=== PATIENT | female | born 1955 | race Caucasian/White ===

== ENCOUNTER 2020-09-27 11:09 | Outpatient (REF) | payer BC, SELFPAY ==
--- NOTE | 2020-09-27 11:15 | XR_ITS ---
EXAMINATION: XR KNEE, LEFT CLINICAL INFORMATION: Injury COMPARISON: None TECHNIQUE: Four views of the left knee. FINDINGS: There is a 3 component left knee replacement in satisfactory position. No fracture or dislocation is seen. There is no joint effusion. There is evidence of atherosclerotic disease. XR/XR knee LT 4V IMPRESSION: Satisfactory appearance of left knee replacement. No fracture or dislocation seen.
== END 2020-09-27 11:10 | disposition home or self-care (01) ==
LOC: HO.HMGCX 11:09
PROVIDERS: PCP Family Medicine; Visit Provider Family Medicine
DX: S89.92XA Unspecified injury of left lower leg, initial encounter (principal)
CPT/HCPCS: 73564

== ENCOUNTER 2021-05-16 10:04 | Outpatient (REF) | payer MEDICARE, SELFPAY ==
--- NOTE | ~2021-05-16 | MM_ITS ---
EXAMINATION: MM SCREENING DIGITAL BREAST TOMOSYNTHESIS, BILATERAL CLINICAL INFORMATION: Screening. Asymptomatic. The lifetime risk of breast cancer based on the Tyrer-Cuzick Model is 5%. COMPARISON: Mammography: 05/10/2020, 02/01/2019, 01/13/2018 TECHNIQUE: Digital breast tomosynthesis is performed in both the craniocaudal and mediolateral oblique views along with computer-aided detection (CAD). Synthesized 2D images are generated from the tomosynthesis. FINDINGS: There are scattered areas of fibroglandular density (ACR BI-RADS breast composition Category b). There are no significant masses, abnormal calcifications, or other abnormalities. Parenchymal pattern is similar to prior studies. There is smooth oval stable nodule periareolar left breast. Right breast again has grouped coarse calcifications central upper outer quadrant likely fibroadenomatous change. The axilla and skin contours are unremarkable. MM/MM tomosynthesis screening BI IMPRESSION: No mammographic evidence of malignancy. ASSESSMENT: BI-RADS 2: Benign RECOMMENDATION: Routine annual mammography screening. This patient's information was entered into a reminder system with a target due date for their next mammogram.
== END 2021-05-16 10:05 | disposition home or self-care (01) ==
LOC: HO.MAMMO 10:04
PROVIDERS: PCP Family Medicine; Visit Provider Family Medicine
DX: Z12.31 Encounter for screening mammogram for malignant neoplasm of breast (principal)
CPT/HCPCS: 77063; 77067

== ENCOUNTER 2021-07-03 14:38 | Outpatient (REF) | payer MEDICARE, SELFPAY ==
[2021-07-03 15:22] LABS: Influenza A PCR NEGATIVE (Negative); Influenza B PCR NEGATIVE (Negative); Resp Syncy Virus RNA Qual PCR NEGATIVE (Negative); SARS COV2 PCR INHOUSE NEGATIVE (Negative)
== END 2021-07-03 14:39 | disposition home or self-care (01) ==
LOC: HO.LNP 14:38
PROVIDERS: Visit Provider Family Medicine
DX: B34.9 Viral infection, unspecified (principal); Z20.822 Contact with and (suspected) exposure to COVID-19
CPT/HCPCS: 0241U

== ENCOUNTER 2021-07-09 07:08 | Outpatient (REF) | payer MEDICARE, SELFPAY ==
[2021-07-09 10:47] LABS: MANUAL DIFF FLAG NO
[2021-07-09 10:56] LABS: Basophils Percent Auto 0.5 % (0-2); Eosinophils Absolute Auto 0.1 X10*3/uL (0.0-0.4); Hemoglobin 11.2 g/dl (12.0-16.0); Imm Gran Abs Auto 0.02 X10*3/uL (0.00-0.03); Imm Gran Pct Auto 0.3 % (0.0-0.4); Lymphocytes Absolute Auto 1.8 X10*3/uL (1.2-4.9); Lymphocytes Percent Auto 28.1 % (20-40); Mean Corpuscular Hemoglobin 29.7 pg (27.0-33.0); Mean Corpuscular Volume 92.8 fL (80-98); Mean Platelet Volume 10.3 fL (9.4-12.3); Monocytes Absolute Auto 0.4 X10*3/uL (0.1-1.2); Monocytes Percent Auto 5.5 % (2-11); Neutrophils Absolute Auto 4.2 X10*3/uL (2.0-8.3); Neutrophils Percent Auto 63.6 % (45-73); Platelet Count 311 X10*3/uL (160-400); Red Blood Count 3.77 X10*6/uL (4.20-5.50); Red Cell Distribution Width 15.3 % (11.0-16.0); White Blood Count 6.5 X10*3/uL (4.8-10.8)
[2021-07-09 11:29] LABS: Estimated Average Glucose 94 mg/dL; Hemoglobin A1c % 4.9 %
[2021-07-09 11:41] LABS: TSH reflex Free T4 3.17 uIU/mL (0.32-4.0)
[2021-07-09 11:45] LABS: Alanine Aminotransferase 13 U/L (0-31); Albumin Level 4.1 g/dL (3.5-5.0); Alkaline Phosphatase 71 U/L (39-117); Anion Gap 11 (12-20); Aspartate Amino Transferase 19 U/L (5-31); Bilirubin Total 0.6 mg/dL (0.0-1.0); Blood Urea Nitrogen 16 mg/dL (9-16); Calcium 9.6 mg/dL (8.4-10.2); Carbon Dioxide 24 mmol/L (22-29); Chloride 109 mmol/L (96-108); Cholesterol 200 mg/dL; Estimated Glomerular Filt Rate > 60; Glucose Fasting 96 mg/dL (60-99); HDL Cholesterol 76 mg/dL; LDL Cholesterol Calculated 111 mg/dl; Potassium 4.3 mmol/L (3.3-5.1); Sodium 140 mmol/L (135-145); Total Protein 6.9 g/dL (6.5-8.0); Triglycerides 66 mg/dL
== END 2021-07-09 07:09 | disposition home or self-care (01) ==
LOC: HO.WFDLDS 07:08
PROVIDERS: Visit Provider Family Medicine
DX: Z00.00 Encounter for general adult medical examination without abnormal findings (principal); R73.01 Impaired fasting glucose
CPT/HCPCS: 36415; 80053; 80061; 83036; 84443; 85025

== ENCOUNTER 2021-09-30 10:37 | Outpatient (REF) | payer MEDICARE, SELFPAY ==
[2021-10-03 21:31] LABS: HPV mRNA E6/E7 rflx Not Detected (Not Detected)
== END 2021-09-30 10:38 | disposition home or self-care (01) ==
LOC: HO.LAB 10:37
PROVIDERS: PCP Family Medicine; Visit Provider Obstetrics & Gynecology
DX: Z01.419 Encounter for gynecological examination (general) (routine) without abnormal findings (principal); Z11.51 Encounter for screening for human papillomavirus (HPV)
CPT/HCPCS: 87624; 88142

== ENCOUNTER 2021-10-17 09:35 | Outpatient (REF) | payer MEDICARE, SELFPAY ==
--- NOTE | ~2021-10-17 | MM_ITS ---
EXAMINATION: BONE DENSITOMETRY CLINICAL INDICATION: Menopause. COMPARISON: Previous BD dated 05/10/2020 and baseline BD dated 01/13/2018. TECHNIQUE: Using a [employer] DXA System (software version: 13.1) manufactured by [employer], dual-energy x-ray absorptiometry was performed of the lumbar spine and right hip. Patient with left hip replacement. The images are of good technical quality. Summary results are attached. FINDINGS: AP SPINE L1-L4: Current: BMD 1.061 g/cm2, Z-score 0.3, T-score -1.0, normal, 3.1% decrease from previous, 1.6% decrease from baseline (<5% change is not significant). Prior: BMD 1.095 g/cm2. Baseline: BMD 1.078 g/cm2. RIGHT FEMUR, NECK: Current: BMD 0.950 g/cm2, Z-score 0.7, T-score -0.6, normal. Prior: BMD 0.940 g/cm2. Baseline: BMD 0.945 g/cm2. RIGHT FEMUR, TOTAL: Current: BMD 0.968 g/cm2, Z-score 0.7, T-score -0.3, normal, 1.6% decrease from previous, 0.3% decrease from baseline (<5% change is not significant). Prior: BMD 0.984 g/cm2. Baseline: BMD 0.971 g/cm2. IDENTIFIED RISK FACTORS: Menopause, low calcium intake. HISTORY OF FRACTURE: None listed. MEDICATIONS: Calcium, vitamin D. MM/XR DEXA axial skeleton IMPRESSION: 1. DIAGNOSIS: Normal bone density based on the lowest T-score value of -1.0 in the lumbar spine applying World Health Organization criteria. 2. 10-YEAR FRACTURE RISK PREDICTION, FRAX: Major osteoporotic fracture (clinical spine, forearm, hip or shoulder) 7.4%. Hip fracture 0.4%. 3. Treatment Recommendations: NOF guidelines recommend consideration for treatment in postmenopausal women and men age 50 and older presenting with the following: -A hip or vertebral (clinical or morphometric) fracture. -T-score less than or equal to -2.5 at the femoral neck or spine after appropriate evaluation to exclude secondary causes. -Low bone mass at the hip or spine and a 10-year fracture probability by FRAX of greater than or equal to 3% for hip fracture or greater than or equal to 20% for major osteoporotic fracture based on the [place] adapted WHO algorithm. 4. Other Recommendations: All treatment decisions require clinical judgment and consideration of individual patient factors, including patient preferences, comorbidities, previous drug use, risk factors not captured in the FRAX model (e.g. frailty, falls, vitamin D deficiency, increased bone turnover, interval significant decline in bone density) and possible under or overestimation of fracture risk by FRAX. FUTURE SCAN RECOMMENDATION: People with diagnosed cases of osteoporosis or at high risk for fracture should have regular bone mineral density tests. For patients eligible for Medicare, routine testing is allowed once every 2 years. The testing frequency can be increased to one year for patients who have rapidly progressing disease, those who are receiving or discontinuing medical therapy to restore bone mass, or have additional risk factors.
== END 2021-10-17 09:36 | disposition home or self-care (01) ==
LOC: HO.MAMMO 09:35
PROVIDERS: Visit Provider Obstetrics & Gynecology
DX: Z13.820 Encounter for screening for osteoporosis (principal); Z78.0 Asymptomatic menopausal state; Z79.899 Other long term (current) drug therapy
CPT/HCPCS: 77080

== ENCOUNTER → 2021-10-30 09:42 | Outpatient (BNVA) | payer MEDICARE, SELFPAY | PROVIDERS: PCP Family Medicine; Visit Provider Obstetrics & Gynecology | DX: M85.80 Other specified disorders of bone density and structure, unspecified site (principal) | CPT/HCPCS: 99212 ==

== ENCOUNTER 2021-11-03 14:32 | Outpatient (REF) | payer MEDICARE, SELFPAY | END 2021-11-03 14:33 | disposition home or self-care (01) | LOC: HO.LNP 14:32 | PROVIDERS: Visit Provider Physician Assistant Medical | DX: Z20.822 Contact with and (suspected) exposure to COVID-19 (principal) | CPT/HCPCS: U0003; U0005 ==

== ENCOUNTER 2021-12-15 08:54 | Outpatient (REF) | payer MEDICARE, SELFPAY ==
--- NOTE | ~2021-12-15 | CT_ITS ---
EXAMINATION: CT CHEST SCREENING CLINICAL INFORMATION: Smoker. COMPARISON: CT chest 05/23/2020. TECHNIQUE: Multidetector volumetric CT imaging of the chest is performed without contrast using low dose technique. Additional 2D coronal and sagittal reformatted images and axial 3D maximum intensity projection (MIP) images are generated on the CT workstation. This CT examination was performed using dose optimization techniques as appropriate, variously including the following: *Automated exposure control *Adjustment of mA and/or kV according to patient size (this includes techniques or standardized protocols for targeted exams where dose is matched to indication/reason for exam; i.e. extremities or head) *Use of iterative reconstruction technique DLP: 38 mGy-cm FINDINGS: LUNGS: The lungs are well expanded with band-like atelectasis right upper lobe and patchy atelectasis in the lingula. There is a 2 mm nodule along the left superior major fissure axial image 92/6, 2 mm subpleural-based nodule right lung apex image 70/6. No additional pulmonary nodule seen. MEDIASTINUM: The thyroid lobes are symmetrical and normal. The central trachea and the bronchi are widely patent. The heart size and the great vessels are normal caliber. There is trace coronary artery calcification. No pericardial effusion seen. PLEURA: There is no pleural effusion. No pleural mass or thickening. AXILLA: No lymphadenopathy. UPPER ABDOMEN: Visualized liver, spleen, pancreas, bilateral adrenal glands are unremarkable. OSSEOUS STRUCTURES: No lytic or sclerotic process seen. There is mild ventral spondylosis dorsal spine. CT/CT lung screening IMPRESSION: Small subpleural nodules in both upper lobes. They are stable. No new nodules seen. ASSESSMENT: Lung-RADS category 2: Benign RECOMMENDATION: Low-dose annual chest CT follow-up.
== END 2021-12-15 08:55 | disposition home or self-care (01) ==
LOC: HO.CT 08:54
PROVIDERS: Visit Provider Physician Assistant Medical
DX: Z12.2 Encounter for screening for malignant neoplasm of respiratory organs (principal); F17.200 Nicotine dependence, unspecified, uncomplicated
CPT/HCPCS: 71271

== ENCOUNTER 2022-02-03 10:45 | Outpatient (REF) | payer MEDICARE, SELFPAY ==
[2022-02-03 11:07] LABS: MANUAL DIFF FLAG NO
[2022-02-03 11:58] LABS: Basophils Percent Auto 0.9 % (0-2); Eosinophils Absolute Auto 0.1 X10*3/uL (0.0-0.4); Hematocrit 33.6 % (37.0-47.0); Hemoglobin 11.1 g/dl (12.0-16.0); Imm Gran Abs Auto 0.01 X10*3/uL (0.00-0.03); Imm Gran Pct Auto 0.2 % (0.0-0.4); Lymphocytes Absolute Auto 1.4 X10*3/uL (1.2-4.9); Lymphocytes Percent Auto 30.9 % (20-40); Mean Corpuscular Hemoglobin 29.5 pg (27.0-33.0); Mean Corpuscular Volume 89.4 fL (80.0-98.0); Monocytes Absolute Auto 0.4 X10*3/uL (0.1-1.2); Monocytes Percent Auto 8.2 % (2-11); Neutrophils Absolute Auto 2.6 x10*3/uL (2.0-8.3); Neutrophils Percent Auto 57.8 % (45-73); Platelet Count 287 X10*3/uL (160-400); Red Blood Count 3.76 X10*6/uL (4.20-5.50); Red Cell Distribution Width 16.2 % (11.0-16.0); White Blood Count 4.5 X10*3/uL (4.8-10.8)
== END 2022-02-03 10:46 | disposition home or self-care (01) ==
LOC: HO.LAB 10:45
PROVIDERS: PCP Family Medicine; Visit Provider Family Medicine
DX: Z00.00 Encounter for general adult medical examination without abnormal findings (principal); D64.9 Anemia, unspecified
CPT/HCPCS: 36415; 85025

== ENCOUNTER 2022-03-10 06:45 | Outpatient (REF) | payer MEDICARE, SELFPAY ==
[2022-03-10 06:57] LABS: MANUAL DIFF FLAG NO
[2022-03-10 07:39] LABS: Basophils Percent Auto 0.6 % (0-2); Eosinophils Absolute Auto 0.2 X10*3/uL (0.0-0.4); Eosinophils Percent Auto 3.6 % (0-4); Hematocrit 33.1 % (37.0-47.0); Hemoglobin 10.6 g/dl (12.0-16.0); Immature Retic Fraction 8.8 % (3.0-15.9); Lymphocytes Absolute Auto 2.3 X10*3/uL (1.2-4.9); Lymphocytes Percent Auto 48.8 % (20-40); Mean Corpuscular Hemoglobin 28.6 pg (27.0-33.0); Mean Corpuscular Volume 89.5 fL (80.0-98.0); Monocytes Absolute Auto 0.3 X10*3/uL (0.1-1.2); Monocytes Percent Auto 7.3 % (2-11); Neutrophils Absolute Auto 1.9 x10*3/uL (2.0-8.3); Neutrophils Percent Auto 39.7 % (45-73); Platelet Count 267 X10*3/uL (160-400); Red Cell Distribution Width 16.1 % (11.0-16.0); Retic HGB Equivalent 31.8 pg (30.0-35.0); Reticulocytes Absolute 0.038 X10*6/uL (0.026-0.095); White Blood Count 4.7 X10*3/uL (4.8-10.8)
[2022-03-10 08:21] LABS: Ferritin 10 ng/mL (10-250)
[2022-03-10 08:31] LABS: Iron 89 mcg/dL (30-160); Percent Iron Saturation 26 % (15-50); Total Iron Binding Capacity 344 mcg/dL (228-428); Unsaturated Iron Binding 255 ug/dL
[2022-03-10 08:35] LABS: Folate 19.7 ng/mL (> or = 4.0); Vitamin B12 499 pg/mL (200-900)
== END 2022-03-10 06:46 | disposition home or self-care (01) ==
LOC: HO.LAB 06:45
PROVIDERS: PCP Family Medicine; Visit Provider Family Medicine
DX: Z00.00 Encounter for general adult medical examination without abnormal findings (principal); D64.9 Anemia, unspecified; E53.8 Deficiency of other specified B group vitamins
CPT/HCPCS: 36415; 82607; 82728; 82746; 83540; 85025; 85045

== ENCOUNTER 2022-05-06 09:00 | Outpatient (REF) | payer MEDICARE, SELFPAY ==
[2022-05-06 11:21] LABS: MANUAL DIFF FLAG NO
[2022-05-06 11:31] LABS: Basophils Percent Auto 0.6 % (0-2); Eosinophils Absolute Auto 0.1 X10*3/uL (0.0-0.4); Eosinophils Percent Auto 1.6 % (0-4); Hematocrit 34.3 % (37.0-47.0); Hemoglobin 10.9 g/dl (12.0-16.0); Imm Gran Abs Auto 0.02 X10*3/uL (0.00-0.03); Imm Gran Pct Auto 0.3 % (0.0-0.4); Lymphocytes Absolute Auto 2.4 X10*3/uL (1.2-4.9); Lymphocytes Percent Auto 35.7 % (20-40); Mean Corpuscular HGB Conc 31.8 g/dl (31.0-35.0); Mean Corpuscular Hemoglobin 28.5 pg (27.0-33.0); Mean Corpuscular Volume 89.6 fL (80.0-98.0); Mean Platelet Volume 9.9 fL (9.4-12.3); Monocytes Absolute Auto 0.4 X10*3/uL (0.1-1.2); Monocytes Percent Auto 6.1 % (2-11); Neutrophils Absolute Auto 3.7 x10*3/uL (2.0-8.3); Neutrophils Percent Auto 55.7 % (45-73); Platelet Count 254 X10*3/uL (160-400); Red Blood Count 3.83 X10*6/uL (4.20-5.50); Red Cell Distribution Width 16.8 % (11.0-16.0); White Blood Count 6.7 X10*3/uL (4.8-10.8)
== END 2022-05-06 09:01 | disposition home or self-care (01) ==
LOC: HO.WFDLDS 09:00
PROVIDERS: Visit Provider Family Medicine
DX: D64.9 Anemia, unspecified (principal)
CPT/HCPCS: 36415; 85025

== ENCOUNTER → 2022-05-07 10:30 | Outpatient (BNV) | payer MEDICARE, SELFPAY | PROVIDERS: PCP Family Medicine; Referring Provider Family Medicine; Visit Provider Internal Medicine Medical Oncology | DX: D50.8 Other iron deficiency anemias (principal) | CPT/HCPCS: 99204; 99213 ==

== ENCOUNTER 2022-05-12 | Outpatient (REF) | payer MEDICARE, SELFPAY ==
[2022-05-15 07:18] LABS: OBS Int Ctl Valid YES; OBS1 NEGATIVE (NEGATIVE); OBS2 NEGATIVE (NEGATIVE); OBS3 NEGATIVE (NEGATIVE)
== END 2022-05-12 00:01 | disposition home or self-care (01) ==
LOC: HO.LNP
PROVIDERS: Visit Provider Internal Medicine Medical Oncology
DX: D64.9 Anemia, unspecified (principal)
CPT/HCPCS: 82270

== ENCOUNTER 2022-05-21 10:21 | Outpatient (REF) | payer MEDICARE, SELFPAY ==
--- NOTE | ~2022-05-21 | MM_ITS ---
EXAMINATION: MM SCREENING DIGITAL BREAST TOMOSYNTHESIS, BILATERAL CLINICAL INFORMATION: Screening. Asymptomatic. The lifetime risk of breast cancer based on the Tyrer-Cuzick Model is 4%. COMPARISON: Mammography: 05/16/2021, 05/10/2020, 02/01/2019, 01/13/2018 TECHNIQUE: Digital breast tomosynthesis is performed in both the craniocaudal and mediolateral oblique views along with computer-aided detection (CAD). Synthesized 2D images are generated from the tomosynthesis. FINDINGS: There are scattered areas of fibroglandular density (ACR BI-RADS breast composition Category b). Right breast has a new circumscribed 0.4 cm smooth nodule retroareolar 9:00 position, possibly a cyst. Patient will be recalled for additional targeted ultrasound to further characterize. The remainder of the breasts show scattered fibroglandular density stromal markings similar to prior studies. Again, there are tightly grouped stable benign calcifications mid upper outer right breast likely fibroadenomatous change. The axilla and skin contours are unremarkable. MM/MM tomosynthesis screening BI IMPRESSION: Right: -New 4 mm smooth nodule 9:00 retroareolar position, possibly a cyst. Left: -No mammographic evidence of malignancy. ASSESSMENT: BI-RADS 0: Incomplete - Need Additional Imaging Evaluation RECOMMENDATION: 1. Targeted ultrasound right breast. 2. Radiology department staff will contact the patient for additional imaging. This patient's information was entered into a reminder system with a target due date for their next mammogram.
== END 2022-05-21 10:22 | disposition home or self-care (01) ==
LOC: HO.MAMMO 10:21
PROVIDERS: Visit Provider Family Medicine
DX: Z12.31 Encounter for screening mammogram for malignant neoplasm of breast (principal)
CPT/HCPCS: 77063; 77067

== ENCOUNTER 2022-05-26 07:50 | Outpatient (REF) | payer MEDICARE, SELFPAY | END 2022-05-26 07:51 | disposition home or self-care (01) | LOC: HO.MDS 07:50 | PROVIDERS: Visit Provider Internal Medicine Medical Oncology | DX: D50.9 Iron deficiency anemia, unspecified (principal); N63.10 Unspecified lump in the right breast, unspecified quadrant | CPT/HCPCS: 76642; 96365; J2916 ==

== ENCOUNTER 2022-05-26 14:16 | Outpatient (REF) | payer MEDICARE, SELFPAY ==
--- NOTE | ~2022-05-26 | US_ITS ---
EXAMINATION: US DIAGNOSTIC ULTRASOUND BREAST, RIGHT CLINICAL INFORMATION: Recall from screening for 4 mm smooth nodule 9:00 retroareolar right breast, possibly a cyst. COMPARISON: Mammography 05/21/2022, 05/16/2021. TECHNIQUE: Ultrasound right breast is targeted to the outer retroareolar region. Grayscale imaging and color Doppler are performed without and with harmonics. FINDINGS: There is a 3 x 4 mm cyst anterior 9:00 position corresponding to finding on mammography. This is anechoic with increased through-transmission of sound and no color flow. There is no solid mass or architectural abnormality. Results are discussed with the patient at time of visit. US/US breast RT limited IMPRESSION: Small cyst anterior 9:00 position 3 x 4 mm corresponding to recent mammography. ASSESSMENT: BI-RADS 2: Benign RECOMMENDATION: Routine annual mammography screening. This patient's information was entered into a reminder system with a target due date for their next mammogram.
== END 2022-05-26 14:17 | disposition home or self-care (01) ==
LOC: HO.MAMMO 14:16
PROVIDERS: Visit Provider Family Medicine
DX: Z13.89 Encounter for screening for other disorder (principal)
CPT/HCPCS: 76642

== ENCOUNTER 2022-06-01 07:22 | Outpatient (REF) | payer MEDICARE, SELFPAY | END 2022-06-01 07:23 | disposition home or self-care (01) | LOC: HO.MDS 07:22 | PROVIDERS: Visit Provider Internal Medicine Medical Oncology | DX: D50.9 Iron deficiency anemia, unspecified (principal) | CPT/HCPCS: 96365; J2916 ==

== ENCOUNTER 2022-06-12 09:03 | Outpatient (REF) | payer MEDICARE, SELFPAY | END 2022-06-12 09:04 | disposition home or self-care (01) | LOC: HO.MDS 09:03 | PROVIDERS: Visit Provider Internal Medicine Medical Oncology | DX: D50.9 Iron deficiency anemia, unspecified (principal) | CPT/HCPCS: 96365; J2916 ==

== ENCOUNTER 2022-06-17 08:22 | Outpatient (REF) | payer MEDICARE, SELFPAY | END 2022-06-17 08:23 | disposition home or self-care (01) | LOC: HO.MDS 08:22 | PROVIDERS: Visit Provider Internal Medicine Medical Oncology | DX: D50.9 Iron deficiency anemia, unspecified (principal) | CPT/HCPCS: 96365; J2916 ==

== ENCOUNTER 2022-06-25 08:21 | Outpatient (REF) | payer MEDICARE, SELFPAY ==
[2022-06-25 08:43] LABS: MANUAL DIFF FLAG NO
[2022-06-25 08:45] LABS: Basophils Percent Auto 0.8 % (0-2); Eosinophils Absolute Auto 0.1 X10*3/uL (0.0-0.4); Eosinophils Percent Auto 3.3 % (0-4); Hematocrit 34.9 % (37.0-47.0); Hemoglobin 11.5 g/dl (12.0-16.0); Imm Gran Abs Auto 0.02 X10*3/uL (0.00-0.03); Imm Gran Pct Auto 0.5 % (0.0-0.4); Lymphocytes Absolute Auto 1.4 X10*3/uL (1.2-4.9); Lymphocytes Percent Auto 34.6 % (20-40); Mean Corpuscular Hemoglobin 29.9 pg (27.0-33.0); Mean Corpuscular Volume 90.9 fL (80.0-98.0); Mean Platelet Volume 9.1 fL (9.4-12.3); Monocytes Absolute Auto 0.2 X10*3/uL (0.1-1.2); Monocytes Percent Auto 5.3 % (2-11); Neutrophils Absolute Auto 2.2 x10*3/uL (2.0-8.3); Neutrophils Percent Auto 55.5 % (45-73); Platelet Count 237 X10*3/uL (160-400); Red Blood Count 3.84 X10*6/uL (4.20-5.50); Red Cell Distribution Width 17.3 % (11.0-16.0)
== END 2022-06-25 08:22 | disposition home or self-care (01) ==
LOC: HO.MDS 08:21
PROVIDERS: Visit Provider Internal Medicine Medical Oncology
DX: D50.9 Iron deficiency anemia, unspecified (principal)
CPT/HCPCS: 36415; 85025; 96365; J2916

== ENCOUNTER 2022-07-01 08:24 | Outpatient (REF) | payer MEDICARE, SELFPAY | END 2022-07-01 08:25 | disposition home or self-care (01) | LOC: HO.MDS 08:24 | PROVIDERS: Visit Provider Internal Medicine Medical Oncology | DX: D50.9 Iron deficiency anemia, unspecified (principal) | CPT/HCPCS: 96365; J2916 ==

== ENCOUNTER 2022-07-27 12:40 | Outpatient (REF) | payer MEDICARE, SELFPAY | END 2022-07-27 12:41 | disposition home or self-care (01) | LOC: HO.MDS 12:40 | PROVIDERS: Visit Provider Internal Medicine Medical Oncology | DX: D50.9 Iron deficiency anemia, unspecified (principal) | CPT/HCPCS: 96365; J1756 ==

== ENCOUNTER 2022-08-06 13:17 | Outpatient (REF) | payer MEDICARE, SELFPAY | END 2022-08-06 13:18 | disposition home or self-care (01) | LOC: HO.MDS 13:17 | PROVIDERS: Visit Provider Internal Medicine Medical Oncology | DX: D50.9 Iron deficiency anemia, unspecified (principal) | CPT/HCPCS: 96365; J1756 ==

== ENCOUNTER 2022-08-12 07:26 | Outpatient (REF) | payer MEDICARE, SELFPAY | END 2022-08-12 07:27 | disposition home or self-care (01) | LOC: HO.MDS 07:26 | PROVIDERS: Visit Provider Internal Medicine Medical Oncology | DX: D50.9 Iron deficiency anemia, unspecified (principal) | CPT/HCPCS: 96365; J1756 ==

== ENCOUNTER 2022-08-21 07:29 | Day surgery (SDC) | payer MEDICARE, SELFPAY ==
[2022-08-18 11:12] VITALS: BMI 27.1
--- NOTE | 2022-08-20 11:45 | HO.ANESPROP2 ---
Documented by User: Lora Pearl NP 08/20/22 11:56 HPI - Anesthesia Eval Consult details Narrative: 67yo F for Upper Endoscopy and Colonoscopy eliquis for afib Stable at last cardiac visit 06/2022 [facility] Active Problems Active Problems: All Active Problems (Updated 05/07/22 @ 12:28 by Martin Dupree MD) Left knee injury (Acute) Status post left knee replacement (Acute) Anxiety (Acute) Left knee pain (Acute) History of left knee replacement (Acute) Atrial fibrillation (Acute) SVT (supraventricular tachycardia) (Acute) Viral illness (Acute) Annual visit for general adult medical examination without abnormal findings (Acute) Screening for osteoporosis (Acute) Immunization counseling (Acute) Breast cancer screening by mammogram (Acute) Screening for colon cancer (Acute) Screening for cervical cancer (Acute) Depression with anxiety (Acute) Mild anemia (Acute) Well woman exam (Acute) Osteopenia (Acute) Contact with and (suspected) exposure to other viral communicable diseases (Acute) Memory changes (Acute) Normocytic anemia (Acute) Muscle cramp (Acute) Normochromic normocytic anemia (Acute) Past Medical History Medical History Atrial fibrillation Depression with anxiety HTN (hypertension) Normocytic anemia Osteopenia SVT (supraventricular tachycardia) Family History Family History Brother Lung cancer Surgical History Surgical History H/O heart surgery History of left knee replacement History of prior ablation treatment History of total hip replacement Hx of colonoscopy Social History Social History Household Members: Spouse and Children Housing: House Are you a primary director critical care to a significant other at home: No Do you presently have visiting nurse or other home services: No Alcohol intake: current Alcohol intake frequency: holidays/special occasions only Alcohol type: beer Patient Tobacco Use Status: Former Tobacco user Quit Date: 15 yrs ago e-Cigarette/Vaping Use: Never Used Second Hand Smoke Exposure: No Use of substances other than those prescribed or required for medical reasons: No Are you DNR?: No Advance Directives: No Advance Directives Information Provided: Yes service: No Current occupational status: retired Current occupational exposures/hazards: No Cognitive needs: No Hearing needs: No Vision needs: No Meds Allergies Allergy/AdvReac Type Severity Reaction Status Date / Time No Known Allergies Allergy Verified 08/13/22 08:28 [No Known Allergies*] Home Medications Medication Instructions Recorded Confirmed Last Taken Type biotin 10,000 mcg disintegrating 10,000 mcg PO DAILY 05/07/22 08/21/22 Unknown History tablet calcium carbonate 500 mg-vitamin 1 tab PO DAILY 05/07/22 08/21/22 Unknown History D3 3.125 mcg (125 unit) tablet diclofenac sodium 1 % topical gel 3 - 4 g topical TID 05/07/22 08/21/22 Unknown History (Voltaren Arthritis Pain) xkjcusbh-swi-xjuv-FA-Ca carb-vit K 1 tab PO DAILY 05/07/22 08/21/22 Unknown History 18 mg iron-400 mcg-500 mg tablet clonazepam 0.5 mg tablet (Klonopin) 0.5 mg PO BID PRN anxiety 07/30/22 08/21/22 Unknown History Exam Exam Date and Time: August 20, 2022 1145 Height,Weight and Vital Signs: Height 5 ft 3 in Weight 69.4 kg Pertinent Lab Results Pertinent Lab Results: Laboratory Tests 08/13/22 08/13/22 08:23 08:23 WBC 4.8 Hgb 11.8 L Hct 35.9 L Plt Count 249 Sodium 141 Potassium 4.3 Chloride 107 Carbon Dioxide 26 BUN 15 Creatinine 0.73 Narrative Narrative: EKG 11/2021 SR @ 65 PACs ECHO 05/2022 LVEF 65-70% Interderminate diastolic function LA severely dilated No aortic stenosis Mild MR RV systolic pressure, as measured by Doppler is 25mmHg No evidence of pulm htn Ascending aorta is nml in size No change from 2018 Assessment and Plan Assessment Anesthesia Assessment: Chart Reviewed Documented by User: Vicky Menjivar MD 08/21/22 08:47 [facility] Past Medical History Medical History Atrial fibrillation Depression with anxiety HTN (hypertension) Normocytic anemia Osteopenia SVT (supraventricular tachycardia) Family History Family History Brother Lung cancer Surgical History Surgical History H/O heart surgery History of left knee replacement History of prior ablation treatment History of total hip replacement Hx of colonoscopy History of Problems with Anesthesia: No Social History Social History Household Members: Spouse and Children Housing: House Are you a primary director critical care to a significant other at home: No Do you presently have visiting nurse or other home services: No Alcohol intake: current Alcohol intake frequency: holidays/special occasions only Alcohol type: beer Patient Tobacco Use Status: Former Tobacco user Quit Date: 15 yrs ago e-Cigarette/Vaping Use: Never Used Second Hand Smoke Exposure: No Use of substances other than those prescribed or required for medical reasons: No Are you DNR?: No Advance Directives: No Advance Directives Information Provided: Yes service: No Current occupational status: retired Current occupational exposures/hazards: No Cognitive needs: No Hearing needs: No Vision needs: No Meds Allergies Allergy/AdvReac Type Severity Reaction Status Date / Time No Known Allergies Allergy Verified 08/13/22 08:28 [No Known Allergies*] Home Medications Medication Instructions Recorded Confirmed Last Taken Type biotin 10,000 mcg disintegrating 10,000 mcg PO DAILY 05/07/22 08/21/22 Unknown History tablet calcium carbonate 500 mg-vitamin 1 tab PO DAILY 05/07/22 08/21/22 Unknown History D3 3.125 mcg (125 unit) tablet diclofenac sodium 1 % topical gel 3 - 4 g topical TID 05/07/22 08/21/22 Unknown History (Voltaren Arthritis Pain) xlvzkhmk-cjr-klmh-FA-Ca carb-vit K 1 tab PO DAILY 05/07/22 08/21/22 Unknown History 18 mg iron-400 mcg-500 mg tablet clonazepam 0.5 mg tablet (Klonopin) 0.5 mg PO BID PRN anxiety 07/30/22 08/21/22 Unknown History Exam Airway Mallampati Class: II TM Dist: >3cm Neck ROM: Full Loose/Missing/Broken Teeth: No Heart: RRR Lungs: CTA Assessment and Plan Assessment Anesthesia Assessment: Anesthesia Plan Discussed Final Anesthetic Review History of Problems with Anesthesia: No NPO: Yes ASA Class: II Final Preanesthetic Review: Meds/Allgs Chart Reviewed, Consent Obtained/Reviewed and Anes Risks/Benef Reviewed Patient Risk: Low Procedure Risk: Intermediate Anesthetic Plan Anesthetic Plan: MAC: Disposition: Standard PACU
[2022-08-21 08:10] VITALS: BP 140/59; PULSE 55; RESP 15; TEMP 36.4; O2SAT 97
[2022-08-21] MEDS: Lactated Ringers 1,000 ML 100 ML IVCONT (08:20)
[2022-08-21 09:50] VITALS: BP 137/60; PULSE 54; RESP 20; TEMP 36.3; O2SAT 97
--- NOTE | 2022-08-21 09:56 | P.BOP_ITS ---
Brief Operative Note Date of Service: 08/21/22 Pre-op diagnosis: GERD, Anemia Post-op diagnosis: other (Hiatal hernia, Gastritis, Diverticulosis) Procedure: EGD with biopsies, Colonoscopy to the cecum Surgeon: Jean Hairston Anesthesia: MAC Was an Surveillance Technician used for this Procedure?: No Estimated blood loss (mL): 2.0 Pathology: other (A. Descending duodenum B. Gastric antrum C. Esophagus 34-35 cm) Condition: stable Disposition: PACU
[2022-08-21 10:05] VITALS: BP 147/62; PULSE 54; RESP 16; TEMP 36.1; O2SAT 98
--- NOTE | 2022-08-21 22:59 | OP_ITS ---
SURGEON: Jean Hairston MD INDICATIONS: The patient presents for evaluation of iron-deficiency anemia and reflux. Full consent has been obtained from her for this, including risks of bleeding and perforation. PREOPERATIVE DIAGNOSIS: POSTOPERATIVE DIAGNOSIS: PROCEDURE PERFORMED: Esophagogastroduodenoscopy with biopsies and colonoscopy to the cecum. ESTIMATED BLOOD LOSS: COMPLICATIONS: ANESTHESIA: Monitored anesthesia care. ASSISTANTS: SPECIMENS: PREOPERATIVE DIAGNOSES: Iron deficiency anemia and reflux. POSTOPERATIVE DIAGNOSES: Iron deficiency anemia and reflux, hiatal hernia, rule out Amaro's esophagus, gastritis, rule out celiac disease, diverticulosis, and internal hemorrhoids. DESCRIPTION OF PROCEDURE: The patient was placed in the left lateral decubitus position. The Olympus video gastroscope was passed in the posterior oropharynx and upper esophagus under direct vision. The scope was passed slowly to the distal esophagus. The gastroesophageal junction appeared at 35 cm. Extending from this to 34 cm were some small segments of possible Amaro's mucosa. There was no esophagitis nor any lesions. The scope entered into the stomach. There was a small hiatal hernia. The scope was advanced to the pylorus, and the duodenum was cannulated to the descending portion. The duodenum including the bulb appeared normal without mass or ulceration. Biopsies were obtained from the duodenum to rule out celiac disease. The scope was withdrawn back to the stomach. The gastric antrum and body had changes of a chronic gastritis with some edema and erythema but no erosions or ulceration. There was good peristalsis. Biopsies were obtained. The scope was retroflexed visualizing the proximal stomach carefully, which appeared normal, without any sign of mass or ulceration. The scope was straightened and withdrawn back to the esophagus. Biopsies were obtained between 34 and 35 cm. Proximal to 34 cm, the esophageal mucosa appeared normal. The scope was withdrawn from the patient, she was turned around for the colonoscopy. The digital rectal exam revealed no abnormalities. The Olympus video pediatric colonoscope was entered into the rectum and advanced easily to the cecum. Once in the cecum, I did identify a normal-appearing cecal pouch with appendiceal orifice and a normal-appearing ileocecal valve. The entire cecum and ileocecal valve appeared normal. The scope was slowly withdrawn assessing all mucosal surfaces carefully. Preparation was excellent. I did not visualize any sign of polyps, colitis, nor angiodysplasia. There was a mild amount of sigmoid diverticulosis. In the rectum, the scope was retroflexed visualizing internal hemorrhoids, but no other pathology. The rectal mucosa appeared normal. Scope was straightened and withdrawn from the patient. She tolerated the procedure well and was returned to the recovery area in stable condition. IMPRESSION: 1. Hiatal hernia, gastroesophageal reflux, rule out Amaro's esophagus. 2. Gastritis. 3. Rule out celiac disease. 4. Diverticulosis. 5. Internal hemorrhoids. PLAN: The results of the biopsies will be checked. She was advised to continue her daily omeprazole. She was advised not to use any aspirin or NSAIDs given that she is on chronic Eliquis. She was advised to resume her Eliquis in 48 hours. She was advised to see me again for a followup office visit. I would recommend a repeat colonoscopy in 10 years for screening given today's negative exam, negative colonoscopies in the past, and no family history of colon cancer. She will also follow up with Dr. Dupree in regard to the anemia. MD AMADOU Pike/IVAN / [id number] MTDD
== END 2022-08-21 10:54 | disposition home or self-care (01) ==
PROVIDERS: PCP Family Medicine; Visit Provider Internal Medicine
PROC: (CPT 45378; principal; 2022-08-21 08:30)
DX: D50.9 Iron deficiency anemia, unspecified (principal); K57.30 Diverticulosis of large intestine without perforation or abscess without bleeding; K64.8 Other hemorrhoids; K21.9 Gastro-esophageal reflux disease without esophagitis; K29.50 Unspecified chronic gastritis without bleeding; K22.70 Barrett's esophagus without dysplasia; K44.9 Diaphragmatic hernia without obstruction or gangrene; I47.1 Supraventricular tachycardia; I10 Essential (primary) hypertension; I49.5 Sick sinus syndrome; I48.91 Unspecified atrial fibrillation; Z79.01 Long term (current) use of anticoagulants; Z79.899 Other long term (current) drug therapy; Z87.891 Personal history of nicotine dependence
CPT/HCPCS: 45378; 43239; 88305; 88342

== ENCOUNTER 2022-08-25 08:01 | Outpatient (REF) | payer MEDICARE, SELFPAY | END 2022-08-25 08:02 | disposition home or self-care (01) | LOC: HO.MDS 08:01 | PROVIDERS: Visit Provider Internal Medicine Medical Oncology | DX: D50.9 Iron deficiency anemia, unspecified (principal) | CPT/HCPCS: 96365; J1756 ==

== ENCOUNTER 2022-09-01 08:24 | Outpatient (REF) | payer MEDICARE, SELFPAY | END 2022-09-01 08:25 | disposition home or self-care (01) | LOC: HO.MDS 08:24 | PROVIDERS: Visit Provider Internal Medicine Medical Oncology | DX: D50.9 Iron deficiency anemia, unspecified (principal) | CPT/HCPCS: 96365; J1756 ==

== ENCOUNTER 2022-09-08 08:09 | Outpatient (REF) | payer MEDICARE, SELFPAY | END 2022-09-08 08:10 | disposition home or self-care (01) | LOC: HO.MDS 08:09 | PROVIDERS: Visit Provider Internal Medicine Medical Oncology | DX: D50.9 Iron deficiency anemia, unspecified (principal) | CPT/HCPCS: 96365; J1756 ==

== ENCOUNTER 2022-09-15 08:42 | Outpatient (REF) | payer MEDICARE, SELFPAY | END 2022-09-15 08:43 | disposition home or self-care (01) | LOC: HO.MDS 08:42 | PROVIDERS: Visit Provider Internal Medicine Medical Oncology | DX: D50.9 Iron deficiency anemia, unspecified (principal) | CPT/HCPCS: 96365; J1756 ==

== ENCOUNTER 2022-09-23 07:53 | Outpatient (REF) | payer MEDICARE, SELFPAY | END 2022-09-23 07:54 | disposition home or self-care (01) | LOC: HO.MDS 07:53 | PROVIDERS: Visit Provider Internal Medicine Medical Oncology | DX: D50.9 Iron deficiency anemia, unspecified (principal) | CPT/HCPCS: 96365; J1756 ==

== ENCOUNTER → 2022-10-08 08:59 | Outpatient (BNVA) | payer MEDICARE, SELFPAY | PROVIDERS: PCP Family Medicine; Visit Provider Obstetrics & Gynecology | DX: Z01.419 Encounter for gynecological examination (general) (routine) without abnormal findings (principal); N63.20 Unspecified lump in the left breast, unspecified quadrant | CPT/HCPCS: 99212 ==

== ENCOUNTER 2022-10-13 14:49 | Outpatient (REF) | payer MEDICARE, SELFPAY ==
--- NOTE | ~2022-10-13 | MM_ITS ---
EXAMINATION: MM DIAGNOSTIC DIGITAL BREAST TOMOSYNTHESIS, LEFT US DIAGNOSTIC ULTRASOUND BREAST, LEFT CLINICAL INFORMATION: 67-year-old with 2 month history sharp lateral left breast pain. No erythema or discharge. Question palpable fullness medial breast on clinical exam. TC score 4%. No known family history breast cancer. COMPARISON: Mammography: 05/21/2022, 05/16/2021, 05/10/2020, 02/01/2019 TECHNIQUE: Digital breast tomosynthesis is performed in both the craniocaudal and mediolateral oblique views along with computer-aided detection (CAD). Synthesized 2D images are generated from the tomosynthesis. Additional exaggerated CC view is provided. Ultrasound left breast is targeted to the areas of clinical concern 1:00 through 9:00 position. Grayscale imaging and color Doppler are performed without and with harmonics. FINDINGS: The breasts are almost entirely fatty (ACR BI-RADS breast composition Category a). Background stromal markings are stable. There is no developing density or interval architectural abnormality or abnormal calcifications. No skin thickening or coarsening of the Nito's ligaments. No significant changes from prior exams. Ultrasound demonstrates no cystic or solid mass, architectural abnormality, or focal duct ectasia. No skin thickening or edema tracking in soft tissue planes. Results are discussed with the patient at time of visit. MM/MM tomosynthesis diagnostic LT IMPRESSION: -No mammographic evidence of malignancy or inflammatory changes. -Unremarkable targeted left breast ultrasound. ASSESSMENT: BI-RADS 1: Negative RECOMMENDATION: 1. Patient should be managed based on the clinical impression. 2. Otherwise, routine annual screening mammography. This patient's information was entered into a reminder system with a target due date for their next mammogram.
== END 2022-10-13 14:50 | disposition home or self-care (01) ==
LOC: HO.MAMMO 14:49
PROVIDERS: PCP Family Medicine; Visit Provider Obstetrics & Gynecology
DX: N63.24 Unspecified lump in the left breast, lower inner quadrant (principal)
CPT/HCPCS: 76642; 77061; 77065

== ENCOUNTER 2022-11-04 13:47 | Outpatient (REF) | payer MEDICARE, SELFPAY ==
--- NOTE | ~2022-11-04 | MR_ITS ---
EXAMINATION: MRI OF THE BRAIN WITHOUT CONTRAST CLINICAL INFORMATION: Memory loss. COMPARISON: There are no prior studies available for comparison. TECHNIQUE: MRI of the brain was obtained using routine sequences without contrast. FINDINGS: No diffusion abnormalities are identified to suggest an acute or subacute infarct. No mass effect or midline shift is seen. There is mild commensurate prominence of the ventricles and sulci consistent with diffuse volume loss. There are areas of increased T2 and FLAIR signal in the periventricular and subcortical white matter which are nonspecific. They may be consistent with sequelae of chronic microvascular ischemic disease, although a focus perpendicular to the corpus callosum on the right may be consistent with an area of demyelination. No extra-axial fluid collections are seen. The brainstem and cerebellum are normal. No pathologic magnetic susceptibility artifact is identified on the gradient refocused acquisition. The craniovertebral junction, marrow signal, and midline structures are normal. The major intracranial flow-voids at the level of the [place] are preserved. The dural venous sinus flow-voids are maintained. The mastoid air cells are well-aerated. There is mild mucoperiosteal thickening in the bilateral maxillary and ethmoid sinuses. MR/MR head/brain wo con IMPRESSION: 1. There are no acute bleeds or territorial infarcts. No masses are demonstrated. 2. There are scattered areas of hyperintense T2 and FLAIR signal in the deep white matter as described above. Correlate clinically. There is diffuse volume loss.
[2022-11-04 17:00] LABS: Vitamin D 25-OH Total 57.7 ng/mL (>30)
[2022-11-09 17:24] LABS: Methylmalonic Acid 181 nmol/L (87-318)
== END 2022-11-04 13:48 | disposition home or self-care (01) ==
LOC: HO.MRI 13:47
PROVIDERS: PCP Family Medicine; Visit Provider Family Medicine
DX: R41.3 Other amnesia (principal)
CPT/HCPCS: 36415; 70551; 82306; 83921

== ENCOUNTER → 2022-11-12 12:49 | Outpatient (BNVA) | payer MEDICARE, SELFPAY | PROVIDERS: PCP Family Medicine; Visit Provider Surgery | DX: N64.4 Mastodynia (principal) | CPT/HCPCS: 99202 ==

== ENCOUNTER → 2023-01-13 07:54 | Outpatient (BNVA) | payer MEDICARE, SELFPAY | PROVIDERS: PCP Family Medicine; Visit Provider Physician Assistant | DX: K22.70 Barrett's esophagus without dysplasia (principal); K44.9 Diaphragmatic hernia without obstruction or gangrene; K52.9 Noninfective gastroenteritis and colitis, unspecified; K57.90 Diverticulosis of intestine, part unspecified, without perforation or abscess without bleeding; I48.91 Unspecified atrial fibrillation; Z79.01 Long term (current) use of anticoagulants; Z98.890 Other specified postprocedural states | CPT/HCPCS: 36415; 84443; 85652; 86364; 99202 ==

== ENCOUNTER 2023-01-13 09:12 | Outpatient (REF) | payer MEDICARE, SELFPAY ==
[2023-01-13 12:02] LABS: Thyroid Stimulating Hormone 4.14 uIU/mL (0.32-4.0)
[2023-01-13 12:28] LABS: Erythrocyte Sedimentation Rate 5 MM/HR (0-20)
[2023-01-20 10:23] LABS: Transglutaminase IgA <1.0 U/mL
== END 2023-01-13 09:13 | disposition home or self-care (01) ==
LOC: HO.WFDLDS 09:12
PROVIDERS: Visit Provider Physician Assistant
DX: Z13.89 Encounter for screening for other disorder (principal)
CPT/HCPCS: 36415; 84443; 85652; 86364

== ENCOUNTER 2023-01-14 12:28 | Outpatient (REF) | payer MEDICARE, SELFPAY ==
[2023-01-14 15:07] LABS: CDiff Gene PCR NEGATIVE (Negative)
[2023-01-15 07:05] LABS: Adenovirus F 40/41 Not Detected (Not Detect.); Astrovirus Not Detected (Not Detect.); Campylobacter Not Detected (Not Detect.); Cryptosporidium Not Detected (Not Detect.); Cyclospora cayetanensis Not Detected (Not Detect.); E. coli EAEC Not Detected (Not Detect.); E. coli EPEC Not Detected (Not Detect.); E. coli ETEC Not Detected (Not Detect.); E. coli STEC Not Detected (Not Detect.); Entamoeba histolytica Not Detected (Not Detect.); Giardia lamblia Not Detected (Not Detect.); Norovirus GI/GII Not Detected (Not Detect.); Plesiomonas shigelloides Not Detected (Not Detect.); Rotavirus A Not Detected (Not Detect.); Salmonella Not Detected (Not Detect.); Sapovirus Not Detected (Not Detect.); Shigella sp./EIEC Not Detected (Not Detect.); Vibrio Not Detected (Not Detect.); Vibrio Cholerae Not Detected (Not Detect.); Yersinia enterocolitica Not Detected (Not Detect.)
[2023-01-20 22:15] LABS: Calprotectin, Fecal 126 mcg/g
[2023-01-24 21:33] LABS: Pancreatic Elastase-1 280 mcg/g
== END 2023-01-14 12:29 | disposition home or self-care (01) ==
LOC: HO.WFDLNP 12:28
PROVIDERS: Visit Provider Physician Assistant
DX: K52.9 Noninfective gastroenteritis and colitis, unspecified (principal)
CPT/HCPCS: 82656; 83993; 87493; 87507

== ENCOUNTER → 2023-02-09 08:02 | Outpatient (BNVA) | payer MEDICARE, SELFPAY | PROVIDERS: PCP Family Medicine; Visit Provider Physician Assistant | DX: K52.9 Noninfective gastroenteritis and colitis, unspecified (principal); K22.70 Barrett's esophagus without dysplasia; K21.9 Gastro-esophageal reflux disease without esophagitis; R10.9 Unspecified abdominal pain; G89.29 Other chronic pain | CPT/HCPCS: 99212 ==

== ENCOUNTER 2023-03-02 11:51 | Day surgery (SDC) | payer MEDICARE, SELFPAY ==
--- NOTE | 2023-03-01 11:48 | P.CONAN_ITS ---
HPI - Anesthesia Eval Consult details Narrative: 68yo F for Sigmoidoscopy Flexible s/p EGD/[place] 08/2022 with [facility]A Stable at 12/2022 cardiac office visit. 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 (Acute) Chronic diarrhea (Acute) Hiatal hernia (Acute) Mastodynia of left breast (Acute) Anxiety and depression (Acute) Essential hypertension (Acute) Memory changes (Acute) Left breast lump (Acute) Left knee injury (Acute) Status post left knee replacement (Acute) Anxiety (Acute) Left knee pain (Acute) Viral illness (Acute) Annual visit for general adult medical examination without abnormal findings (Acute) Screening for osteoporosis (Acute) Immunization counseling (Acute) Breast cancer screening by mammogram (Acute) Screening for colon cancer (Acute) Screening for cervical cancer (Acute) Mild anemia (Acute) Well woman exam (Acute) Contact with and (suspected) exposure to other viral communicable diseases (Acute) Memory changes (Acute) Muscle cramp (Acute) Normochromic normocytic anemia (Acute) Past Medical History Medical History Atrial fibrillation Chronic abdominal pain Depression with anxiety HTN (hypertension) Mastodynia of left breast Normocytic anemia Osteopenia SVT (supraventricular tachycardia) Family History Family History Brother Lung cancer Surgical History Surgical History H/O heart surgery History of left knee replacement History of prior ablation treatment History of total hip replacement Hx of colonoscopy History of Problems with Anesthesia: No Social History Social History Household Members: Spouse and Children Housing: House Are you a primary home health care case manager to a significant other at home: No Do you presently have visiting nurse or other home services: No Alcohol intake: current Alcohol intake frequency: holidays/special occasions only Alcohol type: beer Patient Tobacco Use Status: Former Tobacco user Quit Date: 20 years e-Cigarette/Vaping Use: Never Used Second Hand Smoke Exposure: No service: No Current occupational status: retired Current occupational exposures/hazards: No Cognitive needs: No Hearing needs: No Vision needs: No Meds Allergies Allergy/AdvReac Type Severity Reaction Status Date / Time No Known Allergies Allergy Verified 02/08/23 10:02 [No Known Allergies*] Home Medications Medication Instructions Recorded Confirmed Last Taken Type biotin 10,000 mcg disintegrating 10,000 mcg PO DAILY 05/07/22 03/02/23 Unknown History tablet calcium carbonate 500 mg-vitamin 1 tab PO DAILY 05/07/22 03/02/23 Unknown History D3 3.125 mcg (125 unit) tablet diclofenac sodium 1 % topical gel 3 - 4 g topical TID 05/07/22 03/02/23 Unknown History (Voltaren Arthritis Pain) ahbyjkal-ymv-xgfn-FA-Ca carb-vit K 1 tab PO DAILY 05/07/22 03/02/23 Unknown History 18 mg iron-400 mcg-500 mg tablet cholecalciferol (vitamin D3) 50 50 mcg PO DAILY 01/13/23 03/02/23 Unknown History mcg (2,000 unit) capsule metoprolol succinate 25 mg 12.5 mg PO DAILY 01/13/23 03/02/23 Unknown History tablet,extended release 24 hr donepezil 5 mg tablet 5 mg PO DAILY 02/08/23 03/02/23 Unknown History Exam Exam Date and Time: March 01, 2023 1148 Pertinent Lab Results Pertinent Lab Results: Laboratory Tests 08/13/22 08/13/22 08:23 08:23 WBC 4.8 Hgb 11.8 L Hct 35.9 L Plt Count 249 Sodium 141 Potassium 4.3 Chloride 107 Carbon Dioxide 26 BUN 15 Creatinine 0.73 Narrative Narrative: EKG 11/2021 SR @ 65 PACs ECHO 05/2022 LVEF 65-70% Interderminate diastolic function LA severely dilated No aortic stenosis Mild MR RV systolic pressure, as measured by Doppler is 25mmHg No evidence of pulm htn Ascending aorta is nml in size No change from 2018 Assessment and Plan Assessment Anesthesia Assessment: Chart Reviewed Final Anesthetic Review History of Problems with Anesthesia: No
[2023-03-02 13:23] VITALS: BMI 26.5
[2023-03-02 13:26] VITALS: BP 156/65; PULSE 53; RESP 18; TEMP 36.7; O2SAT 97
[2023-03-02] MEDS: Sodium Phosphate,Mono-Dibasic 133 ML ENEMA PR ×2 (13:46→14:09)
[2023-03-02] MEDS: Lactated Ringers 1,000 ML 100 ML IVCONT (13:47)
--- NOTE | 2023-03-02 14:11 | P.CONAN_ITS ---
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 (Acute) Chronic diarrhea (Acute) Hiatal hernia (Acute) Mastodynia of left breast (Acute) Anxiety and depression (Acute) Essential hypertension (Acute) Memory changes (Acute) Left breast lump (Acute) Left knee injury (Acute) Status post left knee replacement (Acute) Anxiety (Acute) Left knee pain (Acute) Viral illness (Acute) Annual visit for general adult medical examination without abnormal findings (Acute) Screening for osteoporosis (Acute) Immunization counseling (Acute) Breast cancer screening by mammogram (Acute) Screening for colon cancer (Acute) Screening for cervical cancer (Acute) Mild anemia (Acute) Well woman exam (Acute) Contact with and (suspected) exposure to other viral communicable diseases (Acute) Memory changes (Acute) Muscle cramp (Acute) Normochromic normocytic anemia (Acute) Past Medical History Medical History Atrial fibrillation Chronic abdominal pain Depression with anxiety HTN (hypertension) Mastodynia of left breast Normocytic anemia Osteopenia SVT (supraventricular tachycardia) Family History Family History Brother Lung cancer Surgical History Surgical History H/O heart surgery History of left knee replacement History of prior ablation treatment History of total hip replacement Hx of colonoscopy History of Problems with Anesthesia: No Social History Social History Household Members: Spouse and Children Housing: House Are you a primary pharmacy customer care specialist to a significant other at home: No Do you presently have visiting nurse or other home services: No Alcohol intake: current Alcohol intake frequency: holidays/special occasions only Alcohol type: beer Patient Tobacco Use Status: Former Tobacco user Quit Date: 20 years e-Cigarette/Vaping Use: Never Used Second Hand Smoke Exposure: No Use of substances other than those prescribed or required for medical reasons: No Are you DNR?: No Advance Directives: No Advance Directives Information Provided: Yes service: No Current occupational status: retired Current occupational exposures/hazards: No Cognitive needs: No Hearing needs: No Vision needs: No Meds Allergies Allergy/AdvReac Type Severity Reaction Status Date / Time No Known Allergies Allergy Verified 02/08/23 10:02 [No Known Allergies*] Active Medications: Current Medications Lactated Ringer's (Lr) 1,000 mls @ 100 mls/hr IVCONT .Q10H JUAN Last Admin: 03/02/23 13:47 Dose: 100 mls/hr Home Medications Medication Instructions Recorded Confirmed Last Taken Type biotin 10,000 mcg disintegrating 10,000 mcg PO DAILY 05/07/22 03/02/23 Unknown History tablet calcium carbonate 500 mg-vitamin 1 tab PO DAILY 05/07/22 03/02/23 Unknown History D3 3.125 mcg (125 unit) tablet diclofenac sodium 1 % topical gel 3 - 4 g topical TID 05/07/22 03/02/23 Unknown History (Voltaren Arthritis Pain) jnoofyfm-iqa-rycz-FA-Ca carb-vit K 1 tab PO DAILY 05/07/22 03/02/23 Unknown History 18 mg iron-400 mcg-500 mg tablet cholecalciferol (vitamin D3) 50 50 mcg PO DAILY 01/13/23 03/02/23 Unknown History mcg (2,000 unit) capsule metoprolol succinate 25 mg 12.5 mg PO DAILY 01/13/23 03/02/23 Unknown History tablet,extended release 24 hr donepezil 5 mg tablet 5 mg PO DAILY 02/08/23 03/02/23 Unknown History Exam Exam Date and Time: March 02, 2023 1411 Height,Weight and Vital Signs: Height 5 ft 3 in Weight 68.039 kg Last Vital Signs Temp 98.0 F 03/02/23 13:26 Pulse 53 03/02/23 13:26 Resp 18 03/02/23 13:26 BP 156/65 H 03/02/23 13:26 Pulse Ox 97 03/02/23 13:26 O2 Del Method Room Air 03/02/23 13:26 Airway Mallampati Class: II TM Dist: >3cm Neck ROM: Full Heart: RRR Lungs: CTA Assessment and Plan Final Anesthetic Review History of Problems with Anesthesia: No NPO: Yes ASA Class: II and Emergency Final Preanesthetic Review: Meds/Allgs Chart Reviewed, Consent Obtained/Reviewed and Anes Risks/Benef Reviewed Patient Risk: Low Procedure Risk: Low Anesthetic Plan Anesthetic Plan: MAC: Disposition: Standard PACU
--- NOTE | 2023-03-02 15:36 | MHC.SHP ---
Pre-Procedural Eval Section A Date of Service: 03/02/23 Section B Chief Complaint: Noninfective gastroenteritis and colitis,Diverticu Details of Present Illness: choking, diarrhea Relevant Family History (Specify if Yes): No Relevant Social History: None Present Medications: see Short Stay Collaborative assessment Medical History: Significant History (Atrial fibrillation Chronic abdominal pain Depression with anxiety HTN (hypertension) Mastodynia of left breast Normocytic anemia Osteopenia SVT (supraventricular tachycardia)) History of Previous Operations: Relevant previous surgery/procedure and date(s) (H/O heart surgery History of left knee replacement History of prior ablation treatment History of total hip replacement Hx of colonoscopy) Allergies: Allergies Allergy/AdvReac Type Severity Reaction Status Date / Time No Known Allergies Allergy Verified 02/08/23 10:02 [No Known Allergies*] Review of Systems Sugical H&P ROS: Negative: Constitution, Cardiovascular, Respiratory, Neurological, Psychiatric, Hem-Onc, Allergic/Immunologic, Gastrointestinal, Genitourinary, Musculoskeletal, Integumentary, Endocrine and Eyes/Ears/Nose/Throat Exam Surgical H&P Exam: Normal: HEENT, Normal: Heart, Normal: Lungs, Normal: Extremities, Normal: Abdomen, Normal: Skin and Normal: Neurological Plan Diagnosis/Plan: Unchanged I have reviewed the history and physical and performed a pertinent physical examination on my patient. No changes have occurred unless specified. EGD added to sigmoid due to hx of diarrhea and choking Time Spent With Patient Time: Total time managing care of this patient today ____ minutes.
--- NOTE | 2023-03-02 15:37 | P.OP_ITS ---
Operative Note Operative Note Date of Service: 03/02/23 Narrative: Operative Information Procedure Description: EGD, Colonoscopy Indication: altered bowel habit, choking, epigastric pain Anesthesia: MAC FLEXIBLE TRANSORAL UPPER GASTROINTESTINAL ENDOSCOPY AND COLONOSCOPY PROCEDURE NOTE UPPER ENDOSCOPY Consent: Indications for the procedure and potential complications of bleeding, perforation, reaction to medications and missed diagnosis were discussed with the patient and informed consent was obtained. Instrument: Olympus GIF H 190 J mid size upper endoscope Monitoring: Vital signs and clinical assessment, continuous EKG monitoring, Pulse oximetry, Carbon Dioxide monitoring and blood pressure monitoring were done throughout the procedure. Procedure: The patient was placed in the left lateral decubitis position and pre-procedure medications were administered and a bite block was placed. The endoscope was inserted into the mouth and advanced under direct vision to the third part of duodenum. A careful inspection was made as the upper endoscope was withdrawn including a retroflexed examination of the proximal stomach; Findings and interventions are described below. Findings: Larynx:normal Esophagus: GE junction at 35 cm, diaphragm hiatus at 35 cm, incompetent LES, widely open, bx taken from GEJ which had salmon pink patches noted. Bx also taken from distal and proximal esophagus Stomach: Intense erythema and scarring with bile acid refluxate. Biopsies were obtained. Grade 3 flap valve on retroflexed examination of the cardia. [place] pink tissue at outlet, bx taken to r/o intestinal metaplasia Duodenum: Normal bulb and descending duodenum, bx taken Intervention: Biopsies as noted above Sigmoidoscopy Instrument: As above Transverse Colon -normal Descending Colon:normal Sigmoid Colon: normal Rectum: Retroflexion with small internal hemorrhoids, grade I Random colon bx taken Anorectum - normal Impression and Post Procedure Diagnosis: Endoscopy Findings: incompetent LES, bile acid reflux esophagitis, possible barretts possible gastric intestinal metaplasia Colonoscopy Findings: internal hemorrhoids Plan: Await Pathology results May need surgery for incompetent LES, vs bile acid binders, PPI, and pro motility agents or hybrid APC Above findings were reviewed with the patient and relevant handouts were provided if indicated.
[2023-03-02 16:35] VITALS: BP 146/67; PULSE 67; RESP 15; TEMP 36.8; O2SAT 95
[2023-03-02 16:50] VITALS: BP 176/77; PULSE 71; RESP 18; TEMP 36.4; O2SAT 98
== END 2023-03-02 17:00 | disposition home or self-care (01) ==
PROVIDERS: PCP Family Medicine; Visit Provider Internal Medicine Gastroenterology
PROC: 0DJD8ZZ Inspection of Lower Intestinal Tract, Via Natural or Artificial Opening Endoscopic (ICD-10-PCS; CPT 45330; principal; 2023-03-02 13:50)
PROC: 0DJ08ZZ Inspection of Upper Intestinal Tract, Via Natural or Artificial Opening Endoscopic (ICD-10-PCS; CPT 43235; 2023-03-02 13:50)
DX: K52.9 Noninfective gastroenteritis and colitis, unspecified (principal); K64.0 First degree hemorrhoids; K57.30 Diverticulosis of large intestine without perforation or abscess without bleeding; R10.13 Epigastric pain; G89.29 Other chronic pain; R09.89 Other specified symptoms and signs involving the circulatory and respiratory systems; K29.50 Unspecified chronic gastritis without bleeding; K22.4 Dyskinesia of esophagus; K20.80 Other esophagitis without bleeding; K44.9 Diaphragmatic hernia without obstruction or gangrene; I48.91 Unspecified atrial fibrillation; F41.8 Other specified anxiety disorders; I10 Essential (primary) hypertension; D64.9 Anemia, unspecified; M85.879 Other specified disorders of bone density and structure, unspecified ankle and foot; I47.1 Supraventricular tachycardia; Z87.891 Personal history of nicotine dependence; Z79.899 Other long term (current) drug therapy
CPT/HCPCS: 45331; 43239; 88305; 88342; J3010

== ENCOUNTER 2023-03-09 10:03 | Outpatient (REF) | payer MEDICARE, SELFPAY ==
[2023-03-09 11:18] LABS: MANUAL DIFF FLAG NO
[2023-03-09 11:35] LABS: Basophils Absolute Auto 0.1 X10*3/uL (0.0-0.2); Basophils Percent Auto 1.1 % (0-2); Eosinophils Absolute Auto 0.1 X10*3/uL (0.0-0.4); Eosinophils Percent Auto 1.7 % (0-4); Hematocrit 38.5 % (37.0-47.0); Hemoglobin 12.8 g/dl (12.0-16.0); Imm Gran Abs Auto 0.04 X10*3/uL (0.00-0.03); Imm Gran Pct Auto 0.6 % (0.0-0.4); Lymphocytes Absolute Auto 1.2 X10*3/uL (1.2-4.9); Lymphocytes Percent Auto 18.7 % (20-40); Mean Corpuscular HGB Conc 33.2 g/dl (31.0-35.0); Mean Corpuscular Hemoglobin 31.4 pg (27.0-33.0); Mean Corpuscular Volume 94.6 fL (80.0-98.0); Mean Platelet Volume 9.9 fL (9.4-12.3); Monocytes Absolute Auto 0.5 X10*3/uL (0.1-1.2); Neutrophils Absolute Auto 4.6 x10*3/uL (2.0-8.3); Neutrophils Percent Auto 70.9 % (45-73); Platelet Count 299 X10*3/uL (160-400); Red Blood Count 4.07 X10*6/uL (4.20-5.50); Red Cell Distribution Width 13.1 % (11.0-16.0); White Blood Count 6.5 X10*3/uL (4.8-10.8)
[2023-03-09 12:25] LABS: Alanine Aminotransferase 8 U/L (0-31); Alkaline Phosphatase 69 U/L (39-117); Anion Gap 14 (12-20); Aspartate Amino Transferase 13 U/L (5-31); Bilirubin Total 0.4 mg/dL (0.0-1.0); Blood Urea Nitrogen 9 mg/dL (9-16); Calcium 9.7 mg/dL (8.4-10.2); Carbon Dioxide 23 mmol/L (22-29); Chloride 108 mmol/L (96-108); Estimated Glomerular Filt Rate > 60; Glucose Random 97 mg/dL (60-115); Potassium 4.4 mmol/L (3.3-5.1); Sodium 141 mmol/L (135-145); Total Protein 6.7 g/dL (6.5-8.0)
[2023-03-09 12:26] LABS: Alanine Aminotransferase 10 U/L (0-31); Alkaline Phosphatase 70 U/L (39-117); Anion Gap 16 (12-20); Aspartate Amino Transferase 14 U/L (5-31); Bilirubin Total 0.4 mg/dL (0.0-1.0); Blood Urea Nitrogen 9 mg/dL (9-16); C Reactive Protein 4.34 mg/dL (< or = 0.50); Calcium 9.7 mg/dL (8.4-10.2); Carbon Dioxide 23 mmol/L (22-29); Chloride 107 mmol/L (96-108); Cholesterol 194 mg/dL; Estimated Glomerular Filt Rate > 60; Glucose Fasting 100 mg/dL (60-99); Glucose Random 100 mg/dL (60-115); HDL Cholesterol 40 mg/dL; LDL Cholesterol Calculated 135 mg/dl; Potassium 4.5 mmol/L (3.3-5.1); Sodium 141 mmol/L (135-145); Total Protein 6.8 g/dL (6.5-8.0); Triglycerides 99 mg/dL
[2023-03-09 12:36] LABS: Ferritin 508 ng/mL (10-250)
[2023-03-09 12:44] LABS: TSH reflex Free T4 4.96 uIU/mL (0.32-4.0); Vitamin D 25-OH Total 95.8 ng/mL (>30)
[2023-03-09 12:59] LABS: Folate 16.5 ng/mL (> or = 4.0); Vitamin B12 1160 pg/mL (200-900)
[2023-03-09 13:56] LABS: Free T4 (Free Thyroxine) 0.93 ng/dL (0.71-1.85)
[2023-03-09 14:19] LABS: Appearance Urine Cloudy; Color Urine Yellow; Glucose Urine UA Negative (Negative); Leukocyte Esterase Urine Trace (Negative); Nitrite Urine Negative (Negative); PH 7.5 (5.0-9.0); Specific Gravity - Urine 1.015 (1.005-1.025); UMIC TRIGGER UA YES; Urine Blood Negative (Negative); Urine Ketones Negative (Negative); Urine Protein Negative (Neg-Trace)
[2023-03-09 14:51] LABS: Creatinine Urine 106.53 mg/dL
[2023-03-09 14:54] LABS: Bacteria Urine Trace (None Seen); Hyaline Casts Urine 0-2 /LPF (0-2); RBC Urine >20 /HPF (0-2); WBC Urine 0-5 /HPF (0-5)
[2023-03-15 11:38] LABS: Endomysial IgA Antibody Negative (Negative)
== END 2023-03-09 10:04 | disposition home or self-care (01) ==
LOC: HO.WFDLDS 10:03
PROVIDERS: Internal Medicine Medical Oncology; Physician Assistant; Visit Provider Family Medicine
DX: Z00.00 Encounter for general adult medical examination without abnormal findings (principal); E53.8 Deficiency of other specified B group vitamins; K52.9 Noninfective gastroenteritis and colitis, unspecified; E55.9 Vitamin D deficiency, unspecified; G89.29 Other chronic pain; R10.9 Unspecified abdominal pain; I10 Essential (primary) hypertension; Z79.899 Other long term (current) drug therapy; D50.9 Iron deficiency anemia, unspecified
CPT/HCPCS: 36415; 80053; 80061; 81001; 81003; 82043; 82306; 82607; 82728; 82746; 84439; 84443; 85025; 86140; 86231; 99212

== ENCOUNTER 2023-03-11 08:00 | Outpatient (REF) | payer MEDICARE, SELFPAY ==
--- NOTE | ~2023-03-11 | CT_ITS ---
EXAMINATION: CT ABDOMEN AND PELVIS WITH CONTRAST CLINICAL INFORMATION: Chronic abdominal pain. Other chronic pain. COMPARISON: None available. TECHNIQUE: Multidetector volumetric images were obtained from the superior aspect of the liver through the pubic symphysis following administration 85 mL of Omnipaque 350 intravenous contrast. Sagittal and coronal reformatted images were obtained on the technologist's workstation. Oral contrast: No This CT examination was performed using dose optimization techniques as appropriate, variously including the following: *Automated exposure control *Adjustment of mA and/or kV according to patient size (this includes techniques or standardized protocols for targeted exams where dose is matched to indication/reason for exam; i.e. extremities or head) *Use of iterative reconstruction technique DLP: 409 mGy-cm FINDINGS: LUNG BASES: Minimal atelectatic changes or scarring are seen in the right lower lobe and lingula. Heart size is normal caliber. LIVER, GALLBLADDER, AND BILIARY TREE: The liver is normal in size, shape, and attenuation. No focal hepatic lesion or biliary ductal dilatation is present. The gallbladder is unremarkable with no evidence of radiopaque gallstones, gallbladder wall thickening, or obvious pericholecystic inflammatory changes. PANCREAS: Unremarkable. SPLEEN: Unremarkable. ADRENAL GLANDS: Unremarkable. KIDNEYS AND URETERS: The kidneys are normal in size, shape, and attenuation. No hydronephrosis, hydroureter, or calculi are seen. No perinephric stranding. There is a focal cortical defect, lower pole right kidney, likely scar. BLADDER: Unremarkable. GASTROINTESTINAL TRACT: Scattered stool, gas and oral contrast are seen throughout the colon without distention. ABDOMINAL WALL: No significant hernia is appreciated. LYMPH NODES: Normal. VASCULAR: There is atherosclerotic calcification of the abdominal aorta and the common iliac arteries without aneurysmal dilatation. PELVIC VISCERA: The uterus is anteverted and unremarkable. No adnexal mass or free fluid is seen. OSSEOUS STRUCTURES: No aggressive lytic or sclerotic process seen. CT/CT abdomen pelvis w IV con IMPRESSION: 1. No acute intra-abdominal process seen. 2. Mild constipation. Fleischner guidelines were followed.
[2023-03-11] MEDS: iohexoL 350 MG/ML 100 ML INFUS..BTL 85 ML IV (08:49)
== END 2023-03-11 08:01 | disposition home or self-care (01) ==
LOC: HO.CT 08:00
PROVIDERS: PCP Family Medicine; Visit Provider Physician Assistant
DX: R10.84 Generalized abdominal pain (principal); K52.9 Noninfective gastroenteritis and colitis, unspecified; G89.29 Other chronic pain
CPT/HCPCS: 74177; Q9967

== ENCOUNTER 2023-03-12 08:24 | Outpatient (REF) | payer MEDICARE, SELFPAY ==
--- NOTE | ~2023-03-12 | US_ITS ---
EXAMINATION: US ABDOMEN COMPLETE CLINICAL INFORMATION: Unspecified abdominal pain. COMPARISON: CT abdomen and pelvis 03/11/2023. TECHNIQUE: Real-time imaging of the abdominal viscera. FINDINGS: PANCREAS: Normal. ABDOMINAL AORTA: The proximal, mid, and distal segments are normal in caliber. INFERIOR VENA CAVA: Visualized portions are normal. LIVER: Normal. The liver is normal in size. The liver contour is normal. Parenchymal echogenicity is normal. No focal hepatic lesion. There is no intrahepatic biliary duct dilatation seen. GALLBLADDER: There is echogenic sludge seen. No echogenic stones, wall thickening, pericholecystic fluid collection or tenderness. COMMON BILE DUCT: Normal in caliber measuring 0.7 cm in diameter. RIGHT KIDNEY: Normal. No hydronephrosis. No renal calculi or focal parenchymal lesions. The kidney measures 10.4 cm in maximum dimension. LEFT KIDNEY: Normal. No hydronephrosis. No renal calculi or focal parenchymal lesions. The kidney measures 10.2 cm in maximum dimension. SPLEEN: Normal. The spleen measures 9.1 cm in maximum dimension. FREE FLUID: None. US/US abdomen complete IMPRESSION: 1. Echogenic gallbladder sludge but no echogenic stones or wall thickening. 2. Rest of the abdominal ultrasound is unremarkable.
== END 2023-03-12 08:25 | disposition home or self-care (01) ==
LOC: HO.US 08:24
PROVIDERS: PCP Family Medicine; Visit Provider Physician Assistant
DX: R10.9 Unspecified abdominal pain (principal); G89.29 Other chronic pain
CPT/HCPCS: 76700

== ENCOUNTER → 2023-03-23 07:28 | Outpatient (BNVA) | payer MEDICARE, SELFPAY | PROVIDERS: PCP Family Medicine; Visit Provider Physician Assistant | DX: R10.9 Unspecified abdominal pain (principal); G89.29 Other chronic pain | CPT/HCPCS: 99212 ==

== ENCOUNTER 2023-03-31 09:53 | Outpatient (REF) | payer MEDICARE, SELFPAY | END 2023-03-31 09:54 | disposition home or self-care (01) | LOC: HO.LNP 09:53 | PROVIDERS: PCP Family Medicine; Visit Provider Physician Assistant | DX: A04.8 Other specified bacterial intestinal infections (principal); R05.9 Cough, unspecified; G47.33 Obstructive sleep apnea (adult) (pediatric); R40.0 Somnolence | CPT/HCPCS: 87338; 99202 ==

== ENCOUNTER 2023-04-24 12:02 | Outpatient (REF) | payer MEDICARE, SELFPAY ==
[2023-04-24 13:35] LABS: Hematocrit 35.8 % (37.0-47.0); Hemoglobin 11.9 g/dl (12.0-16.0); Mean Corpuscular HGB Conc 33.2 g/dl (31.0-35.0); Mean Corpuscular Hemoglobin 31.4 pg (27.0-33.0); Mean Corpuscular Volume 94.5 fL (80.0-98.0); Mean Platelet Volume 9.7 fL (9.4-12.3); Platelet Count 249 X10*3/uL (160-400); Red Blood Count 3.79 X10*6/uL (4.20-5.50); Red Cell Distribution Width 14.5 % (11.0-16.0); White Blood Count 4.6 X10*3/uL (4.8-10.8)
[2023-04-24 14:07] LABS: Alanine Aminotransferase 12 U/L (0-31); Albumin Level 4.1 g/dL (3.5-5.0); Alkaline Phosphatase 70 U/L (39-117); Anion Gap 12 (12-20); Aspartate Amino Transferase 18 U/L (5-31); Bilirubin Direct 0.1 mg/dL (0.0-0.5); Bilirubin Total 0.4 mg/dL (0.0-1.0); Blood Urea Nitrogen 19 mg/dL (9-16); Calcium 9.8 mg/dL (8.4-10.2); Carbon Dioxide 25 mmol/L (22-29); Chloride 108 mmol/L (96-108); Cholesterol 217 mg/dL; Estimated Glomerular Filt Rate > 60; Glucose Random 81 mg/dL (60-115); HDL Cholesterol 66 mg/dL; LDL Cholesterol Calculated 132 mg/dl; Potassium 4.1 mmol/L (3.3-5.1); Sodium 141 mmol/L (135-145); Triglycerides 97 mg/dL
[2023-04-24 14:21] LABS: Erythrocyte Sedimentation Rate 7 MM/HR (0-20)
== END 2023-04-24 12:03 | disposition home or self-care (01) ==
LOC: HO.HMGCLDS 12:02
PROVIDERS: PCP Family Medicine; Visit Provider Internal Medicine
DX: L89.159 Pressure ulcer of sacral region, unspecified stage (principal); E78.00 Pure hypercholesterolemia, unspecified
CPT/HCPCS: 36415; 80048; 80061; 80076; 85027; 85652

== ENCOUNTER → 2023-04-27 11:01 | Outpatient (BNVA) | payer MEDICARE, SELFPAY | PROVIDERS: PCP Family Medicine; Referring Provider Internal Medicine Gastroenterology; Visit Provider Surgery | DX: K80.50 Calculus of bile duct without cholangitis or cholecystitis without obstruction (principal) | CPT/HCPCS: 99202 ==

== ENCOUNTER 2023-04-28 08:04 | Outpatient (RCR) | payer MEDICARE, SELFPAY ==
--- NOTE | ~2023-04-28 | XR_ITS ---
EXAMINATION: XR SACRUM AND COCCYX CLINICAL INFORMATION: Nonhealing ulcer COMPARISON: None available. TECHNIQUE: 2 views of the sacrum and 2 views of the coccyx were obtained. FINDINGS: Limited detail due to overlying bowel gas and stool. No soft tissue air defect is appreciated. Coccyx intact. Left hip prosthesis noted. The sacroiliac joints bilaterally appear grossly intact with minor sacral ileitis question. XR/XR sacrum coccyx min 2V IMPRESSION: Limited detail due to overlying bowel gas and stool. No obvious soft tissue air defect.
[2023-06-14 07:43] LABS: MANUAL DIFF FLAG NO
[2023-06-14 08:08] LABS: Basophils Absolute Auto 0.1 X10*3/uL (0.0-0.2); Basophils Percent Auto 1.1 % (0-2); Eosinophils Absolute Auto 0.1 X10*3/uL (0.0-0.4); Eosinophils Percent Auto 2.9 % (0-4); Hematocrit 34.2 % (37.0-47.0); Hemoglobin 11.1 g/dl (12.0-16.0); Imm Gran Abs Auto 0.01 X10*3/uL (0.00-0.03); Imm Gran Pct Auto 0.2 % (0.0-0.4); Lymphocytes Absolute Auto 1.8 X10*3/uL (1.2-4.9); Lymphocytes Percent Auto 38.7 % (20-40); Mean Corpuscular HGB Conc 32.5 g/dl (31.0-35.0); Mean Corpuscular Hemoglobin 31.4 pg (27.0-33.0); Mean Corpuscular Volume 96.9 fL (80.0-98.0); Mean Platelet Volume 9.6 fL (9.4-12.3); Monocytes Absolute Auto 0.3 X10*3/uL (0.1-1.2); Monocytes Percent Auto 5.9 % (2-11); Neutrophils Absolute Auto 2.4 x10*3/uL (2.0-8.3); Neutrophils Percent Auto 51.2 % (45-73); Platelet Count 274 X10*3/uL (160-400); Red Blood Count 3.53 X10*6/uL (4.20-5.50); White Blood Count 4.8 X10*3/uL (4.8-10.8)
[2023-06-14 08:17] LABS: Estimated Average Glucose 103 mg/dL; Hemoglobin A1c % 5.2 %
[2023-06-14 08:33] LABS: Anion Gap 13 (12-20); Blood Urea Nitrogen 19 mg/dL (9-16); Calcium 9.4 mg/dL (8.4-10.2); Carbon Dioxide 24 mmol/L (22-29); Chloride 107 mmol/L (96-108); Estimated Glomerular Filt Rate > 60; Glucose Random 105 mg/dL (60-115); Potassium 3.8 mmol/L (3.3-5.1); Sodium 140 mmol/L (135-145)
[2023-06-14 08:46] LABS: Erythrocyte Sedimentation Rate 14 MM/HR (0-20)
== END 2023-07-07 16:19 | disposition home or self-care (01) ==
LOC: HO.WCC 08:04
PROVIDERS: Physician Assistant; PCP Family Medicine; Visit Provider Surgery
DX: L98.492 Non-pressure chronic ulcer of skin of other sites with fat layer exposed (principal); E43 Unspecified severe protein-calorie malnutrition; I10 Essential (primary) hypertension; F03.90 Unspecified dementia, unspecified severity, without behavioral disturbance, psychotic disturbance, mood disturbance, and anxiety; Z87.891 Personal history of nicotine dependence
CPT/HCPCS: 11042; 17250; 36415; 72220; 80048; 83036; 84134; 85025; 85652; 86140; 97602; 99212

== ENCOUNTER → 2023-05-03 10:55 | Outpatient (REF) | payer MEDICARE, SELFPAY | LOC: HO.SL 10:55 | PROVIDERS: PCP Family Medicine; Visit Provider Neurological Surgery | DX: G47.33 Obstructive sleep apnea (adult) (pediatric) (principal); R40.0 Somnolence | CPT/HCPCS: 95806 ==

== ENCOUNTER 2023-05-04 10:00 | Day surgery (SDC) | payer MEDICARE, SELFPAY ==
--- NOTE | 2023-05-03 09:21 | P.CONAN_ITS ---
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 (Acute) Chronic diarrhea (Acute) Hiatal hernia (Acute) Mastodynia of left breast (Acute) Anxiety and depression (Acute) Essential hypertension (Acute) Memory changes (Acute) Left breast lump (Acute) Left knee injury (Acute) Status post left knee replacement (Acute) Anxiety (Acute) Left knee pain (Acute) Viral illness (Acute) Annual visit for general adult medical examination without abnormal findings (Acute) Screening for osteoporosis (Acute) Immunization counseling (Acute) Breast cancer screening by mammogram (Acute) Screening for colon cancer (Acute) Screening for cervical cancer (Acute) Mild anemia (Acute) Well woman exam (Acute) Contact with and (suspected) exposure to other viral communicable diseases (Acute) Memory changes (Acute) Muscle cramp (Acute) Normochromic normocytic anemia (Acute) Past Medical History Medical History (Updated 05/21/23 @ 10:05 by Earl Brian) Atrial fibrillation Chronic abdominal pain Dementia Depression with anxiety HTN (hypertension) Mastodynia of left breast Normocytic anemia Osteopenia SVT (supraventricular tachycardia) Family History Family History Brother Lung cancer Brother Bladder cancer Surgical History Surgical History (Updated 05/21/23 @ 09:44 by Earl Brian) H/O heart surgery History of cholecystectomy (05/04/23) History of cholecystectomy History of esophagogastroduodenoscopy (EGD) History of left knee replacement History of prior ablation treatment History of total hip replacement Hx of colonoscopy History of Problems with Anesthesia: No Social History Social History (Reviewed 05/21/23 @ 09:10 by GABRIELLE Chester Household Members: Spouse and Children Housing: House Are you a primary residential caregiver to a significant other at home: No Do you presently have visiting nurse or other home services: No Alcohol intake: current Alcohol intake frequency: holidays/special occasions only Alcohol type: beer Patient Tobacco Use Status: Former Tobacco user Quit Date: 20 years e-Cigarette/Vaping Use: Never Used Second Hand Smoke Exposure: No service: No Current occupational status: retired Current occupational exposures/hazards: No Cognitive needs: No Hearing needs: No Vision needs: Yes Meds Allergies Allergy/AdvReac Type Severity Reaction Status Date / Time No Known Allergies Allergy Verified 05/21/23 09:05 [No Known Allergies*] Home Medications Medication Instructions Recorded Confirmed Last Taken Type calcium carbonate 500 mg-vitamin 1 tab PO DAILY 05/07/22 05/21/23 Unknown History D3 3.125 mcg (125 unit) tablet diclofenac sodium 1 % topical gel 3 - 4 g topical TID 05/07/22 05/21/23 Unknown History (Voltaren Arthritis Pain) pvwpksig-mlq-ikip-FA-Ca carb-vit K 1 tab PO DAILY 05/07/22 05/21/23 Unknown History 18 mg iron-400 mcg-500 mg tablet cholecalciferol (vitamin D3) 50 50 mcg PO DAILY 01/13/23 05/21/23 Unknown History mcg (2,000 unit) capsule metoprolol succinate 25 mg 12.5 mg PO DAILY 01/13/23 05/21/23 05/04/23 History tablet,extended release 24 hr donepezil 5 mg tablet 5 mg PO DAILY 02/08/23 05/21/23 Unknown History Exam Exam Date and Time: May 03, 2023 0921 Pertinent Lab Results Pertinent Lab Results: Laboratory Tests 04/24/23 04/24/23 12:31 12:31 WBC 4.6 L Hgb 11.9 L Hct 35.8 L Plt Count 249 Sodium 141 Potassium 4.1 Chloride 108 Carbon Dioxide 25 BUN 19 H Creatinine 0.82 Narrative Narrative: ECHO 05/2022 LVEF 65-70% Interderminate diastolic function LA severely dilated No aortic stenosis Mild MR RV systolic pressure, as measured by Doppler is 25mmHg No evidence of pulm htn Ascending aorta is nml in size No change from 2018 Assessment and Plan Assessment Anesthesia Assessment: Chart Reviewed Final Anesthetic Review History of Problems with Anesthesia: No
--- NOTE | 2023-05-03 10:20 | MHC.SHP ---
Pre-Procedural Eval Section A Date of Service: 05/03/23 The patient is an INPATIENT: No Changes since office visit: No Cold of Flu in the past 2 weeks, No New Medical Problems, No Changes in Medication and No Patient answered all questions The History & Physical has been completed within 30 days and I have reviewed it.: Yes Section B Chief Complaint: Calculus of bile duct without cholangitis or caleb Allergies: Allergies Allergy/AdvReac Type Severity Reaction Status Date / Time No Known Allergies Allergy Verified 04/27/23 11:15 [No Known Allergies*] Plan I have reviewed the history and physical and performed a pertinent physical examination on my patient. No changes have occurred unless specified. Time Spent With Patient Time: Total time managing care of this patient today ____ minutes.
[2023-05-04] VITALS (20 sets, daily range): BP systolic 125–184; BP diastolic 59–78; PULSE 52–67; RESP 14–22; TEMP 36.1–36.7; O2SAT 94–100; BMI 26.6
--- NOTE | 2023-05-04 | ECG_ITS ---
Test Reason : AFIB HTN SVT Blood Pressure : / mmHG Vent. Rate : 057 BPM Atrial Rate : 057 BPM P-R Int : 182 ms QRS Dur : 082 ms QT Int : 476 ms P-R-T Axes : 052 023 051 degrees QTc Int : 463 ms Sinus bradycardia with sinus arrhythmia Otherwise normal ECG When compared with ECG of 08-SEP-2018 10:41, No significant change was found Referred By: Lora Pearl Electronically Signed By:Denton Ramirez
[2023-05-04] MEDS: Lactated Ringers 1,000 ML 100 ML IVCONT (10:41)
--- NOTE | 2023-05-04 11:01 | PC.NURSE ---
daughter present during admission. daughter administers patient medications. live together. patient alert and oriented X3
--- NOTE | 2023-05-04 12:13 | P.CONAN_ITS ---
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 (Acute) Chronic diarrhea (Acute) Hiatal hernia (Acute) Mastodynia of left breast (Acute) Anxiety and depression (Acute) Essential hypertension (Acute) Memory changes (Acute) Left breast lump (Acute) Left knee injury (Acute) Status post left knee replacement (Acute) Anxiety (Acute) Left knee pain (Acute) Viral illness (Acute) Annual visit for general adult medical examination without abnormal findings (Acute) Screening for osteoporosis (Acute) Immunization counseling (Acute) Breast cancer screening by mammogram (Acute) Screening for colon cancer (Acute) Screening for cervical cancer (Acute) Mild anemia (Acute) Well woman exam (Acute) Contact with and (suspected) exposure to other viral communicable diseases (Acute) Memory changes (Acute) Muscle cramp (Acute) Normochromic normocytic anemia (Acute) Past Medical History Medical History Atrial fibrillation Chronic abdominal pain Depression with anxiety HTN (hypertension) Mastodynia of left breast Normocytic anemia Osteopenia SVT (supraventricular tachycardia) Functional capacity: independent ambulation Family History Family History Brother Lung cancer Brother Bladder cancer Surgical History Surgical History H/O heart surgery History of cholecystectomy History of esophagogastroduodenoscopy (EGD) History of left knee replacement History of prior ablation treatment History of total hip replacement Hx of colonoscopy History of Problems with Anesthesia: No Social History Social History Household Members: Spouse and Children Housing: House Are you a primary foster care case manager to a significant other at home: No Do you presently have visiting nurse or other home services: No Alcohol intake: current Alcohol intake frequency: holidays/special occasions only Alcohol type: beer Patient Tobacco Use Status: Former Tobacco user Quit Date: 20 years e-Cigarette/Vaping Use: Never Used Second Hand Smoke Exposure: No Are you DNR?: No Advance Directives: No Advance Directives Information Provided: Yes Nutrition Risks: No Nutritional Risk service: No Current occupational status: retired Current occupational exposures/hazards: No Cognitive needs: No Hearing needs: No Vision needs: Yes Meds Allergies Allergy/AdvReac Type Severity Reaction Status Date / Time No Known Allergies Allergy Verified 05/03/23 12:06 [No Known Allergies*] Active Medications: Current Medications Lactated Ringer's (Lr) 1,000 mls @ 100 mls/hr IVCONT .Q10H JUAN Last Admin: 05/04/23 10:41 Dose: 100 mls/hr Scopolamine (Scopolamine 1.5 Mg Patch.Td.3) 1.5 mg EAR-BEHIND ONCE ONE Stop: 05/04/23 12:13 Home Medications Medication Instructions Recorded Confirmed Last Taken Type calcium carbonate 500 mg-vitamin 1 tab PO DAILY 05/07/22 05/04/23 Unknown History D3 3.125 mcg (125 unit) tablet diclofenac sodium 1 % topical gel 3 - 4 g topical TID 05/07/22 05/04/23 Unknown History (Voltaren Arthritis Pain) zoftixyw-zry-[id number]-FA-Ca carb-vit K 1 tab PO DAILY 05/07/22 05/04/23 Unknown History 18 mg iron-400 mcg-500 mg tablet cholecalciferol (vitamin D3) 50 50 mcg PO DAILY 01/13/23 05/04/23 Unknown His tory mcg (2,000 unit) capsule metoprolol succinate 25 mg 12.5 mg PO DAILY 01/13/23 05/04/23 05/04/23 History tablet,extended release 24 hr donepezil 5 mg tablet 5 mg PO DAILY 02/08/23 05/04/23 Unknown History Exam Exam Date and Time: May 04, 2023 1213 Height,Weight and Vital Signs: Height 5 ft 3 in Weight 68.039 kg Last Vital Signs Temp 98.1 F 05/04/23 10:34 Pulse 52 05/04/23 10:34 Resp 18 05/04/23 10:34 BP 149/66 H 05/04/23 10:34 Pulse Ox 96 05/04/23 10:34 O2 Del Method Room Air 05/04/23 10:34 Airway Mallampati Class: II TM Dist: >3cm Neck ROM: Full Heart: RRR Lungs: CTA Assessment and Plan Assessment Anesthesia Assessment: Anesthesia Plan Discussed Final Anesthetic Review History of Problems with Anesthesia: No ASA Class: II Final Preanesthetic Review: Meds/Allgs Chart Reviewed, Consent Obtained/Reviewed and Anes Risks/Benef Reviewed Patient Risk: Intermediate Procedure Risk: Intermediate Anesthetic Plan Anesthetic Plan: GA Disposition: Standard PACU
[2023-05-04] MEDS: Scopolamine 1.5 MG PATCH.TD.3 EAR-BEHIND (12:29)
--- NOTE | 2023-05-04 12:47 | HO.ANESPROP2 ---
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 (Acute) Chronic diarrhea (Acute) Hiatal hernia (Acute) Mastodynia of left breast (Acute) Anxiety and depression (Acute) Essential hypertension (Acute) Memory changes (Acute) Left breast lump (Acute) Left knee injury (Acute) Status post left knee replacement (Acute) Anxiety (Acute) Left knee pain (Acute) Viral illness (Acute) Annual visit for general adult medical examination without abnormal findings (Acute) Screening for osteoporosis (Acute) Immunization counseling (Acute) Breast cancer screening by mammogram (Acute) Screening for colon cancer (Acute) Screening for cervical cancer (Acute) Mild anemia (Acute) Well woman exam (Acute) Contact with and (suspected) exposure to other viral communicable diseases (Acute) Memory changes (Acute) Muscle cramp (Acute) Normochromic normocytic anemia (Acute) Past Medical History Medical History Atrial fibrillation Chronic abdominal pain Depression with anxiety HTN (hypertension) Mastodynia of left breast Normocytic anemia Osteopenia SVT (supraventricular tachycardia) Functional capacity: independent ambulation Family History Family History Brother Lung cancer Brother Bladder cancer Surgical History Surgical History H/O heart surgery History of cholecystectomy History of esophagogastroduodenoscopy (EGD) History of left knee replacement History of prior ablation treatment History of total hip replacement Hx of colonoscopy History of Problems with Anesthesia: No Social History Social History Household Members: Spouse and Children Housing: House Are you a primary healthcare administrator to a significant other at home: No Do you presently have visiting nurse or other home services: No Alcohol intake: current Alcohol intake frequency: holidays/special occasions only Alcohol type: beer Patient Tobacco Use Status: Former Tobacco user Quit Date: 20 years e-Cigarette/Vaping Use: Never Used Second Hand Smoke Exposure: No Are you DNR?: No Advance Directives: No Advance Directives Information Provided: Yes Nutrition Risks: No Nutritional Risk service: No Current occupational status: retired Current occupational exposures/hazards: No Cognitive needs: No Hearing needs: No Vision needs: Yes Meds Allergies Allergy/AdvReac Type Severity Reaction Status Date / Time No Known Allergies Allergy Verified 05/03/23 12:06 [No Known Allergies*] Active Medications: Current Medications Fentanyl (Fentanyl Citrate/Pf 100 Mcg/2 Ml Vial) 25 mcg IVPUSH Q5M PRN; Protocol PRN Reason: Pain, Moderate(Pain Scale 4-6) Lactated Ringer's (Lr) 1,000 mls @ 100 mls/hr IVCONT .Q10H JUAN Last Admin: 05/04/23 10:41 Dose: 100 mls/hr Ondansetron HCl (Ondansetron Hcl 4 Mg/2 Ml Vial) 4 mg IVPUSH ONCE PRN PRN Reason: Nausea and Vomiting Home Medications Medication Instructions Recorded Confirmed Last Taken Type calcium carbonate 500 mg-vitamin 1 tab PO DAILY 05/07/22 05/04/23 Unknown History D3 3.125 mcg (125 unit) tablet diclofenac sodium 1 % topical gel 3 - 4 g topical TID 05/07/22 05/04/23 Unknown History (Voltaren Arthritis Pain) kcsgnnyx-hgd-hffs-FA-Ca carb-vit K 1 tab PO DAILY 05/07/22 05/04/23 Unknown History 18 mg iron-400 mcg-500 mg tablet cholecalciferol (vitamin D3) 50 50 mcg PO DAILY 01/13/23 05/04/23 Unknown History mcg (2,000 unit) capsule metoprolol succinate 25 mg 12.5 mg PO DAILY 01/13/23 05/04/23 05/04/23 History tablet,extended release 24 hr donepezil 5 mg tablet 5 mg PO DAILY 02/08/23 05/04/23 Unknown History Exam Exam Date and Time: May 04, 2023 1247 Height,Weight and Vital Signs: Height 5 ft 3 in Weight 68.039 kg Last Vital Signs Temp 98.1 F 05/04/23 10:34 Pulse 52 05/04/23 10:34 Resp 18 05/04/23 10:34 BP 149/66 H 05/04/23 10:34 Pulse Ox 96 05/04/23 10:34 O2 Del Method Room Air 05/04/23 10:34 Airway Mallampati Class: II TM Dist: >3cm Neck ROM: Full Heart: RRR Lungs: CTA Assessment and Plan Final Anesthetic Review History of Problems with Anesthesia: No ASA Class: II Final Preanesthetic Review: Meds/Allgs Chart Reviewed, Consent Obtained/Reviewed and Anes Risks/Benef Reviewed Patient Risk: Intermediate Procedure Risk: Intermediate Anesthetic Plan Anesthetic Plan: GA Disposition: Standard PACU
--- NOTE | 2023-05-04 13:55 | W.PM.OPN ---
Operative Note Operative Note Date of Service: 05/04/23 Narrative: Preoperative diagnosis: biliary colic Postop diagnosis: Same Procedure [] laparoscopic cholecystectomy Surgeon: [] Dany Pearler: [] america Chapa Type of Anesthesia: [] General Indication for surgery: [] Symptomatic gallstones Findings: [] Patient brought to the operating room, placed on the operating table in supine position, after adequate level of general anesthesia was induced, the patient's abdomen was prepped and draped in usual sterile fashion. Using a supraumbilical curvilinear incision, Garcse technique was used to insufflate the abdominal cavity to 15 mm of CO2. Upper midline and right subcostal ports were placed under direct laparoscopic view, and the gallbladder was grasped using laparoscopic graspers and retracted superiorly and laterally. Patient was placed in reverse Trendelenburg position, tilted to the left. Hilum was approached where the common bile duct was identified and preserved throughout the procedure. Cystic artery and cystic duct were each identified, circumferentially skeletonized, each traced directly to the gallbladder, and critical view obtained. Each was clipped proximally x2, distally x1, and transected. Gallbladder which was modestly intrahepatic was then cauterized the gallbladder fossa using Bovie. Specimen was placed in an Endo-Catch bag, a retrieved through the umbilical port. Abdominal cavity was copiously irrigated, and secured hemostasis. All ports were removed under direct laparoscopic view. Wounds were closed in the following manner; umbilical wound had is fascia reapproximated using interrupted 0 Vicryl sutures. Skin was were closed using subcuticular 4-0 Vicryl sutures followed by Steri-Strips and sterile dressings. Wounds were infiltrated 0.5% Marcaine at completion. Sponge, needle, and instrument counts reported correct. Patient tolerated the procedure well and emerged anesthesia stable condition. EBL minimal
[2023-05-04] MEDS: fentaNYL citrate/PF 100 MCG/2 ML VIAL 25 MCG IVPUSH ×2 (14:30→14:40)
[2023-05-04] MEDS: oxyCODONE HCl Immed Release 5 MG TABLET PO (14:37)
--- NOTE | 2023-05-04 15:13 | HO.POSTANES ---
Post Anesthesia Evaluation Post Anesthesia Evaluation Date of Service: 05/04/23 Vital Signs: Vital Signs Temp Pulse Resp BP Pulse Ox O2 Del Method O2 Flow Rate 05/04/23 15:05 62 14 163/74 H 95 Room Air 05/04/23 14:50 61 14 153/74 H 96 Room Air 05/04/23 14:40 60 14 152/69 H 96 Room Air 05/04/23 14:35 60 14 164/73 H 96 Room Air 05/04/23 14:40 14 05/04/23 14:30 58 22 H 162/78 H 95 Room Air 05/04/23 14:20 58 20 167/74 H 95 Room Air 05/04/23 14:30 22 H 05/04/23 14:15 58 16 157/78 H 98 Room Air 05/04/23 14:10 52 16 166/69 H 100 Simple Mask 6 05/04/23 14:05 97.1 F 57 16 184/76 H 100 Simple Mask 6 05/04/23 10:34 98.1 F 52 18 149/66 H 96 Room Air Anesthesia: General Endotracheal-GETA Mental Status: Awake Pain Control: Satisfactory Nausea/Vomiting: None Hydration: Adequate Anesthesia-Related Issues: No Anes. Related Issues
[2023-05-04] MEDS: ondansetron HCL 4 MG/2 ML VIAL IVPUSH (15:25)
[2023-05-04] MEDS: LORazepam 2 MG/ML VIAL 0.5 MG IVPUSH (16:19)
--- NOTE | 2023-05-04 17:58 | PC.NURSE ---
as discussed with Dr. Madison patient maintained till d/c with as per patient known history of nausea with narcotics consistent with past surgeries did vomit lightly upon getting up to get dressed and stated this is normal and wished to go home. Confirmed and cleared with team, Spoke with daughter Natividad just prior to discharges..
== END 2023-05-04 18:00 | disposition home or self-care (01) ==
PROVIDERS: PCP Family Medicine; Visit Provider Surgery
PROC: 0FT44ZZ Resection of Gallbladder, Percutaneous Endoscopic Approach (ICD-10-PCS; CPT 47562; principal; 2023-05-04 13:10)
DX: K81.1 Chronic cholecystitis (principal); F03.90 Unspecified dementia, unspecified severity, without behavioral disturbance, psychotic disturbance, mood disturbance, and anxiety; R10.9 Unspecified abdominal pain; G89.29 Other chronic pain; I48.91 Unspecified atrial fibrillation; I47.1 Supraventricular tachycardia; I10 Essential (primary) hypertension; F41.8 Other specified anxiety disorders; Z79.01 Long term (current) use of anticoagulants; Z79.899 Other long term (current) drug therapy; Z87.891 Personal history of nicotine dependence
CPT/HCPCS: 47562; 88304; 93005; J0131; J0690; J1100; J1170; J2060; J2250; J2405; J2795; J3010

== ENCOUNTER → 2023-05-12 11:35 | Outpatient (BNVA) | payer MEDICARE, SELFPAY | PROVIDERS: PCP Family Medicine; Visit Provider Surgery ==

== ENCOUNTER 2023-05-13 11:20 | Outpatient (REF) | payer MEDICARE, SELFPAY | END 2023-05-13 11:21 | disposition home or self-care (01) | LOC: HO.WFDLDS 11:20 | PROVIDERS: Visit Provider Nurse Practitioner Family | DX: D64.9 Anemia, unspecified (principal); R39.9 Unspecified symptoms and signs involving the genitourinary system | CPT/HCPCS: 36415; 80053; 81001; 81003; 82728; 85025; 87086 ==

== ENCOUNTER 2023-05-21 09:00 | Outpatient (AMB) | payer MEDICARE, SELFPAY ==
--- NOTE | 2023-05-21 09:02 | MHC.PC.OV ---
Vital Signs 05/21/23 09:04 Height 5 ft 3 in Weight 143 lb 6 oz BMI 25.4 BP 130/70 Blood Pressure Location Lt brachial Position Sitting Pulse 62 Pulse Source Pulse Oximeter Pulse Oximetry (%) 97 Oxygen Delivery Method Room Air Intake Visit Reasons: Extended exam with f/u labs and health maint. Intake Note: Patient is here for extended exam and follow up labs. Patient's daughter is requesting wound care and patient needs refills today. Accompanied by: Daughter Allergies No Known Allergies [No Known Allergies*] Allergy (Verified 05/21/23 09:05) Medication List - Last Reconciled 05/21/23 by Ollie Hernandez MD apixaban (Eliquis) 5 mg PO BID 90 days bupropion HCl 37.5 mg (1/2 x 75 mg) PO BID 30 days calcium carbonate-vitamin D3 500 mg-3.125 mcg (125 unit) 1 tab PO DAILY carvedilol 6.25 mg PO BID celecoxib 200 mg PO DAILY cholecalciferol (vitamin D3) 50 mcg PO DAILY clonazepam (Klonopin) 0.5 mg PO BID PRN 30 days diclofenac sodium 1% (Voltaren Arthritis Pain) 3 - 4 grams topical TID donepezil 5 mg PO DAILY hydrocortisone 2.5% (Proctosol HC) 1 appl [place] BEDTIME PRN lisinopril 5 mg PO DAILY 30 days loperamide (Imodium A-D) 2 mg PO Q6H PRN menthol-zinc oxide 0.44-20.6 % (Calmoseptine) 1 appl topical BID PRN metoprolol succinate ER 12.5 mg PO DAILY [id number]-Ca carb-vit K 18 mg iron-400 mcg-500 mg 1 tab PO DAILY sertraline 200 mg (2 x 100 mg) PO DAILY 90 days tramadol 50 mg PO TID PRN trazodone 1/2 - 1 tablet p.o. at bedtime PO bedtime PRN; 90 days Tobacco use date assessed: 12/03/22 Fall risk assessment: 2 + Falls in past year Last assessed Fall Risk: 05/21/23 Dental Screening Dental Screen Date: 05/21/23 Did you have a dental visit in the last 12 months?: Yes Did you have a dental problem in the last 6 months where you did not have access to dental care?: No Was dental information given to patient?: No HPI Extended exam with f/u labs and health maint. HPI Details 68 y/o female presents for an extended exam with f/u labs and health maintenance. Labs were drawn 05/13/23. Reviewed labs with pt. Ongoing mild normocytic anemia. Lipid panel drawn 04/24/23. Triglycerides 97. TC 217. LDL 132. HDL 66. Had seen Hematology 05/17/23. She is followed by GI for James's esophagus. Pt notes she had just gotten her gallbladder removed. She states she still feels sore. She has only been using tylenol for pain. They report a cough. They note they had stopped omeprazole and had started her on sucralfate. HPI Comments History of Present Illness Details Documentation assistance for Ollie Hernandez MD, was provided by Earl Brian, Equine Science Instructor on 05/21/2023 9:55 AM EST. I, Dr. Hernandez, have read, observed, and verified documentation. [facility] Medical History (Updated 05/21/23 @ 10:05 by Earl Brian) Atrial fibrillation Chronic abdominal pain Dementia Depression with anxiety HTN (hypertension) Mastodynia of left breast Normocytic anemia Osteopenia SVT (supraventricular tachycardia) Surgical History (Updated 05/21/23 @ 09:44 by Earl Brian) H/O heart surgery History of cholecystectomy (05/04/23) History of cholecystectomy History of esophagogastroduodenoscopy (EGD) History of left knee replacement History of prior ablation treatment History of total hip replacement Hx of colonoscopy Family History Brother Lung cancer Brother Bladder cancer Social History Household Members: Spouse and Children Housing: House Are you a primary client care specialist to a significant other at home: No Do you presently have visiting nurse or other home services: No Alcohol intake: current Alcohol intake frequency: holidays/special occasions only Alcohol type: beer Patient Tobacco Use Status: Former Tobacco user Quit Date: 20 years e-Cigarette/Vaping Use: Never Used Second Hand Smoke Exposure: No service: No Current occupational status: retired Current occupational exposures/hazards: No Cognitive needs: No Hearing needs: No Vision needs: Yes Female Reproductive History Menstrual Age of Menarche: 13 Questionnaire PHQ-9 Over the last 2 weeks, how often have you been bothered by any of the following problems? 1. Little interest or pleasure in doing things: several days 2. Feeling down, depressed, or hopeless: several days 3. Trouble falling or staying asleep, or sleeping too much: not at all 4. Feeling tired or having little energy: nearly every day 5. Poor appetite or overeating: not at all 6. Feeling bad about yourself - or that you are a failure or have let yourself or your family down: not at all 7. Trouble concentrating on things, such as reading the newspaper or watching television: nearly every day 8. Moving or speaking so slowly that other people could have noticed. Or the opposite - being so fidgety or restless that you have been moving around a lot more than usual: several days 9. Thoughts that you would be better off or of hurting yourself in some way: not at all Total score: 9 Source: Developed by Drs. Jean Rockwell, Jennifer Fritz, Scar Navarro and colleagues, with an educational edna from [employer]. Thrive Questionnaire Date Thrive assessed: 12/03/22 ADEN-7 AMB Questionnaire ADEN-7 Date ADEN - 7 assessed: 05/03/23 Feeling nervous, anxious, or on edge: 1 = Several days Not being able to stop or control worryin = Nearly every day Worrying too much about different things: 3 = Nearly every day Trouble relaxin = Nearly every day Being so restless that it is hard to sit still: 0 = Not at all Becoming easily annoyed or irritable: 2 = More than half the days Feeling afraid as if something awful might happen: 1 = Several days Total ADEN-7 score (0-4 normal; 5-9 mild; 10-14 moderate; 15-21 severe): 13 Source: Developed by Drs. Jean Rockwell, Jennifer Fritz, Scar Navarro and colleagues, with an educational edna from [employer]. Review of Systems Const Denies chills, Denies fatigue, Denies fever(s), Denies headache(s) and Denies weakness Eyes Denies change in vision ENT Denies dizziness, Denies headache(s), Denies hearing loss, Denies nasal congestion, Denies sinus pain, Denies sinus pressure and Denies sore throat Card Denies chest pain, Denies lightheadedness, Denies dyspnea and Denies other (palpitations) Resp Denies cough, Denies dyspnea and Denies wheezing GI Denies abdominal pain, Denies melena, Denies hematochezia, Denies change in bowel habits, Denies dyspepsia and Denies nausea Denies hematuria and Denies dysuria Musc Denies abnormal gait, Denies myalgias, Denies arthralgias, Denies numbness and Denies tingling Skin/Breast Denies rash, Denies unusual bruising and Denies wounds Neuro Denies abnormal gait, Denies dizziness, Denies headache(s), Denies memory loss, Denies numbness, Denies Sensory deficit (Neuro), Denies tingling and Denies weakness Psych Denies anxiety, Denies depression and Denies memory loss Endo Denies cold intolerance, Denies fatigue, Denies heat intolerance, Denies polydipsia and Denies polyuria Keagan/Lymph Denies easy bleeding and Denies easy bruising Aller/Immun Denies wheezing Physical exam (Primary Care) Vital Signs: Last Vital Signs Pulse 62 05/21/23 09:04 BP 130/70 05/21/23 09:04 Pulse Ox 97 05/21/23 09:04 Oxygen Delivery Method Room Air 05/21/23 09:04 BMI result Body Mass Index 25.4 Tobacco/Smoking Status: Tobacco use Status Tobacco use date assessed 12/03/22 05/21/23 09:04 Patient Tobacco Use Status Former Tobacco user 05/21/23 09:04 e-Cigarette/Vaping Use Never Used 05/21/23 09:04 PHQ-9: PHQ-9 Score PHQ-9: Total score 9 05/21/23 09:35 Thrive Assessment: Date of Thrive Assessment Date Thrive assessed 12/03/22 05/21/23 09:04 Const General: no acute distress, well developed, alert and awake Nutritional Appearance: well nourished Orientation/consciousness: patient oriented x3 HENMT Head: Yes normocephalic and Yes atraumatic Ears: hearing grossly normal bilaterally and TM's normal bilaterally General nose exam: Normal external nose present and Normal nares present Mouth: Normal oral and palatal mucosa present and moist mucous membranes Teeth and gingiva: dentition normal Throat: Yes posterior oropharynx normal Eyes General: appearance normal, both eyes and all related structures Pupils: Equal, round and reactive pupils present and Pupil accommodation reflex normal EOM: EOMs intact bilaterally Neck Neck: Yes normal visual inspection, Yes no lymphadenopathy and Yes trachea midline Thyroid: Thyroid normal Carotids: no bruits Lymphatic: no lymphadenopathy noted Chest Chest palpation & inspection: normal inspection of the chest Resp Effort & Inspection: normal respiratory effort Auscultation: clear to auscultation bilaterally Cardio Rate: regular rate Rhythm: regular rhythm Heart sounds: S1 normal heart sound present, S2 normal heart sound present, no gallops, no murmurs and no rubs Bruits: no abdominal aortic bruits and no carotid bruits GI Palpation (GI): No Abdominal aortic bruit present, Soft to palpation, nontender, No hepatosplenomegaly present and No Rebound tenderness present Auscultation: normal bowel sounds General: Yes no CVA tenderness Back/Spine/Pelvis Back: no CVA tenderness Cervical Spine: cervical ROM normal and No Cervical spine tenderness Thoracic/Lumbar Spine: thoraco-lumbar ROM normal, No pain with thoraco-lumbar ROM, No thoracic spinal tenderness and No lumbar spinal tenderness Skin Lesions: no lesions Rashes: no rashes Trauma: no lacerations or abrasions Wounds: no wounds Nails: normal Neuro General: patient oriented x3 Cranial nerves: Yes Equal, round and reactive pupils present Cognition (Neuro): normal cognition Gait exam (Neuro): Normal gait present Motor exam (neuro): 5/5 motor strength present throughout Sensory Exam: No Sensory deficit (Neuro) Deep tendon reflexes (DTR's): Right patellar reflex intensity grade: 2+ and Left patellar reflex intensity grade: 2+ Extrem General: Yes normal to inspection and No edema Psych Appearance: grossly normal Affect: normal affect Attitude: cooperative Thought process: Normal thought process present Assessment and Plan Assessment & Plan (1) Normocytic anemia: Code(s): D64.9 - Anemia, unspecified Plan: Appears to be anemia of chronic disease. Likely also some component of GI bleeding previously. Follow-up with Hematology-Oncology as recommended (2) Elevated LDL cholesterol level: Code(s): E78.00 - Pure hypercholesterolemia, unspecified Plan: HDL ratios are good No changes required (3) Status post cholecystectomy: Code(s): Z90.49 - Acquired absence of other specified parts of digestive tract Plan: Has some abdominal and wound pain Will use a small amount tramadol. Avoid constipation Avoid fats and dairy (4) Bacteriuria: Code(s): R82.71 - Bacteriuria Plan: Finishing up antibiotic regimen and symptoms are abated Hydrate well (5) Urinary incontinence: Code(s): R32 - Unspecified urinary incontinence Plan: Likely partially due to neurologic issues such as mild vascular dementia Will ask Urology to investigate for other correctable causes (6) Pressure ulcer: Code(s): L89.90 - Pressure ulcer of unspecified site, unspecified stage Plan: Patient had significant stage III pressure ulcer her and has attended wound care Improving However, patient has mild vascular dementia, incontinence of urine and feces and daughter is having some difficulties with managing at home. Will ask [facility] to help manage (7) Cough: Code(s): R05.9 - Cough, unspecified Plan: This had resolved with omeprazole but has returned with discontinuation of omeprazole Resume omeprazole and let me know if you having any problems with this (8) Screening for colon cancer: Code(s): Z12.11 - Encounter for screening for malignant neoplasm of colon Plan: Follow-up with GI (9) Breast cancer screening by mammogram: Code(s): Z12.31 - Encounter for screening mammogram for malignant neoplasm of breast Plan: Has appointment for mammogram next week (10) Screening for cervical cancer: Code(s): Z12.4 - Encounter for screening for malignant neoplasm of cervix Plan: No longer getting Pap smears (11) Screening for osteoporosis: Code(s): Z13.820 - Encounter for screening for osteoporosis Plan: Due for bone density test in October. Prior bone density test showed normal bone density (12) Adult general medical exam: Code(s): Z00.00 - Encounter for general adult medical examination without abnormal findings Plan: 68-year-old woman presents for an extended exam She is stable Orders: Referrals [facility] Referral F01.50 - Vascular dementia, unspecified severity, without behavioral disturbance, psychotic disturbance, mood disturbance, and anxiety, L89.90 - Pressure ulcer of unspecified site, unspecified stage, R15.9 - Full incontinence of feces, R32 - Unspecified urinary incontinence Urology Referral R32 - Unspecified urinary incontinence Medications: Changed From tramadol 50 mg PO TID PRN 15 tabs 0RF pain To tramadol 50 mg PO TID 4 days PRN 12 tabs 0RF pain Refilled omeprazole 40 mg PO DAILY 30 days 30 caps 2RF Coding Level of Care Code Est Pt Level 4 (49014) Diagnoses Normocytic anemia D64.9 Elevated LDL cholesterol level E78.00 Status post cholecystectomy Z90.49 Bacteriuria R82.71 Urinary incontinence R32 Pressure ulcer L89.90 Cough R05.9 Screening for colon cancer Z12.11 Breast cancer screening by mammogram Z12.31 Screening for cervical cancer Z12.4 Screening for osteoporosis Z13.820 Adult general medical exam Z00.00
[2023-05-21 09:04] VITALS: BP 130/70; PULSE 62; O2SAT 97; BMI 25.4
== END 2023-05-21 10:14 | disposition home or self-care (01) ==
PROVIDERS: Visit Provider Family Medicine
DX: D64.9 Anemia, unspecified (principal); E78.00 Pure hypercholesterolemia, unspecified; Z90.49 Acquired absence of other specified parts of digestive tract; R82.71 Bacteriuria; R32 Unspecified urinary incontinence; L89.90 Pressure ulcer of unspecified site, unspecified stage; R05.9 Cough, unspecified; Z12.11 Encounter for screening for malignant neoplasm of colon; Z12.31 Encounter for screening mammogram for malignant neoplasm of breast; Z13.820 Encounter for screening for osteoporosis; Z00.00 Encounter for general adult medical examination without abnormal findings
CPT/HCPCS: 99214

== ENCOUNTER 2023-05-24 10:35 | Outpatient (REF) | payer MEDICARE, SELFPAY ==
--- NOTE | ~2023-05-24 | MM_ITS ---
EXAMINATION: MM SCREENING DIGITAL BREAST TOMOSYNTHESIS, BILATERAL CLINICAL INFORMATION: Screening. Asymptomatic. The lifetime risk of breast cancer based on the Tyrer-Cuzick Model is 3.9%. COMPARISON: Mammography: This study is compared with prior exams dating back to 2019. TECHNIQUE: Digital breast tomosynthesis is performed in both the craniocaudal and mediolateral oblique views along with computer-aided detection (CAD). Synthesized 2D images are generated from the tomosynthesis. FINDINGS: There are scattered areas of fibroglandular density (ACR BI-RADS breast composition Category b). In the retroareolar region, just lateral to the posterior nipple line, there is a focal asymmetry in the right breast for which additional mammographic imaging is advised. Targeted sonography may be performed at the discretion of the diagnostic radiologist. In the left breast, there are no significant masses, abnormal calcifications, or other abnormalities. MM/MM tomosynthesis screening BI IMPRESSION: Focal asymmetry of the right breast warrants additional mammographic imaging as described above. No mammographic signs of malignancy left breast. ASSESSMENT: BI-RADS BI-RADS 0 - Incomplete: Needs additional Imaging. RECOMMENDATION: 1. Additional views of the right breast. 2. Targeted ultrasound if warranted after review of the additional views. 3. Radiology department staff will contact the patient for additional imaging. Additional Imaging required This examination should not preclude the clinical evaluation of a suspicious palpable abnormality. This patient's information was entered into a reminder system with a target due date for their next mammogram.
== END 2023-05-24 10:36 | disposition home or self-care (01) ==
LOC: HO.MAMMO 10:35
PROVIDERS: PCP Family Medicine; Visit Provider Family Medicine
DX: Z12.31 Encounter for screening mammogram for malignant neoplasm of breast (principal)
CPT/HCPCS: 77063; 77067

== ENCOUNTER → 2023-05-24 10:45 | Outpatient (BNV) | payer MEDICARE, SELFPAY | PROVIDERS: PCP Family Medicine; Visit Provider Radiology Diagnostic Radiology | DX: Z12.31 Encounter for screening mammogram for malignant neoplasm of breast (principal) | CPT/HCPCS: 77063; 77067 ==

== ENCOUNTER 2023-06-22 08:44 | Outpatient (AMB) | payer MEDICARE, SELFPAY ==
--- NOTE | 2023-06-22 08:52 | A.OFFPC_ITS ---
Vital Signs 06/22/23 08:53 06/22/23 08:55 Height 5 ft 3 in 5 ft 3 in Weight 146 lb BMI 25.9 BP 130/68 Blood Pressure Location Lt brachial Position Sitting Pulse 57 Pulse Source Pulse Oximeter Pulse Oximetry (%) 99 Oxygen Delivery Method Room Air Intake Visit Reasons: f/u ulcer, chronic conditions Intake Note: Patient is here to following up on ulcer and chronic conditions. Patient states she is taking Metoprolol 100 mg, but received 25 mg pills, if you could refill the 100 mg? Allergies silver sulfadiazine [From Silvadene] Adverse Reaction (Mild, Verified 06/22/23 09:23) skin irritation Medication List - Last Reconciled 06/22/23 by Ollie Hernandez MD apixaban (Eliquis) 5 mg PO BID 90 days bupropion HCl 37.5 mg (1/2 x 75 mg) PO BID 30 days calcium carbonate-vitamin D3 500 mg-3.125 mcg (125 unit) 1 tab PO DAILY carvedilol 6.25 mg PO BID celecoxib 200 mg PO DAILY cholecalciferol (vitamin D3) 50 mcg PO DAILY clonazepam (Klonopin) 0.5 mg PO BID PRN 30 days diclofenac sodium 1% (Voltaren Arthritis Pain) 3 - 4 grams topical TID donepezil 5 mg PO DAILY hydrocortisone 2.5% (Proctosol HC) 1 appl [place] BEDTIME PRN lisinopril 5 mg PO DAILY 30 days loperamide (Imodium A-D) 2 mg PO Q6H PRN menthol-zinc oxide 0.44-20.6 % (Calmoseptine) 1 appl topical BID PRN metoprolol succinate ER 12.5 mg (1/2 x 25 mg) PO DAILY 90 days [id number] carb-vit K 18 mg iron-400 mcg-500 mg 1 tab PO DAILY omeprazole 40 mg PO DAILY 30 days sertraline 200 mg (2 x 100 mg) PO DAILY 90 days tramadol 50 mg PO TID PRN 4 days trazodone 1/2 - 1 tablet p.o. at bedtime PO bedtime PRN; 90 days Tobacco use date assessed: 12/03/22 Dental Screening Dental Screen Date: 06/22/23 Did you have a dental visit in the last 12 months?: Yes Did you have a dental problem in the last 6 months where you did not have access to dental care?: No Was dental information given to patient?: No HPI f/u ulcer, chronic conditions HPI Details 68 y/o female presents to f/u on her ulcer and chronic conditions. She continues to f/u with wound care. Wound continues to heal well. They note she has 1 appointment left with them. Pt reports she has been taking 100mg of her metoprolol. HPI Comments History of Present Illness Details Documentation assistance for Ollie Hernandez MD, was provided by Earl Brian,? Needle Process Felt Goods Supervisor on 06/22/2023 9:25 AM EST. I, Dr. Hernandez, have read, observed, and verified documentation. [facility] Medical History Atrial fibrillation Chronic abdominal pain Dementia Depression with anxiety HTN (hypertension) Mastodynia of left breast Normocytic anemia Osteopenia SVT (supraventricular tachycardia) Surgical History H/O heart surgery History of cholecystectomy (05/04/23) History of cholecystectomy History of esophagogastroduodenoscopy (EGD) History of left knee replacement History of prior ablation treatment History of total hip replacement Hx of colonoscopy Family History Brother Lung cancer Brother Bladder cancer Social History Household Members: Spouse and Children Housing: House Are you a primary health care marketing specialist to a significant other at home: No Do you presently have visiting nurse or other home services: No Alcohol intake: current Alcohol intake frequency: holidays/special occasions only Alcohol type: beer Patient Tobacco Use Status: Former Tobacco user Quit Date: 20 years e-Cigarette/Vaping Use: Never Used Second Hand Smoke Exposure: No service: No Current occupational status: retired Current occupational exposures/hazards: No Cognitive needs: No Hearing needs: No Vision needs: Yes Female Reproductive History Menstrual Age of Menarche: 13 Questionnaire Thrive Questionnaire Date Thrive assessed: 12/03/22 ADEN-7 AMB Questionnaire ADEN-7 Date ADEN - 7 assessed: 05/03/23 Source: Developed by Jennifer Jorge B.W. Lam, Scar Navarro and colleagues, with an educational edna from [employer]. Review of Systems Const Denies chills, Denies fatigue, Denies fever(s), Denies headache(s) and Denies weakness ENT Denies dizziness and Denies headache(s) Card Denies chest pain, Denies lightheadedness, Denies dyspnea and Denies other (Palpitations) Resp Denies cough, Denies dyspnea, Denies wheezing and Denies other ( shortness of breath) Musc Denies numbness and Denies tingling Neuro Denies dizziness, Denies headache(s), Denies numbness, Denies tingling, Denies paresthesias and Denies weakness Psych Denies anxiety and Denies depression Endo Denies fatigue Aller/Immun Denies wheezing Physical exam (Primary Care) Vital Signs: Last Vital Signs Pulse 57 06/22/23 08:55 BP 130/68 06/22/23 08:55 Pulse Ox 99 06/22/23 08:55 Oxygen Delivery Method Room Air 06/22/23 08:55 BMI result Body Mass Index 25.9 Tobacco/Smoking Status: Tobacco use Status Tobacco use date assessed 12/03/22 06/22/23 08:54 Patient Tobacco Use Status Former Tobacco user 06/22/23 08:54 e-Cigarette/Vaping Use Never Used 06/22/23 08:54 Thrive Assessment: Date of Thrive Assessment Date Thrive assessed 12/03/22 06/22/23 08:54 Const General: no acute distress and well developed Nutritional Appearance: well nourished Orientation/consciousness: patient oriented x3 [facility] Head: Yes normocephalic and Yes atraumatic Eyes General: appearance normal, both eyes and all related structures Pupils: Equal, round and reactive pupils present EOM: EOMs intact bilaterally Resp Effort & Inspection: normal respiratory effort Auscultation: clear to auscultation bilaterally Cardio Rate: regular rate Rhythm: regular rhythm Heart sounds: S1 normal heart sound present, S2 normal heart sound present, no gallops, no murmurs and no rubs Neuro General: patient oriented x3 and gait normal Cranial nerves: Yes Equal, round and reactive pupils present Psych Affect: normal affect Assessment and Plan Assessment & Plan (1) Pressure ulcer: Code(s): L89.90 - Pressure ulcer of unspecified site, unspecified stage Plan: Improving. She has 1 more visit with wound care. Alginate dressing changes but without silver which was causing skin irritation and wound healing delay2 Continue current dressing changes and follow-up with wound care (2) Essential hypertension: Code(s): I10 - Essential (primary) hypertension Plan: Blood pressure is controlled She is currently taking metoprolol ER 100mg daily; changed her medication list to reflect this (3) Breast cancer screening by mammogram: Code(s): Z12.31 - Encounter for screening mammogram for malignant neoplasm of breast Plan: Mammogram requires additional imaging which is scheduled for Wednesday Will follow (4) Screening for osteoporosis: Code(s): Z13.820 - Encounter for screening for osteoporosis Plan: Had ordered bone density test but she has not had this scheduled yet Will ask the office to check on the status of this order Medications: Changed From metoprolol succinate ER 12.5 mg (1/2 x 25 mg) PO DAILY 90 days 45 tabs 3RF To metoprolol succinate ER 100 mg PO DAILY 90 tabs 3RF 90 days Coding Level of Care Code Est Pt Level 3 (25770) Diagnoses Pressure ulcer L89.90 Essential hypertension I10 Breast cancer screening by mammogram Z11.07 Screening for osteoporosis Z13.820
[2023-06-22 08:55] VITALS: BP 130/68; PULSE 57; O2SAT 99; BMI 25.9
== END 2023-06-22 09:23 | disposition home or self-care (01) ==
PROVIDERS: PCP Family Medicine; Visit Provider Family Medicine
DX: L89.90 Pressure ulcer of unspecified site, unspecified stage (principal); I10 Essential (primary) hypertension; Z12.31 Encounter for screening mammogram for malignant neoplasm of breast; Z13.820 Encounter for screening for osteoporosis
CPT/HCPCS: 99213

== ENCOUNTER 2023-06-25 08:52 | Outpatient (REF) | payer MEDICARE, SELFPAY ==
--- NOTE | ~2023-06-25 | US_ITS ---
EXAMINATION: MM DIAGNOSTIC DIGITAL BREAST TOMOSYNTHESIS, RIGHT US BREAST LIMITED, RIGHT MAMMOGRAPHY: CLINICAL INFORMATION: Follow-up focal asymmetry seen 9:00 right breast, anterior one third on screening exam. The lifetime risk of breast cancer based on the Tyrer-Cuzick Model is 7%. COMPARISON: Mammography: 05/24/2023, 10/13/2022, 05/21/2022, 05/16/2021, and dating back to 2019. TECHNIQUE: Digital breast tomosynthesis is performed in a full-field digital right 3-D mediolateral view, as well as 3-D spot compression right CC and MLO views. Views along with computer-aided detection (CAD). Synthesized 2D images are generated from the tomosynthesis. FINDINGS: There are scattered areas of fibroglandular density (ACR BI-RADS breast composition Category b). Within the 9:00 axis of the right breast, anterior one third, there is a 5 mm round mass, which will be evaluated by ultrasound. There is a stable benign calcified fibroadenoma in the posterior one third right breast also at the approximate 9:00 axis. Results were provided to the patient at time of visit by the technologist. ULTRASOUND: CLINICAL INFORMATION: Evaluate round 5 mm mass 9:00 axis anterior right breast. COMPARISON: None TECHNIQUE: Targeted sonographic evaluation was performed using a high frequency linear transducer. Selected archived documentation. FINDINGS: RIGHT BREAST: There is a 5 x 5 x 5 mm round simple cyst in the 9:00 axis right breast, 3 cm from the nipple, correlating with the mammographic focus of concern. This is benign. There are no suspicious abnormalities. US/US breast RT limited mamm only IMPRESSION: Benign findings right breast. No findings suspicious for malignancy. Recommend the patient resume routine annual screening mammography. OVERALL ASSESSMENT: Mammography: BI-RADS 2 - Benign Findings Ultrasound: BI-RADS 2 - Benign Findings RECOMMENDATION: 1 year F/U This patient's information was entered into a reminder system with a target due date for their next mammogram.
== END 2023-06-25 08:53 | disposition home or self-care (01) ==
LOC: HO.MAMMO 08:52
PROVIDERS: PCP Family Medicine; Visit Provider Family Medicine
DX: N64.89 Other specified disorders of breast (principal)
CPT/HCPCS: 76642; 77061; 77065

== ENCOUNTER → 2023-06-25 09:00 | Outpatient (BNV) | payer MEDICARE, SELFPAY | PROVIDERS: PCP Family Medicine; Visit Provider Radiology Diagnostic Radiology | DX: N64.59 Other signs and symptoms in breast (principal) | CPT/HCPCS: 76642; 77061; 77065; G0279 ==

== ENCOUNTER 2023-07-13 08:55 | Outpatient (AMB) | payer MEDICARE, SELFPAY ==
--- NOTE | 2023-07-13 09:05 | MHC.OFFVIS ---
Intake Intake Visit Reasons: Urinary incontinence Intake Note: New Patient presents for initial visit for urinary incontinence Urology Medications: none Blood Thinner: Apixaban PVR: 0ml's Packaging Specialist Required: No Accompanied by: Self / Same As Patient Allergies silver sulfadiazine [From Silvadene] Adverse Reaction (Mild, Verified 07/13/23 09:44) skin irritation Medication List - Last Reconciled 07/13/23 by MANUELA Martinez- apixaban (Eliquis) 5 mg PO BID 90 days bupropion HCl 37.5 mg (1/2 x 75 mg) PO BID 30 days calcium carbonate-vitamin D3 500 mg-3.125 mcg (125 unit) 1 tab PO DAILY carvedilol 6.25 mg PO BID celecoxib 200 mg PO DAILY cholecalciferol (vitamin D3) 50 mcg PO DAILY clonazepam (Klonopin) 0.5 mg PO BID PRN 30 days diclofenac sodium 1% (Voltaren Arthritis Pain) 3 - 4 grams topical TID donepezil 5 mg PO DAILY hydrocortisone 2.5% (Proctosol HC) 1 appl FL BEDTIME PRN lisinopril 5 mg PO DAILY 30 days loperamide (Imodium A-D) 2 mg PO Q6H PRN menthol-zinc oxide 0.44-20.6 % (Calmoseptine) 1 appl topical BID PRN metoprolol succinate ER 100 mg PO DAILY 90 days kx-fi-kaaf-FA-Ca carb-vit K 18 mg iron-400 mcg-500 mg 1 tab PO DAILY omeprazole 40 mg PO DAILY 30 days sertraline 200 mg (2 x 100 mg) PO DAILY 90 days tramadol 50 mg PO TID PRN 4 days trazodone 1/2 - 1 tablet p.o. at bedtime PO bedtime PRN; 90 days HPI HPI Comments History of Present Illness Details Trish is a very pleasant 68-year-old female patient of Dr. Hernandez who was accompanied by her daughter at today's visit. She has a past medical history of AFib, chronic abdominal pain, dementia, depression, anxiety, hypertension, normocytic anemia, osteopenia, and SVT. She presents to the office today as a new patient for urinary and fecal incontinence. When asked she reports to be doing and feeling well. She discusses for awhile now she has been noting herself to have fecal and urinary incontinence. She reports having had stage III wound to her coccyx/buttocks area however this has since healed. When asked she does report unsensed and sensed urinary incontinence. In discussion with the daughter today she discusses feeling urinary and fecal incontinence is related to patient's dementia and reports symptoms have been present for quite some time however does feel they are worsening. When asked she does report having had 2 vaginal births in the past of small to average size babies. She reports one labor to have been a long labor and the other to have been short. When asked she denies urinary urgency, urinary frequency, nocturia, hematuria, dysuria, foul smelling urine, changes to urinary stream, flank pain, fever, and or chills. In office urinalysis results reviewed with the patient and her daughter today. PVR 0ml's. [facility] Medical History Atrial fibrillation Chronic abdominal pain Dementia Depression with anxiety HTN (hypertension) Mastodynia of left breast Normocytic anemia Osteopenia SVT (supraventricular tachycardia) Surgical History H/O heart surgery History of cholecystectomy (05/04/23) History of cholecystectomy History of esophagogastroduodenoscopy (EGD) History of left knee replacement History of prior ablation treatment History of total hip replacement Hx of colonoscopy Family History Brother Lung cancer Brother Bladder cancer Social History Household Members: Spouse and Children Housing: House Are you a primary acute care nurse to a significant other at home: No Do you presently have visiting nurse or other home services: No Alcohol intake: current Alcohol intake frequency: holidays/special occasions only Alcohol type: beer Patient Tobacco Use Status: Former Tobacco user Quit Date: 20 years e-Cigarette/Vaping Use: Never Used Second Hand Smoke Exposure: No service: No Current occupational status: retired Current occupational exposures/hazards: No Cognitive needs: No Hearing needs: No Vision needs: Yes Female Reproductive History Menstrual Age of Menarche: 13 Review of Systems Const Reports as per HPI Eyes Reports no additional complaints ENT Reports no additional complaints Card Reports as per HPI Resp Reports no additional complaints GI Reports as per HPI Reports as per HPI Musc Reports no additional complaints Neuro Reports as per [facility] Psych Reports as per HPI Endo Reports no additional complaints Physical Exam Const General: cooperative, healthy appearing, comfortable, no acute distress, well developed, alert and awake Orientation/consciousness: patient oriented x3 Limitations: no limitations HEENT Head: Yes normal to inspection, Yes normocephalic and Yes atraumatic Ears: hearing grossly normal bilaterally Eyes General: appearance normal, both eyes and all related structures Neck Neck: Yes normal visual inspection and Yes trachea midline Chest Chest palpation & inspection: normal inspection of the chest Resp Effort & Inspection: normal respiratory effort and able to speak in complete sentences Cardio Rate: regular rate GI Inspection: Yes normal to inspection General: Yes no CVA tenderness Back/Spine/Pelvis Back: no CVA tenderness Skin General skin exam: no rashes or lesions noted Neuro General: patient oriented x3 Extrem General: Yes normal to inspection Psych Appearance: grossly normal and well kempt Mental Status: mental status grossly normal Speech and movement: Normal speech and movement present and Clear speech present Affect: normal affect Attitude: cooperative Thought process: Normal thought process present Thought content: Normal thought content present Insight: Limited insight present (Psych) Judgement: Limited judgement present (Psych) Office Procedures Post Void Residual Post Residual Void Post Void Residual (PVR): 0 [id number] Void Residual by ultrasound Results AMB Urinalysis, Automated UA Leukoctes 70 Balaji/uL Last Edit by [employer] Yoni on 07/13/23 09:29 UA Nitrite Negative Last Edit by [email or web address] Vallejo on 07/13/23 09:29 UA Urobilinogen 0.2 mg/dL Last Edit by Wudyaerik on 07/13/23 09:29 UA Protein 15 mg/dL Last Edit by Wudyaerik on 07/13/23 09:29 UA pH 6.0 Last Edit by Press [employer]le[employer] Vallejo on 07/13/23 09:29 UA Blood 0 Marcus/uL Last Edit by [employer] Vallejo on 07/13/23 09:29 UA Specific [place] 1.020 Last Edit by [employer] Pattern[employer] Yoni on 07/13/23 09:29 UA Ketone Last Edit by [employer] Yoni on 07/13/23 09:29 UA Bilirubin 0 mg/dL Last Edit by Ramirez Vallejo on 07/13/23 09:29 UA Glucose 0 mg/dL Last Edit by Ramirez Vallejo on 07/13/23 09:29 Results Reviewed Results Reviewed: Laboratory Last Values Urine pH (Auto) 6.0 07/13/23 09:27 Specific [place] (Auto) 1.020 07/13/23 09:27 Urine Protein (Auto) 15 mg/dL 07/13/23 09:27 Glucose (UA)(Auto) 0 mg/dL 07/13/23 09:27 Urine Blood (Auto) 0 Marcus/uL 07/13/23 09:27 Urine Nitrite (Auto) Negative 07/13/23 09:27 Urine Bilirubin (Auto) 0 mg/dL 07/13/23 09:27 Urine Urobilinogen (Auto) 0.2 mg/dL 07/13/23 09:27 Leukocyte Esterase (Auto) 70 Balaji/uL 07/13/23 09:27 Assessment & Plan Assessment & Plan (1) Urinary incontinence: Code(s): R32 - Unspecified urinary incontinence (2) Urinary and fecal incontinence: Code(s): R32 - Unspecified urinary incontinence; R15.9 - Full incontinence of feces Plan In office urinalysis results reviewed with the patient and her daughter today; as noted above. Will obtain retroperitoneal ultrasound for further assessment evaluation. Discussed importance of timed/scheduled toilet scheduling for reminders in to attempt to reduce episodes of incontinence as patient reports she is forgetting to utilize the bathroom Discussed at length pelvic floor therapy however patient and patient's daughter did not believe this to be appropriate at this time given patient's dementia. Discussed possible treatment options for urinary and fecal incontinence such as InterStim Follow-up in 1-2 months with imaging to be completed prior; or sooner with any issues, concerns, and or questions. Orders: Orders US retroperitoneal comp Today R15.9 - Full incontinence of feces, R32 - Unspecified urinary incontinence AMB Urinalysis Automated Today Z13.9 - Encounter for screening, unspecified AMB Post Void Residual by ultrasound Today R32 - Unspecified urinary incontinence Coding Level of Care Code New Pt Level 3 (87493) Diagnoses Urinary incontinence R32 Urinary and fecal incontinence R32; R15.9 CPT Codes Post Residual Void - PVR CPT Code: 68464-[id number] Void Residual by ultrasound ([id number])
== END 2023-07-13 09:44 | disposition home or self-care (01) ==
PROVIDERS: PCP Family Medicine; Referring Provider Family Medicine; Visit Provider Nurse Practitioner Family
DX: R32 Unspecified urinary incontinence (principal); R15.9 Full incontinence of feces
CPT/HCPCS: 99203; 99213

== ENCOUNTER → 2023-07-13 08:55 | Outpatient (BNVA) | payer MEDICARE, SELFPAY | PROVIDERS: PCP Family Medicine; Referring Provider Family Medicine; Visit Provider Nurse Practitioner Family | DX: R32 Unspecified urinary incontinence (principal); R15.9 Full incontinence of feces | CPT/HCPCS: 51798; 81003; 99202 ==

== ENCOUNTER 2023-07-21 11:17 | Outpatient (AMB) | payer MEDICARE, SELFPAY ==
--- NOTE | 2023-07-21 11:19 | AM.OFFWIN_ITS ---
Intake Vital Signs 07/21/23 11:21 Weight 147 lb BP 120/70 Blood Pressure Location Lt brachial Position Sitting Pulse 57 Pulse Source Pulse Oximeter Temp 98 F Temp Source Temporal Artery Scan Pulse Oximetry (%) 98 Oxygen Delivery Method Room Air Intake Visit Reasons: EP Cough (masked) Intake Note: Patient here for cough, headaches and congestion that has been present for about 2 weeks, having difficulties at night. Patient Tobacco Use Status: Former Tobacco user Quit Date: 20 years Allergies silver sulfadiazine [From Silvadene] Adverse Reaction (Mild, Verified 07/21/23 11:23) skin irritation Do you need a note to return to daycare/school/sports/work: No HPI EP Cough (masked) HPI Details 68-year-old female patient presents [facility] for [facility] sick visit. Reports a 2 week history of headache, nasal congestion, and persistent cough that is keeping her up at night. She has some secretions with cough that are light yellow in color. Denies fever or chills. Has taken COVID test at home which have been negative. [facility] Medical History Dementia Chronic abdominal pain Mastodynia of left breast HTN (hypertension) Normocytic anemia Osteopenia Depression with anxiety SVT (supraventricular tachycardia) Atrial fibrillation Surgical History History of cholecystectomy History of cholecystectomy (05/04/23) History of esophagogastroduodenoscopy (EGD) Hx of colonoscopy History of total hip replacement History of prior ablation treatment H/O heart surgery History of left knee replacement Family History Brother Lung cancer Brother Bladder cancer Social History Household Members: Spouse and Children Housing: House Are you a primary post acute care nurse practitioner to a significant other at home: No Do you presently have visiting nurse or other home services: No Alcohol intake: current Alcohol intake frequency: holidays/special occasions only Alcohol type: beer Patient Tobacco Use Status: Former Tobacco user Quit Date: 20 years e-Cigarette/Vaping Use: Never Used Second Hand Smoke Exposure: No service: No Current occupational status: retired Current occupational exposures/hazards: No Cognitive needs: No Hearing needs: No Vision needs: Yes Female Reproductive History Menstrual Age of Menarche: 13 Review of Systems Const All systems reviewed & are unremarkable except as noted in HPI and below Physical Exam Vital Signs: Last Vital Signs Temp 98 F 07/21/23 11:21 Pulse 57 07/21/23 11:21 BP 120/70 07/21/23 11:21 Pulse Ox 98 07/21/23 11:21 Oxygen Delivery Method Room Air 07/21/23 11:21 Const General: cooperative, healthy appearing and no acute distress HEENT Head: Yes normal to inspection Ears: hearing grossly normal bilaterally, external ears normal and TM's normal bilaterally General nose exam: Normal external nose present and Normal nares present Face and sinus: Yes normal facial exam Mouth: Normal oral and palatal mucosa present Throat: Yes posterior oropharynx normal Neck Neck: Yes no lymphadenopathy Resp Effort & Inspection: normal respiratory effort and able to speak in complete sentences Auscultation: clear to auscultation bilaterally Cardio Jugular venous distension: no JVD Palpation: normal PMI Rate: regular rate Rhythm: regular rhythm Skin General skin exam: no rashes or lesions noted Extrem General: Yes capillary refill normal and Yes no clubbing, cyanosis or edema Psych Appearance: grossly normal Mental Status: mental status grossly normal Speech and movement: Normal speech and movement present Assessment & Plan Assessment & Plan (1) Upper respiratory infection: Code(s): J06.9 - Acute upper respiratory infection, unspecified Qualifiers: URI type: unspecified URI Qualified Code(s): J06.9 - Acute upper respiratory infection, unspecified Plan: Patient with persistent cough in presence of URI. Having difficulty with coughing fits, particularly at night. Will start on benzonatate p.r.n., and azithromycin 5 days to see if this helps resolve symptoms. Advised that she can continue otc llozenges/cough drops, and Tylenol p.r.n.. If she does not improve with treatment, or if new symptoms develop or current symptoms worsen, she should return to the clinic for further evaluation. Medications: New azithromycin For 250 mg dose pack: take 500 mg today (day 1), then 250 mg for 4 days (days 2-5) PO 6 tabs 0RF J06.9 - Acute upper respiratory infection, unspecified benzonatate 100 mg PO BID PRN 14 caps 0RF cough 7 days R05.9 - Cough, unspecified Coding Level of Care Code Est Pt Level 3 (65430) Diagnoses Upper respiratory tract infection, unspecified type J06.9 URI type: unspecified URI
[2023-07-21 11:21] VITALS: BP 120/70; PULSE 57; TEMP 36.6; O2SAT 98
== END 2023-07-21 11:41 | disposition home or self-care (01) ==
PROVIDERS: PCP Family Medicine; Visit Provider Nurse Practitioner Family
DX: J06.9 Acute upper respiratory infection, unspecified (principal)
CPT/HCPCS: 99213

== ENCOUNTER 2023-07-28 11:06 | Outpatient (REF) | payer MEDICARE, SELFPAY ==
[2023-07-28 15:02] LABS: Appearance Urine Hazy; Color Urine Yellow; Glucose Urine UA Negative (Negative); Leukocyte Esterase Urine Large (3+) (Negative); Nitrite Urine Negative (Negative); UMIC TRIGGER UACC YES; Urine Blood Moderate (2+) (Negative); Urine Ketones Negative (Negative); Urine Protein Trace mg/dL (Neg-Trace)
[2023-07-28 15:20] LABS: Bacteria Urine Trace (None Seen); Hyaline Casts Urine 0-2 /LPF (0-2); RBC Urine 0-2 /HPF (0-2); Squamous Epithelial Cell Urine 0-2 /HPF (0-2); UACC Culture Trigger YES; WBC Urine 0-5 /HPF (0-5)
== END 2023-07-28 11:07 | disposition home or self-care (01) ==
LOC: HO.WFDLDS 11:06
PROVIDERS: Visit Provider Nurse Practitioner Family
DX: R39.9 Unspecified symptoms and signs involving the genitourinary system (principal)
CPT/HCPCS: 81001; 81003

== ENCOUNTER 2023-08-02 10:55 | Outpatient (AMB) | payer MEDICARE, SELFPAY ==
--- NOTE | 2023-08-02 11:05 | MHC.OFFVIS ---
Intake Vital Signs 08/02/23 11:09 Height 5 ft 3 in Weight 143 lb 4.807 oz BMI 25.4 BP 127/58 L Blood Pressure Location Lt brachial Position Sitting Pulse 54 Intake Visit Reasons: Abdominal pain Intake Note: Trish presents in the office as a follow up 2nd opinion for abdominal pains. CC: She seen states that she has incontinence with her stools and she does not know why. Recorder Helper Seismograph Required: No Allergies silver sulfadiazine [From Silvadene] Adverse Reaction (Mild, Verified 08/02/23 11:09) skin irritation HPI Abdominal pain HPI Details 68 yr old f here for f/u RECAP: Had seen [facility] for abdominal pain also abn bowel habits INTERIM: ongoing issues with fecal incontinence comes out without warning, no control it happens 2 hours after eating but can happen other times as well no specific products come to her mind stools are usu poorly formed or liquid she suffers back pain, mild she denies pins and needles in legs and perineum she currently has a UTI she takes imodium, and it works well for her TEST: EGD/Sigmoidoscopy 02/2023 Findings: Larynx:normal Esophagus: GE junction at 35 cm, diaphragm hiatus at 35 cm, incompetent LES, widely open, bx taken from GEJ which had salmon pink patches noted. Bx also taken from distal and proximal esophagus Stomach: Intense erythema and scarring with bile acid refluxate. Biopsies were obtained. Grade 3 flap valve on retroflexed examination of the cardia. Drury pink tissue at outlet, bx taken to r/o intestinal metaplasia Duodenum: Normal bulb and descending duodenum, bx taken Intervention: Biopsies as noted above Sigmoidoscopy Instrument: As above Transverse Colon -normal Descending Colon:normal Sigmoid Colon: normal Rectum: Retroflexion with small internal hemorrhoids, grade I Random colon bx taken Anorectum - normal Impression and Post Procedure Diagnosis: Endoscopy Findings: incompetent LES, bile acid reflux esophagitis, possible barretts possible gastric intestinal metaplasia Colonoscopy Findings: internal hemorrhoids Plan: Await Pathology results May need surgery for incompetent LES, vs bile acid binders, PPI, and pro motility agents or hybrid APC PATH: moderate chronic gastritis, crypt distortion of colon, otherwise nml EXAM: GENERAL: The patient is well developed and nontoxic. VITAL SIGNS:see workflow HEENT: Nonicteric sclerae, PERRLA, EOMI. Oropharynx clear. Moist mucous membranes. Conjunctivae appear well perfused. No thyroid mass. CHEST: Chest wall is nontender. HEART: Regular rate and rhythm without murmurs. LUNGS: Clear to auscultation bilaterally. ABDOMEN: Soft, positive bowel sounds, nontender, no organomegaly.no flank tenderness SKIN: No rash, no excessive bruising, petechiae, or purpura. NEUROLOGIC: Cranial nerves II-XII intact without motor/sensory deficit. psych- nml A/P: 1/ fecal incontinence with some urine, neg bx for microscopic colitis, many possible reasons, pelvic floor dysfunction, bile acid malabsorption, SIBO, sphincter weakeness, med effects, subacute colitis, xs acid production, systemic disease seeing urology, already had discussion on spinal stimulator PLAN: 1/ increase fiber, metamucil BID with increase fluid intake 6-8 glasses daily 2/ H pylori breath test in 4 weeks, stop PPI 2 weeks before 3/ consider PT referral, trial of rifaxmin, vs welchol --maybe MR defecography or ARM PFSH Medical History Dementia Chronic abdominal pain Mastodynia of left breast HTN (hypertension) Normocytic anemia Osteopenia Depression with anxiety SVT (supraventricular tachycardia) Atrial fibrillation Surgical History History of cholecystectomy History of cholecystectomy (05/04/23) History of esophagogastroduodenoscopy (EGD) Hx of colonoscopy History of total hip replacement History of prior ablation treatment H/O heart surgery History of left knee replacement Family History Brother Lung cancer Brother Bladder cancer Social History Household Members: Spouse and Children Housing: House Are you a primary landcare facilitator to a significant other at home: No Do you presently have visiting nurse or other home services: No Alcohol intake: current Alcohol intake frequency: holidays/special occasions only Alcohol type: beer Patient Tobacco Use Status: Former Tobacco user Quit Date: 20 years e-Cigarette/Vaping Use: Never Used Second Hand Smoke Exposure: No service: No Current occupational status: retired Current occupational exposures/hazards: No Cognitive needs: No Hearing needs: No Vision needs: Yes Female Reproductive History Menstrual Age of Menarche: 13 Physical Exam Vital Signs: Last Vital Signs Pulse 54 08/02/23 11:09 BP 127/58 L 08/02/23 11:09 BMI result Body Mass Index 25.4 Assessment & Plan Assessment & Plan (1) Urinary and fecal incontinence: Code(s): R32 - Unspecified urinary incontinence; R15.9 - Full incontinence of feces (2) Urinary incontinence: Code(s): R32 - Unspecified urinary incontinence (3) Status post cholecystectomy: Code(s): Z90.49 - Acquired absence of other specified parts of digestive tract Orders: Orders H Pylori Breath Test Today R15.9 - Full incontinence of feces, R32 - Unspecified urinary incontinence, Z90.49 - Acquired absence of other specified parts of digestive tract Pancreatic Elastase-1 Today R15.9 - Full incontinence of feces, R32 - Unspecified urinary incontinence, Z90.49 - Acquired absence of other specified parts of digestive tract Lactoferrin, Fecal, Quant. Today K51.50 - Left sided colitis without complications, R15.9 - Full incontinence of feces, R32 - Unspecified urinary incontinence, Z90.49 - Acquired absence of other specified parts of digestive tract Coding Level of Care Code Est Pt Level 4 (43013) Diagnoses Urinary and fecal incontinence R32; R15.9 Urinary incontinence R32 Status post cholecystectomy Z90.49
[2023-08-02 11:09] VITALS: BP 127/58; PULSE 54; BMI 25.4
== END 2023-08-02 12:47 | disposition home or self-care (01) ==
PROVIDERS: PCP Family Medicine; Visit Provider Internal Medicine Gastroenterology
DX: R32 Unspecified urinary incontinence (principal); R15.9 Full incontinence of feces; Z90.49 Acquired absence of other specified parts of digestive tract
CPT/HCPCS: 99214

== ENCOUNTER → 2023-08-02 10:55 | Outpatient (BNVA) | payer MEDICARE, SELFPAY | PROVIDERS: PCP Family Medicine; Visit Provider Internal Medicine Gastroenterology | DX: R32 Unspecified urinary incontinence (principal); R15.9 Full incontinence of feces; Z90.49 Acquired absence of other specified parts of digestive tract | CPT/HCPCS: 99212 ==

== ENCOUNTER 2023-08-05 11:31 | Outpatient (REF) | payer MEDICARE, SELFPAY ==
--- NOTE | ~2023-08-05 | US_ITS ---
EXAMINATION: US RETROPERITONEAL COMPLETE (RENAL) CLINICAL INFORMATION: Unspecified urinary incontinence. COMPARISON: Ultrasound abdomen complete 03/12/2023. CT abdomen and pelvis with contrast 03/11/2023. TECHNIQUE: Real-time imaging of the kidneys and bladder. FINDINGS: RIGHT KIDNEY: 10.0 x 3.4 x 4.2 cm (SAG x AP x TRV). The kidney is normal in size and echogenicity. There are persistent lobulations. Renal cortical thickness is normal. No calculi or focal parenchymal lesions. There is pelviectasis, without geraldine hydronephrosis. LEFT KIDNEY: 10.3 x 4.6 x 4.6 cm (SAG x AP x TRV). The kidney is normal in size and echogenicity. There are persistent lobulations. Renal cortical thickness is normal. No calculi or focal parenchymal lesions. No hydronephrosis. BLADDER: Partially distended. Right ureteral jet is demonstrated; left is not. Prevoid bladder volume is 122 mL. Postvoid bladder volume is negligible. US/US retroperitoneal comp IMPRESSION: Unremarkable examination.
== END 2023-08-05 11:32 | disposition home or self-care (01) ==
LOC: HO.US 11:31
PROVIDERS: PCP Family Medicine; Visit Provider Nurse Practitioner Family
DX: R32 Unspecified urinary incontinence (principal); R15.9 Full incontinence of feces
CPT/HCPCS: 76770

== ENCOUNTER 2023-08-25 08:37 | Outpatient (AMB) | payer MEDICARE, SELFPAY ==
--- NOTE | 2023-08-25 09:01 | MHC.OFFVIS ---
Intake Intake Visit Reasons: 6w/US(set) Intake Note: Patient presents for follow up for urinary/fecal incontinence Urology Medications: none Blood Thinner: Apixaban PVR: 14ml's Shaft Sinker Required: No Accompanied by: Daughter Allergies silver sulfadiazine [From Silvadene] Adverse Reaction (Mild, Verified 08/25/23 09:50) skin irritation Medication List - Last Reconciled 08/25/23 by MARKY MartinezP- apixaban (Eliquis) 5 mg PO BID 90 days benzonatate 100 mg PO BID PRN bupropion HCl 37.5 mg (1/2 x 75 mg) PO BID 30 days calcium carbonate-vitamin D3 500 mg-3.125 mcg (125 unit) 1 tab PO DAILY carvedilol 6.25 mg PO BID celecoxib 200 mg PO DAILY cholecalciferol (vitamin D3) 50 mcg PO DAILY ciprofloxacin HCl 500 mg PO Q12H 5 days clonazepam (Klonopin) 0.5 mg PO BID PRN 30 days diclofenac sodium 1% (Voltaren Arthritis Pain) 3 - 4 grams topical TID donepezil 5 mg PO DAILY hydrocortisone 2.5% (Proctosol HC) 1 appl MD BEDTIME PRN lisinopril 5 mg PO DAILY 30 days loperamide (Imodium A-D) 2 mg PO Q6H PRN menthol-zinc oxide 0.44-20.6 % (Calmoseptine) 1 appl topical BID PRN metoprolol succinate ER 100 mg PO DAILY 90 days mirabegron ER (Myrbetriq) 25 mg PO DAILY 30 days [id number] carb-vit K 18 mg iron-400 mcg-500 mg 1 tab PO DAILY omeprazole 40 mg PO DAILY 30 days sertraline 200 mg (2 x 100 mg) PO DAILY 90 days tramadol 50 mg PO TID PRN 4 days trazodone 1/2 - 1 tablet p.o. at bedtime PO bedtime PRN; 90 days HPI HPI Comments History of Present Illness Details Trish is a very pleasant 68-year-old female patient of Dr. Hernandez who was accompanied by her daughter at today's visit. She has a past medical history of AFib, chronic abdominal pain, dementia, depression, anxiety, hypertension, normocytic anemia, osteopenia, and SVT. She presents to the office today for follow-up. Of note, patient was seen approximately 6 weeks ago as a new patient for urinary and fecal incontinence at which time a retroperitoneal ultrasound was ordered for further assessment evaluation. These results were reviewed with the patient and her daughter today. Bilateral kidneys with persistent lobulations. No calculi or focal lesion there is pelviectasis, without geraldine hydronephrosis. The bladder is partially distended. Essentially unremarkable examination. When asked patient reports to be doing and feeling well. She reports noting fecal incontinence has somewhat improved when taking as needed Imodium. She continues with nocturnal enuresis. In discussion with the daughter today she discusses feeling urinary and fecal incontinence is related to patient's dementia and reports symptoms have been present for quite some time however does feel they are worsening. When asked she does report having had 2 vaginal births in the past of small to average size babies. She reports one labor to have been a long labor and the other to have been short. When asked she denies urinary urgency, urinary frequency, nocturia, hematuria, dysuria, foul smelling urine, changes to urinary stream, flank pain, fever, and or chills. In office urinalysis results reviewed with the patient and her daughter today. [id number] [facility] Medical History Dementia Chronic abdominal pain Mastodynia of left breast HTN (hypertension) Normocytic anemia Osteopenia Depression with anxiety SVT (supraventricular tachycardia) Atrial fibrillation Surgical History History of cholecystectomy History of cholecystectomy (05/04/23) History of esophagogastroduodenoscopy (EGD) Hx of colonoscopy History of total hip replacement History of prior ablation treatment H/O heart surgery History of left knee replacement Family History Brother Lung cancer Brother Bladder cancer Social History Household Members: Spouse and Children Housing: House Are you a primary neonatal intensive care nurse to a significant other at home: No Do you presently have visiting nurse or other home services: No Alcohol intake: current Alcohol intake frequency: holidays/special occasions only Alcohol type: beer Patient Tobacco Use Status: Former Tobacco user Quit Date: 20 years e-Cigarette/Vaping Use: Never Used Second Hand Smoke Exposure: No service: No Current occupational status: retired Current occupational exposures/hazards: No Cognitive needs: No Hearing needs: No Vision needs: Yes Female Reproductive History Menstrual Age of Menarche: 13 Review of Systems Const Reports as per HPI Eyes Reports no additional complaints ENT Reports no additional complaints Card Reports as per HPI Resp Reports no additional complaints GI Reports as per HPI Reports as per HPI Musc Reports no additional complaints Neuro Reports as per HPI Psych Reports as per HPI Endo Reports no additional complaints Physical Exam Const General: cooperative, healthy appearing, comfortable, no acute distress, well developed, alert and awake Orientation/consciousness: patient oriented x3 Limitations: no limitations HEENT Head: Yes normal to inspection, Yes normocephalic and Yes atraumatic Ears: hearing grossly normal bilaterally Eyes General: appearance normal, both eyes and all related structures Neck Neck: Yes normal visual inspection and Yes trachea midline Chest Chest palpation & inspection: normal inspection of the chest Resp Effort & Inspection: normal respiratory effort and able to speak in complete sentences Cardio Rate: regular rate GI Inspection: Yes normal to inspection General: Yes no CVA tenderness Back/Spine/Pelvis Back: no CVA tenderness Skin General skin exam: no rashes or lesions noted Neuro General: patient oriented x3 Extrem General: Yes normal to inspection Psych Appearance: grossly normal and well kempt Mental Status: mental status grossly normal Speech and movement: Normal speech and movement present and Clear speech present Affect: normal affect Attitude: cooperative Thought process: Normal thought process present Thought content: Normal thought content present Insight: Limited insight present (Psych) Judgement: Limited judgement present (Psych) Office Procedures Post Void Residual Post Residual Void Post Void Residual (PVR): 14 [id number]-Vals Void Residual by ultrasound Results AMB Urinalysis, Automated UA Leukoctes 15 Balaji/uL Last Edit by Ramirez Vallejo on 08/25/23 09:11 UA Nitrite Negative Last Edit by Ramirez Vallejo on 08/25/23 09:11 UA Urobilinogen 0.2 mg/dL Last Edit by Ramirez Vallejo on 08/25/23 09:11 UA Protein 30 mg/dL Last Edit by Ramirez Vallejo on 08/25/23 09:11 UA pH 5.5 Last Edit by Ramirez Vallejo on 08/25/23 09:11 UA Blood 0 Marcus/uL Last Edit by Ramirez Vallejo on 08/25/23 09:11 UA Specific Starkweather 1.025 Last Edit by Ramirez Vallejo on 08/25/23 09:11 UA Ketone Negative Last Edit by Ramirez Vallejo on 08/25/23 09:11 UA Bilirubin 1 mg/dL Last Edit by Ramirez Vallejo on 08/25/23 09:11 UA Glucose 0 mg/dL Last Edit by Ramirez Vallejo on 08/25/23 09:11 Results Reviewed Results Reviewed: Laboratory Last Values Urine pH (Auto) 5.5 08/25/23 09:10 Specific Starkweather (Auto) 1.025 08/25/23 09:10 Urine Protein (Auto) 30 mg/dL 08/25/23 09:10 Glucose (UA)(Auto) 0 mg/dL 08/25/23 09:10 Urine Ketones (Auto) Negative 08/25/23 09:10 Urine Blood (Auto) 0 Marcus/uL 08/25/23 09:10 Urine Nitrite (Auto) Negative 08/25/23 09:10 Urine Bilirubin (Auto) 1 mg/dL 08/25/23 09:10 Urine Urobilinogen (Auto) 0.2 mg/dL 08/25/23 09:10 Leukocyte Esterase (Auto) 15 Balaji/uL 08/25/23 09:10 Date of Service: 08/05/23 EXAMINATION: US RETROPERITONEAL COMPLETE (RENAL) CLINICAL INFORMATION: Unspecified urinary incontinence. COMPARISON: Ultrasound abdomen complete 03/12/2023. CT abdomen and pelvis with contrast 03/11/2023. TECHNIQUE: Real-time imaging of the kidneys and bladder. FINDINGS: RIGHT KIDNEY: 10.0 x 3.4 x 4.2 cm (SAG x AP x TRV). The kidney is normal in size and echogenicity. There are persistent lobulations. Renal cortical thickness is normal. No calculi or focal parenchymal lesions. There is pelviectasis, without geraldine hydronephrosis. LEFT KIDNEY: 10.3 x 4.6 x 4.6 cm (SAG x AP x TRV). The kidney is normal in size and echogenicity. There are persistent lobulations. Renal cortical thickness is normal. No calculi or focal parenchymal lesions. No hydronephrosis. BLADDER: Partially distended. Right ureteral jet is demonstrated; left is not. Prevoid bladder volume is 122 mL. Postvoid bladder volume is negligible. IMPRESSION: Unremarkable examination. Assessment & Plan Assessment & Plan (1) Urinary incontinence: Code(s): R32 - Unspecified urinary incontinence (2) Urinary and fecal incontinence: Code(s): R32 - Unspecified urinary incontinence; R15.9 - Full incontinence of feces Plan In office urinalysis results reviewed with the patient and her daughter today; as noted above. PVR 14 mL. Recent retroperitoneal ultrasound results reviewed with the patient today; as noted above. Discussed importance of timed/scheduled toilet scheduling for reminders in to attempt to reduce episodes of incontinence as patient reports she is forgetting to utilize the bathroom Discussed possible treatment options for urinary and fecal incontinence such as InterStim Start Myrbetriq as discussed and prescribed. Follow-up in 6 weeks with PVR; or sooner with any issues, concerns, and or questions. Orders: Orders AMB Urinalysis Automated Today Z13.9 - Encounter for screening, unspecified AMB Post Void Residual by ultrasound Today R39.9 - Unspecified symptoms and signs involving the genitourinary system Medications: New mirabegron ER (Myrbetriq) 25 mg PO DAILY 30 days 30 tabs 1RF N30.10 - Interstitial cystitis (chronic) without hematuria, N32.81 - Overactive bladder, R35.1 - Nocturia, R39.15 - Urgency of urination Patient Instructions: The patient had an opportunity to ask questions regarding the treatment plan. All questions were answered. Physical exam, labs, and imaging were discussed and reviewed in detail. As well as risks, benefits, and discussion of treatment choices. No major barriers to understanding were identified. The patient expressed understanding and agreement with the above treatment plan. The patient was made aware they should contact our office by phone for worsening of their current condition, the appearance of new symptoms, or with any questions or concerns. Compliance is encouraged with any medications and follow up testing that is ordered. It is a privilege to be allowed the opportunity to participate in? your urological care.? Again, if you have any questions or concerns If you have any questions or concerns please do not hesitate to contact me. The office is [phone]. This note is constructed using voice recognition software. While every effort has been made to ensure accuracy phlebotomist associate errors may have been included. Yours sincerely, MANUELA Martinez-ANGEL Coding Level of Care Code Est Pt Level 4 (22747) Diagnoses Urinary incontinence R32 Urinary and fecal incontinence R32; R15.9 CPT Codes Post Residual Void - PVR CPT Code: 41829-Jygb Void Residual by ultrasound ([id number])
== END 2023-08-25 09:24 | disposition home or self-care (01) ==
PROVIDERS: PCP Family Medicine; Visit Provider Nurse Practitioner Family
DX: R32 Unspecified urinary incontinence (principal); R15.9 Full incontinence of feces
CPT/HCPCS: 99214

== ENCOUNTER → 2023-08-25 08:37 | Outpatient (BNVA) | payer MEDICARE, SELFPAY | PROVIDERS: PCP Family Medicine; Visit Provider Nurse Practitioner Family | DX: R32 Unspecified urinary incontinence (principal); R15.9 Full incontinence of feces | CPT/HCPCS: 51798; 81003; 99212 ==

== ENCOUNTER 2023-09-06 10:42 | Outpatient (REF) | payer MEDICARE, SELFPAY ==
--- NOTE | ~2023-09-06 | CT_ITS ---
EXAMINATION: CT CHEST SCREENING CLINICAL INFORMATION: Former smoker with 60 pack-year history, quit 15 years ago COMPARISON: Previous CTs, most recent, 12/15/2021 TECHNIQUE: Multidetector volumetric CT imaging of the chest is performed without contrast using low dose technique. Additional 2D coronal and sagittal reformatted images and axial 3D maximum intensity projection (MIP) images are generated on the CT workstation. This CT examination was performed using dose optimization techniques as appropriate, variously including the following: *Automated exposure control *Adjustment of mA and/or kV according to patient size (this includes techniques or standardized protocols for targeted exams where dose is matched to indication/reason for exam; i.e. extremities or head) *Use of iterative reconstruction technique DLP: 39 mGy-cm FINDINGS: BOOKING OFFICER: Aortic calcifications. Cholecystectomy clips. LUNGS: Trachea and bronchi are patent. Mild centrilobular emphysema. Right upper, middle, lower lobe and lingular atelectasis. NODULES: No change 2 mm RUL, 6:60. 3 mm DESIREE subpleural nodule, 6:64. No change 2 mm DESIREE perifissural nodule, 9:2 MEDIASTINUM: Unremarkable thyroid. Nonenlarged heart. No pericardial effusion. Nonaneurysmal aorta with atherosclerotic calcifications. Nonenlarged pulmonary arteries. CORONARY ARTERY CALCIFICATION: Mild PLEURA: There is no pleural effusion. No pleural mass or thickening. 2 mm upper. Fissural lymph node. AXILLA: No lymphadenopathy. UPPER ABDOMEN: Status post cholecystectomy. OSSEOUS STRUCTURES: Mild degenerative changes. No suspicious osseous lesions. CT/CT lung screening IMPRESSION: Stable pulmonary nodules, none larger than 3 mm. No new or enlarging pulmonary nodules ASSESSMENT: Lung-RADS category 2: Benign RECOMMENDATION: Routine annual low-dose CT screening in 12 months.
== END 2023-09-06 10:43 | disposition home or self-care (01) ==
LOC: HO.CT 10:42
PROVIDERS: PCP Family Medicine; Visit Provider Physician Assistant Medical
DX: Z12.2 Encounter for screening for malignant neoplasm of respiratory organs (principal); F17.210 Nicotine dependence, cigarettes, uncomplicated
CPT/HCPCS: 71271

== ENCOUNTER 2023-09-13 08:57 | Outpatient (REF) | payer MEDICARE, SELFPAY ==
[2023-09-19 12:20] LABS: H Pylori Breath Test Negative (Negative)
== END 2023-09-13 08:58 | disposition home or self-care (01) ==
LOC: HO.LNP 08:57
PROVIDERS: PCP Family Medicine; Visit Provider Internal Medicine Gastroenterology
DX: R32 Unspecified urinary incontinence (principal); R15.9 Full incontinence of feces; Z90.49 Acquired absence of other specified parts of digestive tract
CPT/HCPCS: 83013; 99211

== ENCOUNTER 2023-09-21 08:49 | Outpatient (AMB) | payer MEDICARE, SELFPAY ==
[2023-09-21 08:51] VITALS: BP 124/78; PULSE 56; TEMP 36.4; O2SAT 98; BMI 25.9
--- NOTE | 2023-09-21 08:51 | A.OFFPC_ITS ---
Vital Signs 09/21/23 08:51 Height 5 ft 3 in Weight 146 lb BMI 25.9 BP 124/78 Blood Pressure Location Lt brachial Position Sitting Pulse 56 Pulse Source Pulse Oximeter Temp 97.6 F Temp Source Oral Pulse Oximetry (%) 98 Oxygen Delivery Method Room Air Intake Visit Reasons: f/u hypertension and chronic conditions Intake Note: Patient is here to follow up on hypertension and chronic conditions today. She feels like she is coming down with something, she has a cough. Allergies silver sulfadiazine [From Silvadene] Adverse Reaction (Mild, Verified 09/21/23 08:55) skin irritation Tobacco use date assessed: 09/21/23 Fall risk assessment: 2 + Falls in past year Last assessed Fall Risk: 09/21/23 HPI f/u hypertension and chronic conditions HPI Details 68 y/o female presents to f/u hypertensi on and chronic conditions. Blood pressure today 124/78. She is on lisinopril 5mg, carvedilol 6.25mg b.i.d. and metoprolol 100mg. Pt reports a cough that she has had for awhile. [facility] Medical History Dementia Chronic abdominal pain Mastodynia of left breast HTN (hypertension) Normocytic anemia Osteopenia Depression with anxiety SVT (supraventricular tachycardia) Atrial fibrillation Surgical History History of cholecystectomy History of cholecystectomy (05/04/23) History of esophagogastroduodenoscopy (EGD) Hx of colonoscopy History of total hip replacement History of prior ablation treatment H/O heart surgery History of left knee replacement Family History Brother Lung cancer Brother Bladder cancer Social History Household Members: Spouse and Children Housing: House Are you a primary animal care giver to a significant other at home: No Do you presently have visiting nurse or other home services: No Alcohol intake: current Alcohol intake frequency: holidays/special occasions only Alcohol type: beer Patient Tobacco Use Status: Former Tobacco user Quit Date: 20 years e-Cigarette/Vaping Use: Never Used Second Hand Smoke Exposure: No service: No Current occupational status: retired Current occupational exposures/hazards: No Cognitive needs: No Hearing needs: No Vision needs: Yes Female Reproductive History Menstrual Age of Menarche: 13 Questionnaire Thrive Questionnaire Date Thrive assessed: 12/03/22 ADEN-7 AMB Questionnaire ADEN-7 Date ADEN - 7 assessed: 05/03/23 Source: Developed by Drs. Jean Rockwell, Jennifer Fritz, Scar Navarro and colleagues, with an educational edna from [employer]. Review of Systems Const Denies chills, Denies fatigue, Denies fever(s), Denies headache(s) and Denies weakness ENT Denies dizziness and Denies headache(s) Card Denies dyspnea Resp Reports cough, Denies dyspnea and Denies wheezing Musc Denies numbness and Denies tingling Neuro Denies dizziness, Denies headache(s), Denies numbness, Denies tingling and Denies weakness Psych Denies anxiety and Denies depression Endo Denies fatigue Aller/Immun Denies wheezing Physical exam (Primary Care) Vital Signs: Last Vital Signs Temp 97.6 F 09/21/23 08:51 Pulse 56 09/21/23 08:51 BP 124/78 09/21/23 08:51 Pulse Ox 98 09/21/23 08:51 Oxygen Delivery Method Room Air 09/21/23 08:51 BMI result Body Mass Index 25.9 Tobacco/Smoking Status: Tobacco use Status Tobacco use date assessed 09/21/23 09/21/23 08:56 Patient Tobacco Use Status Former Tobacco user 09/21/23 08:56 e-Cigarette/Vaping Use Never Used 09/21/23 08:56 Thrive Assessment: Date of Thrive Assessment Date Thrive assessed 12/03/22 09/21/23 08:56 Const General: well developed; No acute distress Nutritional Appearance: well nourished Orientation/consciousness: patient oriented x3 HENMT Head: Yes normocephalic and Yes atraumatic Eyes General: appearance normal, both eyes and all related structures Pupils: Equal, round and reactive pupils present EOM: EOMs intact bilaterally Resp Effort & Inspection: normal respiratory effort Auscultation: clear to auscultation bilaterally Cardio Rate: regular rate Rhythm: regular rhythm Heart sounds: S1 normal heart sound present, S2 normal heart sound present, no gallops, no murmurs and no rubs Neuro General: patient oriented x3 and gait normal Cranial nerves: Yes Equal, round and reactive pupils present Psych Affect: normal affect Assessment and Plan Assessment & Plan (1) Essential hypertension: Code(s): I10 - Essential (primary) hypertension Plan: Shows?controlled.??Goal?is?less?than?140/90 Continue?current?medication?regimen (2) Chronic diarrhea: Comment: Continue Imodium Flex sig- d/c eliquis x 3 d- for bx- Code(s): K52.9 - Noninfective gastroenteritis and colitis, unspecified Plan: Controlled?with?loperamide Continue?loperamide?and?follow-up?with?Gastroenterology?as?recommend (3) Pressure ulcer: Code(s): L89.90 - Pressure ulcer of unspecified site, unspecified stage Plan: Resolved (4) Urinary and fecal incontinence: Code(s): R32 - Unspecified urinary incontinence; R15.9 - Full incontinence of feces Plan: Still?having?difficulties?with?urinary?incontinence Continue?mirabegron Follow-up?with?urology?as?recommended Encouraged?frequent?voiding (5) Cough: Code(s): R05.9 - Cough, unspecified Plan: Will?give?her?a?script?for?benzonatate. However,?if?she?continues?to?have?a?cough?when?benzonatate?runs? out,?will?consider?changing?lisinopril?to?losartan. Medications: Changed From benzonatate 100 mg PO BID PRN cough R05.9 - Cough, unspecified To benzonatate 100 mg PO BID PRN 28 caps 0RF cough 14 days R05.9 - Cough, unspecified Coding Level of Care Code Est Pt Level 4 (96827) Diagnoses Essential hypertension I10 Chronic diarrhea K52.9 Pressure ulcer L89.90 Urinary and fecal incontinence R32; R15.9 Cough R05.9
== END 2023-09-21 09:23 | disposition home or self-care (01) ==
PROVIDERS: PCP Family Medicine; Visit Provider Family Medicine
DX: I10 Essential (primary) hypertension (principal); K52.9 Noninfective gastroenteritis and colitis, unspecified; L89.90 Pressure ulcer of unspecified site, unspecified stage; R32 Unspecified urinary incontinence; R15.9 Full incontinence of feces; R05.9 Cough, unspecified
CPT/HCPCS: 99214

== ENCOUNTER 2023-10-04 10:18 | Outpatient (AMB) | payer MEDICARE, SELFPAY ==
--- NOTE | 2023-10-04 10:25 | MHC.OFFVIS ---
Intake Vital Signs 10/04/23 10:26 Height 5 ft 3 in Weight 147 lb 11.355 oz BMI 26.2 BP 154/74 H Blood Pressure Location Lt brachial Position Sitting Pulse 44 L Intake Visit Reasons: 2 month follow up Intake Note: Trish presents in the office as a 2 month follow up. CC: She states that she is not having any concerns at this time. She is wondering about the H Pylori breath test. Kiln Stoker Required: No Allergies silver sulfadiazine [From Silvadene] Adverse Reaction (Mild, Verified 10/04/23 10:26) skin irritation HPI 2 month follow up HPI Details RECAP: Had seen [facility] for abdominal pain also abn bowel habits TEST: EGD/Sigmoidoscopy 02/2023 Findings: Larynx:normal Esophagus: GE junction at 35 cm, diaphragm hiatus at 35 cm, incompetent LES, widely open, bx taken from GEJ which had salmon pink patches noted. Bx also taken from distal and proximal esophagus Stomach: Intense erythema and scarring with bile acid refluxate. Biopsies were obtained. Grade 3 flap valve on retroflexed examination of the cardia. Rye pink tissue at outlet, bx taken to r/o intestinal metaplasia Duodenum: Normal bulb and descending duodenum, bx taken Intervention: Biopsies as noted above Sigmoidoscopy Instrument: As above Transverse Colon -normal Descending Colon:normal Sigmoid Colon: normal Rectum: Retroflexion with small internal hemorrhoids, grade I Random colon bx taken Anorectum - normal Impression and Post Procedure Diagnosis: Endoscopy Findings: incompetent LES, bile acid reflux esophagitis, possible barretts possible gastric intestinal metaplasia Colonoscopy Findings: internal hemorrhoids Plan: Await Pathology results May need surgery for incompetent LES, vs bile acid binders, PPI, and pro motility agents or hybrid APC PATH: moderate chronic gastritis, crypt distortion of colon, otherwise nml h pylori breath test---NEGATIVE INTERIM: she is doing much better minimal urine incontinence, v occ stool issues if has diet indiscretion overall she is happy with her sx EXAM: GENERAL: The patient is well developed and nontoxic. VITAL SIGNS:see workflow HEENT: Nonicteric sclerae, PERRLA, EOMI. Oropharynx clear. Moist mucous membranes. Conjunctivae appear well perfused. No thyroid mass. CHEST: Chest wall is nontender. HEART: Regular rate and rhythm without murmurs. LUNGS: Clear to auscultation bilaterally. ABDOMEN: Soft, positive bowel sounds, nontender, no organomegaly.no flank tenderness SKIN: No rash, no excessive bruising, petechiae, or purpura. NEUROLOGIC: Cranial nerves II-XII intact without motor/sensory deficit. Mild Tremor psych- nml A/P: 1/ fecal incontinence with some urine, neg bx for microscopic colitis, many possible reasons, pelvic floor dysfunction, bile acid malabsorption, SIBO, sphincter weakness, med effects, subacute colitis, xs acid production, systemic disease seeing urology, already had discussion on spinal stimulator PLAN: 1/ she is doing well with current treatment, can continue and f/u with urology [facility] Medical History Dementia Chronic abdominal pain Mastodynia of left breast HTN (hypertension) Normocytic anemia Osteopenia Depression with anxiety SVT (supraventricular tachycardia) Atrial fibrillation Surgical History History of cholecystectomy History of cholecystectomy (05/04/23) History of esophagogastroduodenoscopy (EGD) Hx of colonoscopy History of total hip replacement History of prior ablation treatment H/O heart surgery History of left knee replacement Family History Brother Lung cancer Brother Bladder cancer Household Members: Spouse and Children Housing: House Are you a primary lawn care specialist to a significant other at home: No Do you presently have visiting nurse or other home services: No Alcohol intake: current Alcohol intake frequency: holidays/special occasions only Alcohol type: beer Patient Tobacco Use Status: Former Tobacco user Quit Date: 20 years e-Cigarette/Vaping Use: Never Used Second Hand Smoke Exposure: No service: No Current occupational status: retired Current occupational exposures/hazards: No Cognitive needs: No Hearing needs: No Vision needs: Yes Female Reproductive History Menstrual Age of Menarche: 13 Physical Exam Vital Signs: BMI result Body Mass Index 26.2 Assessment & Plan Assessment & Plan (1) Urinary and fecal incontinence: Code(s): R32 - Unspecified urinary incontinence; R15.9 - Full incontinence of feces Coding Level of Care Code Est Pt Level 3 (88453) Diagnoses Urinary and fecal incontinence R32; R15.9
[2023-10-04 10:26] VITALS: BP 154/74; PULSE 44; BMI 26.2
== END 2023-10-04 10:49 | disposition home or self-care (01) ==
PROVIDERS: PCP Family Medicine; Visit Provider Internal Medicine Gastroenterology
DX: R32 Unspecified urinary incontinence (principal); R15.9 Full incontinence of feces
CPT/HCPCS: 99213

== ENCOUNTER → 2023-10-04 10:18 | Outpatient (BNVA) | payer MEDICARE, SELFPAY | PROVIDERS: PCP Family Medicine; Visit Provider Internal Medicine Gastroenterology | DX: R32 Unspecified urinary incontinence (principal); R15.9 Full incontinence of feces | CPT/HCPCS: 99212 ==

== ENCOUNTER 2023-10-06 08:44 | Outpatient (AMB) | payer MEDICARE, SELFPAY ==
--- NOTE | 2023-10-06 08:56 | A.OFFVIS_ITS ---
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 Accompanied by: Daughter Allergies silver sulfadiazine [From Silvadene] Adverse Reaction (Mild, Verified 10/06/23 19:31) skin irritation Medication List - Last Reconciled 10/06/23 by MARKY MartinezP- apixaban (Eliquis) 5 mg PO BID 90 days benzonatate 100 mg PO BID PRN 14 days bupropion HCl 75 mg PO DAILY calcium carbonate-vitamin D3 500 mg-3.125 mcg (125 unit) 1 tab PO DAILY carvedilol 6.25 mg PO BID celecoxib 200 mg PO DAILY cholecalciferol (vitamin D3) 50 mcg PO DAILY clonazepam (Klonopin) 0.5 mg PO BID PRN 30 days diclofenac sodium 1% (Voltaren Arthritis Pain) 3 - 4 grams topical TID donepezil 5 mg PO DAILY hydrocortisone 2.5% (Proctosol HC) 1 appl MD BEDTIME PRN loperamide (Imodium A-D) 2 mg PO Q6H PRN losartan 25 mg PO DAILY 30 days menthol-zinc oxide 0.44-20.6 % (Calmoseptine) 1 appl topical BID PRN metoprolol succinate ER 100 mg PO DAILY 90 days mirabegron ER (Myrbetriq) 25 mg PO DAILY 90 days wl-ff-debs-FA-Ca carb-vit K 18 mg iron-400 mcg-500 mg 1 tab PO DAILY omeprazole 40 mg PO DAILY 30 days sertraline 200 mg (2 x 100 mg) PO DAILY 90 days tramadol 50 mg PO TID PRN 4 days trazodone 1/2 - 1 tablet p.o. at bedtime PO bedtime PRN; 90 days HPI HPI Comments History of Present Illness Details Trish is a very pleasant 68-year-old female patient of Dr. Hernandez who was accompanied by her daughter at today's visit. She has a past medical history of AFib, chronic abdominal pain, dementia, depression, anxiety, hypertension, normocytic anemia, osteopenia, and SVT. She presents to the office today for follow-up of her lower urinary tract symptoms, mixed urinary incontinence and fecal incontinence. In discussion with the patient today she reports noting significant improvement in lower urinary tract symptoms and mixed urinary incontinence on 25 mg of Myrbetriq however continues with fecal incontinence. She discusses following up with GI provider Dr. Garces and discusses although Myrbetriq has been helpful for mixed urinary incontinence she continues with fecal incontinence and would like to undergo InterStim placement. Previous workup has included a retroperitoneal ultrasound noting bilateral kidneys with persistent lobulations. No calculi or focal lesion there is pelviectasis, without geraldine hydronephrosis. The bladder is partially distended. Essentially unremarkable examination. In discussion with the daughter today she discusses feeling urinary and fecal incontinence is related to patient's dementia and reports symptoms have been present for quite some time however does feel they are worsening. When asked she does report having had 2 vaginal births in the past of small to average size babies. She reports one labor to have been a long labor and the other to have been short. When asked she denies hematuria, dysuria, foul smelling urine, changes to urinary stream, flank pain, fever, and or chills. In office urinalysis results reviewed with the patient and her daughter today. [id number]'s. Discussed at length risks and benefits of InterStim placement. [facility] Medical History Dementia Chronic abdominal pain Mastodynia of left breast HTN (hypertension) Normocytic anemia Osteopenia Depression with anxiety SVT (supraventricular tachycardia) Atrial fibrillation Surgical History History of cholecystectomy History of cholecystectomy (05/04/23) History of esophagogastroduodenoscopy (EGD) Hx of colonoscopy History of total hip replacement History of prior ablation treatment H/O heart surgery History of left knee replacement Family History Brother Lung cancer Brother Bladder cancer Social History Household Members: Spouse and Children Housing: House Are you a primary urgent care physician assistant to a significant other at home: No Do you presently have visiting nurse or other home services: No Alcohol intake: current Alcohol intake frequency: holidays/special occasions only Alcohol type: beer Patient Tobacco Use Status: Former Tobacco user Quit Date: 20 years e-Cigarette/Vaping Use: Never Used Second Hand Smoke Exposure: No service: No Current occupational status: retired Current occupational exposures/hazards: No Cognitive needs: No Hearing needs: No Vision needs: Yes Female Reproductive History Menstrual Age of Menarche: 13 Review of Systems Const Reports as per HPI Eyes Reports no additional complaints ENT Reports no additional complaints Card Reports as per HPI Resp Reports no additional complaints GI Reports as per HPI Reports as per HPI Musc Reports no additional complaints Neuro Reports as per HPI Psych Reports as per HPI Endo Reports no additional complaints Physical Exam Const General: cooperative, healthy appearing, comfortable, no acute distress, well developed, alert and awake Orientation/consciousness: patient oriented x3 Limitations: no limitations HEENT Head: Yes normal to inspection, Yes normocephalic and Yes atraumatic Ears: hearing grossly normal bilaterally Eyes General: appearance normal, both eyes and all related structures Neck Neck: Yes normal visual inspection and Yes trachea midline Chest Chest palpation & inspection: normal inspection of the chest Resp Effort & Inspection: normal respiratory effort and able to speak in complete s entences Cardio Rate: regular rate GI Inspection: Yes normal to inspection General: Yes no CVA tenderness Back/Spine/Pelvis Back: no CVA tenderness Skin General skin exam: no rashes or lesions noted Neuro General: patient oriented x3 Extrem General: Yes normal to inspection Psych Appearance: grossly normal and well kempt Mental Status: mental status grossly normal Speech and movement: Normal speech and movement present and Clear speech present Affect: normal affect Attitude: cooperative Thought process: Normal thought process present Thought content: Normal thought content present Insight: Limited insight present (Psych) Judgement: Limited judgement present (Psych) Office Procedures Post Void Residual Post Residual Void Post Void Residual (PVR): 10 [id number] Void Residual by ultrasound Assessment & Plan Assessment & Plan (1) Urinary and fecal incontinence: Code(s): R32 - Unspecified urinary incontinence; R15.9 - Full incontinence of feces Plan: Risks, benefits and alternatives to therapy were discussed. These include but are not limited to infection, bleeding, damage to local organs and tissues, need for further interventions. ? Anesthetic risks regarding cardiac arrhythmia, blood clots, and potential mortality were discussed. The patient understands the typical recovery time and the outpatient nature of the procedure. After consideration of these risks the patient gives full informed consent and they wish to move ahead with the procedure. Plan In office urinalysis results reviewed with the patient and her daughter today; as noted above. PVR 10 mL. Patient reports significant improvement in lower urinary tract symptoms/mixed incontinence on Myrbetriq 25 mg daily. Discussed at length InterStim placement versus continuation of Myrbetriq and surveillance monitoring. Discussed risks and benefits of InterStim placement at length; InterStim information provided. Discussed, educated, encouraged on the importance of drinking plenty of water daily. Will schedule for InterStim as discussed with Dr. Braswell; or sooner with any issues, concerns, and or questions. Orders: Orders AMB Post Void Residual by ultrasound Today R32 - Unspecified urinary incontinence Medications: Changed From mirabegron ER (Myrbetriq) 25 mg PO DAILY 30 days 30 tabs 1RF N30.10 - Interstitial cystitis (chronic) without hematuria, N32.81 - Overactive bladder, R35.1 - Nocturia, R39.15 - Urgency of urination To mirabegron ER (Myrbetriq) 25 mg PO DAILY 90 days 90 tabs 1RF N30.10 - Interstitial cystitis (chronic) without hematuria, N32.81 - Overactive bladder, R35.1 - Nocturia, R39.15 - Urgency of urination Patient Instructions: The patient had an opportunity to ask questions regarding the treatment plan. All questions were answered. Physical exam, labs, and imaging were discussed and reviewed in detail. As well as risks, benefits, and discussion of treatment choices. No major barriers to understanding were identified. The patient expressed understanding and agreement with the above treatment plan. The patient was made aware they should contact our office by phone for worsening of their current condition, the appearance of new symptoms, or with any questions or concerns. Compliance is encouraged with any medications and follow up testing that is ordered. It is a privilege to be allowed the opportunity to participate in? your urological care.? Again, if you have any questions or concerns If you have any questions or concerns please do not hesitate to contact me. The office is [phone]. This note is constructed using voice recognition software. While every effort has been made to ensure accuracy base engineer errors may have been included. Yours sincerely, GISELLA Martinez Coding Level of Care Code Est Pt Level 4 (90819) Diagnoses Urinary and fecal incontinence R32; R15.9 CPT Codes Post Residual Void - PVR CPT Code: 47688-Qada Void Residual by ultrasound ([id number])
== END 2023-10-06 09:51 | disposition home or self-care (01) ==
PROVIDERS: PCP Family Medicine; Visit Provider Nurse Practitioner Family
DX: R32 Unspecified urinary incontinence (principal); R15.9 Full incontinence of feces
CPT/HCPCS: 99214

== ENCOUNTER → 2023-10-06 08:44 | Outpatient (BNVA) | payer MEDICARE, SELFPAY | PROVIDERS: PCP Family Medicine; Visit Provider Nurse Practitioner Family | DX: R32 Unspecified urinary incontinence (principal); R15.9 Full incontinence of feces | CPT/HCPCS: 51798; 99212 ==

== ENCOUNTER 2023-10-14 09:40 | Outpatient (AMB) | payer MEDICARE, SELFPAY ==
--- NOTE | 2023-10-14 09:48 | MHC.OFFVIS ---
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 Complaining of right breast pain. Last Pap/HPV was negative in 09/28 Last Mammogram was BI-RADS 2 in 06/30, right breast ultrasound showed a 9 o'clock, 0.5 cm cyst 3 cm from the nipple Last Colonoscopy was in 02/28 Last DEXA scan was in 10/28 [facility] Medical History (Updated 10/14/23 @ 10:13 by Edmond Hernadez MD) Dementia Chronic abdominal pain Mastodynia of left breast HTN (hypertension) Normocytic anemia Osteopenia Depression with anxiety SVT (supraventricular tachycardia) Atrial fibrillation Surgical History (Updated 10/14/23 @ 09:59 by Irma Arguelles CMA) History of cholecystectomy (05/04/23) History of esophagogastroduodenoscopy (EGD) Hx of colonoscopy History of total hip replacement History of prior ablation treatment H/O heart surgery History of left knee replacement Family History Brother Lung cancer Brother Bladder cancer Social History Household Members: Spouse and Children Housing: House Are you a primary special needs caregiver to a significant other at home: No Do you presently have visiting nurse or other home services: No Alcohol intake: current Alcohol intake frequency: holidays/special occasions only Alcohol type: beer Patient Tobacco Use Status: Former Tobacco user Quit Date: 20 years e-Cigarette/Vaping Use: Never Used Second Hand Smoke Exposure: No service: No Current occupational status: retired Current occupational exposures/hazards: No Cognitive needs: No Hearing needs: No Vision needs: Yes Female Reproductive History Menstrual Age of Menarche: 13 Total pregnancies: 2 Full term: 2 Number of Living Children: 2 Date of last pap smear: 10/01/21 Date of Mammogram: 06/25/23 Review of Systems Const All systems reviewed & are unremarkable except as noted in HPI and below Card Reports as per HPI Resp Reports as per HPI GI Reports as per HPI and Reports no additional complaints Reports as per HPI Physical Exam Vital Signs: Last Vital Signs BP 110/68 10/14/23 09:50 BMI result Body Mass Index 26.2 Const General: cooperative, healthy appearing and comfortable Chest Chest palpation & inspection: normal inspection of the chest and normal palpation of entire chest wall Breast/axilla inspection: normal inspection of the breasts (Left breast wnl, R breast 9 o'clock, 0.5 cm cyst 3 cm from nipple) and normal inspection of the axillae Breast/axilla palpation: normal palpation of the breasts, normal palpation of the axillae and no axillary lymphadenopathy Resp Effort & Inspection: normal respiratory effort Auscultation: clear to auscultation bilaterally Percussion: percussion normal Cardio Palpation: normal PMI Rate: regular rate Rhythm: regular rhythm Heart sounds: no murmurs and no rubs Peripheral pulses: Peripheral pulses 2+ throughout GI Inspection: Yes normal to inspection Palpation (GI): Soft to palpation, nontender, no guarding, not rigid and No hepatosplenomegaly present Percussion: Yes normal to percussion Auscultation: normal bowel sounds Rectal Exam - Female: deferred General: Yes bladder normal to palpation External Female Exam: No lesion Speculum Exam - Vagina: normal appearance of the vagina, normal palpation, normal vaginal discharge and not erythematous Speculum Exam - Cervix: normal appearance of the cervix and normal palpation Bimanual exam- vagina & uterus: normal bimanual exam, normal palpation, uterine size normal, bladder normal to palpation, consistency normal and normal palpation Bimanual Exam- Adnexa, other: normal adnexae, no masses and no tenderness Assessment & Plan Assessment & Plan (1) Well woman exam: Code(s): Z01.419 - Encounter for gynecological examination (general) (routine) without abnormal findings Plan: Co testing not indicated since the patient 's age is above 65 with no history of abnormal Pap smears last 25 years. Counseled the patient about the recommended dietary allowance of 1200 mg of Calcium & 800 IU of vitamin D. Instructions given the patient to schedule next screening Mammogram in 07/01 Will order DEXA scan . The patient was instructed to perform monthly self-breast exams and to schedule a 2 week DEXA scan follow-up appointment and an annual exam in a year; All questions answered and the patient verbalized understanding. (2) Breast cyst: Comment: R breast 9 o'clock, 0.5 cm cyst 3 cm from nipple Code(s): N60.09 - Solitary cyst of unspecified breast Plan: Discussed the patient the finding on ultrasound on her right breast exam, R breast 9 o'clock, 0.5 cm cyst 3 cm from nipple. Will refer to breast surgery for further management Orders: Orders XR DEXA axial skeleton Today Z78.0 - Asymptomatic menopausal state Referrals General Surgery Referral N60.09 - Solitary cyst of unspecified breast Coding Level of Care Code Est Pt Prev Care >65y(11999) Diagnoses Well woman exam Z01.419 Breast cyst N60.09
[2023-10-14 09:50] VITALS: BP 110/68; BMI 26.2
== END 2023-10-14 10:16 | disposition home or self-care (01) ==
PROVIDERS: Visit Provider Obstetrics & Gynecology
DX: Z01.419 Encounter for gynecological examination (general) (routine) without abnormal findings (principal); N60.09 Solitary cyst of unspecified breast
CPT/HCPCS: 99213; G0101

== ENCOUNTER → 2023-10-14 09:40 | Outpatient (BNVA) | payer MEDICARE, SELFPAY | PROVIDERS: Visit Provider Obstetrics & Gynecology | DX: Z01.419 Encounter for gynecological examination (general) (routine) without abnormal findings (principal); N60.09 Solitary cyst of unspecified breast | CPT/HCPCS: 99212; G0101 ==

== ENCOUNTER 2023-10-26 10:53 | Outpatient (AMB) | payer MEDICARE, SELFPAY ==
[2023-10-26 11:04] VITALS: BP 120/70; PULSE 50; O2SAT 96; BMI 26.5
--- NOTE | 2023-10-26 11:04 | A.OFFPC_ITS ---
Vital Signs 10/26/23 11:04 Height 5 ft 3 in Weight 149 lb 6 oz BMI 26.5 BP 120/70 Blood Pressure Location Lt brachial Position Sitting Pulse 50 Pulse Source Pulse Oximeter Pulse Oximetry (%) 96 Oxygen Delivery Method Room Air Intake Visit Reasons: Dr. Braswell/11-22/Interstim placement Intake Note: Patient is here for preop stimulater. Patient needs Clonazepam refill before Ch ristmas, runs out the end of the week. Allergies silver sulfadiazine [From Silvadene] Adverse Reaction (Mild, Verified 10/26/23 11:06) skin irritation Tobacco use date assessed: 10/26/23 Fall risk assessment: 2 + Falls in past year Last assessed Fall Risk: 10/26/[address] Braswell/11-22/Interstim placement HPI Details Patient presents for preoperative clearance prior to interstim placement. Procedure: ?InterStim?trial?placement Date: 11/22/22 Surgeon: Dr. Braswell Anesthesia:??Conscious?sedation, local Cardiac Hx: SVT, AFib Pulmonary Hx: Denies Prior Surgical complications: Prior Anesthesia Complications: Coag Issues: on Eliquis Functional [place]: Able to walk 1-2 city blocks. Good to almost excellent functional reserve. [facility] Medical History (Updated 10/26/23 @ 11:58 by Earl Brian) Dementia Chronic abdominal pain Mastodynia of left breast HTN (hypertension) Normocytic anemia Osteopenia Depression with anxiety SVT (supraventricular tachycardia) Atrial fibrillation Surgical History (Updated 10/14/23 @ 09:59 by Irma Arguelles CMA) History of cholecystectomy (05/04/23) History of esophagogastroduodenoscopy (EGD) Hx of colonoscopy History of total hip replacement History of prior ablation treatment H/O heart surgery History of left knee replacement Family History Brother Lung cancer Brother Bladder cancer Social History Household Members: Spouse and Children Housing: House Are you a primary group care worker to a significant other at home: No Do you presently have visiting nurse or other home services: No Alcohol intake: current Alcohol intake frequency: holidays/special occasions only Alcohol type: beer Patient Tobacco Use Status: Former Tobacco user Quit Date: 20 years e-Cigarette/Vaping Use: Never Used Second Hand Smoke Exposure: No service: No Current occupational status: retired Current occupational exposures/hazards: No Cognitive needs: No Hearing needs: No Vision needs: Yes Female Reproductive History Menstrual Age of Menarche: 13 Questionnaire Thrive Questionnaire Date Thrive assessed: 12/03/22 ADEN-7 AMB Questionnaire ADEN-7 Date ADEN - 7 assessed: 05/03/23 Source: Developed by Drs. Jean Rockwell, Jennifer Fritz, Scar Navarro and colleagues, with an educational edna from [employer]. Review of Systems Const Denies chills, Denies fatigue, Denies fever(s), Denies headache(s) and Denies weakness ENT Denies dizziness and Denies headache(s) Card Denies chest pain, Denies lightheadedness, Denies dyspnea and Denies other (Palpitations) Resp Denies cough, Denies dyspnea, Denies wheezing and Denies other ( shortness of breath) Musc Denies numbness and Denies tingling Neuro Denies dizziness, Denies headache(s), Denies numbness, Denies tingling, Denies paresthesias and Denies weakness Psych Denies anxiety and Denies depression Endo Denies fatigue Aller/Immun Denies wheezing Physical exam (Primary Care) Vital Signs: Last Vital Signs Pulse 50 10/26/23 11:04 BP 120/70 10/26/23 11:04 Pulse Ox 96 10/26/23 11:04 Oxygen Delivery Method Room Air 10/26/23 11:04 BMI result Body Mass Index 26.5 Tobacco/Smoking Status: Tobacco use Status Tobacco use date assessed 10/26/23 10/26/23 11:07 Patient Tobacco Use Status Former Tobacco user 10/26/23 11:07 e-Cigarette/Vaping Use Never Used 10/26/23 11:07 Thrive Assessment: Date of Thrive Assessment Date Thrive assessed 12/03/22 10/26/23 11:07 Const General: no acute distress and well developed Nutritional Appearance: well nourished Orientation/consciousness: patient oriented x3 HENMT Head: Yes normocephalic and Yes atraumatic Eyes General: appearance normal, both eyes and all related structures Pupils: Equal, round and reactive pupils present EOM: EOMs intact bilaterally Resp Other: Slight wheeze Effort & Inspection: normal respiratory effort Auscultation: clear to auscultation bilaterally Cardio Rate: regular rate Rhythm: regular rhythm Heart sounds: S1 normal heart sound present, S2 normal heart sound present, no gallops, no murmurs and no rubs Neuro General: patient oriented x3 and gait normal Cranial nerves: Yes Equal, round and reactive pupils present Psych Affect: normal affect Assessment and Plan Assessment & Plan (1) Pre-operative clearance: Code(s): Z01.818 - Encounter for other preprocedural examination Plan: 68-year-old?female?presents?for?preoperative?clearance?prior?to?InterStim?trial? placement History?of?SVT?and?atrial?fibrillation. Currently?in?regular?rate?and?rhythm?on?metoprolol?and she?is?on?Eliquis. No?pulmonary?disease?and?breathing?well?today. No?coagulopathies.??Patient?is?on?Eliquis?which?she?can?hold?for?7?days - follow-up?with?Cardiology. Good?functional?reserve Low?intermediate?risk?patient?for?low?risk?procedure ?no?contraindications?to?proceeding?with?proposed?procedure Medications: Changed From clonazepam (Klonopin) 5 mg PO BID PRN anxiety To clonazepam (Klonopin) 0.5 mg PO BID 60 tabs 0RF anxiety 30 days From omeprazole 40 mg PO DAILY 30 days 30 caps 2RF To omeprazole 40 mg PO DAILY 90 caps 2RF 90 days Coding Level of Care Code Est Pt Level 3 (39054) Diagnoses Pre-operative clearance Z01.818
== END 2023-10-26 13:23 | disposition home or self-care (01) ==
PROVIDERS: PCP Family Medicine; Visit Provider Family Medicine
DX: I48.91 Unspecified atrial fibrillation (principal); Z01.818 Encounter for other preprocedural examination
CPT/HCPCS: 99213

== ENCOUNTER 2023-11-02 09:01 | Outpatient (AMB) | payer MEDICARE, SELFPAY ==
--- NOTE | 2023-11-02 09:06 | A.OFFVIS_ITS ---
Intake Vital Signs 11/02/23 09:09 Height 5 ft 3 in Weight 148 lb BMI 26.2 BP 140/63 H Blood Pressure Location Rt brachial Position Sitting Pulse 54 Intake Visit Reasons: Solitary cyst of unspecified breast Intake Note: Patient referred for rt breast cyst. Has been present for 3yrs. Patient c/o: tenderness. Denies bleeding. Reports healed well from lap caleb in April 2023. 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 She does not recall any trauma to the area. Because of persistence of symptoms she has had extensive workup for this looking at breast pathology, all of which has been negative including mammogram and ultrasound. Patient is in the lung cancer screening program where she had a recent CT scan of the chest which has been stable from a pulmonary standpoint. Evaluation of this study demonstrates no obvious chest wall pathology. Patient does not have any aggravating or relieving factors. It Is a intermittent pain. Chart was reviewed patient evaluated [facility] Medical History Dementia Chronic abdominal pain Mastodynia of left breast HTN (hypertension) Normocytic anemia Osteopenia Depression with anxiety SVT (supraventricular tachycardia) Atrial fibrillation Surgical History History of cholecystectomy (05/04/23) History of esophagogastroduodenoscopy (EGD) Hx of colonoscopy History of total hip replacement History of prior ablation treatment H/O heart surgery History of left knee replacement Family History Brother Lung cancer Brother Bladder cancer Social History Household Members: Spouse and Children Housing: House Are you a primary home care and home health aides teacher to a significant other at home: No Do you presently have visiting nurse or other home services: No Alcohol intake: current Alcohol intake frequency: holidays/special occasions only Alcohol type: beer Patient Tobacco Use Status: Former Tobacco user Quit Date: 20 years e-Cigarette/Vaping Use: Never Used Second Hand Smoke Exposure: No service: No Current occupational status: retired Current occupational exposures/hazards: No Cognitive needs: No Hearing needs: No Vision needs: Yes Female Reproductive History Menstrual Age of Menarche: 13 Physical Exam Vital Signs: Last Vital Signs Pulse 54 11/02/23 09:09 BP 140/63 H 11/02/23 09:09 BMI result Body Mass Index 26.2 Chest Other: Bilateral breast exam demonstrates no obvious mass, discharge, skin changes. No cervical periclavicular or axillary adenopathy bilaterally. Patient has point tenderness of the chest wall mid clavicular line approximately 3rd interspace. No obvious pathology palpated. Assessment & Plan Assessment & Plan (1) Costochondritis: Code(s): M94.0 - Chondrocostal junction syndrome [[place]ze] Plan On exam and on workup, no obvious etiology for the patient's symptoms. She may have a costal chondritis or tze tze sundrome. At present, no acute surgical intervention required. Patient is encouraged to self breast exams. She is due for bilateral screening mammogram studies in approximately 10 months times. She will see me after the study or p.r.n.. Coding Level of Care Code Est Pt Level 4 (26084) Diagnoses Costochondritis M94.0
[2023-11-02 09:09] VITALS: BP 140/63; PULSE 54; BMI 26.2
== END 2023-11-02 09:35 | disposition home or self-care (01) ==
PROVIDERS: PCP Family Medicine; Visit Provider Surgery
DX: M94.0 Chondrocostal junction syndrome [Tietze] (principal)
CPT/HCPCS: 99214

== ENCOUNTER → 2023-11-02 09:01 | Outpatient (BNVA) | payer MEDICARE, SELFPAY | PROVIDERS: PCP Family Medicine; Visit Provider Surgery | DX: M94.0 Chondrocostal junction syndrome [Tietze] (principal) | CPT/HCPCS: 99212 ==

== ENCOUNTER 2023-11-05 09:22 | Outpatient (REF) | payer MEDICARE, SELFPAY | END 2023-11-05 09:23 | disposition home or self-care (01) | LOC: HO.WFDLDS 09:22 | PROVIDERS: Visit Provider Family Medicine | DX: Z13.89 Encounter for screening for other disorder (principal) ==

== ENCOUNTER 2023-11-05 12:47 | Outpatient (REF) | payer MEDICARE, SELFPAY | END 2023-11-05 12:48 | disposition home or self-care (01) | LOC: HO.WFDLDS 12:47 | PROVIDERS: Visit Provider Family Medicine | DX: Z13.89 Encounter for screening for other disorder (principal) ==

== ENCOUNTER 2023-11-05 12:50 | Outpatient (REF) | payer MEDICARE, SELFPAY ==
[2023-11-05 14:32] LABS: Appearance Urine Cloudy; Color Urine Yellow; Glucose Urine UA Negative (Negative); Leukocyte Esterase Urine Moderate (2+) (Negative); Nitrite Urine Negative (Negative); PH 5.5 (5.0-9.0); Specific Gravity - Urine 1.015 (1.005-1.025); UMIC TRIGGER UACC YES; Urine Blood Negative (Negative); Urine Ketones Negative (Negative); Urine Protein Negative (Neg-Trace)
[2023-11-05 14:38] LABS: Bacteria Urine 2+ (None Seen); Hyaline Casts Urine 0-2 /LPF (0-2); RBC Urine 0-2 /HPF (0-2); Squamous Epithelial Cell Urine >20 /HPF (0-2); UACC Culture Trigger YES; WBC Urine 21-50 /HPF (0-5)
== END 2023-11-05 12:51 | disposition home or self-care (01) ==
LOC: HO.WFDLDS 12:50
PROVIDERS: Visit Provider Family Medicine
DX: R39.9 Unspecified symptoms and signs involving the genitourinary system (principal)
CPT/HCPCS: 81001; 87086

== ENCOUNTER 2023-11-11 08:45 | Outpatient (REF) | payer MEDICARE, SELFPAY | END 2023-11-11 08:46 | disposition home or self-care (01) | LOC: HO.MAMMO 08:45 | PROVIDERS: PCP Family Medicine; Visit Provider Obstetrics & Gynecology | DX: Z13.820 Encounter for screening for osteoporosis (principal); Z78.0 Asymptomatic menopausal state | CPT/HCPCS: 77080 ==

== ENCOUNTER 2023-11-18 11:30 | Day surgery (SDC) | payer MEDICARE, SELFPAY ==
[2023-11-18 11:43] VITALS: BMI 26.0
[2023-11-18 12:04] VITALS: BP 130/59; PULSE 56; RESP 18; TEMP 36.7; O2SAT 98
--- NOTE | 2023-11-18 13:37 | MHC.SHP ---
Pre-Procedural Eval Section A Date of Service: 11/18/23 The patient is an INPATIENT: No Changes since office visit: No Cold of Flu in the past 2 weeks, No New Medical Problems, No Changes in Medication and No Patient answered all questions The History & Physical has been completed within 30 days and I have reviewed it.: Yes Section B Chief Complaint: Unspecified urinary incontinence Allergies: Allergies Allergy/AdvReac Type Severity Reaction Status Date / Time silver sulfadiazine AdvReac Mild skin Verified 11/18/23 12:06 [From Silvadenlele] irritation Plan Diagnosis/Plan: Unchanged (Interstim part 1) I have reviewed the history and physical and performed a pertinent physical examination on my patient. No changes have occurred unless specified. Time Spent With Patient Time: Total time managing care of this patient today ____ minutes.
[2023-11-18 14:40] VITALS: PULSE 64; RESP 16; TEMP 36.8; O2SAT 98
--- NOTE | 2023-11-25 10:02 | P.OP_ITS ---
Operative Note Operative Note Date of Service: 11/25/23 Narrative: PreOperative Diagnosis: 1) Overactive bladder with urinary urgency and frequency with incontinence 2) Rectal Incontinence Post Operative Diagnosis: 1) Overactive bladder with urinary urgency and frequency with incontinence (N39.41, R35.0) 2) Rectal Incontinence (R15.9) Procedure: 1.) Percutaneous implantation of neurostimulator electrode array including image guidance - performed bilateral - left and right foramen Surgeon: Dr Maurice Braswell Anesthesia: local Indications for procedure: - Failed multiple (more than 2) anticholinergic medications in attempt to manage urinary urgency and frequency - Assessment with gastroenterology for rectal incontinence Procedure: After informed consent was verified the patient was brought to the interventional radiology suite. The patient was placed in a prone position and prepped and draped in a sterile fashion. Safety pause time-out was performed. Using the C-arm and Finder needle the S3 foramen exiting from the pelvic arch was marked horizontally from left to right as our horizontal marker. The left and right medial aspect of foramen were highlighted and aligned with the finder needle in a vertical fashion. Lines were marked. The intersection of these lines marked the entry point on the skin of the medial aspect of the left and right S3 foramen. Local anesthetic was infiltrated along the vertical aspect on both sides. The finder needle was inserted initially into the right targeted foramen. Imaging was performed in AP and lateral fashion. The needle was shown to into the S4 foramen. The needle was repositioned and entry into the right S3 foramen was confirmed. A 2nd needle was placed for entry into the left S3 foramen. The testing consultant was attached and assessed for placement with Garfield response and toe movement bilaterally. Good responses were confirmed at low amperage (under 1A) bilateral. The right side had more discomfort so the needle was withdrawn proximally half a cm for better response. Starting with the right side. The internal introducer from the needle was removed and the testing consultant placed. The needle was removed and imaging used to confirmin good placement of testing consultant. This procedure was repeated on the left side. The two test leads were then attached to the test generator and appropriate dressing was applied in order to maintain integrity for the duration of the outpatient test sequence. CPT 64877, plus 90784-47 for second lead placement. Inclusive of image guidance, 91631 - simple programming
== END 2023-11-18 15:00 | disposition home or self-care (01) ==
PROVIDERS: PCP Family Medicine; Visit Provider Radiology Vascular & Interventional Radiology
DX: N32.81 Overactive bladder (principal); R39.15 Urgency of urination; R35.0 Frequency of micturition; R15.9 Full incontinence of feces
CPT/HCPCS: 64561; 64581; A4364; C1787; C1897

== ENCOUNTER → 2023-11-18 11:30 | Outpatient (BNV) | payer MEDICARE, SELFPAY | PROVIDERS: PCP Family Medicine; Visit Provider Urology | DX: N32.81 Overactive bladder (principal); N39.41 Urge incontinence; R35.0 Frequency of micturition; R15.9 Full incontinence of feces | CPT/HCPCS: 64561; 76000 ==

== ENCOUNTER 2023-11-25 13:48 | Outpatient (AMB) | payer MEDICARE, SELFPAY ==
--- NOTE | 2023-11-25 13:59 | A.OFFVIS_ITS ---
Intake Intake Visit Reasons: Interstim dressing and wire removal Intake Note: Patient is present for interstim dressing and wire removal Allergies silver sulfadiazine [From Silvadene] Adverse Reaction (Mild, Verified 11/18/23 12:06) skin irritation HPI HPI Comments History of Present Illness Details Trish is a pleasant female. She is a patient of Dr. Hernandez. She is treated for the following conditions - urinary urgency - mixed incontinence - fecal incontinence Had significant improvement of urinary symptoms when using Myrbetriq Diagnosed by GI provided Dr. Garces with fecal incontinence Has undergone placement of temporary InterStim leads Found that left-sided S3 lead has allowed her significant improvement in fecal incontinence Was able to travel to [place] without stopping to use the bathroom and no episodes of leakage Temporary leads removed in office today Plan for formal placement with generator on Wednesday Questions answered Trish's daughter was available on telephone [facility] Medical History Dementia Chronic abdominal pain Mastodynia of left breast HTN (hypertension) Normocytic anemia Osteopenia Depression with anxiety SVT (supraventricular tachycardia) Atrial fibrillation Surgical History History of cholecystectomy (05/04/23) History of esophagogastroduodenoscopy (EGD) Hx of colonoscopy History of total hip replacement History of prior ablation treatment H/O heart surgery History of left knee replacement Family History Brother Lung cancer Brother Bladder cancer Social History Household Members: Spouse and Children Housing: House Are you a primary childcare worker to a significant other at home: No Do you presently have visiting nurse or other home services: No Alcohol intake: current Alcohol intake frequency: holidays/special occasions only Alcohol type: beer Patient Tobacco Use Status: Former Tobacco user Quit Date: 20 years e-Cigarette/Vaping Use: Never Used Second Hand Smoke Exposure: No service: No Current occupational status: retired Current occupational exposures/hazards: No Cognitive needs: No Hearing needs: No Vision needs: Yes Female Reproductive History Menstrual Age of Menarche: 13 Review of Systems Const Denies chills and Denies fever(s) Card Reports no additional complaints and Denies syncope Resp Denies cough GI Denies abdominal pain and Denies heartburn Reports as per HPI and Denies change in libido Neuro Denies syncope Psych Denies change in libido Endo Denies change in libido Physical Exam Const General: cooperative, healthy appearing, comfortable and no acute distress Orientation/consciousness: patient oriented x3 HEENT Face and sinus: Yes normal facial exam Mouth: moist mucous membranes Neck Neck: Yes normal visual inspection, Yes full ROM and Yes trachea midline Chest Chest palpation & inspection: normal inspection of the chest Resp Effort & Inspection: normal respiratory effort, able to speak in complete sent ences and no respiratory distress GI Inspection: Yes normal to inspection Back/Spine/Pelvis Cervical Spine: normal cervical lordosis Thoracic/Lumbar Spine: thoracic and lumbar spine normal to inspection Skin General skin exam: no rashes or lesions noted Neuro General: patient oriented x3, gait normal, tone normal and moves all extremities Extrem General: Yes normal to inspection and Yes capillary refill normal Assessment & Plan Assessment & Plan (1) Urinary incontinence: Code(s): R32 - Unspecified urinary incontinence (2) Urinary and fecal incontinence: Code(s): R32 - Unspecified urinary incontinence; R15.9 - Full incontinence of feces (3) Lower urinary tract symptoms (LUTS): Code(s): R39.9 - Unspecified symptoms and signs involving the genitourinary system Plan Risks, benefits and alternatives to therapy were discussed. These include but are not limited to infection, bleeding, damage to local organs and tissues, need for further interventions. Anesthetic risks regarding cardiac arrhythmia, blood clots, and potential mortality were discussed. The patient understands the typical recovery time and the outpatient nature of the procedure. After consideration of these risks the patient gives full informed consent and they wish to move ahead with the procedure. Full System Impant [employer] Implant - left S3 access Patient Instructions: Imaging studies, laboratory and physical exam results were discussed and reviewed in detail. No major barriers to patient understanding were identified. An opportunity to ask questions regarding the treatment plan was provided. All questions were answered. The patient expressed understanding and agreement with the above treatment plan. The patient is aware they should contact our office by phone for worsening of their current condition or the appearance of new urologic symptoms. Compliance is encouraged with any medications and followup testing that is ordered. It is a privilege to participate in the urologic care of your patient. If you have any questions or concerns regarding treatment for the above conditions, or other urologic issues, please do not hesitate to contact me. The office telephone contact is [phone]. This note is constructed using voice recognition software. While every effort has been made to ensure accuracy building architectural designer errors may have been included. Yours sincerely, Dr Maurice Braswell MD, [facility] - Urology Providers of Expert, Compassionate Care for the Genitourinary System Coding Level of Care Code Est Pt Level 3 (91620) Diagnoses Urinary incontinence R32 Urinary and fecal incontinence R32; R15.9 Lower urinary tract symptoms (LUTS) R39.9
== END 2023-11-25 14:26 | disposition home or self-care (01) ==
PROVIDERS: PCP Family Medicine; Visit Provider Urology
DX: R32 Unspecified urinary incontinence (principal); R15.9 Full incontinence of feces; R39.9 Unspecified symptoms and signs involving the genitourinary system
CPT/HCPCS: 99213

== ENCOUNTER → 2023-11-25 13:48 | Outpatient (BNVA) | payer MEDICARE, SELFPAY | PROVIDERS: PCP Family Medicine; Visit Provider Urology | DX: R32 Unspecified urinary incontinence (principal); R15.9 Full incontinence of feces; R39.9 Unspecified symptoms and signs involving the genitourinary system | CPT/HCPCS: 99212 ==

== ENCOUNTER 2023-11-29 12:33 | Day surgery (SDC) | payer MEDICARE, SELFPAY ==
[2023-11-25 15:17] VITALS: BMI 26.0
--- NOTE | 2023-11-26 11:05 | HO.ANESPROP2 ---
Documented by User: Lora Pearl NP 11/26/23 11:10 HPI - Anesthesia Eval Consult details Narrative: 68yo F for Interstim Lead Test-Stage 1 full placement Medically cleared by PCP. Follows [facility]. Last office visit 10/2023 for preop but only partial note available. Per HPI: Pt stable without symptoms, EKG ok. Eliquis for afib s/p lap caleb 04/2023 with GA-ETT 7 PMFSH Active Problems Active Problems: All Active Problems (Updated 11/25/23 @ 14:57 by Sarah Cramer RN) Costochondritis (Acute) Paroxysmal atrial fibrillation (Acute) Pre-operative clearance (Acute) Breast cyst (Acute) Menopause (Acute) Urinary and fecal incontinence (Acute) Urinary incontinence (Acute) Pressure ulcer (Acute) Bacteriuria (Acute) Status post cholecystectomy (Acute) Elevated LDL cholesterol level (Acute) Adult general medical exam (Acute) Lower urinary tract symptoms (LUTS) (Acute) Recurrent biliary colic (Acute) Pressure ulcer of coccygeal region (Acute) Daytime sleepiness (Acute) Dysuria (Acute) Acid reflux (Acute) Obstructive sleep apnea (Acute) Cough (Acute) Diverticulosis (Acute) Hiatal hernia (Acute) 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 (Acute) Chronic diarrhea (Acute) Hiatal hernia (Acute) Anxiety and depression (Acute) Essential hypertension (Acute) Memory changes (Acute) Left breast lump (Acute) Normochromic normocytic anemia (Acute) Muscle cramp (Acute) Memory changes (Acute) Contact with and (suspected) exposure to other viral communicable diseases (Acute) Well woman exam (Acute) Mild anemia (Acute) Screening for cervical cancer (Acute) Screening for colon cancer (Acute) Breast cancer screening by mammogram (Acute) Immunization counseling (Acute) Screening for osteoporosis (Acute) Annual visit for general adult medical examination without abnormal findings (Acute) Viral illness (Acute) Left knee pain (Acute) Anxiety (Acute) Status post left knee replacement (Acute) Left knee injury (Acute) Normocytic anemia (Acute) Chronic abdominal pain (Acute) Mastodynia of left breast (Acute) Past Medical History Medical History (Updated 11/29/23 @ 12:52 by Karin Peraza RN) Barretts esophagus Anxiety Sleep apnea Hx of flexible sigmoidoscopy Dementia Chronic abdominal pain Mastodynia of left breast HTN (hypertension) Normocytic anemia Osteopenia Depression with anxiety SVT (supraventricular tachycardia) Atrial fibrillation Family History Family History Brother Lung cancer Brother Bladder cancer Surgical History Surgical History (Updated 11/25/23 @ 14:46 by Sarah Cramer RN) Status post insertion of nerve stimulator History of cholecystectomy (05/04/23) History of esophagogastroduodenoscopy (EGD) Hx of colonoscopy History of total hip replacement History of prior ablation treatment H/O heart surgery History of left knee replacement History of Problems with Anesthesia: No Social History Social History Household Members: Spouse and Children Housing: House Are you a primary wild animal caretaker to a significant other at home: No Do you presently have visiting nurse or other home services: No Alcohol intake: current Alcohol intake frequency: holidays/special occasions only Alcohol type: beer Patient Tobacco Use Status: Former Tobacco user Quit Date: 20 years e-Cigarette/Vaping Use: Never Used Second Hand Smoke Exposure: No Are you DNR?: No Advance Directives: No Advance Directives Information Provided: Yes Recently lost weight without trying: No Nutrition Risks: No Nutritional Risk service: No Current occupational status: retired Current occupational exposures/hazards: No Cognitive needs: No Hearing needs: No Vision needs: Yes Meds Allergies Allergy/AdvReac Type Severity Reaction Status Date / Time silver sulfadiazine AdvReac Mild skin Verified 11/18/23 12:06 [From Silvadene] irritation Home Medications Medication Instructions Recorded Confirmed Last Taken Type calcium carbonate 500 mg-vitamin 1 tab PO DAILY 05/07/22 11/25/23 Unknown History D3 3.125 mcg (125 unit) tablet kmpxoaie-xrn-swtm-FA-Ca carb-vit K 1 tab PO DAILY 05/07/22 06/22/23 Unknown History 18 mg iron-400 mcg-500 mg tablet cholecalciferol (vitamin D3) 50 50 mcg PO DAILY 01/13/23 11/25/23 Unknown History mcg (2,000 unit) capsule donepezil 5 mg tablet 5 mg PO DAILY 02/08/23 11/25/23 Unknown History bupropion HCl 75 mg tablet 75 mg PO DAILY 10/04/23 11/25/23 11/29/23 History Exam Height,Weight and Vital Signs: Height 5 ft 3 in Weight 66.678 kg Pertinent Lab Results Pertinent Lab Results: Laboratory Tests 06/14/23 07:42 WBC 4.8 Hgb 11.1 L Hct 34.2 L Plt Count 274 D Sodium 140 Potassium 3.8 Chloride 107 Carbon Dioxide 24 BUN 19 H Creatinine 0.66 Narrative Narrative: EKG 10/2023 per cardiac note SR with PACs ECHO 2021 Overall LVEF 65-70% Indeterminate DD LA severely dilated No aortic stenosis Mild mitral regurg RV sys pressure is 25mmHg No evidence of pulmo htn Asc aorta is nml in size Assessment and Plan Assessment Anesthesia Assessment: Chart Reviewed Final Anesthetic Review History of Problems with Anesthesia: No Documented by User: Carson Hernández MD 11/29/23 16:05 [facility] Past Medical History Medical History (Updated 11/29/23 @ 12:52 by Karin Peraza RN) Barretts esophagus Anxiety Sleep apnea Hx of flexible sigmoidoscopy Dementia Chronic abdominal pain Mastodynia of left breast HTN (hypertension) Normocytic anemia Osteopenia Depression with anxiety SVT (supraventricular tachycardia) Atrial fibrillation Family History Family History Brother Lung cancer Brother Bladder cancer Family history of problems with anesthesia: No Surgical History Surgical History (Updated 11/25/23 @ 14:46 by Sarah Cramer RN) Status post insertion of nerve stimulator History of cholecystectomy (05/04/23) History of esophagogastroduodenoscopy (EGD) Hx of colonoscopy History of total hip replacement History of prior ablation treatment H/O heart surgery History of left knee replacement Social History Social History Household Members: Spouse and Children Housing: House Are you a primary wild animal caretaker to a significant other at home: No Do you presently have visiting nurse or other home services: No Alcohol intake: current Alcohol intake frequency: holidays/special occasions only Alcohol type: beer Patient Tobacco Use Status: Former Tobacco user Quit Date: 20 years e-Cigarette/Vaping Use: Never Used Second Hand Smoke Exposure: No Are you DNR?: No Advance Directives: No Advance Directives Information Provided: Yes Recently lost weight without trying: No Nutrition Risks: No Nutritional Risk service: No Current occupational status: retired Current occupational exposures/hazards: No Cognitive needs: No Hearing needs: No Vision needs: Yes Meds Allergies Allergy/AdvReac Type Severity Reaction Status Date / Time silver sulfadiazine AdvReac Mild skin Verified 11/18/23 12:06 [From Silvadene] irritation Home Medications Medication Instructions Recorded Confirmed Last Taken Type calcium carbonate 500 mg-vitamin 1 tab PO DAILY 05/07/22 11/25/23 Unknown History D3 3.125 mcg (125 unit) tablet ldxykljc-rme-beyb-FA-Ca carb-vit K 1 tab PO DAILY 05/07/22 06/22/23 Unknown History 18 mg iron-400 mcg-500 mg tablet cholecalciferol (vitamin D3) 50 50 mcg PO DAILY 01/13/23 11/25/23 Unknown History mcg (2,000 unit) capsule donepezil 5 mg tablet 5 mg PO DAILY 02/08/23 11/25/23 Unknown History bupropion HCl 75 mg tablet 75 mg PO DAILY 10/04/23 11/25/23 11/29/23 History Exam Airway Mallampati Class: II TM Dist: <=3cm Neck ROM: Full Loose/Missing/Broken Teeth: No Heart: ok Lungs: ok Assessment and Plan Assessment Anesthesia Assessment: Anesthesia Plan Discussed Final Anesthetic Review Family History of Problems with Anesthesia: No NPO: Yes ASA Class: III Final Preanesthetic Review: No Changes in Pt Med Stat, Meds/Allgs Chart Reviewed, Consent Obtained/Reviewed and Anes Risks/Benef Reviewed Patient Risk: Intermediate Procedure Risk: Intermediate Anesthetic Plan Anesthetic Plan: MAC: and Agree w/ Assess. and Plan Disposition: Standard PACU
--- NOTE | ~2023-11-29 | FL_ITS ---
EXAMINATION: XR FLUOROSCOPY WITH IMAGES CLINICAL INFORMATION: InterStim placement. COMPARISON: None available. TECHNIQUE: Fluoroscopy Supervised By: Dr. Maurice Braswell. Fluoroscopy Time: 46.0 seconds. Cumulative Dose: 19.84 mGy. Images: 4. FINDINGS: Two images demonstrate the distal end of the InterStim lead extending through the sacrum on the right. FL/FL guidance in OR IMPRESSION: Fluoroscopy and spot films provided during InterStim placement.
[2023-11-29 12:47] VITALS: BP 120/45; PULSE 73; RESP 20; TEMP 36.5; O2SAT 99; BMI 27.3
[2023-11-29] MEDS: Lactated Ringers 1,000 ML 100 ML IVCONT (13:21)
--- NOTE | 2023-11-29 14:54 | PC.NURSE ---
called daughter aware mother waiting secondary delay in the room
--- NOTE | 2023-11-29 15:03 | MHC.SHP ---
Pre-Procedural Eval Section A Date of Service: 11/29/23 The patient is an INPATIENT: No Changes since office visit: No Cold of Flu in the past 2 weeks, No New Medical Problems, No Changes in Medication and No Patient answered all questions The History & Physical has been completed within 30 days and I have reviewed it.: Yes Section B Chief Complaint: Unspecified urinary incontinence Details of Present Illness: Full insertion InterStim Allergies: Allergies Allergy/AdvReac Type Severity Reaction Status Date / Time silver sulfadiazine AdvReac Mild skin Verified 11/18/23 12:06 [From Silvadene] irritation Review of Systems Sugical H&P ROS: Negative: Constitution, Cardiovascular, Respiratory, Neurological, Psychiatric, Hem-Onc, Allergic/Immunologic, Gastrointestinal, Genitourinary, Musculoskeletal, Integumentary, Endocrine and Eyes/Ears/Nose/Throat Exam Surgical H&P Exam: Normal: HEENT, Normal: Heart, Normal: Lungs, Normal: Extremities, Normal: Abdomen, Normal: Skin and Normal: Neurological Plan Diagnosis/Plan: Unchanged (full insertiion interstim) I have reviewed the history and physical and performed a pertinent physical examination on my patient. No changes have occurred unless specified. Time Spent With Patient Time: Total time managing care of this patient today ____ minutes.
--- NOTE | 2023-11-29 16:31 | W.PM.OPN ---
Operative Note Operative Note Date of Service: 11/29/23 Narrative: PreOperative Diagnosis: Overactive bladder with urinary urgency and frequency Post Operative Diagnosis: Overactive bladder with urinary urgency and frequency Procedure: 1.) Placement of InterStim lead 2.) Placement of InterStim battery Surgeon: Dr Maurice Braswell Anesthesia: sedation Indications for procedure: rectal and fecal incontinence Procedure: After informed consent was verified the patient was brought to the operating room. Sedation anesthesia was administered per protocol. The patient was placed in a prone position and prepped and draped in a sterile fashion. Safety pause time-out was performed. Packet location was marked running parallel 1 inches below the top of the right sacral bone from AP fluroscopy guidance. Local anesthetic was infiltrated. Using the C-arm in an AP and lateral view the medial aspect of the S3 left foramen was located and marked on the skin. The area was infiltrated with local anesthetic. The finding needle was introduced into the S3 foramen running from a caudad to chordal direction. Using the development technical lead we could confirm good toe movement and Garfield response. Maximum current was less than 2.0 Amp. The internal introducer from the needle was removed and the control lead placed. The finder needle was removed and the dilator sheath introduced. Under fluoroscopic guidance the dilator sheath was advanced till the marker was seen mid point through the sacral bone on the lateral image. The internal cannula from the dilator was removed. The guidewire was removed. The active lead was then introduced through the dilator sheath and advanced so that the 3rd and 4th marked electrodes crossed the internal boundary line of the sacrum. The testing electrode was then hooked up to each of the wire electrodes 0 through 3 and good Garfield and toe response was seen at low amplitude below 2.0 amps in electrodes 2 and 3. This confirmed the clinically relevant position of the live wire. Under live fluoroscopy the introducer sheath was removed deploying the tines of the wire ensuring that the live wire remained in the previously described position. The battery pocket was then created. A 3 inch incision was made and a subcutaneous pocket was developed in the fat approximately 1.5 cm below the surface. The tunneling device was then used to bridge the distance between the sacral vertical incision and the desired location of the battery pocket. The live wire was placed through the tunneling device and brought out into the battery pocket. The sacral incision was washed with water. A new battery was connected to the live wire and placed into the subcutaneous pocket. The battery was tested and had positive medicinal plant picker and displayed normal impedance on all 4 channels. The battery pocket had been washed with sterile water prior to placement of the battery. Interrupted 3-0 Vicryl sutures were used to close the defect spaces and bring skin edges together. Running 4-0 Monocryl sutures were used to appose skin edges. Incisions were dressed using skin glue followed by Tegaderm dressing. Patient tolerated procedure well was extubated in operating room transferred in stable condition to the recovery area. Based on Garfield and toe responses program 3, 4 or 7 could be trialed - will start with program 7 CPT full device replacement 00218, 72570, 58262, 91731-52
[2023-11-29 16:43] VITALS: BP 145/75; PULSE 57; RESP 18; TEMP 36.5; O2SAT 98
[2023-11-29 16:58] VITALS: BP 137/71; PULSE 54; RESP 16; TEMP 36.7; O2SAT 96
== END 2023-11-29 17:13 | disposition home or self-care (01) ==
PROVIDERS: PCP Family Medicine; Visit Provider Urology
PROC: (CPT 64561; principal; 2023-11-29 13:50)
DX: N32.81 Overactive bladder (principal); R39.15 Urgency of urination; R35.0 Frequency of micturition
CPT/HCPCS: 64561; 64590; C1767; C1778; C1787; C1897; J0690; J2250; J2795

== ENCOUNTER → 2023-11-29 12:33 | Outpatient (BNV) | payer MEDICARE, SELFPAY | PROVIDERS: PCP Family Medicine; Visit Provider Urology | DX: N32.81 Overactive bladder (principal) | CPT/HCPCS: 64561; 64581; 64590; 76000; 95972 ==

== ENCOUNTER 2023-12-07 08:26 | Outpatient (AMB) | payer MEDICARE, SELFPAY ==
--- NOTE | 2023-12-07 08:29 | MHC.OFFVIS ---
Intake Vital Signs 12/07/23 08:30 Height 5 ft 3 in Weight 154 lb BMI 27.3 BP 130/72 Intake Visit Reasons: Dexa follow up Instructional Interventionist Required: No Allergies silver sulfadiazine [From Silvadene] Adverse Reaction (Mild, Verified 12/07/23 08:30) skin irritation Is last menstrual period known: No Post menopausal: Yes Patient : No HPI HPI Comments History of Present Illness Details The patient is presenting for follow up regarding DEXA scan results. T score @ spine and femoral Neck respectively were=-1.1 /-0.6and 10 year FRAX risk = 8/0.5% for severe osteoporosis and fracture. [facility] Medical History (Updated 12/07/23 @ 08:32 by Edmond Hernadez MD) Osteopenia Barretts esophagus Anxiety Sleep apnea Hx of flexible sigmoidoscopy Dementia Chronic abdominal pain Mastodynia of left breast HTN (hypertension) Normocytic anemia Depression with anxiety SVT (supraventricular tachycardia) Atrial fibrillation Surgical History Status post insertion of nerve stimulator History of cholecystectomy (05/04/23) History of esophagogastroduodenoscopy (EGD) Hx of colonoscopy History of total hip replacement History of prior ablation treatment H/O heart surgery History of left knee replacement Family History Brother Lung cancer Brother Bladder cancer Social History Household Members: Spouse and Children Housing: House Are you a primary childcare aide to a significant other at home: No Do you presently have visiting nurse or other home services: No Alcohol intake: current Alcohol intake frequency: holidays/special occasions only Alcohol type: beer Patient Tobacco Use Status: Former Tobacco user Quit Date: 20 years e-Cigarette/Vaping Use: Never Used Second Hand Smoke Exposure: No Patient : No service: No Current occupational status: retired Current occupational exposures/hazards: No Cognitive needs: No Hearing needs: No Vision needs: Yes Female Reproductive History Menstrual Age of Menarche: 13 control method: none Review of Systems Const All systems reviewed & are unremarkable except as noted in HPI and below Reports as per HPI and Reports no additional complaints GI Reports no additional complaints Reports no additional complaints Physical Exam Vital Signs: Last Vital Signs BP 130/72 01/30/24 08:30 BMI result Body Mass Index 27.3 Assessment & Plan Assessment & Plan (1) Osteopenia: Code(s): M85.80 - Other specified disorders of bone density and structure, unspecified site Plan: Discussed with the patient the DEXA results and FRAX risk. FRAX risk and T score showed no evidence of osteoporosis. Discussed with the patient all the options for osteoporosis prevention including lifestyle modifications including Ca+D supplements 1200 mg po qd/800 MIU, Weight bearing exercises and proteine supplements. The patient verbalized understanding and agreed plan will repeat DEXA in 2 years. Coding Level of Care Code Est Pt Level 3 (76799) Diagnoses Osteopenia M85.80
[2023-12-07 08:30] VITALS: BP 130/72; BMI 27.3
== END 2023-12-07 08:40 | disposition home or self-care (01) ==
LOC: HO.HWS 08:26
PROVIDERS: PCP Family Medicine; Visit Provider Obstetrics & Gynecology
DX: M85.80 Other specified disorders of bone density and structure, unspecified site (principal)
CPT/HCPCS: 99213

== ENCOUNTER → 2023-12-07 08:26 | Outpatient (BNVA) | payer MEDICARE, SELFPAY | PROVIDERS: PCP Family Medicine; Visit Provider Obstetrics & Gynecology | DX: R32 Unspecified urinary incontinence (principal); R15.9 Full incontinence of feces; Z98.890 Other specified postprocedural states; M85.80 Other specified disorders of bone density and structure, unspecified site | CPT/HCPCS: 99212 ==

== ENCOUNTER 2023-12-07 12:53 | Outpatient (AMB) | payer MEDICARE, SELFPAY ==
--- NOTE | 2023-12-07 12:54 | A.OFFVIS_ITS ---
Intake Intake Visit Reasons: S/P Interstim Stage 1 Intake Note: Patient presents today for a follow-up on: Procedure Meds- None Allergies to Antibiotic- Silver Sulfadiazine Blood Thinner- Eliquis Patient Symptoms: Patient stated she is not taking Myrbetriq, since she had the procedure done. Audiometric Technician Required: No Allergies silver sulfadiazine [From Silvadene] Adverse Reaction (Mild, Verified 12/07/23 12:59) skin irritation HPI HPI Comments History of Present Illness Details Trish is a pleasant female. She is a patient of Dr. Hernandez. She is treated for the following conditions - urinary urgency - mixed incontinence - fecal incontinence Telemedicine Evaluation 15 min Consultation [employer] Navi Video attempted Follow-up for permanent lead placement Significant improvement maintained Left lead active Very happy with current outcome Has undergone placement of temporary InterStim leads Found that left-sided S3 lead has allowed her significant improvement in fecal incontinence Was able to travel to [place] without stopping to use the bathroom and no episodes of leakage Temporary leads removed in office today Plan for formal placement with generator on Wednesday Questions answered Six-month follow-up [facility] Medical History Osteopenia Barretts esophagus Anxiety Sleep apnea Hx of flexible sigmoidoscopy Dementia Chronic abdominal pain Mastodynia of left breast HTN (hypertension) Normocytic anemia Depression with anxiety SVT (supraventricular tachycardia) Atrial fibrillation Surgical History Status post insertion of nerve stimulator History of cholecystectomy (05/04/23) History of esophagogastroduodenoscopy (EGD) Hx of colonoscopy History of total hip replacement History of prior ablation treatment H/O heart surgery History of left knee replacement Family History Brother Lung cancer Brother Bladder cancer Social History Household Members: Spouse and Children Housing: House Are you a primary healthcare prof to a significant other at home: No Do you presently have visiting nurse or other home services: No Alcohol intake: current Alcohol intake frequency: holidays/special occasions only Alcohol type: beer Patient Tobacco Use Status: Former Tobacco user Quit Date: 20 years e-Cigarette/Vaping Use: Never Used Second Hand Smoke Exposure: No service: No Current occupational status: retired Current occupational exposures/hazards: No Cognitive needs: No Hearing needs: No Vision needs: Yes Female Reproductive History Menstrual Age of Menarche: 13 Review of Systems Const All systems reviewed & are unremarkable except as noted in HPI and below Reports no additional complaints Resp Reports no additional complaints GI Reports no additional complaints Reports as per HPI Musc Reports no additional complaints Physical Exam Telemedicine evaluation Appropriate responses Regular breathing rate and rhythm HEENT Head: Yes normal to inspection Ears: hearing grossly normal bilaterally Eyes General: appearance normal, both eyes and all related structures Neck Neck: Yes normal visual inspection Chest Chest palpation & inspection: normal inspection of the chest Resp Effort & Inspection: normal respiratory effort and able to speak in complete sentences Assessment & Plan Assessment & Plan (1) Urinary and fecal incontinence: Code(s): R32 - Unspecified urinary incontinence; R15.9 - Full incontinence of feces Plan Six-month follow-up Patient Instructions: Imaging studies, laboratory and physical exam results were discussed and reviewed in detail. No major barriers to patient understanding were identified. An opportunity to ask questions regarding the treatment plan was provided. All questions were answered. The patient expressed understanding and agreement with the above treatment plan. The patient is aware they should contact our office by phone for worsening of their current condition or the appearance of new urologic symptoms. Compliance is encouraged with any medications and followup testing that is ordered. It is a privilege to participate in the urologic care of your patient. If you have any questions or concerns regarding treatment for the above conditions, or other urologic issues, please do not hesitate to contact me. The office telephone contact is [phone]. This note is constructed using voice recognition software. While every effort has been made to ensure accuracy voice network engineer errors may have been included. Yours sincerely, Dr Maurice Braswell MD, MA[facility] - Urology Providers of Expert, Compassionate Care for the Genitourinary System Telehealth Telehealth Location of provider rendering services: practice address Location of patient: address on file Patient Identification confirmed using: Name, : Yes Telehealth method: voice only Patient verbally consented to treatment: Yes Patient verbally consented to billing insurance company: Yes Patient informed of any privacy concerns related to visit: Yes Coding Level of Care Code Tele Est Pt Level 3 (33843) Diagnoses Urinary and fecal incontinence R32; R15.9
== END 2023-12-07 14:53 | disposition home or self-care (01) ==
LOC: HO.HUSH 12:53
PROVIDERS: PCP Family Medicine; Visit Provider Urology
DX: R32 Unspecified urinary incontinence (principal); R15.9 Full incontinence of feces
CPT/HCPCS: 99024

== ENCOUNTER 2024-01-20 09:00 | Outpatient (REF) | payer MEDICARE, SELFPAY ==
[2024-01-20 11:37] LABS: Appearance Urine Clear; Color Urine Yellow; Glucose Urine UA Negative (Negative); Leukocyte Esterase Urine Negative (Negative); Nitrite Urine Negative (Negative); PH 5.5 (5.0-9.0); Urine Blood Negative (Negative); Urine Ketones Negative (Negative); Urine Protein Negative (Neg-Trace)
== END 2024-01-20 09:01 | disposition home or self-care (01) ==
LOC: HO.WFDLDS 09:00
PROVIDERS: Visit Provider Family Medicine
DX: Z00.00 Encounter for general adult medical examination without abnormal findings (principal); R30.0 Dysuria; R39.9 Unspecified symptoms and signs involving the genitourinary system
CPT/HCPCS: 81003; 87086

== ENCOUNTER 2024-02-17 14:33 | Outpatient (AMB) | payer MEDICARE, SELFPAY ==
--- NOTE | 2024-02-17 14:52 | MHC.PC.OV ---
Vital Signs 02/17/24 14:59 Height 5 ft 3 in Weight 151 lb 2 oz BMI 26.8 BP 122/70 Blood Pressure Location Rt brachial Position Sitting Respiration 16 Pulse 57 Pulse Source Pulse Oximeter Temp 98.1 F Temp Source Oral Pulse Oximetry (%) 97 Oxygen Delivery Method Room Air Intake Visit Reasons: f/u hypertension Intake Note: Follow up htn. Saw neurologist 4-5 weeks ago and they wanted primary care to increase donepezil and buproprion . Needs refill on Calmoseptine Crochet Machine Operator Required: No Allergies silver sulfadiazine [From Silvadene] Adverse Reaction (Mild, Verified 02/17/24 14:52) skin irritation Medication List - Last Reconciled 02/17/24 by Ollie Hernandez MD apixaban (Eliquis) 5 mg PO BID 90 days bupropion HCl 75 mg PO DAILY 90 days calcium carbonate-vitamin D3 500 mg-3.125 mcg (125 unit) 1 tab PO DAILY carvedilol 6.25 mg PO BID celecoxib 200 mg PO DAILY cholecalciferol (vitamin D3) 50 mcg PO DAILY clonazepam (Klonopin) 0.5 mg PO BID 30 days donepezil 5 mg PO DAILY loperamide 2 mg PO Q6H PRN losartan 25 mg PO DAILY 30 days menthol-zinc oxide 0.44-20.6 % (Calmoseptine) 1 appl topical BID PRN metoprolol succinate ER 100 mg PO DAILY 90 days ja-mo-zofr-FA-Ca carb-vit K 18 mg iron-400 mcg-500 mg 1 tab PO DAILY omeprazole 40 mg PO DAILY 90 days sertraline 200 mg (2 x 100 mg) PO DAILY 90 days tramadol 50 mg PO TID PRN 4 days trazodone 1/2 - 1 tablet p.o. at bedtime PO bedtime PRN; 90 days Tobacco use date assessed: 02/17/24 Fall risk assessment: 2 + Falls in past year Last assessed Fall Risk: 02/17/24 Dental Screening Dental Screen Date: 02/17/24 Did you have a dental visit in the last 12 months?: Yes Did you have a dental problem in the last 6 months where you did not have access to dental care?: No Was dental information given to patient?: Patient has dentist HPI f/u hypertension HPI Details 69 y/o female presents to f/u hypertension, chronic conditions. Blood pressure today 122/70. She is on metoprolol 100mg, losartan 25mg daily. Pt reports they saw neurology 4-5 weeks ago and they had recommended an increase in her donepezil and buproprion. [facility] Medical History Osteopenia Barretts esophagus Anxiety Sleep apnea Hx of flexible sigmoidoscopy Dementia Chronic abdominal pain Mastodynia of left breast HTN (hypertension) Normocytic anemia Depression with anxiety SVT (supraventricular tachycardia) Atrial fibrillation Surgical History Status post insertion of nerve stimulator History of cholecystectomy (05/04/23) History of esophagogastroduodenoscopy (EGD) Hx of colonoscopy History of total hip replacement History of prior ablation treatment H/O heart surgery History of left knee replacement Family History Brother Lung cancer Brother Bladder cancer Social History Household Members: Spouse and Children Housing: House Are you a primary healthcare advisory services manager to a significant other at home: No Do you presently have visiting nurse or other home services: No Alcohol intake: current Alcohol intake frequency: holidays/special occasions only Alcohol type: beer Patient Tobacco Use Status: Former Tobacco user Quit Date: 20 years e-Cigarette/Vaping Use: Never Used Second Hand Smoke Exposure: No service: No Current occupational status: retired Current occupational exposures/hazards: No Cognitive needs: No Hearing needs: No Vision needs: Yes Female Reproductive History Menstrual Age of Menarche: 13 Questionnaire Thrive Questionnaire Date Thrive assessed: 12/03/22 ADEN-7 AMB Questionnaire ADEN-7 Date ADEN - 7 assessed: 05/03/23 Source: Developed by Drs. Jean Rockwell, Jennifer Fritz, Scar Navarro and colleagues, with an educational edna from [employer]. Review of Systems Const Denies chills, Denies fatigue, Denies fever(s), Denies headache(s) and Denies weakness ENT Denies dizziness and Denies headache(s) Card Denies chest pain, Denies lightheadedness, Denies dyspnea and Denies other (Palpitations) Resp Denies cough, Denies dyspnea, Denies wheezing and Denies other ( shortness of breath) Musc Denies numbness and Denies tingling Neuro Denies dizziness, Denies headache(s), Denies numbness, Denies tingling, Denies paresthesias and Denies weakness Psych Denies anxiety and Denies depression Endo Denies fatigue Aller/Immun Denies wheezing Physical exam (Primary Care) Vital Signs: Last Vital Signs Temp 98.1 F 02/17/24 14:59 Pulse 57 02/17/24 14:59 Resp 16 02/17/24 14:59 BP 122/70 02/17/24 14:59 Pulse Ox 97 02/17/24 14:59 Oxygen Delivery Method Room Air 02/17/24 14:59 BMI result Body Mass Index 26.8 Tobacco/Smoking Status: Tobacco use Status Tobacco use date assessed 02/17/24 02/17/24 15:07 Patient Tobacco Use Status Former Tobacco user 02/17/24 14:58 e-Cigarette/Vaping Use Never Used 02/17/24 14:58 Thrive Assessment: Date of Thrive Assessment Date Thrive assessed 12/03/22 02/17/24 14:58 Const General: no acute distress and well developed Nutritional Appearance: well nourished Orientation/consciousness: patient oriented x3 [facility] Head: Yes normocephalic and Yes atraumatic Eyes General: appearance normal, both eyes and all related structures Pupils: Equal, round and reactive pupils present EOM: EOMs intact bilaterally Resp Effort & Inspection: normal respiratory effort Auscultation: clear to auscultation bilaterally Cardio Rate: regular rate Rhythm: regular rhythm Heart sounds: S1 normal heart sound present, S2 normal heart sound present, no gallops, no murmurs and no rubs Neuro General: patient oriented x3 and gait normal Cranial nerves: Yes Equal, round and reactive pupils present Psych Affect: normal affect Assessment and Plan Assessment & Plan (1) Essential hypertension: Code(s): I10 - Essential (primary) hypertension Plan: Blood?pressure?is?controlled.??Goal?is?less?than?140/90 Continue?current?medication (2) Memory changes: Code(s): R41.3 - Other amnesia Plan: Ongoing?memory?changes Six-month?follow-up?with?neuropsych?so?the?some?worsening?of?cognition?and?memory Recommended?increasing?donepezil?and?bupropion?which?I?will?do Review?of?her?MRI?showed?diffuse?volume?loss?as?well?as?microvascular?changes. Maintain?good?blood?pressure,?blood?sugar?and?lipid?control.??We?will?be?following?up?on?these?at?her?next?visit Encouraged?learning?exercises?and?puzzles, encouraged?exercise, encouraged?good?social?interactions. Has?follow-up?with Neuropsych?again?in?6?months (3) Anxiety and depression: Code(s): F41.9 - Anxiety disorder, unspecified; F32.A - Depression, unspecified Plan: Stable Continue?sertraline,?trazodone?and?I?have?increased?bupropion (4) Urinary incontinence: Code(s): R32 - Unspecified urinary incontinence Plan: Significantly?improved?with?stimulator?implant Patient?is?pleased?with?results Follow-up?with??French?as?recommended Medications: New menthol-zinc oxide 0.44-20.6 % (Calmoseptine) 1 appl topical BID 30 days PRN 113 grams 3RF skin irritation bupropion HCl XL 150 mg PO QAM 90 days 90 tabs 2RF Changed From donepezil 5 mg PO DAILY To donepezil 10 mg PO DAILY 90 days 90 tabs 3RF Discontinued bupropion HCl Discontinued Reason: Doctor's Order 75 mg PO DAILY 90 days 90 tabs 2RF Coding Level of Care Code Est Pt Level 4 (55280) Diagnoses Essential hypertension I10 Memory changes R41.3 Anxiety and depression F41.9; F32.A Urinary incontinence R32
[2024-02-17 14:59] VITALS: BP 122/70; PULSE 57; RESP 16; TEMP 36.7; O2SAT 97; BMI 26.8
== END 2024-02-17 15:27 | disposition home or self-care (01) ==
PROVIDERS: PCP Family Medicine; Visit Provider Family Medicine
DX: I10 Essential (primary) hypertension (principal); R41.3 Other amnesia; F41.9 Anxiety disorder, unspecified; F32.A Depression, unspecified; R32 Unspecified urinary incontinence
CPT/HCPCS: 99214

== ENCOUNTER 2024-03-10 09:53 | Outpatient (AMB) | payer MEDICARE, SELFPAY ==
--- NOTE | 2024-03-10 09:57 | A.OFFVIS_ITS ---
Intake Visit Reasons: 3m follow up(Interstim) Intake Note: Patient is present for Interstim follow up Patient states the interstim is working well Allergies silver sulfadiazine [From Silvadene] Adverse Reaction (Mild, Verified 02/17/24 14:52) skin irritation HPI Comments Details: Trish is a pleasant female. She is a patient of Dr. Hernandez. She is treated for the following conditions - urinary urgency - mixed incontinence - fecal incontinence Three-month follow-up after InterStim placement Very happy with how she is currently doing Urinary urgency 12/01 - InterStim placement left S3 Six-month follow-up [facility] Medical History Osteopenia Barretts esophagus Anxiety Sleep apnea Hx of flexible sigmoidoscopy Dementia Chronic abdominal pain Mastodynia of left breast HTN (hypertension) Normocytic anemia Depression with anxiety SVT (supraventricular tachycardia) Atrial fibrillation Surgical History Status post insertion of nerve stimulator History of cholecystectomy (05/04/23) History of esophagogastroduodenoscopy (EGD) Hx of colonoscopy History of total hip replacement History of prior ablation treatment H/O heart surgery History of left knee replacement Family History Brother Lung cancer Brother Bladder cancer Social History Household Members: Spouse and Children Housing: House Are you a primary healthcare facility administrator to a significant other at home: No Do you presently have visiting nurse or other home services: No Alcohol intake: current Alcohol intake frequency: holidays/special occasions only Alcohol type: beer Patient Tobacco Use Status: Former Tobacco user Quit Date: 20 years e-Cigarette/Vaping Use: Never Used Second Hand Smoke Exposure: No service: No Current occupational status: retired Current occupational exposures/hazards: No Cognitive needs: No Hearing needs: No Vision needs: Yes Female Reproductive History Menstrual Age of Menarche: 13 Review of Systems Const Denies chills and Denies fever(s) Card Reports no additional complaints and Denies syncope Resp Denies cough GI Denies abdominal pain and Denies heartburn Reports as per HPI and Denies change in libido Neuro Denies syncope Psych Denies change in libido Endo Denies change in libido Physical Exam Const General: cooperative, healthy appearing, comfortable and no acute distress Orientation/consciousness: patient oriented x3 HEENT Face and sinus: Yes normal facial exam Mouth: moist mucous membranes Neck Neck: Yes normal visual inspection, Yes full ROM and Yes trachea midline Chest Chest palpation & inspection: normal inspection of the chest Resp Effort & Inspection: normal respiratory effort, able to speak in complete sentences and no respiratory distress GI Inspection: Yes normal to inspection Back/Spine/Pelvis Cervical Spine: normal cervical lordosis Thoracic/Lumbar Spine: thoracic and lumbar spine normal to inspection Skin General skin exam: no rashes or lesions noted Neuro General: patient oriented x3, gait normal, tone normal and moves all extremities Extrem General: Yes normal to inspection and Yes capillary refill normal Assessment & Plan Assessment & Plan (1) Overactive bladder: Code(s): N32.81 - Overactive bladder Category: Medical Plan Six-month follow-up Patient Instructions: Imaging studies, laboratory and physical exam results were discussed and reviewed in detail. No major barriers to patient understanding were identified. An opportunity to ask questions regarding the treatment plan was provided. All questions were answered. The patient expressed understanding and agreement with the above treatment plan. The patient is aware they should contact our office by phone for worsening of their current condition or the appearance of new urologic symptoms. Compliance is encouraged with any medications and followup testing that is ordered. It is a privilege to participate in the urologic care of your patient. If you have any questions or concerns regarding treatment for the above conditions, or other urologic issues, please do not hesitate to contact me. The office telephone contact is [phone]. This note is constructed using voice recognition software. While every effort has been made to ensure accuracy lead pharmacy technician errors may have been included. Yours sincerely, Dr Maurice Braswell MD, [facility] Providers of Expert, Compassionate Care for the Genitourinary System Coding Level of Care Code Est Pt Level 3 (75284) Diagnoses Overactive bladder N32.81
== END 2024-03-10 10:08 | disposition home or self-care (01) ==
PROVIDERS: PCP Family Medicine; Visit Provider Urology
DX: N32.81 Overactive bladder (principal)
CPT/HCPCS: 99213

== ENCOUNTER → 2024-03-10 09:53 | Outpatient (BNVA) | payer MEDICARE, SELFPAY | PROVIDERS: PCP Family Medicine; Visit Provider Urology | DX: N32.81 Overactive bladder (principal); Z96.82 Presence of neurostimulator | CPT/HCPCS: 99212 ==

== ENCOUNTER 2024-05-03 08:12 | Outpatient (REF) | payer MEDICARE, SELFPAY ==
[2024-05-03 11:09] LABS: MANUAL DIFF FLAG NO
[2024-05-03 11:29] LABS: Basophils Absolute Auto 0.1 X10*3/uL (0.0-0.2); Basophils Percent Auto 1.2 % (0-2); Eosinophils Absolute Auto 0.2 X10*3/uL (0.0-0.4); Eosinophils Percent Auto 4.5 % (0-4); Hematocrit 34.3 % (37.0-47.0); Hemoglobin 11.1 g/dl (12.0-16.0); Imm Gran Abs Auto 0.01 X10*3/uL (0.00-0.03); Imm Gran Pct Auto 0.2 % (0.0-0.4); Lymphocytes Absolute Auto 2.1 X10*3/uL (1.2-4.9); Lymphocytes Percent Auto 42.3 % (20-40); Mean Corpuscular HGB Conc 32.4 g/dl (31.0-35.0); Mean Corpuscular Hemoglobin 31.7 pg (27.0-33.0); Mean Platelet Volume 9.8 fL (9.4-12.3); Monocytes Absolute Auto 0.3 X10*3/uL (0.1-1.2); Monocytes Percent Auto 5.7 % (2-11); Neutrophils Absolute Auto 2.3 x10*3/uL (2.0-8.3); Neutrophils Percent Auto 46.1 % (45-73); Platelet Count 238 X10*3/uL (160-400); Red Cell Distribution Width 14.5 % (11.0-16.0); White Blood Count 4.9 X10*3/uL (4.8-10.8)
[2024-05-03 11:33] LABS: Appearance Urine Cloudy; Color Urine Yellow; Glucose Urine UA Negative (Negative); Leukocyte Esterase Urine Moderate (2+) (Negative); Nitrite Urine Negative (Negative); PH 5.5 (5.0-9.0); Specific Gravity - Urine 1.025 (1.005-1.025); UMIC TRIGGER UA YES; Urine Blood Negative (Negative); Urine Ketones Negative (Negative); Urine Protein Negative (Neg-Trace)
[2024-05-03 11:39] LABS: Bacteria Urine 4+ (None Seen); Hyaline Casts Urine 0-2 /LPF (0-2); RBC Urine 0-2 /HPF (0-2); WBC Urine >50 /HPF (0-5)
[2024-05-03 11:50] LABS: Creatinine Urine 94.77 mg/dL; Microalbum/Creatinine Ratio Ur 11.6 ug/mg cr (<30)
[2024-05-03 12:02] LABS: Alanine Aminotransferase 23 U/L (0-31); Albumin Level 3.9 g/dL (3.5-5.0); Alkaline Phosphatase 82 U/L (39-117); Anion Gap 12 (12-20); Aspartate Amino Transferase 23 U/L (5-31); Bilirubin Total 0.2 mg/dL (0.0-1.0); Blood Urea Nitrogen 21 mg/dL (9-16); Calcium 9.7 mg/dL (8.4-10.2); Carbon Dioxide 25 mmol/L (22-29); Chloride 110 mmol/L (96-108); Cholesterol 198 mg/dL (<200); Estimated Glomerular Filt Rate > 60; Glucose Fasting 90 mg/dL (60-99); HDL Cholesterol 62 mg/dL (>40); LDL Cholesterol Calculated 114 mg/dL (<100); Potassium 4.6 mmol/L (3.3-5.1); Sodium 142 mmol/L (135-145); TSH reflex Free T4 2.84 uIU/mL (0.32-4.0); Total Protein 6.6 g/dL (6.5-8.0); Triglycerides 113 mg/dL (<150); Vitamin D 25-OH Total 99.7 ng/mL (>30)
[2024-05-03 12:18] LABS: Folate 14.4 ng/mL (> or = 4.0); Vitamin B12 670 pg/mL (200-900)
== END 2024-05-03 08:13 | disposition home or self-care (01) ==
LOC: HO.WFDLDS 08:12
PROVIDERS: Visit Provider Family Medicine
DX: Z00.00 Encounter for general adult medical examination without abnormal findings (principal); I10 Essential (primary) hypertension; E53.8 Deficiency of other specified B group vitamins; E55.9 Vitamin D deficiency, unspecified
CPT/HCPCS: 36415; 80053; 80061; 81001; 82043; 82306; 82570; 82607; 82746; 84443; 85025

== ENCOUNTER 2024-05-29 08:25 | Outpatient (AMB) | payer MEDICARE, SELFPAY ==
--- NOTE | 2024-05-29 08:29 | A.OFFPC_ITS ---
Vital Signs 05/29/24 08:32 Height 5 ft 3 in Weight 157 lb BMI 27.8 BP 136/56 L Blood Pressure Location Rt brachial Position Sitting Respiration 13 Pulse 87 Pulse Source Pulse Oximeter Pulse Oximetry (%) 97 Oxygen Delivery Method Room Air Intake Visit Reasons: Extended exam with f/u labs and health maint. Intake Note: Patient is here with her daughter with concerns for frequent falling with right hip pain and continuous left hip pain post hip surgery. Patient would like a referral to a specialist in [place], Dr. Leonardo, [address] [place] [id number]. Patient reports she has already spoken to this doctor. Patient reports her left leg is over 1 inch longer post hip surgery which is what is causing the continuous pain. Daughter is wondering if the falls are dementia related. Daughter is concerned for anxiety medication and requesting regulation for the anxiety meds. Desktop Publishing Associate Required: No Accompanied by: Daughter Allergies silver sulfadiazine [From Silvadene] Adverse Reaction (Mild, Verified 05/29/24 08:35) skin irritation Tobacco use date assessed: 02/17/24 Fall risk assessment: 2 + Falls in past year Last assessed Fall Risk: 05/29/24 Dental Screening Dental Screen Date: 02/17/24 HPI HPI Comments History of Present Illness Details This is a 69-year-old female with a past medical history of dementia, osteopenia, paroxysmal atrial fibrillation and atrial flutter status post cryoa blation, obstructive sleep apnea, Amaro's esophagus, hypertension and anxiety with depression presenting for her physical exam. She is accompanied by her daughter, Marina. Annual paralegal supervisor exam was done 10/27/2023. Bone density up-to-date. Mammogram is scheduled today. She had an EGD/colonoscopy 02/2023. She endorses ongoing problems with her left hip. She has had a left hip replacement surgery. She says it was never good after that. She has leg length discrepancy. She tells me she had 3 cortisone injections for chronic pain. She takes tramadol as needed. Requests refill today. Her daughter has urged her to use a walker and/or cane. The patient says she does not feel comfortable with it. Declines referral for PT for gait coordination and fall prevention. I discussed that it would be helpful to have PT teach her how to use the assistive walking devices. She has fallen. She does [employer] as a source of income. Last fall was a couple weeks ago. No head trauma. She stepped onto grass, and she did not notice there was a divot. She twisted her left ankle. The ankle and foot were bruised and painful. This is better now. Her right hip has been hurting since then, but she says it is not severe. She did not fall on it to her knowledge. She sees neuropsych and neurology. Asking for increase on Klonopin due to agitation in the afternoon. It is currently prescribed twice a day. She takes it in the morning, and she moved her nightly dose to the afternoon which help with agitation, but she does not have it to take at night so this impacts her sleep. She is also on Trazodone at night. Requests referral to Dr. Leonardo address issues with her left hip. She is on Eliquis but continues to drink 1 alcoholic seltzer nightly. We reviewed her lab results dated 05/03/2024. She has mild, stable anemia. Platelet count is within normal. Renal and hepatic function are normal. LDL trending down and is 114. B12 within normal. TSH normal. Urinalysis significant for bacteria and white blood cells. No culture result available. Denies dysuria, frequency, malodorous urine. She has a lump on the right anterior lower neck on exam. They do not know how long it has been here for. It is not painful. Denies difficulty swallowing. She requests a prescription for adult medium depends be sent to [facility] in [place] [facility]. ROS: Constitutional: No unexplained weight loss, fever, chills, increased fatigue or night sweats. Eyes: No vision changes, blurry vision, double vision, eye pain, eye redness, eye discharge. ENT: No hearing loss, sneezing, congestion, runny nose or sore throat. Respiratory: No shortness of breath, cough or sputum production. Cardiovascular: No chest pain. No palpitations or pedal edema. Gastrointestinal: No anorexia, nausea, vomiting or diarrhea. No abdominal pain or blood in stool. Genitourinary: No dysuria, hematuria, urinary frequency. Neurologic: No headache, dizziness, syncope Musculoskeletal: see HPI Psychiatric: No SI/HI. Physical exam: Constitutional: Alert, in no distress. Head: Normocephalic. Eyes: Pupils are equal, round and reactive to light. Extraocular muscles intact. Ear, Nose and Throat: Canals clear. TMs normal. Normal nasal mucosa. No nasal discharge. No oral lesions. Neck: Supple, Full range of motion. 2.5cm palpable lump , nontender, located on the anterior right lower neck. Respiratory: Clear to auscultation. Cardiovascular: S1 S2 regular. No murmurs. Gastrointestinal: Abdomen soft, non-tender, non-distended. Normal bowel sounds. No palpable masses. Genitourinary: No costovertebral angle tenderness. Neurologic: No focal neurological deficits. Symmetric patellar reflexes. Moves all extremities spontaneously. Sensation intact bilaterally. Musculoskeletal: Small area of faded ecchymosis on the left lateral lower leg. Ankles nontender, full range of motion, no edema. Tender over the trochanteric bursa of the right hip. Patient has full range of motion of the right hip. The left hip is diffusely tender and she has pain with range of motion exercises. Her gait is slow and somewhat unsteady. Extremities: Warm and well perfused. No clubbing, cyanosis or edema. Psychiatric: Normal mood and affect [facility] Medical History (Updated 05/29/24 @ 09:21 by BENNIE Goodman) Lump in neck Bilateral hip pain Routine physical examination Osteopenia Barretts esophagus Anxiety Sleep apnea Hx of flexible sigmoidoscopy Dementia Chronic abdominal pain Mastodynia of left breast HTN (hypertension) Normocytic anemia Depression with anxiety SVT (supraventricular tachycardia) Atrial fibrillation Surgical History Status post insertion of nerve stimulator History of cholecystectomy (05/04/23) History of esophagogastroduodenoscopy (EGD) Hx of colonoscopy History of total hip replacement History of prior ablation treatment H/O heart surgery History of left knee replacement Family History Brother Lung cancer Brother Bladder cancer Social History Household Members: Spouse and Children Housing: House Are you a primary healthcare architect to a significant other at home: No Do you presently have visiting nurse or other home services: No Alcohol intake: current Alcohol intake frequency: holidays/special occasions only Alcohol type: beer Patient Tobacco Use Status: Former Tobacco user e-Cigarette/Vaping Use: Never Used Second Hand Smoke Exposure: No service: No Current occupational status: retired Current occupational exposures/hazards: No Cognitive needs: No Hearing needs: No Vision needs: Yes Female Reproductive History Menstrual Age of Menarche: 13 Questionnaire Thrive Questionnaire Date Thrive assessed: 12/03/22 ADEN-7 AMB Questionnaire ADEN-7 Date ADEN - 7 assessed: 05/03/23 Source: Developed by Drs. Jean Rockwell, Jennifer Fritz, Scar Navarro and colleagues, with an educational edna from [employer]. Physical exam (Primary Care) Tobacco/Smoking Status: Tobacco use Status Tobacco use date assessed 02/17/24 05/29/24 08:30 Patient Tobacco Use Status Former Tobacco user 05/29/24 08:30 e-Cigarette/Vaping Use Never Used 05/29/24 08:30 Thrive Assessment: Date of Thrive Assessment Date Thrive assessed 12/03/22 05/29/24 08:30 Assessment and Plan Assessment & Plan (1) Routine physical examination: Code(s): Z00.00 - Encounter for general adult medical examination without abnormal findings Plan Patient is seen today for a routine physical. As part of this visit we reviewed the following issues, which are considered and essential part of preventative health in this age group: - Breast Cancer screening - Annual Seafood Harvester exam - Screening for colon cancer - Blood pressure screening - Cholesterol screening - Osteoporosis prevention including calcium/vitamin D intake, weight bearing exercise & smoking cessation - Recommendations about immunizations - Recommendation of an eye exam - Screening for substance abuse - Genetic cancer risk screening The patient's blood pressure is 136/56. Continue losartan 25 mg. Beta-mirian was discontinued by her combine driver. They will send home readings over the portal to review in a few weeks. I told her I am not comfortable increasing her clonazepam at this time. I explained the propensity of this medication to increase risk of falls and cognitive effects. Psych consult may be beneficial. Will discuss with he rPCP. She has fallen recently. She is anticoagulated. I strongly recommended PT and using an assistive walking device. She continued to decline this. I will refer her to Dr. Leonardo. X-ray of both hips requested. Suspect right hip pain is due to bursitis from recent fall. Conservative management reviewed. If it does not improve she will contact the office. Refilled tramadol. Advised not to drink alcohol, drive or operate heavy machinery with this medication. She will have a urine culture done down in [place] today because she had to leave for an appointment. Ordered due to agitation recently and falls. Ordered ultrasound for evaluation of the neck lump. They would like to schedule follow up with PCP. Requested soonest available. Orders: Orders US soft tiss head and/or neck Today R22.1 - Localized swelling, mass and lump, neck Urine Culture Today N32.81 - Overactive bladder XR hip BI w PEL1V Today M25.551 - Pain in right hip, M25.552 - Pain in left hip Referrals Orthopedics Referral M25.552 - Pain in left hip Medications: New diaper,brief,adult,disposable As directed 120 ea 11RF incontinence Refilled tramadol 50 mg PO TID 4 days PRN 12 tabs 0RF pain Coding Level of Care Code Est Pt Prev Care >65y(14750) Diagnoses Routine physical examination Z00.00
[2024-05-29 08:32] VITALS: BP 136/56; PULSE 87; RESP 13; O2SAT 97; BMI 27.8
== END 2024-05-29 09:24 | disposition home or self-care (01) ==
PROVIDERS: PCP Family Medicine; Visit Provider Physician Assistant Medical
DX: M25.551 Pain in right hip (principal); M25.552 Pain in left hip; R22.1 Localized swelling, mass and lump, neck; N32.81 Overactive bladder
CPT/HCPCS: 99214

== ENCOUNTER 2024-05-29 10:03 | Outpatient (REF) | payer MEDICARE, SELFPAY ==
--- NOTE | ~2024-05-29 | MM_ITS ---
EXAMINATION: MM SCREENING DIGITAL BREAST TOMOSYNTHESIS, BILATERAL CLINICAL INFORMATION: Screening. Asymptomatic. COMPARISON: Mammography: This study is compared with prior exams dating back to 2021. TECHNIQUE: Digital breast tomosynthesis is performed in both the craniocaudal and mediolateral oblique views along with computer-aided detection (CAD). Synthesized 2D images are generated from the tomosynthesis. FINDINGS: The breasts are almost entirely fatty (ACR BI-RADS breast composition Category a). There are no significant masses, abnormal calcifications, or other abnormalities. Unchanged, grouped, benign calcifications are present in the lateral aspect of the right breast. MM/MM tomosynthesis screening BI IMPRESSION: No mammographic evidence of malignancy. ASSESSMENT: BI-RADS BI-RADS 2 - Benign Findings RECOMMENDATION: Routine annual mammography screening. 1 year F/U This examination should not preclude the clinical evaluation of a suspicious palpable abnormality. This patient's information was entered into a reminder system with a target due date for their next mammogram.
== END 2024-05-29 10:04 | disposition home or self-care (01) ==
LOC: HO.MAMMO 10:03
PROVIDERS: PCP Family Medicine; Visit Provider Family Medicine
DX: Z12.31 Encounter for screening mammogram for malignant neoplasm of breast (principal)
CPT/HCPCS: 77063; 77067

== ENCOUNTER → 2024-05-29 10:15 | Outpatient (BNV) | payer MEDICARE, SELFPAY | PROVIDERS: PCP Family Medicine; Visit Provider Radiology Diagnostic Radiology | DX: Z12.31 Encounter for screening mammogram for malignant neoplasm of breast (principal) | CPT/HCPCS: 77063; 77067 ==

== ENCOUNTER 2024-05-30 08:34 | Outpatient (REF) | payer MEDICARE, SELFPAY ==
--- NOTE | ~2024-05-30 | XR_ITS ---
EXAMINATION: XR BILATERAL HIPS WITH AP PELVIS CLINICAL INFORMATION: Pain COMPARISON: None available. TECHNIQUE: AP view of the pelvis and two views of each hip were obtained. FINDINGS: Pelvic ring is intact. There is neither fracture or dislocation of the right hip. Right femoral acetabular joint space is well-maintained. Patient is status post left total hip arthroplasty which is grossly unremarkable. Sacral stimulator projects over the midline pelvis. Several small pelvic calcifications are likely vascular in nature. XR/XR hip BI w PEL1V IMPRESSION: No fracture or dislocation of either hip.
== END 2024-05-30 08:35 | disposition home or self-care (01) ==
LOC: HO.XRAY 08:34
PROVIDERS: PCP Family Medicine; Visit Provider Physician Assistant Medical
DX: M25.551 Pain in right hip (principal); M25.552 Pain in left hip
CPT/HCPCS: 73521

== ENCOUNTER 2024-06-05 08:53 | Outpatient (AMB) | payer MEDICARE, SELFPAY ==
--- NOTE | 2024-06-05 09:23 | MHC.OFFVIS ---
Vital Signs 06/05/24 09:30 Height 5 ft 3 in Weight 156 lb 8.451 oz BMI 27.7 Pulse 62 Intake Visit Reasons: Breast exam, follow up Intake Note: Patient is seen in office for follow up visit, breast exam. Pt c/o: here for breast exam mm:05/29/24 ( Technical Service Specialist Required: No Accompanied by: Self / Same As Patient Allergies silver sulfadiazine [From Silvadene] Adverse Reaction (Mild, Verified 06/05/24 09:30) skin irritation HPI Comments Details: Patient presents for breast follow-up. She has no breast issues or complaints. She does occasional breast exams.. Mammogram within normal [facility] Medical History Lump in neck Bilateral hip pain Routine physical examination Osteopenia Barretts esophagus Anxiety Sleep apnea Hx of flexible sigmoidoscopy Dementia Chronic abdominal pain Mastodynia of left breast HTN (hypertension) Normocytic anemia Depression with anxiety SVT (supraventricular tachycardia) Atrial fibrillation Surgical History Status post insertion of nerve stimulator History of cholecystectomy (05/04/23) History of esophagogastroduodenoscopy (EGD) Hx of colonoscopy History of total hip replacement History of prior ablation treatment H/O heart surgery History of left knee replacement Family History Brother Lung cancer Brother Bladder cancer Social History Household Members: Spouse and Children Housing: House Are you a primary clinical care manager to a significant other at home: No Do you presently have visiting nurse or other home services: No Alcohol intake: current Alcohol intake frequency: holidays/special occasions only Alcohol type: beer Patient Tobacco Use Status: Former Tobacco user e-Cigarette/Vaping Use: Never Used Second Hand Smoke Exposure: No service: No Current occupational status: retired Current occupational exposures/hazards: No Cognitive needs: No Hearing needs: No Vision needs: Yes Female Reproductive History Menstrual Age of Menarche: 13 Physical Exam Vital Signs: Last Vital Signs Pulse 62 06/05/24 09:30 BMI result Body Mass Index 27.7 Chest Other: Breast exam bilaterally demonstrates no mass discharge adenopathy or skin changes. GI Other: Abdomen is soft benign Assessment & Plan Assessment & Plan (1) Encounter for follow-up surveillance of breast cancer: Code(s): Z08 - Encounter for follow-up examination after completed treatment for malignant neoplasm; Z85.3 - Personal history of malignant neoplasm of breast Category: Surgical Plan Patient per radiologic recommendation will see me in 1 year's time with follow-up mammography. In the interim she is encouraged to continue occasional self-breast exams. Patient will follow-up as directed or p.r.n.. All questions answered. Coding Level of Care Code Est Pt Level 4 (78850) Diagnoses Encounter for follow-up surveillance of breast cancer Z08; Z85.3
[2024-06-05 09:30] VITALS: PULSE 62; BMI 27.7
== END 2024-06-05 09:30 | disposition home or self-care (01) ==
PROVIDERS: PCP Family Medicine; Visit Provider Surgery
DX: Z85.3 Personal history of malignant neoplasm of breast (principal)
CPT/HCPCS: 99213

== ENCOUNTER → 2024-06-05 08:53 | Outpatient (BNVA) | payer MEDICARE, SELFPAY | PROVIDERS: PCP Family Medicine; Visit Provider Surgery | DX: Z08 Encounter for follow-up examination after completed treatment for malignant neoplasm (principal); Z85.3 Personal history of malignant neoplasm of breast | CPT/HCPCS: 99212 ==

== ENCOUNTER 2024-06-06 08:35 | Outpatient (REF) | payer MEDICARE, SELFPAY ==
--- NOTE | ~2024-06-06 | US_ITS ---
EXAMINATION: US SOFT TISSUE OF THE NECK CLINICAL INFORMATION: Localized swelling, mass and lump, neck/anterior right lower neck. COMPARISON: None available. TECHNIQUE: Linear transducer grayscale and color Doppler examination of the area indicated by palpation, right neck level 2. FINDINGS: Palpable abnormality corresponds with a normal-appearing lymph node which measures 1.1 x 0.8 x 0.3 cm. There is no other abnormal finding in this region. No well-organized fluid collection. Unremarkable color Doppler flow. US/US soft tiss head and/or neck IMPRESSION: Palpable abnormality corresponds with a normal-appearing lymph node. Electronically signed by: Ronen Clarke MD 07/08/2024 09:01 AM EDT
== END 2024-06-06 08:36 | disposition home or self-care (01) ==
LOC: HO.HMGCX 08:35
PROVIDERS: PCP Family Medicine; Visit Provider Physician Assistant Medical
DX: R22.1 Localized swelling, mass and lump, neck (principal)
CPT/HCPCS: 76536

== ENCOUNTER 2024-07-07 09:31 | Outpatient (AMB) | payer MEDICARE, SELFPAY ==
--- NOTE | 2024-07-07 09:59 | MHC.PC.OV ---
Vital Signs 07/07/24 10:02 Height 5 ft 3 in Weight 153 lb 2 oz BMI 27.1 BP 110/58 L Blood Pressure Location Lt brachial Position Sitting Respiration 16 Pulse 53 Pulse Source Pulse Oximeter Temp 96.2 F L Temp Source Tympanic Pulse Oximetry (%) 97 Oxygen Delivery Method Room Air Intake Visit Reasons: med update and xray results Intake Note: follow med reevaluation results for x-rays patient also has an appt for ortho on 09-12 ans 09-19 for hip and knee Allergies silver sulfadiazine [From Silvadene] Adverse Reaction (Mild, Verified 07/07/24 10:01) skin irritation Tobacco use date assessed: 02/17/24 Dental Screening Dental Screen Date: 02/17/24 HPI med update and xray results HPI Details 69 y/o female presents to f/u chronic conditions. Hip/pelvis x-ray 05/30/24 showed no fracture or dislocation of either hip. Neck ultrasound has not been read yet. Reports LE weakness, falls. She notes leg length discrepancy since R hip replacement. She has an appt. with ortho in September. She reports worsening anxiety/depression in the evening. They note she does not have a mental health provider. She is on sertraline 200mg, Klonopin 0.5mg b.i.d, bupropion 150mg. She notes she had a family member who tolerated seroquel well. [facility] Medical History Lump in neck Bilateral hip pain Routine physical examination Osteopenia Barretts esophagus Anxiety Sleep apnea Hx of flexible sigmoidoscopy Dementia Chronic abdominal pain Mastodynia of left breast HTN (hypertension) Normocytic anemia Depression with anxiety SVT (supraventricular tachycardia) Atrial fibrillation Surgical History Status post insertion of nerve stimulator History of cholecystectomy (05/04/23) History of esophagogastroduodenoscopy (EGD) Hx of colonoscopy History of total hip replacement History of prior ablation treatment H/O heart surgery History of left knee replacement Family History Brother Lung cancer Brother Bladder cancer Social History Household Members: Spouse and Children Housing: House Are you a primary career center advisor to a significant other at home: No Do you presently have visiting nurse or other home services: No Alcohol intake: current Alcohol intake frequency: holidays/special occasions only Alcohol type: beer Patient Tobacco Use Status: Former Tobacco user e-Cigarette/Vaping Use: Never Used Second Hand Smoke Exposure: No service: No Current occupational status: retired Current occupational exposures/hazards: No Cognitive needs: No Hearing needs: No Vision needs: Yes Female Reproductive History Menstrual Age of Menarche: 13 Questionnaire PHQ-9 Over the last 2 weeks, how often have you been bothered by any of the following problems? 1. Little interest or pleasure in doing things: nearly every day 2. Feeling down, depressed, or hopeless: nearly every day 3. Trouble falling or staying asleep, or sleeping too much: not at all 4. Feeling tired or having little energy: nearly every day 5. Poor appetite or overeating: not at all 6. Feeling bad about yourself - or that you are a failure or have let yourself or your family down: nearly every day 7. Trouble concentrating on things, such as reading the newspaper or watching television: nearly every day 8. Moving or speaking so slowly that other people could have noticed. Or the opposite - being so fidgety or restless that you have been moving around a lot more than usual: nearly every day 9. Thoughts that you would be better off or of hurting yourself in some way: not at all Total score: 18 Depression Screening Interpretation: Positive Depression Screening Done: Yes 60944 - PHQ-9 Billing: Yes Source: Developed by Drs. Jean Rockwell, Jennifer Fritz, Scar Navarro and colleagues, with an educational edna from [employer]. Thrive Questionnaire Date Thrive assessed: 12/03/22 ADEN-7 AMB Questionnaire ADEN-7 Date ADEN - 7 assessed: 07/07/24 Feeling nervous, anxious, or on edge: 3 = Nearly every day Not being able to stop or control worryin = Nearly every day Worrying too much about different things: 3 = Nearly every day Trouble relaxin = Nearly every day Being so restless that it is hard to sit still: 0 = Not at all Becoming easily annoyed or irritable: 3 = Nearly every day Feeling afraid as if something awful might happen: 1 = Several days Total ADEN-7 score (0-4 normal; 5-9 mild; 10-14 moderate; 15-21 severe): 16 Source: Developed by Drs. Jean Rockwell, Jennifer Fritz, Scar Navarro and colleagues, with an educational edna from [employer]. ADEN-7 Assessment Billing ADEN-7 Assessment Tool: ADEN-7 Assessment 10246 Review of Systems Const Denies chills, Denies fatigue, Denies fever(s), Denies headache(s) and Denies weakness ENT Denies dizziness and Denies headache(s) Card Denies dyspnea Resp Denies cough, Denies dyspnea, Denies wheezing and Denies other (shortness of breath) Musc Denies numbness and Denies tingling Neuro Denies dizziness, Denies headache(s), Denies numbness, Denies tingling and Denies weakness Psych Reports anxiety and Reports depression Endo Denies fatigue Aller/Immun Denies wheezing Physical exam (Primary Care) Vital Signs: Last Vital Signs Temp 96.2 F L 07/07/24 10:02 Pulse 53 07/07/24 10:02 Resp 16 07/07/24 10:02 BP 110/58 L 07/07/24 10:02 Pulse Ox 97 07/07/24 10:02 Oxygen Delivery Method Room Air 07/07/24 10:02 BMI result Body Mass Index 27.1 Tobacco/Smoking Status: Tobacco use Status Tobacco use date assessed 02/17/24 07/07/24 10:08 Patient Tobacco Use Status Former Tobacco user 07/07/24 10:08 e-Cigarette/Vaping Use Never Used 07/07/24 10:08 PHQ-9: PHQ-9 Score PHQ-9: Total score 18 07/07/24 10:08 Depression Screening Interpretation: Positive Thrive Assessment: Date of Thrive Assessment Date Thrive assessed 12/03/22 07/07/24 10:08 Const General: well developed; No acute distress Nutritional Appearance: well nourished Orientation/consciousness: patient oriented x3 HENMT Head: Yes normocephalic and Yes atraumatic Eyes General: appearance normal, both eyes and all related structures Pupils: Equal, round and reactive pupils present EOM: EOMs intact bilaterally Resp Effort & Inspection: normal respiratory effort Auscultation: clear to auscultation bilaterally Cardio Rate: regular rate Rhythm: regular rhythm Heart sounds: S1 normal heart sound present, S2 normal heart sound present, no gallops, no murmurs and no rubs Neuro General: patient oriented x3 and gait normal Cranial nerves: Yes Equal, round and reactive pupils present Psych Affect: normal affect Assessment and Plan Assessment & Plan (1) Bilateral hip pain: Code(s): M25.551 - Pain in right hip; M25.552 - Pain in left hip Plan: Ongoing?bilateral?hip?pain?with?lower?extremity?weakness?and?falls. Leg?length?discrepancy.??Total?left?hip?replacement. X-ray?shows hardware?at?left?hip?is?okay.??Right?hip?joint?space?is?preserved. Her?pain?is?primarily?left?buttock?and?lateral?thigh but?also?has?pain?at?right?lateral?hip?as?well She?has?an?appointment?with?Ortho?coming?up?in?September. Start?physical?therapy Continue?pain?medication?as?prescribed (2) Lump in neck: Code(s): R22.1 - Localized swelling, mass and lump, neck Plan: Ultrasound?has?been?acquired?but?is?not?yet?read.??Will?ask?the?office?to?check?on?the?status Will?call?patient?if?action?is?required (3) Anxiety and depression: Code(s): F41.9 - Anxiety disorder, unspecified; F32.A - Depression, unspecified Plan: Worsening?anxiety?depression. She?is?on?several?medications?now?including?sertraline,?bupropion?which?was?recently?increased,?donepezil?and?also?clonazepam. She?also?has?other?medications?which?can?cause?drowsiness?or?interact?with?these?medications?such?as?tramadol?for?pain. Anxiety?is?worsening?in?the?evenings. Will?give?her?a?small?dose?Seroquel.??She?will?start?had?25?mg?daily.??Can?increase?to?50?mg?daily?if?needed. We?discussed?that?ultimately?patient?should?have?a?psychiatric?medication provider.??I?have?made?a?referral?to?[facility]?outpatient?psychiatric?services. (4) Lower extremity weakness: Code(s): R29.898 - Other symptoms and signs involving the musculoskeletal system Plan: As?above,?start?physical?therapy Orders: Orders PT Evaluation and Treatment Today M25.551 - Pain in right hip, M25.552 - Pain in left hip Referrals Psychiatry Outpatient Consultation Service F32.A - Depression, unspecified, F41.9 - Anxiety disorder, unspecified, R41.3 - Other amnesia Medications: New quetiapine (Seroquel) 50 mg (2 x 25 mg) PO BEDTIME 30 days 60 tabs 0RF Coding Level of Care Code Est Pt Level 4 (62497) Diagnoses Bilateral hip pain M25.551; M25.552 Lump in neck R22.1 Anxiety and depression F41.9; F32.A Lower extremity weakness R29.898 Additional Codes ADEN-7 Assessment Billing - ADEN-7 Assessment Tool: ADEN-7 Assessment 30608 ([id number])
[2024-07-07 10:02] VITALS: BP 110/58; PULSE 53; RESP 16; TEMP 35.7; O2SAT 97; BMI 27.1
== END 2024-07-07 10:32 | disposition home or self-care (01) ==
PROVIDERS: PCP Family Medicine; Visit Provider Family Medicine
DX: M25.551 Pain in right hip (principal); M25.552 Pain in left hip; R22.1 Localized swelling, mass and lump, neck; F41.9 Anxiety disorder, unspecified; F32.A Depression, unspecified; R29.898 Other symptoms and signs involving the musculoskeletal system
CPT/HCPCS: 99214

== ENCOUNTER 2024-08-04 13:06 | Outpatient (AMB) | payer MEDICARE, SELFPAY ==
--- NOTE | 2024-08-04 13:22 | MHC.OFFVISPS ---
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: No Allergies silver sulfadiazine [From Silvadene] Adverse Reaction (Mild, Verified 08/08/24 08:49) skin irritation Medication List - Last Reconciled 08/04/24 by Mercedes Hernandez APRN apixaban (Eliquis) 5 mg PO BID 90 days bupropion HCl XL 150 mg PO QAM 90 days calcium carbonate-vitamin D3 500 mg-3.125 mcg (125 unit) 1 tab PO DAILY carvedilol 6.25 mg PO BID celecoxib 200 mg PO DAILY cholecalciferol (vitamin D3) 50 mcg PO DAILY clonazepam (Klonopin) 0.5 mg PO BID 30 days diaper,brief,adult,disposable As directed donepezil 10 mg PO DAILY 90 days loperamide 2 mg PO Q6H PRN losartan 25 mg PO DAILY 30 days menthol-zinc oxide 0.44-20.6 % (Calmoseptine) 1 appl topical BID PRN 30 days menthol-zinc oxide 0.44-20.6 % (Calmoseptine) 1 appl topical BID PRN [id number] carb-vit K 18 mg iron-400 mcg-500 mg 1 tab PO DAILY omeprazole 40 mg PO DAILY 90 days quetiapine (Seroquel) 50 mg (2 x 25 mg) PO BEDTIME 30 days sertraline 200 mg (2 x 100 mg) PO DAILY 90 days tramadol 50 mg PO TID PRN 4 days trazodone 1/2 - 1 tablet p.o. at bedtime PO bedtime PRN; 90 days HPI- Psychiatric Chief Complaint: consultation HPI Narrative: pt referred by PCP for evaluation of depression, anxiety and medications. Pt PHQ9= 13 and GAD7 = 16. Pt reports feeling depressed and anxious frequently; has a number of stressors and losses. She has medical issues and chronic pain. Pt says most recent trigger for depressive episode was her job site was shut down during and she was unemployed and has not recovered from the severe depression that set in then. Past Psychiatric History: outpatient treatment off and on since age 21. hx of catatonic depression age 21. Subjective Subjective Subjective Medication Compliance: Yes Side effects from medications: No Review of Systems Medical Review of Systems: unchanged Mental Status Exam Mental Status Exam Patient Appearance: Well Grooomed and Appropriate Level of Consciousness: Awake and Alert Patient Behavior: Appropriate Mood Description: Depressed and Sad Affect Description: Depressed and Sad Patient Cognition Impaired: No Ability to Follow Directions: Good Speech Pattern: Clear and Coherent Memory Description: Intact Hallucinations: None Delusions: Not Present Thought Process: Intact and Goal Oriented Thought Content: positive for Intact and positive for Goal Oriented Judgement: Good Assessment and Plan Assessment & Plan (1) ADEN (generalized anxiety disorder): Status: Acute Code(s): F41.1 - Generalized anxiety disorder Plan Discussed with patient tapering off Zoloft due to diarrhea that is causing it difficulty functioning the plan is to taper the Zoloft to 150 mg daily x7 days then Zoloft 100 mg daily x7 days then Zoloft 50 mg daily x7 days and then stop she will start mirtazapine 7.5 mg at bedtime continue the Seroquel 50 mg at bedtime cut back on the trazodone if any does sleepiness and dizziness and for now keep the clot Nazi Elli and the Wellbutrin the same she will discuss this with her care physician and her daughter and then begin the plan if they all agree I have started to return in 3 weeks she is on many medications so I will not prescribe the mirtazapine 7.5 mg until she and her pre PCP and daughter agreed to the plan and then the mirtazapine can be sent in as a prescription otherwise there is a likelihood that she could become confused and just add that to her long list of medications Counseling and coordination of Care Medication management counseling: Effectiveness, Side effects, Dosing range, Duration, Drug interaction and Adherence Diagnosis and Prognosis Counseling: Accuracy of diagnosis, Prognosis over time, Impact of diagnosis on life functions, Impact of family relationship, Problematic behaviors secondary to diagnosis and Adequacy of current interventions Details: I spent 75 minutes reviewing the record, seeing the patient and documenting in the medical record. Counseling provided to the patient/caregiver as outlined below. Addressed patient/caregiver concerns regarding current medication regime including effective adherence. Addressed patient/caregiver concerns regarding diagnosis and prognosis including accuracy of diagnosis, prognosis over time, impact of diagnosis. Addressed patient/caregiver concerns regarding impact of recent stressors. [facility] Medical History (Updated 08/08/24 @ 09:28 by Earl Brian) Personal history of nicotine dependence Lump in neck Bilateral hip pain Osteopenia Barretts esophagus Anxiety Sleep apnea Dementia Chronic abdominal pain Mastodynia of left breast HTN (hypertension) Normocytic anemia Depression with anxiety SVT (supraventricular tachycardia) Atrial fibrillation Surgical History (Updated 08/01/24 @ 15:48 by Diamante Escobar PA-C) Hx of flexible sigmoidoscopy Status post insertion of nerve stimulator History of cholecystectomy (05/04/23) History of esophagogastroduodenoscopy (EGD) Hx of colonoscopy History of total hip replacement History of prior ablation treatment H/O heart surgery History of left knee replacement Family History Brother Lung cancer Brother Bladder cancer Social History Household Members: Spouse and Children Housing: House Are you a primary adult live in caregiver to a significant other at home: No Do you presently have visiting nurse or other home services: No Alcohol intake: current Alcohol intake frequency: holidays/special occasions only Alcohol type: beer Patient Tobacco Use Status: Former Tobacco user e-Cigarette/Vaping Use: Never Used Second Hand Smoke Exposure: No service: No Current occupational status: retired Current occupational exposures/hazards: No Cognitive needs: No Hearing needs: No Vision needs: Yes Coding Level of Care Code Psych Diag Eval w/Med (05240) Diagnoses ADEN (generalized anxiety disorder) F41.1
== END 2024-08-04 13:52 | disposition home or self-care (01) ==
LOC: HO.HOP 13:06
PROVIDERS: PCP Family Medicine; Visit Provider Clinical Nurse Specialist Psychiatric/Mental Health
DX: F41.1 Generalized anxiety disorder (principal)
CPT/HCPCS: 90792

== ENCOUNTER → 2024-08-04 13:06 | Outpatient (BNVA) | payer MEDICARE, SELFPAY | PROVIDERS: PCP Family Medicine; Visit Provider Clinical Nurse Specialist Psychiatric/Mental Health | DX: F41.1 Generalized anxiety disorder (principal); Z56.6 Other physical and mental strain related to work; Z71.89 Other specified counseling | CPT/HCPCS: 90792 ==

== ENCOUNTER 2024-08-08 08:35 | Outpatient (AMB) | payer MEDICARE, SELFPAY ==
--- NOTE | 2024-08-08 08:47 | A.OFFPC_ITS ---
Vital Signs 08/08/24 08:51 Height 5 ft 3 in Weight 154 lb 4 oz BMI 27.3 BP 124/64 Blood Pressure Location Rt brachial Position Sitting Respiration 16 Pulse 47 L Pulse Source Pulse Oximeter Pulse Oximetry (%) 95 Oxygen Delivery Method Room Air Intake Visit Reasons: follow up med review - see comments Intake Note: Medication follow up Allergies silver sulfadiazine [From Silvadene] Adverse Reaction (Mild, Verified 08/08/24 08:49) skin irritation Tobacco use date assessed: 02/17/24 Dental Screening Dental Screen Date: 02/17/24 HPI follow up med review - see comments 2 HPI Details 69 y/o female presents to f/u anxiety/de pression. Had added a small amount of seroquel and referred her to [facility] outpatient psychiatric services. Had seen psychiatry 08/04/24. They recommended to keep clonazepam, wellbutrin as prescribed, taper down seroquel and start mirtazapine 7.5mg once seroquel has been tapered down to 50mg. She notes medication regimen has been helping in the evening. They do note they feel she is anxious a lot. They report hip/back pain and they also note she feels off balanced. She notes no one has contacted her for physical therapy yet. HPI Comments History of Present Illness Details Documentation assistance for Ollie Hernandez MD, was provided by Earl Brian, Dramatic Teacher on 08/08/2024 at 9:35 AM EST. I, Dr. Hernandez, have read, observed, and verified documentation. [facility] Medical History (Updated 08/08/24 @ 09:28 by Earl Brian) Personal history of nicotine dependence Lump in neck Bilateral hip pain Osteopenia Barretts esophagus Anxiety Sleep apnea Dementia Chronic abdominal pain Mastodynia of left breast HTN (hypertension) Normocytic anemia Depression with anxiety SVT (supraventricular tachycardia) Atrial fibrillation Surgical History (Updated 08/01/24 @ 15:48 by Diamante Escobar PA-C) Hx of flexible sigmoidoscopy Status post insertion of nerve stimulator History of cholecystectomy (05/04/23) History of esophagogastroduodenoscopy (EGD) Hx of colonoscopy History of total hip replacement History of prior ablation treatment H/O heart surgery History of left knee replacement Family History Brother Lung cancer Brother Bladder cancer Social History Household Members: Spouse and Children Housing: House Are you a primary intensive care unit nurse to a significant other at home: No Do you presently have visiting nurse or other home services: No Alcohol intake: current Alcohol intake frequency: holidays/special occasions only Alcohol type: beer Patient Tobacco Use Status: Former Tobacco user e-Cigarette/Vaping Use: Never Used Second Hand Smoke Exposure: No service: No Current occupational status: retired Current occupational exposures/hazards: No Cognitive needs: No Hearing needs: No Vision needs: Yes Female Reproductive History Menstrual Age of Menarche: 13 Questionnaire Thrive Questionnaire Date Thrive assessed: 12/03/22 ADEN-7 AMB Questionnaire ADEN-7 Date ADEN - 7 assessed: 07/07/24 Source: Developed by Drs. Jean Rockwell, Jennifer Fritz, Scar Navarro and colleagues, with an educational edna from [employer]. Review of Systems Const Denies chills, Denies fatigue, Denies fever(s), Denies headache(s) and Denies we akness ENT Denies dizziness and Denies headache(s) Card Denies dyspnea Resp Denies cough, Denies dyspnea, Denies wheezing and Denies other (shortness of breath) Musc Denies numbness and Denies tingling Neuro Denies dizziness, Denies headache(s), Denies numbness, Denies tingling and Denies weakness Psych Denies anxiety and Denies depression Endo Denies fatigue Aller/Immun Denies wheezing Physical exam (Primary Care) Vital Signs: Last Vital Signs Pulse 47 L 08/08/24 08:51 Resp 16 08/08/24 08:51 BP 124/64 08/08/24 08:51 Pulse Ox 95 08/08/24 08:51 Oxygen Delivery Method Room Air 08/08/24 08:51 BMI result Body Mass Index 27.3 Tobacco/Smoking Status: Tobacco use Status Tobacco use date assessed 02/17/24 08/08/24 08:48 Patient Tobacco Use Status Former Tobacco user 08/08/24 08:48 e-Cigarette/Vaping Use Never Used 08/08/24 08:48 Thrive Assessment: Date of Thrive Assessment Date Thrive assessed 12/03/22 08/08/24 08:48 Const General: well developed; No acute distress Nutritional Appearance: well nourished Orientation/consciousness: patient oriented x3 HENMT Head: Yes normocephalic and Yes atraumatic Eyes General: appearance normal, both eyes and all related structures Pupils: Equal, round and reactive pupils present EOM: EOMs intact bilaterally Resp Effort & Inspection: normal respiratory effort Auscultation: clear to auscultation bilaterally Cardio Rate: regular rate Rhythm: regular rhythm Heart sounds: S1 normal heart sound present, S2 normal heart sound present, no gallops, no murmurs and no rubs Neuro General: patient oriented x3 and No gait normal Cranial nerves: Yes Equal, round and reactive pupils present Psych Affect: normal affect Coding Level of Care Code Est Pt Level 4 (53178) Diagnoses ADEN (generalized anxiety disorder) F41.1 Imbalance R26.89 Unsteady gait R26.81 Bilateral hip pain M25.551; M25.552
[2024-08-08 08:51] VITALS: BP 124/64; PULSE 47; RESP 16; O2SAT 95; BMI 27.3
== END 2024-08-08 09:35 | disposition home or self-care (01) ==
PROVIDERS: PCP Family Medicine; Visit Provider Family Medicine
DX: F41.1 Generalized anxiety disorder (principal); R26.89 Other abnormalities of gait and mobility; R26.81 Unsteadiness on feet; M25.551 Pain in right hip; M25.552 Pain in left hip

== ENCOUNTER → 2024-08-08 08:35 | Outpatient (BNVA) | payer MEDICARE, SELFPAY | PROVIDERS: PCP Family Medicine; Visit Provider Family Medicine | DX: F41.1 Generalized anxiety disorder (principal); R26.89 Other abnormalities of gait and mobility; R26.81 Unsteadiness on feet; M25.551 Pain in right hip; M25.552 Pain in left hip | CPT/HCPCS: 99212 ==

== ENCOUNTER 2024-08-23 08:35 | Outpatient (REF) | payer MEDICARE, SELFPAY ==
--- NOTE | ~2024-08-23 | XR_ITS ---
EXAMINATION: XR LUMBOSACRAL SPINE CLINICAL INFORMATION: Unsteadiness on feet. COMPARISON: X-ray hips and pelvis 05/30/2024. TECHNIQUE: Three views of the lumbosacral spine. FINDINGS: Redemonstration of left total hip prosthesis, incompletely imaged. Electronic pack overlies upper right iliac wing with lead projecting over sacrum on left. Surgical clips right upper quadrant. Facet arthritis in the lower lumbar spine. Atherosclerotic aortoiliac calcifications. Mild dextroscoliosis of the lumbar spine. Moderate multilevel lumbar spondylosis. Possible spondylolysis at the lumbosacral junction is difficult to confirm. XR/XR lumbar spine 2-3V IMPRESSION: Moderate multilevel lumbar spondylosis. Possible spondylolysis at the lumbosacral junction is difficult to confirm. This study was presented today 08/23/2024 for interpretation. Stat results provided at this time as requested by referring provider. Electronically signed by: Jeny Michel MD 08/23/2024 10:51 AM EDT
== END 2024-08-23 08:36 | disposition home or self-care (01) ==
LOC: HO.XRAY 08:35
PROVIDERS: PCP Family Medicine; Visit Provider Family Medicine
DX: R26.81 Unsteadiness on feet (principal)
CPT/HCPCS: 72100

== ENCOUNTER 2024-09-07 08:49 | Outpatient (AMB) | payer MEDICARE, SELFPAY ==
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
[2024-09-07 09:00] VITALS: BP 142/72; PULSE 53; RESP 12; TEMP 36.6; O2SAT 98; BMI 27.9
== END 2024-09-07 09:33 | disposition home or self-care (01) ==
LOC: HO.HMCFM 08:50
PROVIDERS: PCP Family Medicine; Visit Provider Family Medicine
DX: F41.9 Anxiety disorder, unspecified (principal); F32.A Depression, unspecified; M79.18 Myalgia, other site; M54.50 Low back pain, unspecified

== ENCOUNTER → 2024-09-07 08:49 | Outpatient (BNVA) | payer MEDICARE, SELFPAY | PROVIDERS: PCP Family Medicine; Visit Provider Family Medicine | DX: F41.9 Anxiety disorder, unspecified (principal); M79.18 Myalgia, other site; M54.50 Low back pain, unspecified | CPT/HCPCS: 96127; 99212 ==

== ENCOUNTER 2024-09-12 15:40 | Outpatient (AMB) | payer MEDICARE, SELFPAY ==
--- NOTE | 2024-09-12 15:44 | A.OFFPSYCH_ITS ---
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 Required: No Allergies silver sulfadiazine [From Silvadene] Adverse Reaction (Mild, Verified 09/14/24 10:08) skin irritation Medication List - Last Reconciled 09/12/24 by Mercedes Hernandez APRN apixaban (Eliquis) 5 mg PO BID 90 days bupropion HCl XL 150 mg PO QAM 90 days calcium carbonate-vitamin D3 500 mg-3.125 mcg (125 unit) 1 tab PO DAILY carvedilol 6.25 mg PO BID celecoxib 200 mg PO DAILY cholecalciferol (vitamin D3) 50 mcg PO DAILY clonazepam (Klonopin) 0.5 mg PO BID 30 days diaper,brief,adult,disposable As directed donepezil 10 mg PO DAILY 90 days loperamide 2 mg PO Q6H PRN losartan 25 mg PO DAILY 30 days menthol-zinc oxide 0.44-20.6 % (Calmoseptine) 1 appl topical BID PRN 30 days menthol-zinc oxide 0.44-20.6 % (Calmoseptine) 1 appl topical BID PRN mirtazapine 7.5 mg PO BEDTIME 30 days ub-[id number]-jahu-FA-Ca carb-vit K 18 mg iron-400 mcg-500 mg 1 tab PO DAILY omeprazole 40 mg PO DAILY 90 days prednisone 40 mg (2 x 20 mg) PO DAILY 5 days quetiapine 12.5 mg (1/2 x 25 mg) PO QAM 90 days quetiapine (Seroquel) 50 mg PO BEDTIME 90 days tramadol 50 mg PO TID PRN 4 days trazodone 1/2 - 1 tablet p.o. at bedtime PO bedtime PRN; 90 days HPI- Psychiatric Chief Complaint: follow up HPI Narrative: tolerated taper of zoloft well ; diarrhea remitted with getting off zoloft; started remeron 7.5mg 3 nights ago- no adverse effect; no change in mood; pt reports mood fair. PHQ9=11 and GAD7 = 15. Past Psychiatric History: outpatient treatment off and on since age 21. hx of catatonic depression age 21. Subjective Subjective Subjective Medication Compliance: Yes Side effects from medications: No Review of Systems Medical Review of Systems: unchanged Mental Status Exam Mental Status Exam Patient Appearance: Well Grooomed Patient Orientation: Person, Place, Time and Situation Level of Consciousness: Awake and Appropriate Patient Behavior: Appropriate Mood Description: Calm and Cheerful Affect Description: Calm and Cheerful Patient Cognition Impaired: No Ability to Follow Directions: Good Speech Pattern: Clear Memory Description: Episodic Impaired Hallucinations: None Delusions: Not Present Thought Process: Intact Thought Content: positive for Intact Judgement: Good Assessment and Plan Assessment & Plan (1) ADEN (generalized anxiety disorder): Status: Acute Code(s): F41.1 - Generalized anxiety disorder Plan continue remeron 7.5mg at bedtime daily return in 4-5 weeks consider increasing remeron if mood symptoms persist Counseling and coordination of Care Pt. Self Management counseling: Maintenance-social rhythm, Mod caffeine/ETOH intake, Sleep hygiene, Behavior activation and General coping skills Medication management counseling: Effectiveness, Side effects, Dosing range, Duration, Drug interaction and Adherence Diagnosis and Prognosis Counseling: Accuracy of diagnosis, Prognosis over time, Impact of diagnosis on life functions, Impact of family relationship, Problematic behaviors secondary to diagnosis and Adequacy of current interventions Details: I spent 30 minutes reviewing the record, seeing the patient and documenting in the medical record. Counseling provided to the patient/caregiver as outlined below. Addressed patient/caregiver concerns regarding current medication regime including effective adherence. Addressed patient/caregiver concerns regarding diagnosis and prognosis including accuracy of diagnosis, prognosis over time, impact of diagnosis. Addressed patient/caregiver concerns regarding impact of recent stressors. [facility] Medical History Personal history of nicotine dependence Lump in neck Bilateral hip pain Osteopenia Barretts esophagus Anxiety Sleep apnea Dementia Chronic abdominal pain Mastodynia of left breast HTN (hypertension) Normocytic anemia Depression with anxiety SVT (supraventricular tachycardia) Atrial fibrillation Surgical History Hx of flexible sigmoidoscopy Status post insertion of nerve stimulator History of cholecystectomy (05/04/23) History of esophagogastroduodenoscopy (EGD) Hx of colonoscopy History of total hip replacement History of prior ablation treatment H/O heart surgery History of left knee replacement Family History Brother Lung cancer Brother Bladder cancer Social History Household Members: Spouse and Children Housing: House Are you a primary physician primary care sports medicine to a significant other at home: No Do you presently have visiting nurse or other home services: No Alcohol intake: current Alcohol intake frequency: holidays/special occasions only Alcohol type: beer Patient Tobacco Use Status: Former Tobacco user e-Cigarette/Vaping Use: Never Used Second Hand Smoke Exposure: No service: No Current occupational status: retired Current occupational exposures/hazards: No Cognitive needs: No Hearing needs: No Vision needs: Yes Social History: live with spouse and children Substance History: no hx abuse Trauma History: none known Coding Level of Care Code Est Pt Level 4 (63533) Diagnoses ADEN (generalized anxiety disorder) F41.1
== END 2024-09-12 16:01 | disposition home or self-care (01) ==
LOC: HO.HOP 15:40
PROVIDERS: PCP Family Medicine; Visit Provider Clinical Nurse Specialist Psychiatric/Mental Health
DX: F41.1 Generalized anxiety disorder (principal)
CPT/HCPCS: 99214

== ENCOUNTER → 2024-09-12 15:40 | Outpatient (BNVA) | payer MEDICARE, SELFPAY | PROVIDERS: PCP Family Medicine; Visit Provider Clinical Nurse Specialist Psychiatric/Mental Health | DX: F41.1 Generalized anxiety disorder (principal) | CPT/HCPCS: 99212 ==

== ENCOUNTER 2024-09-14 09:45 | Outpatient (AMB) | payer MEDICARE, SELFPAY ==
--- NOTE | 2024-09-14 09:53 | MHC.OFFVIS ---
Intake Visit Reasons: 6M Interstim follow up(PVR) Intake Note: Patient is present for Interstim follow up Urology Med: None Antibiotic Allergy: None Blood Thinner: Violetquis Patient states that she is doing very well with interstim has no current complaints Patient reports that her urination has been great Pastry Wrapper Required: No Accompanied by: Self / Same As Patient Allergies silver sulfadiazine [From Silvadene] Adverse Reaction (Mild, Verified 09/14/24 10:08) skin irritation HPI Comments Details: Trish is a pleasant female. She is a patient of Dr. Hernandez. She is treated for the following conditions - urinary urgency - mixed incontinence - fecal incontinence Nine month follow-up Reports good continued control Last check with control of showed adequate signal Move to yearly follow-up Urinary urgency 12/01 - InterStim placement left S3 PFSH Medical History Personal history of nicotine dependence Lump in neck Bilateral hip pain Osteopenia Barretts esophagus Anxiety Sleep apnea Dementia Chronic abdominal pain Mastodynia of left breast HTN (hypertension) Normocytic anemia Depression with anxiety SVT (supraventricular tachycardia) Atrial fibrillation Surgical History Hx of flexible sigmoidoscopy Status post insertion of nerve stimulator History of cholecystectomy (05/04/23) History of esophagogastroduodenoscopy (EGD) Hx of colonoscopy History of total hip replacement History of prior ablation treatment H/O heart surgery History of left knee replacement Family History Brother Lung cancer Brother Bladder cancer Social History Household Members: Spouse and Children Housing: House Are you a primary foster care social worker to a significant other at home: No Do you presently have visiting nurse or other home services: No Alcohol intake: current Alcohol intake frequency: holidays/special occasions only Alcohol type: beer Patient Tobacco Use Status: Former Tobacco user e-Cigarette/Vaping Use: Never Used Second Hand Smoke Exposure: No service: No Current occupational status: retired Current occupational exposures/hazards: No Cognitive needs: No Hearing needs: No Vision needs: Yes Female Reproductive History Menstrual Age of Menarche: 13 Review of Systems Const Denies chills and Denies fever(s) Card Reports no additional complaints and Denies syncope Resp Denies cough GI Denies abdominal pain and Denies heartburn Reports as per HPI and Denies change in libido Neuro Denies syncope Psych Denies change in libido Endo Denies change in libido Physical Exam Const General: cooperative, healthy appearing, comfortable and no acute distress Orientation/consciousness: patient oriented x3 HEENT Face and sinus: Yes normal facial exam Mouth: moist mucous membranes Neck Neck: Yes normal visual inspection, Yes full ROM and Yes trachea midline Chest Chest palpation & inspection: normal inspection of the chest Resp Effort & Inspection: normal respiratory effort, able to speak in complete sentences and no respiratory distress GI Inspection: Yes normal to inspection Back/Spine/Pelvis Cervical Spine: normal cervical lordosis Thoracic/Lumbar Spine: thoracic and lumbar spine normal to inspection Skin General skin exam: no rashes or lesions noted Neuro General: patient oriented x3, gait normal, tone normal and moves all extremities Extrem General: Yes normal to inspection and Yes capillary refill normal Assessment & Plan Assessment & Plan (1) Urinary and fecal incontinence: Code(s): R32 - Unspecified urinary incontinence; R15.9 - Full incontinence of feces Category: Medical Plan Twelve month follow-up Patient Instructions: Imaging studies, laboratory and physical exam results were discussed and reviewed in detail. No major barriers to patient understanding were identified. An opportunity to ask questions regarding the treatment plan was provided. All questions were answered. The patient expressed understanding and agreement with the above treatment plan. The patient is aware they should contact our office by phone for worsening of their current condition or the appearance of new urologic symptoms. Compliance is encouraged with any medications and followup testing that is ordered. It is a privilege to participate in the urologic care of your patient. If you have any questions or concerns regarding treatment for the above conditions, or other urologic issues, please do not hesitate to contact me. The office telephone contact is [phone]. This note is constructed using voice recognition software. While every effort has been made to ensure accuracy medical administrative technician errors may have been included. Yours sincerely, Dr Maurice Braswell MD, MAYE [facility] - Urology Providers of Expert, Compassionate Care for the Genitourinary System Coding Level of Care Code Est Pt Level 3 (88514) Diagnoses Urinary and fecal incontinence R32; R15.9
== END 2024-09-14 10:29 | disposition home or self-care (01) ==
LOC: HO.HUSH 09:46
PROVIDERS: PCP Family Medicine; Visit Provider Urology
DX: R32 Unspecified urinary incontinence (principal); R15.9 Full incontinence of feces
CPT/HCPCS: 99213

== ENCOUNTER → 2024-09-14 09:45 | Outpatient (BNVA) | payer MEDICARE, SELFPAY | PROVIDERS: PCP Family Medicine; Visit Provider Urology | DX: N39.46 Mixed incontinence (principal); R15.9 Full incontinence of feces | CPT/HCPCS: 99212 ==

== ENCOUNTER 2024-09-25 | Outpatient (REF) | payer MEDICARE, SELFPAY | END 2024-09-25 00:01 | disposition home or self-care (01) | LOC: CF | PROVIDERS: Visit Provider Internal Medicine Gastroenterology | DX: D64.9 Anemia, unspecified (principal) | CPT/HCPCS: 99212 ==

== ENCOUNTER 2024-09-25 10:00 | Outpatient (AMB) | payer MEDICARE, SELFPAY ==
--- NOTE | 2024-09-25 10:06 | A.OFFVIS_ITS ---
Vital Signs 09/25/24 10:09 Height 5 ft 3 in Weight 154 lb 5.177 oz BMI 27.3 BP 140/73 H Blood Pressure Location Lt brachial Position Sitting Pulse 61 Intake Visit Reasons: 1yr follow up Intake Note: Trish presents in the office as a 1 year follow up. CC: She states that she is feeling great and not having any concerns. Commutator Operator Required: No Allergies silver sulfadiazine [From Silvadene] Adverse Reaction (Mild, Verified 09/25/24 10:08) skin irritation HPI HPI 1yr follow up: Details: 69 yr old f here for f/u RECAP: Had seen [facility] for abdominal pain also abn bowel habits EGD/Sigmoidoscopy 02/2023 Impression and Post Procedure Diagnosis: Endoscopy Findings: incompetent LES, bile acid reflux esophagitis, possible barretts possible gastric intestinal metaplasia Colonoscopy Findings: internal hemorrhoids PATH: moderate chronic gastritis, crypt distortion of colon, otherwise nml h pylori breath test---NEGATIVE INTERIM: she is doing well No more incontinence appettite is good no blood in stool chronic stable anemia EXAM: GENERAL: The patient is well developed and nontoxic. VITAL SIGNS:see workflow HEENT: Nonicteric sclerae, PERRLA, EOMI. Oropharynx clear. Moist mucous membranes. Conjunctivae appear well perfused. No thyroid mass. CHEST: Chest wall is nontender. HEART: Regular rate and rhythm without murmurs. LUNGS: Clear to auscultation bilaterally. ABDOMEN: Soft, positive bowel sounds, nontender, no organomegaly.no flank tenderness SKIN: No rash, no excessive bruising, petechiae, or purpura. NEUROLOGIC: Cranial nerves II-XII intact without motor/sensory deficit. Mild Tremor psych- nml A/P: 1/ chronic stable anemia 2/ incontinence -resolved PLAN: 1/ check b12, ferritin, folate 2/ if iron def then discuss colonoscopy, maybe small bowel capsule PFSH Medical History Personal history of nicotine dependence Lump in neck Bilateral hip pain Osteopenia Barretts esophagus Anxiety Sleep apnea Dementia Chronic abdominal pain Mastodynia of left breast HTN (hypertension) Normocytic anemia Depression with anxiety SVT (supraventricular tachycardia) Atrial fibrillation Surgical History Hx of flexible sigmoidoscopy Status post insertion of nerve stimulator History of cholecystectomy (05/04/23) History of esophagogastroduodenoscopy (EGD) Hx of colonoscopy History of total hip replacement History of prior ablation treatment H/O heart surgery History of left knee replacement Family History Brother Lung cancer Brother Bladder cancer Social History Household Members: Spouse and Children Housing: House Are you a primary youth care professional to a significant other at home: No Do you presently have visiting nurse or other home services: No Alcohol intake: current Alcohol intake frequency: holidays/special occasions only Alcohol type: beer Patient Tobacco Use Status: Former Tobacco user e-Cigarette/Vaping Use: Never Used Second Hand Smoke Exposure: No service: No Current occupational status: retired Current occupational exposures/hazards: No Cognitive needs: No Hearing needs: No Vision needs: Yes Female Reproductive History Menstrual Age of Menarche: 13 Physical Exam Vital Signs: BMI result Body Mass Index 27.3 Assessment & Plan Assessment & Plan (1) Mild anemia: Code(s): D64.9 - Anemia, unspecified Category: Medical Plan: see above Coding Level of Care Code Est Pt Level 3 (47697) Diagnoses Mild anemia D64.9
[2024-09-25 10:09] VITALS: BP 140/73; PULSE 61; BMI 27.3
== END 2024-09-25 10:20 | disposition home or self-care (01) ==
PROVIDERS: PCP Family Medicine; Visit Provider Internal Medicine Gastroenterology
DX: D64.9 Anemia, unspecified (principal)
CPT/HCPCS: 99213

== ENCOUNTER 2024-09-29 10:20 | Outpatient (REF) | payer MEDICARE, SELFPAY ==
[2024-09-29 14:48] LABS: Ferritin 51 ng/mL (10-250)
[2024-09-29 15:05] LABS: Folate 19.3 ng/mL (> or = 4.0); Vitamin B12 540 pg/mL (200-900)
== END 2024-09-29 10:21 | disposition home or self-care (01) ==
LOC: HO.WFDLDS 10:20
PROVIDERS: Visit Provider Internal Medicine Gastroenterology
DX: D64.9 Anemia, unspecified (principal)
CPT/HCPCS: 36415; 82607; 82728; 82746

== ENCOUNTER 2024-11-07 13:08 | Outpatient (AMB) | payer MEDICARE, SELFPAY ==
--- NOTE | 2024-11-07 13:21 | MHC.OFFVISPS ---
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: No Allergies silver sulfadiazine [From Silvadene] Adverse Reaction (Mild, Verified 09/25/24 10:08) skin irritation Medication List - Last Reconciled 11/07/24 by Mercedes Hernandez APRN apixaban (Eliquis) 5 mg PO BID 90 days bupropion HCl XL 150 mg PO QAM 90 days calcium carbonate-vitamin D3 500 mg-3.125 mcg (125 unit) 1 tab PO DAILY carvedilol 6.25 mg PO BID celecoxib 200 mg PO DAILY 30 days cholecalciferol (vitamin D3) 50 mcg PO DAILY clonazepam (Klonopin) 0.5 mg PO BID 30 days diaper,brief,adult,disposable As directed donepezil 5 mg PO DAILY loperamide 2 mg PO Q6H PRN losartan 25 mg PO DAILY 30 days menthol-zinc oxide 0.44-20.6 % (Calmoseptine) 1 appl topical BID PRN 30 days menthol-zinc oxide 0.44-20.6 % (Calmoseptine) 1 appl topical BID PRN mirtazapine 7.5 mg PO BEDTIME 30 days tu-[id number]-Ca carb-vit K 18 mg iron-400 mcg-500 mg 1 tab PO DAILY omeprazole 40 mg PO DAILY 90 days quetiapine 12.5 mg (1/2 x 25 mg) PO QAM 90 days quetiapine (Seroquel) 50 mg PO BEDTIME 90 days tramadol 50 mg PO TID PRN 4 days trazodone 1/2 - 1 tablet p.o. at bedtime PO bedtime PRN; 90 days HPI- Psychiatric Chief Complaint: follow up HPI Narrative: pt and bri report pts mood worse since on remeron at night. pt also not tolerating seroquel and can only take 12.5 mg a day without feeling very sleepy. pt reports feeling more on edge; sha and family arguing more. she reports feeling she'd be better off dying sometimes; denies plan or intent of harming herself or others. she thinks she felt better before taking the remeron and wants to try taking fewer medications. Past Psychiatric History: outpatient treatment off and on since age 21. hx of catatonic depression age 21. Subjective Subjective Subjective Medication Compliance: Yes Side effects from medications: No Review of Systems Medical Review of Systems: unchanged Mental Status Exam Mental Status Exam Patient Appearance: Well Grooomed and Appropriate Patient Orientation: Person, Place, Time and Situation Level of Consciousness: Awake, Appropriate and Alert Patient Behavior: Appropriate and Good Eye Contact Mood Description: Sad Affect Description: Sad Patient Cognition Impaired: No Ability to Follow Directions: Good Speech Pattern: Clear and Appropriate Memory Description: Immediate Intact Hallucinations: None Delusions: Not Present Thought Process: Intact and Goal Oriented Thought Content: positive for Intact and positive for Goal Oriented Judgement: Fair Assessment and Plan Assessment & Plan (1) ADEN (generalized anxiety disorder): Status: Acute Code(s): F41.1 - Generalized anxiety disorder (2) Major depressive disorder, recurrent, mild: Status: Acute Code(s): F33.0 - Major depressive disorder, recurrent, mild Plan stop remeron reduce seroqule to 12.5mg daily at 4 pm continue clonazepam 0.5mg bid am and 8pm continue wellbutrin xl 150mg qam trazodone prn 15-20 min before bed return in 6-8 weeks Medications: New quetiapine (Seroquel) 12.5 mg (1/2 x 25 mg) PO BEDTIME 30 tabs 0RF Discontinued quetiapine Takes 12.5mg in AM and takes 50mg PM Discontinued Reason: Patient Completed Course 12.5 mg (1/2 x 25 mg) PO QAM 90 days 45 tabs 1RF mirtazapine Discontinued Reason: Patient no longer taking 7.5 mg PO BEDTIME 30 days 30 tabs 1RF quetiapine (Seroquel) Discontinued Reason: Doctor's Order 50 mg PO BEDTIME 90 days 90 tabs 1RF Counseling and coordination of Care Pt. Self Management counseling: Exercise, Maintenance-social rhythm, Mod caffeine/ETOH intake, Nutrition education and improvement, Sleep hygiene, Behavior activation, General coping skills and Problem solving Medication management counseling: Effectiveness, Side effects, Dosing range, Duration, Drug interaction and Adherence Diagnosis and Prognosis Counseling: Accuracy of diagnosis, Prognosis over time, Impact of diagnosis on life functions, Impact of family relationship, Problematic behaviors secondary to diagnosis and Adequacy of current interventions Details: I spent 35 minutes reviewing the record, seeing the patient and documenting in the medical record. Counseling provided to the patient/caregiver as outlined below. Addressed patient/caregiver concerns regarding current medication regime including effective adherence. Addressed patient/caregiver concerns regarding diagnosis and prognosis including accuracy of diagnosis, prognosis over time, impact of diagnosis. Addressed patient/caregiver concerns regarding impact of recent stressors. [facility] Medical History Personal history of nicotine dependence Lump in neck Bilateral hip pain Osteopenia Barretts esophagus Anxiety Sleep apnea Dementia Chronic abdominal pain Mastodynia of left breast HTN (hypertension) Normocytic anemia Depression with anxiety SVT (supraventricular tachycardia) Atrial fibrillation Surgical History Hx of flexible sigmoidoscopy Status post insertion of nerve stimulator History of cholecystectomy (05/04/23) History of esophagogastroduodenoscopy (EGD) Hx of colonoscopy History of total hip replacement History of prior ablation treatment H/O heart surgery History of left knee replacement Family History Brother Lung cancer Brother Bladder cancer Social History Household Members: Spouse and Children Housing: House Are you a primary after school caregiver to a significant other at home: No Do you presently have visiting nurse or other home services: No Alcohol intake: current Alcohol intake frequency: holidays/special occasions only Alcohol type: beer Patient Tobacco Use Status: Former Tobacco user e-Cigarette/Vaping Use: Never Used Second Hand Smoke Exposure: No service: No Current occupational status: retired Current occupational exposures/hazards: No Cognitive needs: No Hearing needs: No Vision needs: Yes Social History: live with spouse and children Substance History: no hx abuse Trauma History: none known Coding Level of Care Code Est Pt Level 4 (85835) Diagnoses ADEN (generalized anxiety disorder) F41.1 Major depressive disorder, recurrent, mild F33.0
== END 2024-11-07 15:49 | disposition home or self-care (01) ==
LOC: HO.HOP 13:08
PROVIDERS: PCP Family Medicine; Visit Provider Clinical Nurse Specialist Psychiatric/Mental Health
DX: F41.1 Generalized anxiety disorder (principal); F33.0 Major depressive disorder, recurrent, mild
CPT/HCPCS: 99214

== ENCOUNTER → 2024-11-07 13:08 | Outpatient (BNVA) | payer MEDICARE, SELFPAY | PROVIDERS: PCP Family Medicine; Visit Provider Clinical Nurse Specialist Psychiatric/Mental Health | DX: F41.1 Generalized anxiety disorder (principal); F33.0 Major depressive disorder, recurrent, mild | CPT/HCPCS: 99212 ==

== ENCOUNTER 2024-11-20 08:42 | Outpatient (AMB) | payer MEDICARE, SELFPAY ==
--- NOTE | 2024-11-20 08:44 | A.OFFPC_ITS ---
Vital Signs 11/20/24 08:51 Height 5 ft 3 in Weight 164 lb 2 oz BMI 29.1 BP 138/60 Blood Pressure Location Lt brachial Position Sitting Respiration 16 Pulse 59 Pulse Source Pulse Oximeter Temp 97.4 F Temp Source Oral Pulse Oximetry (%) 95 Oxygen Delivery Method Room Air Intake Visit Reasons: Anx, Depression and back pain. Intake Note: patient here for follow up on anxiety, depression and back pain Inspector Fibrous Wallboard Required: No Accompanied by: Spouse Is last menstrual period known: No Post menopausal: No Patient : No Allergies silver sulfadiazine [From Silvadene] Adverse Reaction (Mild, Verified 11/20/24 08:48) skin irritation Medication List - Last Reconciled 11/20/24 by Ollie Hernandez MD apixaban (Eliquis) 5 mg PO BID 90 days bupropion HCl XL 150 mg PO QAM 90 days calcium carbonate-vitamin D3 500 mg-3.125 mcg (125 unit) 1 tab PO DAILY carvedilol 6.25 mg PO BID celecoxib 200 mg PO DAILY 30 days cholecalciferol (vitamin D3) 50 mcg PO DAILY clonazepam (Klonopin) 0.5 mg PO BID 30 days diaper,brief,adult,disposable As directed donepezil 10 mg PO DAILY loperamide 2 mg PO Q6H PRN losartan 25 mg PO DAILY 30 days menthol-zinc oxide 0.44-20.6 % (Calmoseptine) 1 appl topical BID PRN 30 days menthol-zinc oxide 0.44-20.6 % (Calmoseptine) 1 appl topical BID PRN [id number]-Ca carb-vit K 18 mg iron-400 mcg-500 mg 1 tab PO DAILY omeprazole 40 mg PO DAILY 90 days quetiapine (Seroquel) 12.5 mg (1/2 x 25 mg) PO BEDTIME tramadol 50 mg PO TID PRN 4 days trazodone 1/2 - 1 tablet p.o. at bedtime PO bedtime PRN; 90 days Tobacco use date assessed: 11/20/24 Fall risk assessment: No Falls in past year Last assessed Fall Risk: 11/20/24 Dental Screening Dental Screen Date: 11/20/24 Did you have a dental visit in the last 12 months?: Yes Did you have a dental problem in the last 6 months where you did not have access to dental care?: No Was dental information given to patient?: Patient has dentist HPI Anx, Depression and back pain. HPI Details 69 y/o female presents to f/u anxiety/de pression and back pain. Had been following up with psychiatry for mood. She notes quetiapine continues to help. She is also on bupropion 150mg. PHQ-9 15, ADEN-7 11 today. Notes she had followed up with a specialist for her hips and knees. [facility] Medical History Personal history of nicotine dependence Lump in neck Bilateral hip pain Osteopenia Barretts esophagus Anxiety Sleep apnea Dementia Chronic abdominal pain Mastodynia of left breast HTN (hypertension) Normocytic anemia Depression with anxiety SVT (supraventricular tachycardia) Atrial fibrillation Surgical History Hx of flexible sigmoidoscopy Status post insertion of nerve stimulator History of cholecystectomy (05/04/23) History of esophagogastroduodenoscopy (EGD) Hx of colonoscopy History of total hip replacement History of prior ablation treatment H/O heart surgery History of left knee replacement Family History Brother Lung cancer Brother Bladder cancer Social History Household Members: Spouse and Children Housing: House Are you a primary home care and home health aides teacher to a significant other at home: No Do you presently have visiting nurse or other home services: No Alcohol intake: current Alcohol intake frequency: holidays/special occasions only Alcohol type: beer Patient Tobacco Use Status: Former Tobacco user e-Cigarette/Vaping Use: Never Used Second Hand Smoke Exposure: No service: No Current occupational status: retired Current occupational exposures/hazards: No Cognitive needs: No Hearing needs: No Vision needs: Yes Female Reproductive History Menstrual Age of Menarche: 13 Questionnaire PHQ-9 Over the last 2 weeks, how often have you been bothered by any of the following problems? 1. Little interest or pleasure in doing things: more than half the days 2. Feeling down, depressed, or hopeless: more than half the days 3. Trouble falling or staying asleep, or sleeping too much: not at all 4. Feeling tired or having little energy: several days 5. Poor appetite or overeating: nearly every day 6. Feeling bad about yourself - or that you are a failure or have let yourself or your family down: several days 7. Trouble concentrating on things, such as reading the newspaper or watching television: more than half the days 8. Moving or speaking so slowly that other people could have noticed. Or the opposite - being so fidgety or restless that you have been moving around a lot more than usual: nearly every day 9. Thoughts that you would be better off or of hurting yourself in some way: several days Total score: 15 83282 - PHQ-9 Billing: Yes Source: Developed by Drs. Jean Rockwell, Jennifer Fritz, Scar Navarro and colleagues, with an educational edna from [employer]. Thrive Questionnaire Date Thrive assessed: 11/20/24 I am a: Patient What is your living situation today?: I have a steady place to live Within the past 12 months, did the food you bought not last and you didn't have the money to get more?: Sometimes True Within the past 12 months, did you worry whether your food would run out before you got money to buy more?: Sometimes True Do you have trouble paying for medicines?: No Do you have trouble getting transportation to medical appointments?: No Do you have trouble paying your heating and electricity bill?: No Do you have trouble taking care of your child, family member or friend?: I choose not to answer this question Do you have trouble with day-to-day activities such as bathing, preparing meals, shopping, managing finances, etc.?: No Are you currently unemployed and looking for a job?: I choose not to answer this question Are you interested in more education?: No Please select the resources that you would like help with: Food and Utilities Currently or been in a relationship where the following occur: No concerns reported THRIVE Score: 2 AUDIT C Alcohol Use Questionnaire (AUDIT-C) 1. How often do you have a drink containing alcohol?: 2-4 times a month 2. How many drinks containing alcohol do you have on a typical day when you are drinking?: 1 or 2 3. How often do you have six or more drinks on one occasion?: Never Total Score: 2 ADEN-7 AMB Questionnaire ADEN-7 Date ADEN - 7 assessed: 11/20/24 Feeling nervous, anxious, or on edge: 3 = Nearly every day Not being able to stop or control worryin = More than half the days Worrying too much about different things: 2 = More than half the days Trouble relaxin = Several days Being so restless that it is hard to sit still: 0 = Not at all Becoming easily annoyed or irritable: 2 = More than half the days Feeling afraid as if something awful might happen: 1 = Several days Total ADEN-7 score (0-4 normal; 5-9 mild; 10-14 moderate; 15-21 severe): 11 Source: Developed by Drs. Jean Rockwell, Jennifer Fritz, Scar Navarro and colleagues, with an educational edna from [employer]. ADEN-7 Assessment Billing ADEN-7 Assessment Tool: ADEN-7 Assessment 16573 Review of Systems Const Denies chills, Denies fatigue, Denies fever(s), Denies headache(s) and Denies weakness ENT Denies dizziness and Denies headache(s) Card Denies dyspnea Resp Denies cough, Denies dyspnea, Denies wheezing and Denies other (shortness of breath) Musc Details: Knee pain Hip pain Denies numbness and Denies tingling Neuro Denies dizziness, Denies headache(s), Denies numbness, Denies tingling and Denies weakness Psych Reports anxiety and Reports depression Endo Denies fatigue Aller/Immun Denies wheezing Physical exam (Primary Care) Vital Signs: Last Vital Signs Temp 97.4 F 11/20/24 08:51 Pulse 59 11/20/24 08:51 Resp 16 11/20/24 08:51 BP 138/60 11/20/24 08:51 Pulse Ox 95 11/20/24 08:51 Oxygen Delivery Method Room Air 11/20/24 08:51 BMI result Body Mass Index 29.1 Tobacco/Smoking Status: Tobacco use Status Tobacco use date assessed 11/20/24 11/20/24 08:55 Patient Tobacco Use Status Former Tobacco user 11/20/24 08:47 e-Cigarette/Vaping Use Never Used 11/20/24 08:47 PHQ-9: PHQ-9 Score PHQ-9: Total score 15 11/20/24 08:59 Thrive Assessment: Date of Thrive Assessment Date Thrive assessed 11/20/24 11/20/24 08:47 Currently or been in a relationship where the following occur: No concerns reported Const General: well developed; No acute distress Nutritional Appearance: well nourished Orientation/consciousness: patient oriented x3 HENMT Head: Yes normocephalic and Yes atraumatic Eyes General: appearance normal, both eyes and all related structures Pupils: Equal, round and reactive pupils present EOM: EOMs intact bilaterally Resp Effort & Inspection: normal respiratory effort Auscultation: clear to auscultation bilaterally Cardio Rate: regular rate Rhythm: regular rhythm Heart sounds: S1 normal heart sound present, S2 normal heart sound present, no gallops, no murmurs and no rubs Neuro General: patient oriented x3 and gait normal Cranial nerves: Yes Equal, round and reactive pupils present Psych Affect: normal affect Coding Level of Care Code Est Pt Level 4 (29708) Diagnoses Anxiety and depression F41.9; F32.A Essential hypertension I10 Low back pain M54.50 Left knee pain M25.562 Bilateral hip pain M25.551; M25.552 Additional Codes ADEN-7 Assessment Billing - ADEN-7 Assessment Tool: ADEN-7 Assessment 11695 ([id number]) PHQ-9 - 19842 - PHQ-9 Billing: Yes ([id number]) Assessment & Plan Assessment & Plan (1) Anxiety and depression: Code(s): F41.9 - Anxiety disorder, unspecified; F32.A - Depression, unspecified Category: Medical Plan: Patient?now?followed?by?Mercedes?Fiorella[place]at[place]tried?Remeron?but?patient?felt?this?made?her?too?sleepy She?continues?bupropion?and?Seroquel. 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 At?home ,?daughter?reports?that?she?is?having?further?impairment?and?then?may?be?due?to? the?decrease?in?structure?compared?with?structured?testing?at?neuropsychia tric?evaluation. (2) Essential hypertension: Code(s): I10 - Essential (primary) hypertension Category: Medical Plan: Blood?pressure?is?controlled.??Goal?is?less?than?140/90 Continue?current?medication?regimen (3) Low back pain: Code(s): M54.50 - Low back pain, unspecified Category: Medical Plan: Chronic?back?and?hip?pain. She?is?on?NSAIDs?and?tramadol X-ray?in?August?showed Moderate multilevel lumbar spondylosis. Possible spondylolysis at the lumbosacral junction is difficult to confirm Referred?her?to?[facility] However,?patient?is?seen?orthopedics?at[facility]??She?says?genia t?advised?her?to?discontinue?physical?therapy. I?do?not?have?a?report?from?her?ortho?specialist?and?will?request?this. She?did?show?me?an?MRI?acquired?in?October?of?her?lumbar?spine.??This?showed?de generative?changes?but?no?stenosis?of?spinal?canal?or?foramina (4) Left knee pain: Code(s): M25.562 - Pain in left knee Category: Medical Plan: Ongoing?hip?and?knee?pain Patient?had?left?hip?surgery?and?has?a?leg?length?discrepancy. She?is?developing?a?valgus?deformity?at?the?knee. She?notes?worsening?knee?pain?and?hip?pain. I?do?not?have?her?orthopedic?specialists?notes?but?will?to?follow?and?will?reque st?a?note She?is?on?NSAIDs?and?tramadol.??Will?continue?these (5) Bilateral hip pain: Code(s): M25.551 - Pain in right hip; M25.552 - Pain in left hip Category: Medical Plan: As?above
[2024-11-20 08:51] VITALS: BP 138/60; PULSE 59; RESP 16; TEMP 36.3; O2SAT 95; BMI 29.1
== END 2024-11-20 09:20 | disposition home or self-care (01) ==
PROVIDERS: PCP Family Medicine; Visit Provider Family Medicine
DX: F41.9 Anxiety disorder, unspecified (principal); F32.A Depression, unspecified; I10 Essential (primary) hypertension; M54.50 Low back pain, unspecified; M25.562 Pain in left knee; M25.551 Pain in right hip; M25.552 Pain in left hip

== ENCOUNTER → 2024-11-20 08:42 | Outpatient (BNVA) | payer MEDICARE, SELFPAY | PROVIDERS: PCP Family Medicine; Visit Provider Family Medicine | DX: F41.9 Anxiety disorder, unspecified (principal); F32.A Depression, unspecified; I10 Essential (primary) hypertension; M54.50 Low back pain, unspecified; M25.562 Pain in left knee; M25.551 Pain in right hip; M25.552 Pain in left hip | CPT/HCPCS: 96127; 99212 ==

== ENCOUNTER 2025-01-25 08:43 | Outpatient (REF) | payer MEDICARE, SELFPAY | END 2025-01-25 08:44 | disposition home or self-care (01) | LOC: HO.LAB 08:43 | PROVIDERS: PCP Family Medicine | DX: N30.01 Acute cystitis with hematuria (principal); R30.0 Dysuria; R15.9 Full incontinence of feces | CPT/HCPCS: 81003; 87086; 87088; 87186; 99212 ==

== ENCOUNTER → 2025-01-25 08:43 | Outpatient (AMB) | payer MEDICARE, SELFPAY ==
--- NOTE | 2025-01-25 08:44 | AM.OFFWIN_ITS ---
Intake Vital Signs 01/25/25 08:52 Height 5 ft 3 in Weight 168 lb 4 oz BMI 29.8 BP 132/74 Blood Pressure Location Lt brachial Position Sitting Respiration 13 Pulse 76 Pulse Source Pulse Oximeter Temp 98.4 F Temp Source Oral Pulse Oximetry (%) 96 Oxygen Delivery Method Room Air Intake Visit Reasons: est/uti Intake Note: Patient complaining of painful urinating, urinary frequency and blood in urine since yesterday. Patient Tobacco Use Status: Former Tobacco user Tobacco Feeder Catcher Required: No Allergies silver sulfadiazine [From Silvadene] Adverse Reaction (Mild, Verified 01/25/25 08:57) skin irritation Medication List - Last Reconciled 01/25/25 by Yasmeen Chacon, DR[employer] POST REPAIRER- apixaban (Eliquis) 5 mg PO BID 90 days bupropion HCl XL 150 mg PO QAM 90 days calcium carbonate-vitamin D3 500 mg-3.125 mcg (125 unit) 1 tab PO DAILY carvedilol 6.25 mg PO BID celecoxib 200 mg PO DAILY 30 days cholecalciferol (vitamin D3) 50 mcg PO DAILY clonazepam (Klonopin) 0.5 mg PO BID 30 days diaper,brief,adult,disposable As directed donepezil 10 mg PO DAILY loperamide 2 mg PO Q6H PRN losartan 25 mg PO DAILY 30 days menthol-zinc oxide 0.44-20.6 % (Calmoseptine) 1 appl topical BID PRN 30 days menthol-zinc oxide 0.44-20.6 % (Calmoseptine) 1 appl topical BID PRN [id number]-FA-Ca carb-vit K 18 mg iron-400 mcg-500 mg 1 tab PO DAILY omeprazole 40 mg PO DAILY 90 days quetiapine (Seroquel) 12.5 mg (1/2 x 25 mg) PO BEDTIME tramadol 50 mg PO TID PRN 30 days trazodone 1/2 - 1 tablet p.o. at bedtime PO bedtime PRN; 90 days Do you need a note to return to daycare/school/sports/work: No HPI HPI Comments History of Present Illness Details - The patient is a 69-year-old female pr esenting with painful urination and hematuria. - Began experiencing dysuria and hematur ia yesterday, with symptoms of discomfort intensifying into the morning. - Reports blood visibly present in the u rine. - Denies associated symptoms of nausea o r vomiting. - Describes crampy discomfort in the abd omen. - Has a history of recurring urinary tra ct infections, with the last episode occurring over a year prior, confirmed on January 20, 2024. - Recent diarrhea persisting for the pas t three days is suspected to contribute to the urinary symptoms. - Patient states having a back medical d evice for bowel symptom control. - Reports allergy to silver sulfadiazine and has established urological follow- ups. Exam Awake alert NAD MMM RRR No CVAT No suprapubic tenderness Results - Urinalysis: See below - Culture: Urine sample sent for culture to identify organism responsible for symptoms. Discussion Notes I discussed with the patient that her symptoms are likely indicative of an acute urinary tract infection. We agreed upon initiating treatment with n itrofurantoin, barring any changeable results from the urine culture. Pending urine culture results will confirm if an alternative antibiotic is necessary and, if so, will be communicated through a portal message or phone call. I explained the rationale, emphasizing that E. coli is a common causative organism given the recent diarrhea. Kidney function was verified to safely utilize prescribed antibiotics. Further urine culture results will be reviewed, and adjustments will be made if no clinical improvement is seen. The patient consented to this plan, with a clear understanding of the need for appropriate follow-up and to report any emergence of further symptoms or persistent issues. Assessment and Plan 1. Acute Cystitis: Acute cystitis is brandon pected due to dysuria and hematuria symptoms, likely associated with Escherichia coli from recent diarrhea. Treatment involves nitrofurantoin. Urine culture results will guide any necessary antibiotic alternatives. The patient is informed to communicate any lack of improvement. 2. Diarrhea: The recent diarrhea might c ontribute to urinary symptoms. No treatment changes are made due to ongoing mechanical bowel management, yet symptom persistence or alteration will require further evaluation. Patient Instructions - Start nitrofurantoin immediately, taki ng one tablet twice a day for three days. - Monitor symptoms and contact the offic e if no improvement or if symptoms worsen within a few days. - Await potential follow-up communicatio n regarding urine culture results and appropriate antibiotic adjustment. Consent Patient was informed and verbally consented to the use of an ambient scribe for clinic note documentation during this visit. Total time spent caring for the patient today was 30 minutes. This includes time spent before the visit reviewing the chart, time spent during the visit, and time spent after the visit on documentation, reviewing laboratory results, diagnostic imaging, medications, performing a medically necessary evaluation, counseling on diagnoses, care coordination, ordering appropriate tests, ordering appropriate medications, review of tests performed by other providers, reporting test results with the patient, communication with other healthcare providers. [facility] Medical History Personal history of nicotine dependence Lump in neck Bilateral hip pain Osteopenia Barretts esophagus Anxiety Sleep apnea Dementia Chronic abdominal pain Mastodynia of left breast HTN (hypertension) Normocytic anemia Depression with anxiety SVT (supraventricular tachycardia) Atrial fibrillation Surgical History Hx of flexible sigmoidoscopy Status post insertion of nerve stimulator History of cholecystectomy (05/04/23) History of esophagogastroduodenoscopy (EGD) Hx of colonoscopy History of total hip replacement History of prior ablation treatment H/O heart surgery History of left knee replacement Family History Brother Lung cancer Brother Bladder cancer Social History Household Members: Spouse and Children Housing: House Are you a primary manager medicare marketing to a significant other at home: No Do you presently have visiting nurse or other home services: No Alcohol intake: current Alcohol intake frequency: holidays/special occasions only Alcohol type: beer Patient Tobacco Use Status: Former Tobacco user e-Cigarette/Vaping Use: Never Used Second Hand Smoke Exposure: No service: No Current occupational status: retired Current occupational exposures/hazards: No Cognitive needs: No Hearing needs: No Vision needs: Yes Female Reproductive History Menstrual Age of Menarche: 13 Physical Exam Vital Signs: Last Vital Signs Temp 98.4 F 01/25/25 08:52 Pulse 76 01/25/25 08:52 Resp 13 01/25/25 08:52 BP 132/74 01/25/25 08:52 Pulse Ox 96 01/25/25 08:52 Oxygen Delivery Method Room Air 01/25/25 08:52 BMI result Body Mass Index 29.8 Results AMB Urinalysis, Automated UA Leukoctes 500 Balaji/uL Last Edit by Rocco Crespo MA on 01/25/25 09:12 UA Nitrite Negative Last Edit by Rocco Crespo MA on 01/25/25 09:12 UA Urobilinogen 3.5 mg/dL Last Edit by Rocco Crespo MA on 01/25/25 09:12 UA Protein 3.0 mg/dL Last Edit by Rocco Crespo MA on 01/25/25 09:12 UA pH 6.0 Last Edit by Rocco Crespo MA on 01/25/25 09:12 UA Blood 200 Marcus/uL Last Edit by Rocco Crespo MA on 01/25/25 09:12 UA Specific [place] 1.020 Last Edit by Rocco Crespo MA on 01/25/25 09:1 2 UA Ketone Negative Last Edit by Rocco Crespo MA on 01/25/25 09:12 UA Bilirubin 0 mg/dL Last Edit by Rocco Crespo MA on 01/25/25 09:12 UA Glucose 0 mg/dL Last Edit by Rocco Crespo MA on 01/25/25 09:12 Assessment & Plan Assessment & Plan (1) Dysuria: Code(s): R30.0 - Dysuria (2) Acute cystitis with hematuria: Code(s): N30.01 - Acute cystitis with hematuria (3) Fecal incontinence: Code(s): R15.9 - Full incontinence of feces Qualifiers: Fecal incontinence type: full incontinence of feces Qualified Code(s): R15.9 - Full incontinence of feces Plan . Orders: Orders AMB Urinalysis Automated Today Z13.9 - Encounter for screening, unspecified Urine Culture Today R15.9 - Full incontinence of feces, R30.0 - Dysuria Medications: New nitrofurantoin monohyd/m-cryst 100 mg must administer with a meal/food 100 mg PO Q12H 3 days 6 caps 0RF Coding Level of Care Code Est Pt Level 4 (05847) Diagnoses Dysuria R30.0 Acute cystitis with hematuria N30.01 Full incontinence of feces R15.9 Fecal incontinence type: full incontinence of feces
[2025-01-25 08:52] VITALS: BP 132/74; PULSE 76; RESP 13; TEMP 36.9; O2SAT 96; BMI 29.8
--- OUTSIDE RECORDS SUMMARY | 2025-01-25 09:04 | XMS_ITS ---
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 Name Role Phone Ollie Hernandez Primary Care Provider Unavailab Jean Baires Unavailable [phone] Martin Dupree Unavailable Unavailable Allergies Allergen (clinical drug ingredient) Drug/Non Drug Allergy documented on EMR Reaction Allergy Type Onset Date Status silver (uncoded) Unknown Allergy Ac tive REASON FOR VISIT Patient presents today for anemia Medications Medication SIG (Take, Route, Frequency, Duration) Notes Start Date End Date Status traZODone HCl 100 MG 1 tablet at bedtime Orally Once a day for 30 day(s) Active clonazePAM 0.5 MG 1 tablet at bedtime Orally Once a day Active Multivitamin - 1 tablet Orally Once a day for 30 day(s) Active Calcium 500 + D3 500-600 MG-UNIT 1 tablet with a meal Orally Once a day for 30 day(s) Active Sertraline HCl 100 MG 1 tablet Orally On ce a day for 30 day(s) Active Omeprazole 20 MG 1 capsule 30 minutes before morning meal Orally Once a day for 30 day(s) Active Eliquis 5 MG 1 tablet Orally Twic e a day for 30 day(s) Active Celecoxib 200 MG 1 capsule with food Orally Once a day for 30 day(s) Active Carvedilol 6.25 MG 1 tablet with food O rally Twice a day for 30 day(s) Active Cannabus Medical Marijuana CBD Active Metoprolol Succinate ER 100 MG 1 tablet Orally Once a day Active Social History Tobacco Use: Social History Observation Description Date Details (start date - stop date) Never Smoker NA - NA Tobacco Use/Smoking Question Answer Notes Patient is a nonsmoker Alcohol Screen Question Answer Notes Did you have a drink contain ing alcohol in the past year? Yes How often did you have a dri nk containing alcohol in the past year? 2 to 4 times a month (2 points) How many drinks did you have on a typical day when you were drinking in the past year? 1 or 2 drinks (0 point) How often did you have 6 or more drinks on one occasion in the past year? 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) Active confirmed Vital Signs Temperature 97.1 degrees Fahrenheit 12/16/19 24 Blood pressure systolic 00 mm Hg 12/16/19 24 Blood pressure diastolic 00 mm Hg 024 Height 63 in 12/16/2023 Weight 147 lbs 12/16/2023 BMI 26.04 kg/m2 12/16/2023 Encounters Encounter Location Date Provider Diagnosis [facility] [address] [place] [address] 12/16/2023 Jean Hairston Iron deficiency anemia D50.9 ; GERD (gastroesophageal reflux disease) K21.9 and 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 K22.70 Assessments Encounter Date Diagnosis (ICD Code) Assessment Notes Treatment Notes Treatment Clinical Notes Section Notes 12/16/2023 Iron deficiency anemia (ICD-10 - D50.9) Overall, Trish seems to be doing well from a GI standpoint. We did review the finding of the Amaro's esophagus with its theoretical increased risk of esophageal cancer. 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 I advised her of the need for a followup upper endoscopy in 2024 for further surveillance in regards to the Amaro's esophagus. We also discussed her negative colonoscopy and need for a followup colonoscopy in 2031 for further screening purposes as well. In regard to her anemia I shall check some followup laboratories to be sure that is stable and she does not need any further iron infusions. If things remain well she would see me on a p.r.n. basis. I advised her and her daughter to certainly call if I can be of any further assistance prior to her next upper endoscopy in 2024. They were both comfortable with this plan. Thank you again for allowing me to participate in Trish's care. I shall continue to keep you advised of her progress. 12/16/2023 GERD (gastroesophage al reflux disease) (ICD-10 - K21.9) Overall, Trish seems to be doing well from a GI standpoint. We did review the finding of the Amaro's esophagus with its theoretical increased risk of esophageal cancer. 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 I advised her of the need for a followup upper endoscopy in 2024 for further surveillance in regards to the Amaro's esophagus. We also discussed her negative colonoscopy and need for a followup colonoscopy in 2031 for further screening purposes as well. In regard to her anemia I shall check some followup laboratories to be sure that is stable and she does not need any further iron infusions. If things remain well she would see me on a p.r.n. basis. I advised her and her daughter to certainly call if I can be of any further assistance prior to her next upper endoscopy in 2024. They were both comfortable with this plan. Thank you again for allowing me to participate in Trish's care. I shall continue to keep you advised of her progress. 12/16/2023 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 (ICD-10 - K22.70) Repeat upper endoscopy in 2024 for the Amaro's Overall, Trish seems to be doing well from a GI standpoint. We did review the finding of the Amaro's esophagus with its theoretical increased risk of esophageal cancer. 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 I advised her of the need for a followup upper endoscopy in 2024 for further surveillance in regards to the Amaro's esophagus. We also discussed her negative colonoscopy and need for a followup colonoscopy in 2031 for further screening purposes as well. In regard to her anemia I shall check some followup laboratories to be sure that is stable and she does not need any further iron infusions. If things remain well she would see me on a p.r.n. basis. I advised her and her daughter to certainly call if I can be of any further assistance prior to her next upper endoscopy in 2024. They were both comfortable with this plan. Thank you again for allowing me to participate in Trish's care. I shall continue to keep you advised of her progress. Plan Of Treatment Treatment Notes Assessment Notes 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 Re peat upper endoscopy in 2024 for the Amaro's Pending Test Test Name Order Date IRON + IBC (FE) 12/16/2023 VITAMIN B12 AND FOLATE 12/16/2023 CBC w DIFF 12/16/2023 Ferritin 12/16/2023 Next Appt Details Follow Up: prn, Reason: Progress Notes * TRISH FULLERDOB: 6 (68 yo F)Acc No.[id number]:12/16/2023 Progress Notes Patient:?TRISH FULLER Provider:?Jean Hairston MD :1955???Age:68 Y???Sex:Female D ate:12/16/2023 Address:[address] [place] [address] Pcp:Ollie Hernandez Subjective: * Chief Complaints: * ???Patient presents today fo r anemia * HPI: ???incontinence:? I saw Trish in followup today in regard to her iron deficiency anemia, gastroesophageal reflux, and Amaro's esophagus. She was accompanied by her daughter, Natividad. ?I last saw Trish in August 2022, at which time she underwent an upper endoscopy and colonoscopy for evaluation of her anemia. Her colonoscopy was negative for any polyps or other lesions that would account for anemia. Her upper endoscopy did reveal a hiatal hernia and small areas of Amaro's esophagus, but without any sign of esophagitis. Biopsies from the Amaro's esophagus were negative for dysplasia. She did have some mild gastritis with biopsies negative for H. pylori. Duodenal biopsies were negative for celiac disease. ?Since that time she has been doing well from a GI standpoint. She remains on omeprazole with good relief of reflux symptoms. She denies any dysphagia, anorexia, nausea, nor vomiting. She denies abdominal pain nor jaundice. Her bowel movements do remain somewhat irregular with occasional diarrhea. However, there's been no sign of bleeding. She also reports that she just recently had a stimulator placed for both fecal and urinary incontinence by Dr. Braswell. She describes that this has been working well in that regard. ?Her most recent lab work I have from June of 2023 revealed a hemoglobin of 11.1 with a normal MCV. She had 3 negative Hemoccult cards in May of 2022. She reports that she has not needed any iron infusions in over one year. * ROS:?General/Constitutional:?Change in appetite?denies.?Chills?denies.?Fatigue?denies.?Ophthalmologic:?Comments?all negative.?ENT:?Comments?all negative.?Respiratory:?hemoptysis?denies.?Cough?denies.?Cardiovascular:?Chest pain?denies.?Orthopnea?denies.?Gastrointestinal:?Comments?See HPI for details.?Genitourinary:?Hematuria?denies.?Dysuria?denies.?Musculoskeletal:?Painful joints?denies.?Weakness?denies.?Skin:?Itching?denies.?Rash?denies.?Neurologic:?Headache?denies.?Seizures?denies.?Psychiatric:?Comments?all negative.? * Medical History:? * Surgical History:?Left hip r eplacement Left knee replacement Cholecystectomy [place] [address] Saenz Urinary bladder stimulator placement in November of [address] Braswell * Hospitalization/Major Diagno stic Procedure:?No Hospitalization History. * Family History:?Father: dece ased.?Mother: , diagnosed with Heart disease.? No family history of colon cancer, IBD, nor celiac disease brother with bladder canceer. * Social History:?Tobacco Use:?Tobacco Use/Smoking?Patient is a?nonsmoker.?Drugs/Alcohol:?Alcohol Screen?Did you have a drink containing alcohol in the past year??Yes,?How often did you have a drink containing alcohol in the past year??2 to 4 times a month (2 points),?How many drinks did you have on a typical day when you were drinking in the past year??1 or 2 drinks (0 point),?How often did you have 6 or more drinks on one occasion in the past year??Never (0 point),?Points?2,?Interpretation?Negative.?Miscellaneous:?Marital status: . Occupation: retired. ???Nonsmoker; no sig alcohol. * Medications:?TakingCannabus Medical Marijuana CBD capsules Metoprolol Succinate ER 100 MG Tablet Extended Release 24 Hour 1 tablet Orally Once a dayCelecoxib 200 MG Capsule 1 capsule with food Orally Once a dayCarvedilol 6.25 MG Tablet 1 tablet with food Orally Twice a dayOmeprazole 20 MG Capsule Delayed Release 1 capsule 30 minutes before morning meal Orally Once a dayEliquis 5 MG Tablet 1 tablet Orally Twice a daySertraline HCl 100 MG Tablet 1 tablet Orally Once a daytraZODone HCl 100 MG Tablet 1 tablet at bedtime Orally Once a dayMultivitamin - Tablet 1 tablet Orally Once a dayCalcium 500 + D3 500-600 MG-UNIT Tablet 1 tablet with a meal Orally Once a dayclonazePAM 0.5 MG Tablet 1 tablet at bedtime Orally Once a dayTaking Cannabus Medical Marijuana CBD capsules Taking Metoprolol Succinate ER 100 MG Tablet Extended Release 24 Hour 1 tablet Orally Once a dayTaking Celecoxib 200 MG Capsule 1 capsule with food Orally Once a dayTaking Carvedilol 6.25 MG Tablet 1 tablet with food Orally Twice a dayTaking Omeprazole 20 MG Capsule Delayed Release 1 capsule 30 minutes before morning meal Orally Once a dayTaking Eliquis 5 MG Tablet 1 tablet Orally Twice a dayTaking Sertraline HCl 100 MG Tablet 1 tablet Orally Once a dayTaking traZODone HCl 100 MG Tablet 1 tablet at bedtime Orally Once a dayTaking Multivitamin - Tablet 1 tablet Orally Once a dayTaking Calcium 500 + D3 500-600 MG-UNIT Tablet 1 tablet with a meal Orally Once a dayTaking clonazePAM 0.5 MG Tablet 1 tablet at bedtime Orally Once a dayDiscontinuedBiotin 1000 MCG Tablet 1 tablet Orally Once a dayMedication List reviewed and reconciled with the patientDiscontinued Biotin 1000 MCG Tablet 1 tablet Orally Once a dayMedication List reviewed and reconciled with the patient * Allergies:?silver yes[Allerg ies Verified] Objective: * Vitals:?Wt: 147 lbs, Ht: 63 in, BMI:26.04 Index, BP: 00/00 mm Hg, Temp: 97.1. * Examination: ???General Examination: ?GENERAL APPEARANCE:?pleasant, well nourished, well developed, in no acute distress.?EYES:?sclera non-icteric.?ORAL CAVITY:?mucosa moist.?NECK/THYROID:?no cervical lymphadenopathy, neck supple.?SKIN:?nonjaundiced, no spider angiomata.?HEART:?S1, S2 normal.?LUNGS:?clear to auscultation bilaterally.?ABDOMEN:?normal bowel sounds, no guarding or rigidity, no guarding or rigidity, no masses palpable, soft, nontender, nondistended.?EXTREMITIES:?no edema.?NEUROLOGIC:?alert and oriented.? Assessment: * Assessment: 1.?Iron deficiency anemia - D50.9 (Primary)?2.?GERD (gastroesophageal reflux disease) - K21.9?3.?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 - K22.70? Overall, Trish seems to be doing well from a GI standpoint. We did review the finding of the Amaro's esophagus with its theoretical increased risk of esophageal cancer. 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 I advised her of the need for a followup upper endoscopy in 2024 for further surveillance in regards to the Amaro's esophagus. We also discussed her negative colonoscopy and need for a followup colonoscopy in 2031 for further screening purposes as well. In regard to her anemia I shall check some followup laboratories to be sure that is stable and she does not need any further iron infusions. If things remain well she would see me on a p.r.n. basis. I advised her and her daughter to certainly call if I can be of any further assistance prior to her next upper endoscopy in 2024. They were both comfortable with this plan. Thank you again for allowing me to participate in Trish's care. I shall continue to keep you advised of her progress. Plan: * Treatment: 2.?Amaro's esophagus witho ut dysplasia? Notes: Repeat upper endoscopy in 2024 for the Amaro's?? * Procedure Codes:?3017F COLOR ECTAL CA SCREEN DOC [id number] TOBACCO NON-CHSTD9390 BP SCR NOT PRFRM REC REASON NOS * Preventive Medicine:? ??Counseling:?Care goal follow-up plan:?Above Normal BMI Follow-up?Giving encouragement to exercise,?BMI management provided?Yes.? ??Urinary Incontinence:?Urinary Incontinence?Assessment:?Present,?Plan of care documented:?Yes,?Type of plan of care:?Lifestyle interventions.? * Follow Up:?prn * * Sign off status: Completed true * Provider:?Jean Hairston MD Date:? 024 Generated for Prem pappas/Mike/Biaitting on:?01/25/2025 09:04 AM EDT History and Physical Notes * HPI (History of Present Illness) Category Sub-Category Detail Notes Category Not es incontinence I saw Trish in followup today in regard to her iron deficiency anemia, gastroesophageal reflux, and Amaro's esophagus. She was accompanied by her daughter, Natividad. I last saw Trish in August 2022, at which time she underwent an upper endoscopy and colonoscopy for evaluation of her anemia. Her colonoscopy was negative for any polyps or other lesions that would account for anemia. Her upper endoscopy did reveal a hiatal hernia and small areas of Amaro's esophagus, but without any sign of esophagitis. Biopsies from the Amaro's esophagus were negative for dysplasia. She did have some mild gastritis with biopsies negative for H. pylori. Duodenal biopsies were negative for celiac disease. Since that time she has been doing well from a GI standpoint. She remains on omeprazole with good relief of reflux symptoms. She denies any dysphagia, anorexia, nausea, nor vomiting. She denies abdominal pain nor jaundice. Her bowel movements do remain somewhat irregular with occasional diarrhea. However, there's been no sign of bleeding. She also reports that she just recently had a stimulator placed for both fecal and urinary incontinence by Dr. Braswell. She describes that this has been working well in that regard. Her most recent lab work I have from June of 2023 revealed a hemoglobin of 11.1 with a normal MCV. She had 3 negative Hemoccult cards in May of 2022. She reports that she has not needed any iron infusions in over one year. Examination Category Sub-Category Detail Notes Category Not es General Examination GENERAL APPEARANCE: pleasant , well nourished, well developed, in no acute distress HEAD: EYES: sclera non-icteric EARS: NOSE: THROAT: NECK/THYROID: no cervical lymphade nopathy, neck supple HEART: S1, S2 normal CHEST: LUNGS: clear to auscultatio n bilaterally ABDOMEN: normal bowel sounds, no guarding or rigidity, no guarding or rigidity, no masses palpable, soft, nontender, nondistended NEUROLOGIC: alert and oriented SKIN: nonjaundiced, no spi kobe angiomata EXTREMITIES: no edema PERIPHERAL PULSES: BACK: BREASTS: MUSCULOSKELETAL: MALE GENITOURINARY: LYMPH NODES: RECTAL EXAM: FEMALE GENITOURINARY: ORAL CAVITY: mucosa moist
--- OUTSIDE RECORDS SUMMARY | 2025-01-25 09:04 | XMS_ITS ---
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 Generated for Maryjanei elyse/Mike/eTransmitting on:?01/25/2025 09:04 AM EDT
--- OUTSIDE RECORDS SUMMARY | 2025-01-25 09:05 | XMS_ITS | Patient Health Record ---
Author Organization [facility] Address [address] [place] [address] Care Team Providers Care Bottler Name Role Phone Ollie Hernandez Primary Care Provider Unavailab Jean Baires Unavailable [phone] Martin Dupree Unavailable Unavailable Allergies Allergen (clinical drug ingredient) Drug/Non Drug Allergy documented on EMR Reaction Allergy Type Onset Date Status silver (uncoded) Unknown Allergy Act nasim Reason For Referral No Information Medications Medication SIG (Take, Route, Frequency, Duration) Notes Start Date End Date Status Sertraline HCl 100 MG 1 tablet Orally On ce a day for 30 day(s) Active traZODone HCl 100 MG 1 tablet at bedtime Orally Once a day for 30 day(s) Active Omeprazole [...] day(s) Active Cannabus Medical Marijuana CBD Active clonazePAM 0.5 MG 1 tablet at bedtime Orally Once a day Active Metoprolol Succinate ER 100 MG 1 tablet Orally Once a day Active Multivitamin - 1 tablet Orally Once a day for 30 day(s) Active Calcium 500 + D3 500-600 MG-UNIT 1 tablet with a meal Orally Once a day for 30 day(s) Active Immunizations Vaccine Route Administration Date Status Comme nts Influenza Unknown 09/30/2021 Administered Social History Tobacco Use: Social History Observation [...] Negative Section Notes: Nonsmoker; no sig alcohol Nonsmoker; no sig alcohol Problems Problem Type SNOMED Code ICD Code Onset Dates Problem Status W/U Status Risk Notes Problem Esophageal reflux (891272885) Esophageal reflux (K21.9) Active confirmed Problem 578557472 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) Active confirmed Problem Iron deficiency anemia (31737077) Iron deficiency anemia (D50.9) Active confirmed Problem Gastritis (4094410) Gastritis (K29.70) Active confirmed Problem Gastroesophageal reflux disease (458255974) GERD (gastroesophageal reflux disease) (K21.9) Active confirmed Problem Diverticulosis of colon (180969307) Diverticulosis of colon (K57.30) Active confirmed Plan Of Treatment Pending Test Test Name Order Date IRON + IBC (FE) 12/16/2023 VITAMIN B12 AND FOLATE 12/16/2023 CBC w DIFF 12/16/2023 Ferritin 12/16/2023 Future Test Test Name Order Date UPPER GI ENDOSCOPY 07/07/2022 COLONOSCOPY 07/07/2022 Insurance Providers Payer Name Payer Address Payer Phone Subscriber Number Group Number Insured Name Patient Relationship to Insured Coverage Start Date Coverage End Date MEDICARE OF [place] [address] [place] [address] [id number] TOMASZ FULLER Self - patient is the insured [employer] CLAIMS [address] [place] [address] [phone] [id number] TOMASZ FULLER Self - patient is the insured Medical (General) History Medical History History ICD Code HTN Afib-[facility] [place] Denies RI,DM,CVA,Lung disease,renal dise ase GERD-never had an EGD Negative colonoscopy at age 51 and age 7 0 Anxiety Cardiac ablation in 2019 Anemia-Iron def-receiving Iron infusions with Dr. Dupree Negative colonoscopy in 08/2022 EGD 08/2022 with small area of Amaro's, neg. dysplasia; neg. Hpylori; negative duodenal biopsies for celiac disease Mild dementia Surgical History Surgery Date(Month/Year) Left hip replacement Left knee replacement Cholecystectomy [place] [address] Saenz Urinary bladder stimulator placement in November of [address] Braswell
== END ==
PROVIDERS: PCP Family Medicine; Visit Provider Nurse Practitioner Family
DX: R30.0 Dysuria (principal); N30.01 Acute cystitis with hematuria; R15.9 Full incontinence of feces; Z13.9 Encounter for screening, unspecified

== ENCOUNTER 2025-02-02 09:01 | Inpatient (IN) | payer MEDICARE, SELFPAY ==
[2025-02-02] VITALS (9 sets, daily range): BP systolic 119–152; BP diastolic 58–87; PULSE 63–83; RESP 17–18; TEMP 36.3–38; O2SAT 95–98; BMI 29.7; BMI 30.1
--- NOTE | ~2025-02-02 | CT_ITS ---
EXAMINATION: CT ABDOMEN PELVIS WITH IV CONTRAST HISTORY: weakness, fatigue unexplained WBC count, bandemia COMPARISON: Comparison is made with the prior examination dated 03/11/2023. TECHNIQUE: CT scan of the abdomen and pelvis was performed following administration of 85 mL Omnipaque 350 using standard departmental protocol. Coronal and sagittal reformatted images were generated and reviewed. Oral contrast material was not administered at the request of the referring physician. This CT exam was performed with one or more of the following dose reduction techniques: automated exposure control, adjustment of the mA and/or kV according to patient size, use of iterative reconstruction technique. DLP: 698 mGy-cm FINDINGS: LOWER CHEST: There is a focal airspace opacity in the medial aspect of the right lower lobe which may represent pneumonia. There is mild dependent atelectasis at both lung bases. There is no pleural effusion. CARDIOVASCULATURE: The heart is normal in size. There is no pericardial effusion. LIVER: The liver is normal in size and contour. No liver mass is identified. The hepatic and portal veins are patent. GALLBLADDER / BILE DUCTS: The gallbladder is surgically absent. There is moderate intra and extrahepatic biliary ductal dilatation. The common bile duct measures up to 14 mm in diameter. No obstructing calculus is seen by CT. SPLEEN: The spleen is normal in size. No focal splenic lesion is identified. PANCREAS: The pancreas is unremarkable in appearance. ADRENAL GLANDS: Within normal limits. KIDNEYS/RETROPERITONEUM: No renal calculi are identified. There is no hydronephrosis. No renal masses are identified. LYMPH NODES: No abdominal or pelvic lymphadenopathy. VASCULATURE: The abdominal aorta demonstrates atherosclerotic calcification, but is normal in caliber. MESENTERY/PERITONEUM: No free fluid. No masses. There is no free intraperitoneal gas. STOMACH: The stomach is unremarkable. SMALL BOWEL: The small bowel is normal in caliber. COLON: There is diverticulosis of the sigmoid colon, without evidence of diverticulitis. APPENDIX: Normal. URINARY BLADDER/PELVIC ORGANS: The urinary bladder is collapsed and partially obscured by streak artifact from a left total hip arthroplasty. The uterus is unremarkable. BONES / SOFT TISSUES: No suspicious bony or soft tissue abnormalities. A sacral stimulator is noted with its battery pack in the right gluteal region. CT/CT abdomen pelvis w IV con IMPRESSION: 1. Focal airspace opacity in the right lower lobe which may represent pneumonia. Follow-up is recommended. 2. Status post cholecystectomy. Moderate intra and extrahepatic biliary ductal dilatation. Depending on the made and model of the patient's sacral stimulator, it may be possible for the patient to undergo MRCP. Otherwise, ERCP should be considered. 3. Sigmoid diverticulosis without evidence of diverticulitis. Electronically signed by: Jean Newton MD 02/02/2025 01:58 PM EDT
--- NOTE | ~2025-02-02 | XR_ITS ---
EXAMINATION: XR LUMBOSACRAL SPINE CLINICAL INFORMATION: pain COMPARISON: 08/23/2024 TECHNIQUE: Three views of the lumbosacral spine. FINDINGS: There is a right-sided spinal stimulator device with lead extending into the left sacral region. There is a total left hip arthroplasty partially imaged, without complication. There is a minimal levoconvex scoliosis. There is a mildly exaggerated lumbar lordosis. There is no compression deformity, acute fracture, or suspicious bone lesion. There is a trace degenerative retrolisthesis of L4 on L5. Alignment is otherwise anatomic. Moderate disc degeneration noted T12-L1. There is otherwise only minimal disc degeneration. Facets are normally aligned. There is mild to moderate degenerative facet changes spanning L4-S1. There are arthritic changes in both SI joints. The sacrum appears intact. Cholecystectomy clips noted. Mild vascular calcifications in the soft tissues. XR/XR lumbar spine 2-3V IMPRESSION: 1. No acute lumbar spine bony abnormality. 2. Mild lumbar spondylosis as discussed. Minimal levoconvex scoliosis. 3. 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 4. Right-sided sacral spinal stimulator. Electronically signed by: Miguel Phan MD 02/02/2025 10:46 AM EDT
--- NOTE | ~2025-02-02 | XR_ITS ---
EXAMINATION: XR CHEST 1 VIEW HISTORY: weakness, unexplained WBC count bandemia COMPARISON: Comparison is made with the prior examination dated 10/19/2019. FINDINGS: A single AP portable view of the chest performed at 11:11 AM is submitted. There is linear subsegmental atelectasis versus scarring at both lung bases. There is no pleural effusion, pneumothorax, or pulmonary vascular congestion. The heart is normal in size. The bones are intact. XR/XR chest 1V IMPRESSION: Bibasilar subsegmental atelectasis versus scarring. Electronically signed by: Jean Newton MD 02/02/2025 11:23 AM EDT
--- NOTE | ~2025-02-02 | XR_ITS ---
EXAMINATION: XR KNEE 4 OR MORE VIEWS LEFT HISTORY: pain COMPARISON: Comparison is made with the prior examination dated 09/27/2020. FINDINGS: Four views of the left knee are submitted. Osseous mineralization is normal. The patient is again noted to be status post total knee arthroplasty. The orthopedic elements are in anatomic alignment. There is no radiographic evidence of loosening. There is no fracture or dislocation. There is a small joint effusion. XR/XR knee LT 4V IMPRESSION: Status post left total knee arthroplasty. Small joint effusion. Electronically signed by: Jean Newton MD 02/02/2025 10:44 AM EDT
--- NOTE | ~2025-02-02 | XR_ITS ---
EXAMINATION: XR HIP 2 OR MORE VIEWS LEFT HISTORY: pain COMPARISON: Comparison is made with the prior examination dated 05/30/2024. FINDINGS: A single AP view of the pelvis and two views of the left hip are submitted. The patient is again noted to be status post total hip arthroplasty. The orthopedic elements are in anatomic alignment. There is no radiographic evidence of loosening. There is no fracture or dislocation. The soft tissues are unremarkable. Sacral stimulator is again seen in place. XR/XR hip LT min 2V IMPRESSION: Status post left total hip arthroplasty. Electronically signed by: Jean Newton MD 02/02/2025 10:41 AM EDT
--- NOTE | 2025-02-02 09:23 | ED_ITS ---
HPI - Weakness General Chief complaint: General Medical Stated complaint: Flu like symptoms/ sliding fall unwitness per ems Time Seen by Provider: 02/02/25 09:01 Source: patient, family, EMS and old records reviewed Mode of arrival: EMS Limitations: no limitations History of Present Illness ED Provider: MONIKA HPI Narrative: 69 yo female with PMH of back pain, prior L hip and knee joint replacement - follows at [facility] told knee has hardware loosening, depresion, anxiety, PAF on eliquis but cannot afford it x 2 weeks, HLD, GERD, anemia, who notes she did a lot more housework yesterday than usual afterwards she started to have severe low back pain, L hip pain and L knee pain. No preceding illness or trauma. Her and her adamantly deny any falls or rolling off the cough. They came today due to her not being able to get up and walk. No b/b incontinence no saddle anesthesia. She has not taken her eliquis in 2 weeks due to cost. No abdominal pain, no fevers. She has been on her couch unable to move due to pain since 8pm yesterday initially patient denied any recent infections or issues but on chart review I noted recent positive urine culture on 01/25/25 went to urgent care + for UTI culture is proteus martin sensitive to everything but macrobid which she was started on it looks like on 01/29 she was started on bactrim and then amoxicillin - she states the macrobid didn't work and then she only took one dose of either bactrim or amoxicillin. She states she felt sick to her stomach and couldn't take the medications. Complaint: difficulty walking Onset (ago): hour(s) (several) Duration: constant Location: LLE and other (back) Migration: none Severity: severe Quality: sharp and dull Relieving factors: rest Exacerbating factors: movement Context: other Associated symptoms: denies other symptoms Related Data Home Medications ?Medication ?Instructions ?Recorded ?Confirmed calcium 500 mg (as 1 tab PO DAILY 05/07/22 01/25/25 carbonate)-vitamin D3 3.125 mcg (125 unit) tablet xeglbuqx-fue-idho-FA-Ca carb-vit K 1 tab PO DAILY 05/07/22 01/25/25 18 mg iron-400 mcg-500 mg tablet cholecalciferol (vitamin D3) 50 50 mcg PO DAILY 01/13/23 01/25/25 mcg (2,000 unit) capsule Previous Rx's ?Medication ?Instructions ?Recorded menthol 0.44 %-zinc oxide 20.6 % 1 appl topical BID PRN skin 03/09/23 topical ointment (Calmoseptine) irritation #113 grams menthol 0.44 %-zinc oxide 20.6 % 1 appl topical BID PRN skin 02/17/24 topical ointment (Calmoseptine) irritation 30 days #113 grams omeprazole 40 mg capsule,delayed 40 mg PO DAILY 90 days #90 caps 05/31/24 release diaper,brief,adult,disposable #120 ea 06/05/24 carvedilol 6.25 mg tablet 6.25 mg PO BID #180 tabs 08/21/24 apixaban 5 mg tablet (Eliquis) 5 mg PO BID 90 days #180 tabs 09/13/24 bupropion HCl 150 mg 24 hr tablet, 150 mg PO QAM 90 days #90 tabs 09/13/24 extended release losartan 25 mg tablet 25 mg PO DAILY 30 days #30 tabs 09/13/24 loperamide 2 mg capsule 2 mg PO Q6H PRN loose stool #30 11/10/24 caps clonazepam 0.5 mg tablet (Klonopin) 0.5 mg PO BID anxiety 30 days #60 01/07/25 tabs celecoxib 200 mg capsule 200 mg PO DAILY 30 days #30 caps 01/24/25 tramadol 50 mg tablet 50 mg PO TID PRN pain 30 days #12 01/25/25 tabs sulfamethoxazole 800 1 tab PO BID #10 tabs 01/29/25 mg-trimethoprim 160 mg tablet (Bactrim DS) quetiapine 25 mg tablet (Seroquel) 12.5 mg (1/2 x 25 mg) PO BEDTIME 01/30/25 #30 tabs donepezil 10 mg tablet 10 mg PO DAILY 90 days #90 tabs 02/01/25 trazodone 100 mg tablet See Rx Instructions PO BEDTIME PRN 02/01/25 insomnia 90 days #90 tabs Allergies Allergy/AdvReac Type Severity Reaction Status Date / Time silver sulfadiazine AdvReac Mild skin Verified 02/02/25 09:16 [From Silvadene] irritation Review of Systems 2 Review of Systems: Constitutional : No Weight loss, No Fever, No Chills, ENT/Mouth : No Hearing loss, No Ear Pain, No Nasal Congestion, No Sinus Pain, No Hoarseness, No sore throat, No Rhinorrhea, No Swallowing Difficulty Cardiovascular : No Chest Pain, No SOB Respiratory : No Cough, No Dyspnea Gastrointestinal : No Nausea, No Vomiting, No Diarrhea, No abdominal Pain, No Hematochezia, No Melena Genitourinary : No Dysuria, No Urinary Frequency, No Hematuria, No Urinary Incontinence, Musculoskeletal : positive back pain, pos joint pain Skin : No Skin Lesions, No rash Neuro : No Weakness, No Numbness, No Paresthesias, no loss of bowel or bladder incontinence, no saddle anesthesia All other systems are reviewed and are negative PMFSH Past Medical History Attestation statement: The following information was validated with the patient. Source: old records reviewed Medical History Personal history of nicotine dependence Lump in neck Bilateral hip pain Osteopenia Barretts esophagus Anxiety Sleep apnea Dementia Chronic abdominal pain Mastodynia of left breast HTN (hypertension) Normocytic anemia Depression with anxiety SVT (supraventricular tachycardia) Atrial fibrillation Surgical History Hx of flexible sigmoidoscopy Status post insertion of nerve stimulator History of cholecystectomy (05/04/23) History of esophagogastroduodenoscopy (EGD) Hx of colonoscopy History of total hip replacement History of prior ablation treatment H/O heart surgery History of left knee replacement Family History Family History Brother Lung cancer Brother Bladder cancer Social History Social History Household Members: Spouse and Children Housing: House Are you a primary health care marketing specialist to a significant other at home: No Do you presently have visiting nurse or other home services: No Alcohol intake: current Alcohol intake frequency: 0-2 drinks per day Alcohol type: beer Patient Tobacco Use Status: Former Tobacco user Smoked in Last 30 Days: No e-Cigarette/Vaping Use: Never Used Second Hand Smoke Exposure: No Use of substances other than those prescribed or required for medical reasons: No Advance Directives: No Advance Directives Information Provided: Yes service: No Current occupational status: retired Current occupational exposures/hazards: No Cognitive needs: No Hearing needs: No Vision needs: Yes Physical Exam 2 Vital Signs: Vital Signs: Last Vital Signs Temp 98.3 F 02/02/25 11:42 Pulse 74 02/02/25 11:42 Resp 147 H 02/02/25 11:42 BP 139/63 02/02/25 11:17 Pulse Ox 97 02/02/25 11:42 O2 Del Method Room Air 02/02/25 11:17 BMI result Body Mass Index 29.7 Appearance: Alert. Oriented X3. No acute distress. Eyes: Pupils equal, round and reactive to light. ENT: Pharynx normal. Neck: Normal inspection. Neck supple. CVS: Normal heart rate and rhythm. Pulses normal. Respiratory: No respiratory distress. Breath sounds normal. Abdomen: Soft and non-tender. Back: moderate ttp along both sides of lumbar spine Skin: Skin warm and dry. Normal skin color. Normal skin turgor. Extremities: No lower extremity edema. L knee no redness, warmth but both hip and knee c/o pain - distal NV intact, she can move and plantar and dorsiflex the leg SILT intact, 2+ DP pulses Neuro: Oriented X 3. No motor deficit. No sensory deficit. CN2-12 intact Medications Administered Discontinued Medications Generic Name Dose Route Start Last Admin Trade Name Normanq PRN Reason Stop Dose Admin Ceftriaxone Sodium 2 gm 02/02/25 10:45 02/02/25 11:14 Ceftriaxone Sodium 2 Gm Vial IVPUSH 02/02/25 10:46 2 gm ONCE ONE Administration Hydromorphone HCl 1 mg 02/02/25 09:21 02/02/25 10:36 Hydromorphone Hcl 1 Mg/Ml Syringe IVPUSH 02/02/25 09:22 1 mg ONCE ONE Administration Protocol Acetaminophen 1,000 mg in 100 mls @ 400 mls/hr 02/02/25 10:47 02/02/25 12:25 Ofirmev IV 02/02/25 11:01 Infused ONCE ONE Infusion Iohexol 100 ml 02/02/25 13:20 02/02/25 13:21 Iohexol 350 Mg/Ml 100 Ml Infus..Btl IV 02/02/25 13:21 85 ml ONCE ONE Administration Medical Decision Making Medical Decision Making MDM Narrative: 69 yo female with PMH of back pain, prior L hip and knee joint replacement - follows at [facility] told knee has hardware loosening, depresion, anxiety, PAF on eliquis but cannot afford it x 2 weeks, HLD, GERD, anemia here with c/o back pain hip pain and knee pain after extensive movements yesterday that she normally does not do. She has no signs of cauda equina and is NV intact. No signs of infection of the joints either. At this time I am going to obtain labs, CPK and xrays of joints involved. Suspect possible worsening arthralgia after significant house work and movements that are out of her ordinary daily life. She also had recent UTI I wonder if this could be related to that or ureterolithiasis added on CXR, lactic acid, cultures, CT scan abdomen for possible stone - IV ceftriaxone ordered. infection suspected at 1050am - suspect this is likely pyelonephritis vs infected stone Differential Diagnosis Differential Diagnoses: The differential diagnosis associated with the presentation includes strain, sprain, spasm after review of chart suspect untreated UTI/pyelo 1050am pain is diffuse in hip, back, knee - clinically exam not consistent with septic joint and pain on back is not midline seems atypical for osteo, abcess, disciitis Admission/Observation Consideration of admission/observation: Escalation of care including admission/observation considered admit given failed outpatient abx treatment and now possible RLL pneumonia Consult Healthcare Provider Management of the patient was discussed with: Hospitalist (will admit) Lab Data [facility] Lab Attestation statement: I reviewed the patient's lab results. 02/02/25 09:48 02/02/25 09:48 Labs: Lab Results 02/02/25 02/02/25 02/02/25 Range/Units 09:48 10:54 10:56 WBC 14.3 H (4.8-10.8) X10*3/uL RBC 3.73 L (4.20-5.50) X10*6/uL Hgb 11.5 L (12.0-16.0) g/dl Hct 33.7 L (37.0-47.0) % MCV 90.3 (80.0-98.0) fL MCH 30.8 (27.0-33.0) pg MCHC 34.1 (31.0-35.0) g/dl RDW 14.2 (11.0-16.0) % Plt Count 257 (160-400) X10*3/uL MPV 9.3 L (9.4-12.3) fL Immature Gran % (Auto) Cancelled Neut % (Auto) Cancelled Lymph % (Auto) Cancelled [place] % (Auto) Cancelled Eos % (Auto) Cancelled Baso % (Auto) Cancelled Lymph # (Auto) Cancelled [place] # (Auto) Cancelled Eos # (Auto) Cancelled Baso # (Auto) Cancelled Abs Immat Gran (auto) Cancelled Absolute Neuts (auto) Cancelled Absolute Nucleated RBC 0.000 (0.0-0.012) X10*3/uL Nucleated RBC % (auto) 0.0 (0.0-0.2) /100WBC Neutrophils % (Manual) 83 H (45-73) % Band Neutrophils % 11 H (3-5) % Lymphocytes % (Manual) 5 L (20-40) % Metamyelocytes % 1 % Abs Neuts (Manual) 13.4 H (2.0-8.3) X10*3/uL Lymphocytes # (Manual) 0.7 L (1.2-4.9) X10*3/uL Metamyelocytes # 0.1 X10*3/uL Toxic Vacuolation PRESENT Platelet Estimate NORMAL (NORMAL) Large Platelets PRESENT Plt Morphology Comment NOTED RBC Morphology NOTED Ovalocytes 1+ (5-14) /OIF ESR 22 H (0-20) MM/HR Sodium 137 (135-145) mmol/L Potassium 4.6 (3.3-5.1) mmol/L Chloride 108 (96-108) mmol/L Carbon Dioxide 24 (22-29) mmol/L Anion Gap 10 L (12-20) BUN 22 H (9-16) mg/dL Creatinine 0.78 (0.5-1.4) mg/dL Estim Creat Clear Calc 67.4 Estimated GFR > 60 Random Glucose 128 H (60-115) mg/dL Lactic Acid 1.5 (0.5-2.0) mmol/L Calcium 9.2 (8.4-10.2) mg/dL Magnesium 1.7 (1.6-2.6) mg/dL Total Bilirubin 0.3 (0.0-1.0) mg/dL Direct Bilirubin 0.1 (0.0-0.5) mg/dL AST 32 H (5-31) U/L ALT 13 (0-31) U/L Alkaline Phosphatase 84 (39-117) U/L Total Creatine Kinase 55 (26-140) U/L C-Reactive Protein 11.45 H (< or = 0.50) mg/dL Total Protein 6.7 (6.5-8.0) g/dL Albumin 3.6 (3.5-5.0) g/dL Lipase 9 (8-78) U/L Urine Color Yellow Urine Appearance Clear Urine pH 6.0 (5.0-9.0) Ur Specific [place] 1.025 (1.005-1.025) Urine Protein 30 (1+) H (Neg-Trace) mg/dL Urine Glucose (UA) Negative (Negative) mg/dL Urine Ketones 15 (Negative) mg/dL Urine Blood Negative (Negative) Urine Nitrite Negative (Negative) Ur Leukocyte Esterase Small (1+) H (Negative) Urine RBC 0-2 (0-2) /HPF Urine WBC 0-5 (0-5) /HPF Ur Squamous Epith Cells 3-5 (0-2) /HPF Urine Bacteria None Seen (None Seen) Hyaline Casts 0-2 (0-2) /LPF Influenza Type A (PCR) NEGATIVE (Negative) Influenza Type B (PCR) NEGATIVE (Negative) RSV RNA Qual (PCR) NEGATIVE (Negative) SARS-CoV-2 RNA (RT-PCR) NEGATIVE (Negative) Independent Interpretation I performed an independent interpretation of an: EKG, Plain X-Ray (normal ) and CT Scan (RLL opacity) Interpretation: Rate: 74 Rhythm: NSR [place]: normal Normal P waves. Normal ARPAN. Normal QRS complex. ST T wave : no HOWIE, normal qTC: 450 prior studies: no acute ischemia The study has been interpreted contemporaneously by me. . Radiology Impression Discussion of test interpretation with radiology: I have reviewed the radiologist's reading. Independent Historian Clinical information obtained from an independent historian. History obtained from or confirmed by: Spouse and EMS External Record Review External record reviewed: Outpatient record Critical Care Time Critical Care Time Critical Care Time: Yes Total Critical Care Time: 45 Attestation: sepsis protocol, review of records, admission I attest to this time spent taking care of the patient Discharge Plan Discharge Clinical Impression: Bandemia, Fever, Joint pain, Right lower lobe pneumonia Patient Disposition: Admitted As Inpatient Print Language: Luxembourgish
[2025-02-02 09:55] LABS: Hematocrit 33.7 % (37.0-47.0); Hemoglobin 11.5 g/dl (12.0-16.0); Mean Corpuscular HGB Conc 34.1 g/dl (31.0-35.0); Mean Corpuscular Hemoglobin 30.8 pg (27.0-33.0); Mean Corpuscular Volume 90.3 fL (80.0-98.0); Mean Platelet Volume 9.3 fL (9.4-12.3); Platelet Count 257 X10*3/uL (160-400); Red Blood Count 3.73 X10*6/uL (4.20-5.50); Red Cell Distribution Width 14.2 % (11.0-16.0); White Blood Count 14.3 X10*3/uL (4.8-10.8)
[2025-02-02 10:27] LABS: Alanine Aminotransferase 13 U/L (0-31); Albumin Level 3.6 g/dL (3.5-5.0); Alkaline Phosphatase 84 U/L (39-117); Anion Gap 10 (12-20); Aspartate Amino Transferase 32 U/L (5-31); Bilirubin Direct 0.1 mg/dL (0.0-0.5); Bilirubin Total 0.3 mg/dL (0.0-1.0); Blood Urea Nitrogen 22 mg/dL (9-16); C Reactive Protein 11.45 mg/dL (< or = 0.50); Calcium 9.2 mg/dL (8.4-10.2); Carbon Dioxide 24 mmol/L (22-29); Chloride 108 mmol/L (96-108); Creatinine Clr Calc Pharmacy 67.4; Estimated Glomerular Filt Rate > 60; Glucose Random 128 mg/dL (60-115); Lipase 9 U/L (8-78); Magnesium 1.7 mg/dL (1.6-2.6); Potassium 4.6 mmol/L (3.3-5.1); Sodium 137 mmol/L (135-145); Total Protein 6.7 g/dL (6.5-8.0)
[2025-02-02 10:30] LABS: Influenza A PCR NEGATIVE (Negative); Influenza B PCR NEGATIVE (Negative); Resp Syncy Virus RNA Qual PCR NEGATIVE (Negative); SARS COV2 PCR INHOUSE NEGATIVE (Negative)
[2025-02-02 10:31] LABS: Erythrocyte Sedimentation Rate 22 MM/HR (0-20)
[2025-02-02] MEDS: HYDROmorphone HCl 1 MG/ML SYRINGE IVPUSH (10:36)
[2025-02-02 10:44] LABS: Neutrophils Percent Manual 83 % (45-73)
[2025-02-02 10:45] LABS: Band Neutrophils Percent 11 % (3-5); Large Platelet PRESENT; Lymphocytes Absolute Manual 0.7 X10*3/uL (1.2-4.9); Lymphocytes Percent Manual 5 % (20-40); Metamyelocytes Absolute 0.1 X10*3/uL; Metamyelocytes Percent 1 %; Neutrophils Absolute Manual 13.4 X10*3/uL (2.0-8.3); Ovalocytes 1+ (5-14) /OIF; Platelet Estimate NORMAL (NORMAL); Platelet Morphology Comment NOTED; RBC Morphology NOTED; Toxic Vacuolation PRESENT
--- NOTE | 2025-02-02 10:45 | ECG_ITS ---
Test Reason : weakness Blood Pressure : */* mmHG Vent. Rate : 74 BPM Atrial Rate : 74 BPM P-R Int : 166 ms QRS Dur : 86 ms QT Int : 406 ms P-R-T Axes : 74 53 70 degrees QTcB Int : 450 ms Sinus rhythm with Premature atrial complexes Otherwise normal ECG When compared with ECG of 04-May-2023 10:33, Premature atrial complexes are now Present Referred By: Rosemary Mendes Electronically Signed By: OPAL SAUCEDO MD
[2025-02-02 11:08] LABS: Appearance Urine Clear; Color Urine Yellow; Glucose Urine UA Negative (Negative); Leukocyte Esterase Urine Small (1+) (Negative); Nitrite Urine Negative (Negative); Specific Gravity - Urine 1.025 (1.005-1.025); UMIC TRIGGER UACC YES; Urine Blood Negative (Negative); Urine Ketones 15 mg/dL (Negative); Urine Protein 30 (1+) mg/dL (Neg-Trace)
[2025-02-02] MEDS: cefTRIAXone sodium 2 GM VIAL IVPUSH (11:14)
[2025-02-02 11:29] LABS: Lactic Acid 1.5 mmol/L (0.5-2.0)
[2025-02-02 11:29] LABS: Bacteria Urine None Seen (None Seen); Hyaline Casts Urine 0-2 /LPF (0-2); RBC Urine 0-2 /HPF (0-2); UACC Culture Trigger YES; WBC Urine 0-5 /HPF (0-5)
[2025-02-02] MEDS: Acetaminophen 1,000 MG/100 ML PIGGYBACK 400 MG IV (11:42)
[2025-02-02] MEDS: iohexoL 350 MG/ML 100 ML INFUS..BTL IV (13:21)
[2025-02-02] MEDS: Azithromycin 500 MG in 0.9 % Sodium Chloride 250 ML 125 MG IV (14:33)
--- NOTE | 2025-02-02 15:04 | PM.IMHP ---
History of Present Illness Date of Service: 02/02/25 Chief Complaint: left knee pain 69F PMH osteoarthritis, status post left hip and knee replacement with hardware loosening, paroxysmal AFib no longer on Eliquis due to financial reasons, chronic back pain status post stimulator, hypertension, unspecified dementia, mood disorder presented with left knee pain. Patient states that her left knee has been hurting her for some time now but on day of presentation patient was not able to walk. Patient also complaining of dry cough for several days without fevers or chills. Of note patient was having dysuria several days ago and was treated for urinary tract infection that grew Proteus pansensitive to everything except for Macrobid has been inconsistent with taking her antibiotics, but denies dysuria currently. In ED left knee x-ray showing mild effusion, lab significant for leukocytosis with left shift, CT abdomen and pelvis showing right lower lobe pneumonia. Review of Systems Review of Systems: Yes all other systems are reviewed and [facility] History Personal history of nicotine dependence Lump in neck Bilateral hip pain Osteopenia Barretts esophagus Anxiety Sleep apnea Dementia Chronic abdominal pain Mastodynia of left breast HTN (hypertension) Normocytic anemia Depression with anxiety SVT (supraventricular tachycardia) Atrial fibrillation Family History Brother Lung cancer Brother Bladder cancer Surgical History Hx of flexible sigmoidoscopy Status post insertion of nerve stimulator History of cholecystectomy (05/04/23) History of esophagogastroduodenoscopy (EGD) Hx of colonoscopy History of total hip replacement History of prior ablation treatment H/O heart surgery History of left knee replacement Social History Household Members: Spouse and Children Housing: House Are you a primary child care centre manager to a significant other at home: No Do you presently have visiting nurse or other home services: No Alcohol intake: current Alcohol intake frequency: 0-2 drinks per day Alcohol type: beer Patient Tobacco Use Status: Former Tobacco user Smoked in Last 30 Days: No e-Cigarette/Vaping Use: Never Used Second Hand Smoke Exposure: No Use of substances other than those prescribed or required for medical reasons: No Advance Directives: No Advance Directives Information Provided: Yes service: No Current occupational status: retired Current occupational exposures/hazards: No Cognitive needs: No Hearing needs: No Vision needs: Yes Meds Allergies Allergy/AdvReac Type Severity Reaction Status Date / Time silver sulfadiazine AdvReac Mild skin Verified 02/02/25 09:16 [From Silvadene] irritation Active Medications: Current Medications Apixaban (Apixaban 5 Mg Tablet) 5 mg PO BID JUAN Azithromycin (Azithromycin 500 Mg Tablet) 500 mg PO Q24H JUAN Ceftriaxone Sodium (Ceftriaxone Sodium 1 Gm Vial) 1 gm IVPUSH Q24H JUAN Azithromycin 500 mg/ Sodium (Chloride) 250 mls @ 125 mls/hr IV ONCE ONE Stop: 02/02/25 16:15 Last Admin: 02/02/25 14:33 Dose: 125 mls/hr Home Medications ?Medication ?Instructions ?Recorded ?Confirmed ?Last Taken ?Type calcium 500 mg (as 1 tab PO DAILY 05/07/22 01/25/25 Unknown History carbonate)-vitamin D3 3.125 mcg (125 unit) tablet zdkvkwfc-aze-xhev-FA-Ca carb-vit K 1 tab PO DAILY 05/07/22 01/25/25 Unknown History 18 mg iron-400 mcg-500 mg tablet cholecalciferol (vitamin D3) 50 50 mcg PO DAILY 01/13/23 01/25/25 Unknown History mcg (2,000 unit) capsule Physical Exam Vital Signs and Narrative: Vital Signs: Last Vital Signs Temp 98.7 F 02/02/25 14:00 Pulse 70 02/02/25 14:00 Resp 18 02/02/25 14:00 BP 119/58 L 02/02/25 14:00 Pulse Ox 98 02/02/25 14:00 O2 Del Method Room Air 02/02/25 14:00 BMI result Body Mass Index 29.7 General: AO X 3, no acute distress Resp: CTA bilateral, no accessory muscles used CVS: S1,S2,RRR GI: soft, non tender, non distended Neuro: motor grossly intact, alert, resting tremor/EPS Psych: appropriate affect, appropriate insight Results Labs 02/02/25 09:48 02/02/25 09:48 Labs: Laboratory Results - last 24 hr 02/02/25 02/02/25 02/02/25 09:48 10:54 10:56 MCV 90.3 MCH 30.8 MCHC 34.1 RDW 14.2 Plt Count 257 MPV 9.3 L Immature Gran % (Auto) Cancelled Neut % (Auto) Cancelled Lymph % (Auto) Cancelled [place] % (Auto) Cancelled Eos % (Auto) Cancelled Baso % (Auto) Cancelled Lymph # (Auto) Cancelled [place] # (Auto) Cancelled Eos # (Auto) Cancelled Baso # (Auto) Cancelled Abs Immat Gran (auto) Cancelled Absolute Neuts (auto) Cancelled Absolute Nucleated RBC 0.000 Nucleated RBC % (auto) 0.0 Neutrophils % (Manual) 83 H Band Neutrophils % 11 H Lymphocytes % (Manual) 5 L Metamyelocytes % 1 Abs Neuts (Manual) 13.4 H Lymphocytes # (Manual) 0.7 L Metamyelocytes # 0.1 Toxic Vacuolation PRESENT Platelet Estimate NORMAL Large Platelets PRESENT Plt Morphology Comment NOTED RBC Morphology NOTED Ovalocytes 1+ (5-14) ESR 22 H Anion Gap 10 L Estim Creat Clear Calc 67.4 Estimated GFR > 60 Random Glucose 128 H Lactic Acid 1.5 Calcium 9.2 Magnesium 1.7 Total Bilirubin 0.3 Direct Bilirubin 0.1 AST 32 H ALT 13 Alkaline Phosphatase 84 Total Creatine Kinase 55 C-Reactive Protein 11.45 H Total Protein 6.7 Albumin 3.6 Lipase 9 Urine Color Yellow Urine Appearance Clear Urine pH 6.0 Ur Specific [place] 1.025 Urine Protein 30 (1+) H Urine Glucose (UA) Negative Urine Ketones 15 Urine Blood Negative Urine Nitrite Negative Ur Leukocyte Esterase Small (1+) H Urine RBC 0-2 Urine WBC 0-5 Ur Squamous Epith Cells 3-5 Urine Bacteria None Seen Hyaline Casts 0-2 Influenza Type A (PCR) NEGATIVE Influenza Type B (PCR) NEGATIVE RSV RNA Qual (PCR) NEGATIVE SARS-CoV-2 RNA (RT-PCR) NEGATIVE Imaging Radiologist's Impressions: Impressions Hip X-Ray 02/02/25 10:00 IMPRESSION: Status post left total hip arthroplasty. Electronically signed by: Jean Newton MD 02/02/2025 10:41 AM EDT Knee X-Ray 02/02/25 10:00 IMPRESSION: Status post left total knee arthroplasty. Small joint effusion. Electronically signed by: Jean Newton MD 02/02/2025 10:44 AM EDT RP Lumbar Spine X-Ray 02/02/25 10:00 IMPRESSION: 1. No acute lumbar spine bony abnormality. 2. Mild lumbar spondylosis as discussed. Minimal levoconvex scoliosis. 3. 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 4. Right-sided sacral spinal stimulator. Electronically signed by: Miguel Phan MD 02/02/2025 10:46 AM EDT RP Chest X-Ray 02/02/25 11:08 IMPRESSION: Bibasilar subsegmental atelectasis versus scarring. Electronically signed by: Jean Newton MD 02/02/2025 11:23 AM EDT RP Abdomen/Pelvis CT 02/02/25 13:06 IMPRESSION: 1. Focal airspace opacity in the right lower lobe which may represent pneumonia. Follow-up is recommended. 2. Status post cholecystectomy. Moderate intra and extrahepatic biliary ductal dilatation. Depending on the made and model of the patient's sacral stimulator, it may be possible for the patient to undergo MRCP. Otherwise, ERCP should be considered. 3. Sigmoid diverticulosis without evidence of diverticulitis. Electronically signed by: Jean Newton MD 02/02/2025 01:58 PM EDT RP Assessment and Plan (1) Anxiety: Status: Acute Plan 69F PMH osteoarthritis, status post left hip and knee replacement with hardware loosening, paroxysmal AFib no longer on Eliquis due to financial reasons, chronic back pain status post stimulator, hypertension, unspecified dementia, mood disorder presented with left knee pain Left knee pain Will need to follow up with Orthopedics at [facility] PT eval Pain control Right lower lobe pneumonia Ceftriaxone azithromycin, follow up cultures Urinary tract infection Ceftriaxone Paroxysmal AFib Carvedilol, Eliquis DVT prophylaxis on Eliquis DNR/DNI Patient with significant symptoms and inability ambulate as well as left shift concerning for worsening infection therefore expected require at least 2 midnights inpatient Quality Stroke Does the patient have a stroke diagnosis?: No VTE Prior VTE?: No VTE Risk Level:: Medical - moderate - high VTE Device Contraindication: Treatment Not Indicated VTE Drug Contraindication: N/A - Med Ordered
--- NOTE | 2025-02-02 15:13 | PHA.MEDREC ---
Addendum entered by John Lundberg 02/02/25 15:26: reviewed Original Note: Pharmacy Consult ? Medication Reconciliation Pharmacy has completed the medication reconciliation. Got list from patients chart and I spoke with patient and she was not sure what she takes for medications and states her takes care of her meds. I went to call her but he was not a contact and I called the patients daughter Natividad and she was able to confirm the patients medications with me. She stated her mom has not taken any Eliquis 5mg tabs since the beginning of the year due to high copays and stated her mom started taking a Baby Aspirin tablet and tried calling the Dr's office numerous times but has not gotten a call back from them. The daughter stated the patient just started taking an antibiotic regimen yesterday and she is taking it twice a day, I asked if it was the Sulfamethoxazole 800 mg-Trimethoprim 160 mg and she was not sure but stated it was a big name so maybe . I called the patients pharmacy to confirm the Antibiotic pick up man date and they stated the patient got the sulfamethoxazole 800 mg-trimethoprim 160 mg tablet twice a day for 5 days and an Amoxicillin 500mg tab taking 4 tabs 1 hour before appointments. The patient confirmed she took her medications yesterday.
[2025-02-02] MEDS: oxyCODONE HCl Immed Release 5 MG TABLET PO ×2 (15:57→20:12)
[2025-02-02] MEDS: Ibuprofen 400 MG TABLET PO (20:12)
[2025-02-02] MEDS: clonazePAM 0.5 MG TABLET PO (20:13)
[2025-02-02] MEDS: carvediloL 6.25 MG TABLET PO (20:13)
[2025-02-02] MEDS: Apixaban 5 MG TABLET PO (20:13)
[2025-02-02] MEDS: QUEtiapine Fumarate 25 MG TABLET 12.5 MG PO (20:14)
[2025-02-03 03:26] VITALS: BP 103/51; PULSE 68; RESP 18; TEMP 36.3; O2SAT 98
[2025-02-03] MEDS: Omeprazole 40 MG CAPSULE.DR PO (06:05)
[2025-02-03] MEDS: oxyCODONE HCl Immed Release 5 MG TABLET PO ×3 (06:38→20:24)
[2025-02-03 07:46] VITALS: BP 109/58; PULSE 66; RESP 14; TEMP 36.2; O2SAT 97
[2025-02-03 08:03] LABS: Hematocrit 36.7 % (37.0-47.0); Hemoglobin 11.9 g/dl (12.0-16.0); Mean Corpuscular HGB Conc 32.4 g/dl (31.0-35.0); Mean Corpuscular Hemoglobin 30.1 pg (27.0-33.0); Mean Corpuscular Volume 92.9 fL (80.0-98.0); Mean Platelet Volume 9.8 fL (9.4-12.3); Platelet Count 220 X10*3/uL (160-400); Red Blood Count 3.95 X10*6/uL (4.20-5.50); Red Cell Distribution Width 14.4 % (11.0-16.0); White Blood Count 9.2 X10*3/uL (4.8-10.8)
[2025-02-03 08:17] LABS: Anion Gap 12 (12-20); Blood Urea Nitrogen 21 mg/dL (9-16); Calcium 9.4 mg/dL (8.4-10.2); Carbon Dioxide 25 mmol/L (22-29); Chloride 108 mmol/L (96-108); Creatinine Clr Calc Pharmacy 65.3; Estimated Glomerular Filt Rate > 60; Glucose Random 84 mg/dL (60-115); Potassium 4.1 mmol/L (3.3-5.1); Sodium 141 mmol/L (135-145)
[2025-02-03] MEDS: clonazePAM 0.5 MG TABLET PO ×2 (09:04→20:25)
[2025-02-03] MEDS: Celecoxib 200 MG CAPSULE PO (09:04)
[2025-02-03] MEDS: Donepezil HCl 10 MG TABLET PO (09:04)
[2025-02-03] MEDS: buPROPion HCl XL 150 MG TAB.ER.24H PO (09:04)
[2025-02-03] MEDS: cefTRIAXone sodium 1 GM VIAL IVPUSH (09:04)
[2025-02-03] MEDS: Losartan Potassium 25 MG TABLET PO (09:04)
[2025-02-03] MEDS: carvediloL 6.25 MG TABLET PO ×2 (09:05→20:25)
[2025-02-03] MEDS: Apixaban 5 MG TABLET PO ×2 (09:05→20:24)
[2025-02-03] MEDS: Ibuprofen 400 MG TABLET PO ×3 (09:05→20:25)
[2025-02-03] MEDS: 0.9 % Sodium Chloride Flush 3 ML SYRINGE IVFLUSH ×2 (09:05→15:15)
[2025-02-03] MEDS: Calcium + Vitamin D 250 MG TABLET 500 MG PO (09:05)
--- NOTE | 2025-02-03 09:12 | MHC.CM.PN ---
IMM 02/03/25 FEMALE LIVES W SPOUSE INDEPENDENT W ALL FUNCTIONAL MOBILITY BASELINE UNABLE TO AMBULATE AFTER SITTING ON THE COUCH FOR 1 HOUR NO DME NO SERVICES PMH KIRAN 9 YEARS YRS, UTI 3 WEEKS AGO PT EVAL PENDING DP HOME SELF CARE FAMILY TRANSPORT VS STR BLS PCP REAGAN REQUESTED COPY HCP
--- NOTE | 2025-02-03 09:37 | HO.PM.IMPN ---
Subjective Subjective Date of Service: 02/03/25 Interval History: Diffuse body aches, worst and left knee Physical Exam Vital Signs: Vital Signs: Last Vital Signs Temp 97.2 F 02/03/25 07:46 Pulse 66 02/03/25 07:46 Resp 14 02/03/25 07:46 BP 109/58 L 02/03/25 07:46 Pulse Ox 97 02/03/25 07:46 O2 Del Method Room Air 02/03/25 07:46 BMI result Body Mass Index 30.1 General: AO X 3, no acute distress Resp: CTA bilateral, no accessory muscles used CVS: S1,S2,RRR GI: soft, non tender, non distended Neuro: motor grossly intact, alert, resting tremor/EPS Psych: appropriate affect, appropriate insight Left knee without obvious effusion, swelling, or erythema Objective Data Active Medications Acetaminophen (Acetaminophen 325 Mg Tablet) 650 mg PO Q6H PRN PRN Reason: Pain, Mild 1-3,fever,headache Apixaban (Apixaban 5 Mg Tablet) 5 mg PO BID [facility] Last Admin: 02/03/25 09:05 Dose: 5 mg Documented By: ELIUD Azithromycin (Azithromycin 500 Mg Tablet) 500 mg PO Q24H [facility] Bupropion HCl (Bupropion Hcl Xl 150 Mg Tab.Er.24h) 150 mg PO DAILY [facility] Last Admin: 02/03/25 09:04 Dose: 150 mg Documented By: ELIUD Calcium Carbonate (Calcium Carbonate 750 Mg Tab.Chew) 750 mg PO Q4H PRN PRN Reason: Heartburn Calcium Carbonate/Cholecalciferol (Calcium + Vitamin D 250 Mg Tablet) 500 mg PO DAILY [facility] Last Admin: 02/03/25 09:05 Dose: 500 mg Documented By: ELIUD Carvedilol (Carvedilol 6.25 Mg Tablet) 6.25 mg PO BID [facility]; Protocol Last Admin: 02/03/25 09:05 Dose: 6.25 mg Documented By: ELIUD Ceftriaxone Sodium (Ceftriaxone Sodium 1 Gm Vial) 1 gm IVPUSH Q24H [facility] Last Admin: 02/03/25 09:04 Dose: 1 gm Documented By: ELIUD Celecoxib (Celecoxib 200 Mg Capsule) 200 mg PO DAILY [facility] Last Admin: 02/03/25 09:04 Dose: 200 mg Documented By: ELIUD Clonazepam (Clonazepam 0.5 Mg Tablet) 0.5 mg PO BID [facility] Last Admin: 02/03/25 09:04 Dose: 0.5 mg Documented By: ELIUD Donepezil HCl (Donepezil Hcl 10 Mg Tablet) 10 mg PO DAILY [facility] Last Admin: 02/03/25 09:04 Dose: 10 mg Documented By: ELIUD Ibuprofen (Ibuprofen 400 Mg Tablet) 400 mg PO Q6H [facility] Last Admin: 02/03/25 09:05 Dose: 400 mg Documented By: ELIUD Loperamide HCl (Loperamide Hcl 2 Mg Capsule) 2 mg PO Q6H PRN PRN Reason: loose stool Losartan Potassium (Losartan Potassium 25 Mg Tablet) 25 mg PO DAILY [facility]; Protocol Last Admin: 02/03/25 09:04 Dose: 25 mg Documented By: ELIUD Magnesium Hydroxide (Milk Of Magnesia 30 Ml Oral.Susp) 30 ml PO DAILY PRN PRN Reason: Constipation Melatonin (Melatonin 3 Mg Tablet) 6 mg PO BEDTIME PRN PRN Reason: Insomnia Omeprazole (Omeprazole 40 Mg Capsule.) 40 mg PO DAILY@06 [facility] Last Admin: 02/03/25 06:05 Dose: 40 mg Documented By: CHELSEA Omeprazole (Omeprazole 40 Mg Capsule.) 40 mg PO DAILY@629 [facility] Last Admin: 02/03/25 05:58 Dose: Not Given Documented By: CHELSEA Non-Admin Reason: Duplicate Order Oxycodone HCl (Oxycodone Hcl Immed Release 5 Mg Tablet) 5 mg PO Q4H PRN PRN Reason: Pain, Severe (Pain Scale 7-10) Last Admin: 02/03/25 06:38 Dose: 5 mg Documented By: CHELSEA Quetiapine Fumarate (Quetiapine Fumarate 25 Mg Tablet) 12.5 mg PO BEDTIME [facility] Last Admin: 02/02/25 20:14 Dose: 12.5 mg Documented By: CHELSEA Sodium Chloride (0.9 % Sodium Chloride Flush 3 Ml Syringe) 3 ml IVFLUSH QSHIFT [facility] Last Admin: 02/03/25 09:05 Dose: 3 ml Documented By: ELIUD Trazodone HCl (Trazodone Hcl 50 Mg Tablet) 50 mg PO BEDTIME MRX1 PRN PRN Reason: insomnia Labs 03/29/25 06:53 02/03/25 06:53 Labs: Laboratory Results - last 24 hr 02/02/25 02/02/25 02/02/25 09:48 10:54 10:56 MCV 90.3 MCH 30.8 MCHC 34.1 RDW 14.2 Plt Count 257 MPV 9.3 L Immature Gran % (Auto) Cancelled Neut % (Auto) Cancelled Lymph % (Auto) Cancelled [place] % (Auto) Cancelled Eos % (Auto) Cancelled Baso % (Auto) Cancelled Lymph # (Auto) Cancelled [place] # (Auto) Cancelled Eos # (Auto) Cancelled Baso # (Auto) Cancelled Abs Immat Gran (auto) Cancelled Absolute Neuts (auto) Cancelled Absolute Nucleated RBC 0.000 Nucleated RBC % (auto) 0.0 Neutrophils % (Manual) 83 H Band Neutrophils % 11 H Lymphocytes % (Manual) 5 L Metamyelocytes % 1 Abs Neuts (Manual) 13.4 H Lymphocytes # (Manual) 0.7 L Metamyelocytes # 0.1 Toxic Vacuolation PRESENT Platelet Estimate NORMAL Large Platelets PRESENT Plt Morphology Comment NOTED RBC Morphology NOTED Ovalocytes 1+ (5-14) ESR 22 H Anion Gap 10 L Estim Creat Clear Calc 67.4 Estimated GFR > 60 Random Glucose 128 H Lactic Acid 1.5 Calcium 9.2 Magnesium 1.7 Total Bilirubin 0.3 Direct Bilirubin 0.1 AST 32 H ALT 13 Alkaline Phosphatase 84 Total Creatine Kinase 55 C-Reactive Protein 11.45 H Total Protein 6.7 Albumin 3.6 Lipase 9 Urine Color Yellow Urine Appearance Clear Urine pH 6.0 Ur Specific Dearing 1.025 Urine Protein 30 (1+) H Urine Glucose (UA) Negative Urine Ketones 15 Urine Blood Negative Urine Nitrite Negative Ur Leukocyte Esterase Small (1+) H Urine RBC 0-2 Urine WBC 0-5 Ur Squamous Epith Cells 3-5 Urine Bacteria None Seen Hyaline Casts 0-2 Influenza Type A (PCR) NEGATIVE Influenza Type B (PCR) NEGATIVE RSV RNA Qual (PCR) NEGATIVE SARS-CoV-2 RNA (RT-PCR) NEGATIVE 02/03/25 06:53 MCV 92.9 MCH 30.1 MCHC 32.4 RDW 14.4 Plt Count 220 MPV 9.8 Immature Gran % (Auto) Neut % (Auto) Lymph % (Auto) [place] % (Auto) Eos % (Auto) Baso % (Auto) Lymph # (Auto) [place] # (Auto) Eos # (Auto) Baso # (Auto) Abs Immat Gran (auto) Absolute Neuts (auto) Absolute Nucleated RBC 0.000 Nucleated RBC % (auto) 0.0 Neutrophils % (Manual) Band Neutrophils % Lymphocytes % (Manual) Metamyelocytes % Abs Neuts (Manual) Lymphocytes # (Manual) Metamyelocytes # Toxic Vacuolation Platelet Estimate Large Platelets Plt Morphology Comment RBC Morphology Ovalocytes ESR Anion Gap 12 Estim Creat Clear Calc 65.3 Estimated GFR > 60 Random Glucose 84 Lactic Acid Calcium 9.4 Magnesium Total Bilirubin Direct Bilirubin AST ALT Alkaline Phosphatase Total Creatine Kinase C-Reactive Protein Total Protein Albumin Lipase Urine Color Urine Appearance Urine pH Ur Specific [place] Urine Protein Urine Glucose (UA) Urine Ketones Urine Blood Urine Nitrite Ur Leukocyte Esterase Urine RBC Urine WBC Ur Squamous Epith Cells Urine Bacteria Hyaline Casts Influenza Type A (PCR) Influenza Type B (PCR) RSV RNA Qual (PCR) SARS-CoV-2 RNA (RT-PCR) Assessment and Plan (1) Anxiety: Status: Acute Plan 69F [facility] osteoarthritis, status post left hip and knee replacement with hardware loosening, paroxysmal AFib no longer on Eliquis due to financial reasons, chronic back pain status post stimulator, hypertension, unspecified dementia, mood disorder presented with left knee pain Left knee pain Will need to follow up with Orthopedics at [facility] Pain control - NSAIDs Right lower lobe pneumonia Ceftriaxone azithromycin, follow up cultures Urinary tract infection Ceftriaxone, follow up cultures Paroxysmal AFib Carvedilol, Eliquis DVT prophylaxis on Eliquis DNR/DNI reason for continued hospitalization: Inability ambulate, severe pain, awaiting cultures Quality Stroke Does the patient have a stroke diagnosis?: No VTE Prior VTE?: No VTE Risk Level:: Medical - moderate - high VTE Device Contraindication: Treatment Not Indicated VTE Drug Contraindication: N/A - Med Ordered
[2025-02-03 10:40] VITALS: BP 109/58; PULSE 66; O2SAT 97
[2025-02-03] MEDS: Azithromycin 500 MG TABLET PO (13:16)
[2025-02-03 15:26] VITALS: BP 124/58; PULSE 72; RESP 18; TEMP 36.6; O2SAT 97
[2025-02-03 19:28] VITALS: BP 132/60; PULSE 71; RESP 18; TEMP 36.2; O2SAT 95
[2025-02-03] MEDS: QUEtiapine Fumarate 25 MG TABLET 12.5 MG PO (20:25)
[2025-02-04 03:13] VITALS: BP 113/57; PULSE 66; RESP 18; TEMP 36; O2SAT 100
[2025-02-04] MEDS: Ibuprofen 400 MG TABLET PO ×2 (03:30→08:54)
[2025-02-04] MEDS: Omeprazole 40 MG CAPSULE.DR PO (05:58)
[2025-02-04 07:58] VITALS: BP 133/62; PULSE 60; RESP 18; TEMP 36.6; O2SAT 97
--- NOTE | 2025-02-04 08:37 | P.DS_ITS ---
DS: Providers Provider Date of Service: 02/04/25 Date of admission: 02/02/25 15:02 Date of discharge: 02/04/25 Primary care physician: Ollie Hernandez MD DS: Diagnosis Discharge Diagnosis (1) Anxiety: Status: Acute DS: Summary Hospital Course Hospital Course: from initial hpi: 69F PMH osteoarthritis, status post left hip and knee replacement with hardware loosening, paroxysmal AFib no longer on Eliquis due to financial reasons, chronic back pain status post stimulator, hypertension, unspecified dementia, mood disorder presented with left knee pain. Patient states that her left knee has been hurting her for some time now but on day of presentation patient was not able to walk. Patient also complaining of dry cough for several days without fevers or chills. Of note patient was having dysuria several days ago and was treated for urinary tract infection that grew Proteus pansensitive to everything except for Macrobid has been inconsistent with taking her antibiotics, but denies dysuria currently. In ED left knee x-ray showing mild effusion, lab significant for leukocytosis with left shift, CT abdomen and pelvis showing right lower lobe pneumonia. hospital course: Patient was admitted for left knee pain inability ambulate. Was given NSAIDs and pain improved. Was able to ambulate with walker with physical therapy recommended home with services. Patient will follow up with Orthopedics as outpatient. For right lower lobe pneumonia was treated with ceftriaxone azithromycin cultures were negative. Will be discharged on 5 more days of Ceftin and azithromycin. For urinary tract infection was covered with antibiotics as mentioned, cultures were negative. For paroxysmal AFib was continued on carvedilol and Eliquis. Time Attestation Discharge Coordination Time (in mins): 33 Quality: Safe Use of Opioids Does Pt have an Active Cancer Diagnosis on the Problem List?: No Quality: Stroke Does the patient have a stroke diagnosis?: No Physical Exam Vital Signs: Vital Signs: Last Vital Signs Temp 97.9 F 02/04/25 07:58 Pulse 60 02/04/25 07:58 Resp 18 02/04/25 07:58 BP 133/62 02/04/25 07:58 Pulse Ox 97 02/04/25 07:58 O2 Del Method Room Air 02/04/25 07:58 BMI result Body Mass Index 30.1 General: AO X 3, no acute distress Resp: CTA bilateral, no accessory muscles used CVS: S1,S2,RRR GI: soft, non tender, non distended Neuro: motor grossly intact, alert, resting tremor/EPS Psych: appropriate affect, appropriate insight Left knee without obvious effusion, swelling, or erythema DS: Data Data Completed and Pending Labs on day of discharge: Preliminary micro results at discharge 02/02/25 11:01 Blood Culture - Preliminary Blood - Venous No growth after 24 hours. 02/02/25 10:56 Blood Culture - Preliminary Blood - Venous No growth after 24 hours. Discharge Plan Discharge Anticipated Discharge Date/Time: 02/04/25 08:34 Patient Disposition: Home Health Service Discharge Diagnosis: arthritis, pna Referrals: Ollie Hernandez MD [Primary Care Provider] - 1 Week Discharge Medications: New Eliquis 5 mg Tablet 5 mg PO BID Qty: 180 0RF cefuroxime axetil 500 mg tablet 500 mg PO BID Qty: 10 0RF azithromycin 500 mg tablet 500 mg PO DAILY 5 Days Qty: 5 0RF Continued omeprazole 40 mg capsule,delayed release(DR/EC) 40 mg PO DAILY 90 Days Qty: 90 2RF (DME) diaper,brief,adult,disposable Misc See Rx Instructions .Route Qty: 120 11RF Rx Instructions: As directed carvedilol 6.25 mg tablet 6.25 mg PO BID Qty: 180 1RF losartan 25 mg tablet 25 mg PO DAILY 30 Days Qty: 30 2RF loperamide 2 mg capsule 2 mg PO Q6H PRN (Reason: loose stool) Qty: 30 1RF clonazepam [Klonopin] 0.5 mg tablet 0.5 mg PO BID 30 Days Qty: 60 0RF celecoxib 200 mg capsule 200 mg PO DAILY 30 Days Qty: 30 3RF tramadol 50 mg tablet 50 mg PO TID PRN (Reason: pain) 30 Days Qty: 12 0RF Rx Instructions: MassPat Verified quetiapine [Seroquel] 25 mg tablet 12.5 mg PO BEDTIME Qty: 30 3RF donepezil 10 mg tablet 10 mg PO DAILY 90 Days Qty: 90 3RF calcium carbonate-vitamin D3 500 mg-3.125 mcg (125 unit) Tablet 1 tab PO DAILY trazodone 100 mg tablet 50 - 100 mg PO BEDTIME PRN (Reason: insomnia) Rx Instructions: 1/2 - 1 tablet p.o. at bedtime PO bedtime PRN; bupropion HCl 150 mg tablet extended release 24 hr 150 mg PO DAILY menthol-zinc oxide [Calmoseptine] 0.44-20.6 % ointment 1 appl topical BID PRN (Reason: skin irritation) 30 Days Qty: 113 3RF Discontinued sulfamethoxazole-trimethoprim [Bactrim DS] 800-160 mg tablet 1 tab PO BID Qty: 10 0RF aspirin 81 mg Tablet,Delayed Release (Dr/Ec) 81 mg PO DAILY Discharge Orders: Discharge Order (Routine); Ordered 02/04/25 Ordered By: Miles Hudson Diet: Advance to usual diet Activity on Discharge: As tolerated Stand Alone Forms: Patient Portal Discharge page Print Language: Macedonian Care Plan Goals: recovery Health Concerns: see above Plan of Treatment: 5 days ceftin and azitrho, follow up with ortho Assessment: see wandy
[2025-02-04] MEDS: Celecoxib 200 MG CAPSULE PO (08:54)
[2025-02-04] MEDS: buPROPion HCl XL 150 MG TAB.ER.24H PO (08:54)
[2025-02-04] MEDS: Apixaban 5 MG TABLET PO (08:54)
[2025-02-04] MEDS: clonazePAM 0.5 MG TABLET PO (08:54)
[2025-02-04] MEDS: Donepezil HCl 10 MG TABLET PO (08:54)
[2025-02-04] MEDS: Calcium + Vitamin D 250 MG TABLET 500 MG PO (08:54)
[2025-02-04] MEDS: cefTRIAXone sodium 1 GM VIAL IVPUSH (08:54)
[2025-02-04] MEDS: Losartan Potassium 25 MG TABLET PO (08:54)
[2025-02-04] MEDS: 0.9 % Sodium Chloride Flush 3 ML SYRINGE IVFLUSH (08:54)
[2025-02-04] MEDS: carvediloL 6.25 MG TABLET PO (08:54)
--- NOTE | 2025-02-04 09:34 | MHC.CM.PN ---
IMM 02/03/25 Patient is discharged home today with Yecenia SABILLON for home services. She has arranged for a ride home.
--- NOTE | 2025-02-04 09:36 | P.F2F_ITS ---
Service Date Service Date: 02/04/25 Encounter Date of encounter: 02/04/25 Reasons for Services Signs and symptoms assessed: left knee pain, difficulty ambulating Reason for physical therapy: home safety and mobility, therapeutic exercises, restore joint function and gait/transfer training Homebound: Leaving the home is medically contraindicated at this time without the asist of a device and/or another person due th the listed conditions above and below. Reason homebound: pain with ambulation Certification: Based on the above findings, I certify that this patient is confined to the home and needs intermittent custodial care, physical therapy and/or speech therapy, or continues to need occupational therapy. The patient is under my care, and I have initiated the establishment of the plan of care. The patient will be followed by a physician who will periodically review the plan of care. Time Spent With Patient Time: Total time managing care of this patient today ____ minutes.
[2025-02-04 10:21] VITALS: BP 132/74; PULSE 73; RESP 18; O2SAT 94
== END 2025-02-04 10:27 | disposition home health service (06) | DRG 194 ==
LOC: HO.ED 10:59 → HO.EDOVER 15:07 → HO.S3 17:31
PROVIDERS: Admitting Provider Internal Medicine; Emergency Provider Emergency Medicine; PCP Family Medicine; Visit Provider Internal Medicine
DX: J18.9 Pneumonia, unspecified organism (principal); N39.0 Urinary tract infection, site not specified; T84.033A Mechanical loosening of internal left knee prosthetic joint, initial encounter; F41.9 Anxiety disorder, unspecified; F03.90 Unspecified dementia, unspecified severity, without behavioral disturbance, psychotic disturbance, mood disturbance, and anxiety; M54.9 Dorsalgia, unspecified; G89.29 Other chronic pain; I48.0 Paroxysmal atrial fibrillation; T36.96XA Underdosing of unspecified systemic antibiotic, initial encounter; Z91.128 Patient's intentional underdosing of medication regimen for other reason; Z66 Do not resuscitate; Z96.82 Presence of neurostimulator; Y79.2 Prosthetic and other implants, materials and accessory orthopedic devices associated with adverse incidents; Z20.822 Contact with and (suspected) exposure to COVID-19; T45.516A Underdosing of anticoagulants, initial encounter; Z91.120 Patient's intentional underdosing of medication regimen due to financial hardship; Z87.891 Personal history of nicotine dependence; Z79.899 Other long term (current) drug therapy
CPT/HCPCS: 0241U; 36415; 71045; 72100; 73502; 73564; 74177; 80048; 80076; 81001; 82550; 83605; 83690; 83735; 85007; 85025; 85027; 85652; 86140; 87040; 87086; 93005; 97110; 97161; 99285; J0131; J0456; J0696; J1171; Q9967

== ENCOUNTER → 2025-02-02 09:21 | Outpatient (BNV) | payer MEDICARE, SELFPAY | PROVIDERS: Emergency Provider Emergency Medicine; PCP Family Medicine; Visit Provider Radiology Diagnostic Radiology | DX: K57.30 Diverticulosis of large intestine without perforation or abscess without bleeding (principal); R91.8 Other nonspecific abnormal finding of lung field; M25.462 Effusion, left knee; M25.552 Pain in left hip; M51.360 Other intervertebral disc degeneration, lumbar region with discogenic back pain only; R53.1 Weakness | CPT/HCPCS: 71045; 72100; 73502; 73564; 74177 ==

== ENCOUNTER → 2025-02-02 10:45 | Outpatient (BNV) | payer MEDICARE, SELFPAY | PROVIDERS: Emergency Provider Emergency Medicine; PCP Family Medicine; Visit Provider Internal Medicine Cardiovascular Disease | DX: I49.1 Atrial premature depolarization (principal) | CPT/HCPCS: 93010 ==

== ENCOUNTER → 2025-02-02 15:02 | Outpatient (BNV) | payer MEDICARE, SELFPAY | PROVIDERS: Admitting Provider Internal Medicine; Emergency Provider Emergency Medicine; PCP Family Medicine; Visit Provider Internal Medicine | DX: F41.9 Anxiety disorder, unspecified (principal) | CPT/HCPCS: 99233; 99239; G0180 ==

== ENCOUNTER 2025-02-07 09:47 | Outpatient (REF) | payer MEDICARE, SELFPAY ==
--- OUTSIDE RECORDS SUMMARY | 2025-02-07 11:07 | XMS_ITS ---
Author Organization [facility] Address [address] [place] [address] Care Team Providers Care Cyber Engineer Name Role Phone Ollie Hernandez Primary Care Provider Unavailab Jean Baires Unavailable [phone] Martin Dupree Unavailable Unavailable Encounters Encounter Location Date Provider Diagnosis [facility] [address] [place] [address] 01/02/2024 Jean Hairston Plan Of Treatment No Information Progress Notes * TOMASZ FULLERDOB: 6 (68 yo F)Acc No.[id number]:01/02/2024 Patient:?TOMASZ FULLER :1955???Age:68 Y???Sex:Female Address:[address] [place] [address], [place], [address] * true * Date:? Generated for Maryjanei elyse/Mike/eTransmitting on:?02/07/2025 08:43 AM EDT
--- OUTSIDE RECORDS SUMMARY | 2025-02-07 11:07 | XMS_ITS ---
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 Vital Signs Temperature 97.1 degrees Fahrenheit 12/16/19 24 Blood pressure systolic 00 mm Hg 12/16/19 24 Blood pressure diastolic 00 mm Hg 024 Height 63 in 12/16/2023 Weight 147 lbs 12/16/2023 BMI 26.04 kg/m2 12/16/2023 Encounters Encounter Location Date Provider Diagnosis [facility] [address] [place] [address] 12/16/2023 Jean Hairston Iron deficiency anemia D50.9 [...] did advise her to continue her omeprazole exterminator as this does seem to be working [...] did advise her to continue her omeprazole exterminator as this does seem to be working [...] did advise her to continue her omeprazole exterminator as this does seem to be working [...] * TRISH FULLERDOB: 6 (68 yo F)Acc No.[id number]:12/16/2023 Progress Notes Patient:?TRISH FULLER Provider:?Jean Hairston MD :1955???Age:68 Y???Sex:Female D ate:12/16/2023 Address:[address] [place] [address] Pcp:Ollie Hernandez Subjective: * Chief Complaints: * [...] did advise her to continue her omeprazole penitentiary as this does seem to be working [...] Procedure Codes:?3017F COLOR ECTAL CA SCREEN DOC [id number] TOBACCO [id number] BP SCR NOT PRFRM REC REASON NOS * Preventive Medicine:? ??Counseling:?Care goal follow-up plan:?Above Normal BMI Follow-up?Giving encouragement to exercise,?BMI management provided?Yes.? ??Urinary Incontinence:?Urinary Incontinence?Assessment:?Present,?Plan of care documented:?Yes,?Type of plan of care:?Lifestyle interventions.? * Follow Up:?prn * * Sign off status: Completed true * Provider:?Jean Hairston MD Date:? 024 Generated for Prem pappas/Mike/Biaitting on:?02/07/2025 11:07 AM EDT History and Physical Notes * [...]
--- OUTSIDE RECORDS SUMMARY | 2025-02-07 11:08 | XMS_ITS | Patient Health Record ---
Author Organization [facility] Address [address] [place] [address] Care Team Providers Care Drilling Engineering Manager Name Role Phone Ollie Hernandez Primary Care Provider Unavailab Jean Baires Unavailable [phone] Martin Dupree Unavailable Unavailable Allergies Allergen (clinical [...] W/U Status Risk Notes Problem Esophageal reflux (683614187) Esophageal reflux (K21.9) Active confirmed Problem 857417062 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) Active confirmed Problem Iron deficiency anemia (80282432) Iron deficiency anemia (D50.9) Active confirmed Problem Gastritis (0331922) Gastritis (K29.70) Active confirmed Problem Gastroesophageal reflux disease (485381771) GERD (gastroesophageal reflux disease) (K21.9) Active confirmed Problem Diverticulosis of colon (007061017) Diverticulosis of colon (K57.30) Active confirmed Plan [...] Date MEDICARE OF [place] [address] [place] [address] [id number] TOMASZ FULLER Self - patient is the insured [employer] ATTN CLAIMS [address] [place] [address] [id number] TOMASZ FULLER Self - patient is the insured Medical (General) History Medical History History ICD Code HTN Afib-[facility]. [facility] [place] Denies [place],DM,CVA,Lung disease,renal dise ase GERD-never had an EGD [...]
[2025-02-07 11:18] LABS: MANUAL DIFF FLAG NO
[2025-02-07 11:31] LABS: Basophils Absolute Auto 0.1 X10*3/uL (0.0-0.2); Basophils Percent Auto 1.1 % (0-2); Eosinophils Absolute Auto 0.3 X10*3/uL (0.0-0.4); Eosinophils Percent Auto 5.6 % (0-4); Hematocrit 35.2 % (37.0-47.0); Hemoglobin 11.3 g/dl (12.0-16.0); Imm Gran Abs Auto 0.02 X10*3/uL (0.00-0.03); Imm Gran Pct Auto 0.4 % (0.0-0.4); Lymphocytes Absolute Auto 1.6 X10*3/uL (1.2-4.9); Lymphocytes Percent Auto 29.9 % (20-40); Mean Corpuscular HGB Conc 32.1 g/dl (31.0-35.0); Mean Corpuscular Hemoglobin 29.9 pg (27.0-33.0); Mean Corpuscular Volume 93.1 fL (80.0-98.0); Mean Platelet Volume 9.3 fL (9.4-12.3); Monocytes Absolute Auto 0.3 X10*3/uL (0.1-1.2); Monocytes Percent Auto 5.8 % (2-11); Neutrophils Percent Auto 57.2 % (45-73); Platelet Count 377 X10*3/uL (160-400); Red Blood Count 3.78 X10*6/uL (4.20-5.50); Red Cell Distribution Width 13.9 % (11.0-16.0); White Blood Count 5.3 X10*3/uL (4.8-10.8)
[2025-02-07 12:03] LABS: Alanine Aminotransferase 6 U/L (0-31); Albumin Level 3.6 g/dL (3.5-5.0); Anion Gap 11 (12-20); Aspartate Amino Transferase 19 U/L (5-31); Bilirubin Total 0.2 mg/dL (0.0-1.0); Blood Urea Nitrogen 21 mg/dL (9-16); Calcium 9.9 mg/dL (8.4-10.2); Carbon Dioxide 24 mmol/L (22-29); Chloride 109 mmol/L (96-108); Cholesterol 168 mg/dL (<200); Estimated Glomerular Filt Rate > 60; Glucose Fasting 95 mg/dL (60-99); HDL Cholesterol 52 mg/dL (>40); LDL Cholesterol Calculated 95 mg/dL (<100); Potassium 4.1 mmol/L (3.3-5.1); Sodium 140 mmol/L (135-145); Total Protein 6.9 g/dL (6.5-8.0); Triglycerides 106 mg/dL (<150)
[2025-02-07 12:08] LABS: Alkaline Phosphatase 77 U/L (39-117)
[2025-02-07 12:21] LABS: TSH reflex Free T4 4.12 uIU/mL (0.32-4.0)
[2025-02-07 13:14] LABS: Free T4 (Free Thyroxine) 0.98 ng/dL (0.71-1.85)
[2025-02-07 14:20] LABS: Appearance Urine Hazy; Color Urine Yellow; Glucose Urine UA Negative (Negative); Leukocyte Esterase Urine Negative (Negative); Nitrite Urine Negative (Negative); Specific Gravity - Urine >= 1.030 (1.005-1.025); Urine Blood Negative (Negative); Urine Ketones 40 mg/dL (Negative); Urine Protein Negative (Neg-Trace)
[2025-02-07 14:52] LABS: Microalbum/Creatinine Ratio Ur 7.4 ug/mg cr (<30)
== END 2025-02-07 09:48 | disposition home or self-care (01) ==
LOC: HO.WFDLDS 09:47
PROVIDERS: Visit Provider Family Medicine
DX: Z00.00 Encounter for general adult medical examination without abnormal findings (principal); I10 Essential (primary) hypertension
CPT/HCPCS: 36415; 80053; 80061; 81003; 82043; 82570; 84439; 84443; 85025

== ENCOUNTER 2025-02-09 11:02 | Outpatient (AMB) | payer MEDICARE, SELFPAY ==
--- NOTE | 2025-02-09 11:37 | A.OFFPC_ITS ---
Vital Signs 02/09/25 11:53 Height 5 ft 3 in Weight 165 lb BMI 29.2 BP 130/80 Blood Pressure Location Lt brachial Position Sitting Respiration 16 Pulse 66 Pulse Source Pulse Oximeter Temp 97.9 F Temp Source Oral Pulse Oximetry (%) 99 Oxygen Delivery Method Room Air Intake Visit Reasons: hdfu PNA Intake Note: patient is scheduled for hdf for becoming septic for uti infection while on antibiotics and pt states she also found out she had pneumonia while being admitted Sexual Abuse Counsellor Required: No Allergies silver sulfadiazine [From Silvadene] Adverse Reaction (Mild, Verified 02/09/25 11:53) skin irritation Tobacco use date assessed: 11/20/24 Dental Screening Dental Screen Date: 11/20/24 HPI hdfu PNA HPI Details 70 y/o female presents today to f/u hsop ital discharge visit for L knee pain. Date of admission 02/02/25, date of discharge 02/04/25. Was admitted for L knee pain, inability to ambulate. In ED left knee x-ray showed mild effusion, lab significant for leukocytosis with left shift, CT abdomen and pelvis showing right lower lobe pneumonia. Pt was also having dysuria and was treated for urinary tract infection that grew Proteus pansensitive to everything except for Macrobid has been inconsistent with taking her antibiotics. Was given NSAIDs and pain improved. Was able to ambulate with walker with physical therapy recommended home with services. Recommended her to f/u with orthopedics. Was discharged on 5 more days of Ceftin and azithromycin. TCM TCM Information Date of Discharge 03/05/25 Discharged From [facility] Interactive Contact Date (Reference documentation from this date) 02/09/25 [facility] Medical History Personal history of nicotine dependence Lump in neck Bilateral hip pain Osteopenia Barretts esophagus Anxiety Sleep apnea Dementia Chronic abdominal pain Mastodynia of left breast HTN (hypertension) Normocytic anemia Depression with anxiety SVT (supraventricular tachycardia) Atrial fibrillation Surgical History Hx of flexible sigmoidoscopy Status post insertion of nerve stimulator History of cholecystectomy (05/04/23) History of esophagogastroduodenoscopy (EGD) Hx of colonoscopy History of total hip replacement History of prior ablation treatment H/O heart surgery History of left knee replacement Family History Brother Lung cancer Brother Bladder cancer Social History Household Members: Spouse Housing: House Are you a primary animal care specialist to a significant other at home: No Do you presently have visiting nurse or other home services: No Alcohol intake: current Alcohol intake frequency: 0-2 drinks per day Alcohol type: beer Patient Tobacco Use Status: Former Tobacco user e-Cigarette/Vaping Use: Never Used Second Hand Smoke Exposure: No service: No Current occupational status: retired Current occupational exposures/hazards: No Cognitive needs: No Hearing needs: No Vision needs: Yes Female Reproductive History Menstrual Age of Menarche: 13 Questionnaire Thrive Questionnaire Date Thrive assessed: 11/20/24 I am a: Patient What is your living situation today?: I have a steady place to live Within the past 12 months, did the food you bought not last and you didn't have the money to get more?: Sometimes True Within the past 12 months, did you worry whether your food would run out before you got money to buy more?: Sometimes True Do you have trouble paying for medicines?: No Do you have trouble getting transportation to medical appointments?: No Do you have trouble paying your heating and electricity bill?: No Do you have trouble taking care of your child, family member or friend?: I choose not to answer this question Do you have trouble with day-to-day activities such as bathing, preparing meals, shopping, managing finances, etc.?: No Are you currently unemployed and looking for a job?: I choose not to answer this question Are you interested in more education?: No Currently or been in a relationship where the following occur: No concerns reported THRIVE Score: 2 ADEN-7 AMB Questionnaire ADEN-7 Date ADEN - 7 assessed: 11/20/24 Source: Developed by Drs. Jean Rockwell, Jennifer Fritz, Scar Navarro and colleagues, with an educational edna from [employer]. Review of Systems Const Denies chills, Denies fatigue, Denies fever(s), Denies headache(s) and Denies weakness ENT Denies dizziness and Denies headache(s) Card Denies dyspnea Resp Denies cough, Denies dyspnea, Denies wheezing and Denies other (shortness of breath) Musc Denies numbness and Denies tingling Neuro Denies dizziness, Denies headache(s), Denies numbness, Denies tingling and Denies weakness Psych Denies anxiety and Denies depression Endo Denies fatigue Aller/Immun Denies wheezing Physical exam (Primary Care) Vital Signs: Last Vital Signs Temp 97.9 F 02/09/25 11:53 Pulse 66 02/09/25 11:53 Resp 16 02/09/25 11:53 BP 130/80 02/09/25 11:53 Pulse Ox 99 02/09/25 11:53 Oxygen Delivery Method Room Air 02/09/25 11:53 BMI result Body Mass Index 29.2 Tobacco/Smoking Status: Tobacco use Status Tobacco use date assessed 11/20/24 02/09/25 11:38 Patient Tobacco Use Status Former Tobacco user 02/09/25 11:38 e-Cigarette/Vaping Use Never Used 02/09/25 11:38 Thrive Assessment: Date of Thrive Assessment Date Thrive assessed 11/20/24 02/09/25 11:38 Currently or been in a relationship where the following occur: No concerns reported Const General: well developed; No acute distress Nutritional Appearance: well nourished Orientation/consciousness: patient oriented x3 HENMT Head: Yes normocephalic and Yes atraumatic Eyes General: appearance normal, both eyes and all related structures Pupils: Equal, round and reactive pupils present EOM: EOMs intact bilaterally Resp Effort & Inspection: normal respiratory effort Neuro General: patient oriented x3 and gait normal Cranial nerves: Yes Equal, round and reactive pupils present Psych Affect: normal affect Coding Level of Care Code [facility] High MDM <= 7 Days Diagnoses Right lower lobe pneumonia J18.9 Pneumonia type: due to unspecified organism UTI (urinary tract infection) N39.0 Assessment & Plan Assessment & Plan (1) Right lower lobe pneumonia: Code(s): J18.9 - Pneumonia, unspecified organism Category: Medical Qualifiers: Pneumonia type: due to unspecified organism Qualified Code(s): J18.9 - Pneumonia, unspecified organism Plan: Right lower lobe pneumonia seen on CT scan in ED. Was treated with ceftriaxone azithromycin cultures were negative. Was discharged on 5 more days of Ceftin and azithromycin. For urinary tract infection was covered with antibiotics as mentioned, cultures were negative. (2) UTI (urinary tract infection): Code(s): N39.0 - Urinary tract infection, site not specified Category: Medical Plan: For urinary tract infection was covered with antibiotics as mentioned above. cultures were negative. Orders: Orders XR chest 2V Today J18.9 - Pneumonia, unspecified organism
[2025-02-09 11:53] VITALS: BP 130/80; PULSE 66; RESP 16; TEMP 36.6; O2SAT 99; BMI 29.2
--- OUTSIDE RECORDS SUMMARY | 2025-02-09 12:50 | XMS_ITS ---
Author Organization [facility] Address [address] [place] [address] Care Team Providers Care Health And Safety Manager Name Role Phone Ollie Hernandez Primary Care Provider Unavailab Jean Baires Unavailable [phone] Martin Dupree Unavailable Unavailable Encounters Encounter Location Date Provider Diagnosis [facility] [address] [place] [address] 01/02/2024 Jean Hairston Plan Of Treatment No Information Progress Notes * TOMASZ FULLERDOB: 6 (68 yo F)Acc No.[id number]:01/02/2024 Patient:?TOMASZ FULLER :1955???Age:68 Y???Sex:Female Address:[address] [place] [address], [place], [address] * true * Date:? Generated for Maryjanei elyse/Mike/eTransmitting on:?02/09/2025 12:49 PM EDT
--- OUTSIDE RECORDS SUMMARY | 2025-02-09 12:50 | XMS_ITS ---
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) Active confirmed Vital Signs Temperature 97.1 degrees Fahrenheit 12/16/19 24 Blood pressure systolic 00 mm Hg 12/16/19 24 Blood pressure diastolic 00 mm Hg 024 Height 63 in 12/16/2023 Weight 147 lbs 12/16/2023 BMI 26.04 kg/m2 12/16/2023 Encounters Encounter Location Date Provider Diagnosis [facility] [address] [place] [address] 12/16/2023 Jean Hairston Iron deficiency anemia D50.9 [...] did advise her to continue her omeprazole 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 as this does seem to be working [...] did advise her to continue her omeprazole 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 as this does seem to be working [...] did advise her to continue her omeprazole 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 as this does seem to be working [...] * TRISH FULLERDOB: 6 (68 yo F)Acc No.[id number]:12/16/2023 Progress Notes Patient:?TRISH FULLER Provider:?Jean Hairston MD :1955???Age:68 Y???Sex:Female D ate:12/16/2023 Address:[address] [place] [address] Pcp:Ollie Hernandez Subjective: * Chief Complaints: * [...] did advise her to continue her omeprazole senior living as this does seem to be working [...] Procedure Codes:?3017F COLOR ECTAL CA SCREEN DOC [id number] TOBACCO [id number] BP SCR NOT PRFRM REC REASON NOS * Preventive Medicine:? ??Counseling:?Care goal follow-up plan:?Above Normal BMI Follow-up?Giving encouragement to exercise,?BMI management provided?Yes.? ??Urinary Incontinence:?Urinary Incontinence?Assessment:?Present,?Plan of care documented:?Yes,?Type of plan of care:?Lifestyle interventions.? * Follow Up:?prn * * Sign off status: Completed true * Provider:?Jean Hairston MD Date:? 024 Generated for Prem pappas/Mike/Biaitting on:?02/09/2025 12:49 PM EDT History and Physical Notes * HPI [...]
--- OUTSIDE RECORDS SUMMARY | 2025-02-09 12:50 | XMS_ITS | Patient Health Record ---
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) Active confirmed Problem Iron deficiency anemia (39919041) Iron deficiency anemia (D50.9) Active confirmed Problem Gastritis (4694338) Gastritis (K29.70) Active confirmed Problem Gastroesophageal reflux disease (240382961) GERD (gastroesophageal reflux disease) (K21.9) Active confirmed Problem Diverticulosis of colon (321559171) Diverticulosis of colon (K57.30) Active confirmed Plan [...] Date MEDICARE OF [place] [address] [place] [address] [id number] TOMASZ FULLER Self - patient is the insured [employer] ATTN CLAIMS [address] [place] [address] [phone] [id number] TOMASZ FULLER Self - patient is the insured Medical (General) History Medical History History ICD Code HTN Afib-[facility] [place] Denies [place],DM,CVA,Lung disease,renal dise ase GERD-never had an EGD [...]
== END 2025-02-09 16:34 | disposition home or self-care (01) ==
LOC: HO.HMCFM 11:03
PROVIDERS: PCP Family Medicine; Visit Provider Family Medicine
DX: J18.9 Pneumonia, unspecified organism (principal); N39.0 Urinary tract infection, site not specified

== ENCOUNTER → 2025-02-09 11:02 | Outpatient (BNVA) | payer MEDICARE, SELFPAY | PROVIDERS: PCP Family Medicine; Visit Provider Family Medicine | DX: J18.9 Pneumonia, unspecified organism (principal); N39.0 Urinary tract infection, site not specified; M25.562 Pain in left knee | CPT/HCPCS: 99496 ==

== ENCOUNTER 2025-02-20 13:37 | Outpatient (REF) | payer MEDICARE, SELFPAY ==
--- NOTE | ~2025-02-20 | XR_ITS ---
CLINICAL HISTORY: J18.9 - Pneumonia, unspecified organism 2 view chest x-ray Comparison: None Findings: No consolidation or effusion. Normal size heart. No acute fracture. IMPRESSION: 1. No acute findings. This document has been electronically signed by: Juliette Perkins MD on 02/22/2025 12:34:17
--- OUTSIDE RECORDS SUMMARY | 2025-02-20 16:43 | XMS_ITS | Patient Health Record ---
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) Active confirmed Problem Iron deficiency anemia (06312198) Iron deficiency anemia (D50.9) Active confirmed Problem Gastritis (7965277) Gastritis (K29.70) Active confirmed Problem Gastroesophageal reflux disease (647400638) GERD (gastroesophageal reflux disease) (K21.9) Active confirmed Problem Diverticulosis of colon (400829485) Diverticulosis of colon (K57.30) Active confirmed Plan [...] Date MEDICARE OF [place] [address] [place] [address] [phone] [id number] TOMASZ FULLER Self - patient is the insured [employer] ATTN CLAIMS [address] [place] [address] [phone] [id number] TOMASZ FULLER Self - patient is the insured Medical (General) History Medical History History ICD Code HTN Afib-[facility] [place] Denies [place],DM,CVA,Lung disease,renal dise ase GERD-never had an EGD [...]
--- OUTSIDE RECORDS SUMMARY | 2025-02-20 16:43 | XMS_ITS ---
Author Organization [facility] Address [address] [place] [address] Care Team Providers Care Mine Inspector Name Role Phone Ollie Hernandez Primary Care Provider Unavailab Jean Baires Unavailable [phone] Martin Dupree Unavailable Unavailable Encounters Encounter Location Date Provider Diagnosis [facility] [address] [place] [address] 01/02/2024 Jean Hairston Plan Of Treatment No Information Progress Notes * TOMASZ FULLERDOB: 6 (68 yo F)Acc No.[id number]:01/02/2024 Patient:?TOMASZ FULLER :1955???Age:68 Y???Sex:Female Address:[address] [place] [address], [place], [address] * true * Date:? Generated for Maryjanei elyse/Mike/eTransmitting on:?02/20/2025 04:43 PM EDT
--- OUTSIDE RECORDS SUMMARY | 2025-02-20 16:43 | XMS_ITS ---
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) Active confirmed Vital Signs Temperature 97.1 degrees Fahrenheit 12/16/19 24 Blood pressure systolic 00 mm Hg 12/16/19 24 Blood pressure diastolic 00 mm Hg 024 Height 63 in 12/16/2023 Weight 147 lbs 12/16/2023 BMI 26.04 kg/m2 12/16/2023 Encounters Encounter Location Date Provider Diagnosis [facility] [address] [place] [address] 12/16/2023 Jean Hairston Iron deficiency anemia D50.9 [...] did advise her to continue her omeprazole supervisor long goods as this does seem to be working [...] did advise her to continue her omeprazole supervisor long goods as this does seem to be working [...] did advise her to continue her omeprazole supervisor long goods as this does seem to be working [...] * TRISH FULLERDOB: 6 (68 yo F)Acc No.[id number]:12/16/2023 Progress Notes Patient:?TRISH FULLER Provider:?Jean Hairston MD :1955???Age:68 Y???Sex:Female D ate:12/16/2023 Address:[address] [place] [address] Pcp:Ollie Hernandez Subjective: * Chief Complaints: * [...] did advise her to continue her omeprazole supervisor long goods as this does seem to be working [...] Procedure Codes:?3017F COLOR ECTAL CA SCREEN DOC [id number] TOBACCO [id number] BP SCR NOT PRFRM REC REASON NOS * Preventive Medicine:? ??Counseling:?Care goal follow-up plan:?Above Normal BMI Follow-up?Giving encouragement to exercise,?BMI management provided?Yes.? ??Urinary Incontinence:?Urinary Incontinence?Assessment:?Present,?Plan of care documented:?Yes,?Type of plan of care:?Lifestyle interventions.? * Follow Up:?prn * * Sign off status: Completed true * Provider:?Jean Hairston MD Date:? 024 Generated for Prem pappas/Mike/Biaitting on:?02/20/2025 04:43 PM EDT History and Physical Notes * [...]
== END 2025-02-20 13:38 | disposition home or self-care (01) ==
LOC: HO.XRAY 13:37
PROVIDERS: PCP Family Medicine; Visit Provider Family Medicine
DX: J18.9 Pneumonia, unspecified organism (principal)
CPT/HCPCS: 71046

== ENCOUNTER → 2025-02-20 13:43 | Outpatient (BNV) | payer MEDICARE, SELFPAY | PROVIDERS: PCP Family Medicine; Visit Provider Radiology Diagnostic Radiology | DX: J18.9 Pneumonia, unspecified organism (principal) | CPT/HCPCS: 71046 ==

== ENCOUNTER 2025-02-21 08:29 | Outpatient (AMB) | payer MEDICARE, SELFPAY ==
--- NOTE | 2025-02-21 08:40 | A.OFFPC_ITS ---
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 Allergies silver sulfadiazine [From Silvadene] Adverse Reaction (Mild, Verified 02/21/25 08:41) skin irritation Medication List - Last Reconciled 02/21/25 by Ollie Hernandez MD apixaban (Eliquis) 5 mg PO BID bupropion HCl XL 150 mg PO DAILY calcium carbonate-vitamin D3 500 mg-3.125 mcg (125 unit) 1 tab PO DAILY carvedilol 6.25 mg PO BID cefuroxime axetil 500 mg PO BID celecoxib 200 mg PO DAILY 30 days clonazepam (Klonopin) 0.5 mg PO BID 30 days diaper,brief,adult,disposable As directed donepezil 10 mg PO DAILY 90 days loperamide 2 mg PO Q6H PRN losartan 25 mg PO DAILY 30 days menthol-zinc oxide 0.44-20.6 % (Calmoseptine) 1 appl topical BID PRN 30 days omeprazole 40 mg PO DAILY 90 days quetiapine (Seroquel) 12.5 mg (1/2 x 25 mg) PO BEDTIME tramadol 50 mg PO TID PRN 30 days trazodone 50 - 100 mg PO BEDTIME PRN Tobacco use date assessed: 11/20/24 Dental Screening Dental Screen Date: 11/20/24 HPI f/u hypertension, chronic conditions HPI Details Patient?presents?to?follow-up?hypertension.??Blood?pressure?is?elevated?and?she? thinks?that?this?is?partly?due?to?ongoing?hip?pain. Taking?carvedilol?6.25?mg?b.i.d.?and?losartan?25?mg?daily,?as?prescribed. No?problems?with?these?medications Recent?pneumonia and?finished?antibiotic?course.??She?is?breathing?easily.??Fo vanesa-up?Chest?x-ray?is?pending. Recent?UTI,?as?above?antibiotic?course?was?completed.??No?symptoms. Ongoing?right?hip?pain.??She?is?followed?by?Ortho?and?has?upcoming?appointment. Has?been?using?tramadol up?to?3?times?per?day?but?has?only?had?12?tabs?per?month?so?runs?out?easily.??Al so?using?Celebrex. She?says?pain?has?been?severe?lately. [facility] Medical History Personal history of nicotine dependence Lump in neck Bilateral hip pain Osteopenia Barretts esophagus Anxiety Sleep apnea Dementia Chronic abdominal pain Mastodynia of left breast HTN (hypertension) Normocytic anemia Depression with anxiety SVT (supraventricular tachycardia) Atrial fibrillation Surgical History Hx of flexible sigmoidoscopy Status post insertion of nerve stimulator History of cholecystectomy (05/04/23) History of esophagogastroduodenoscopy (EGD) Hx of colonoscopy History of total hip replacement History of prior ablation treatment H/O heart surgery History of left knee replacement Family History Brother Lung cancer Brother Bladder cancer Social History Household Members: Spouse Housing: House Are you a primary direct care provider to a significant other at home: No Do you presently have visiting nurse or other home services: No Alcohol intake: current Alcohol intake frequency: 0-2 drinks per day Alcohol type: beer Patient Tobacco Use Status: Former Tobacco user e-Cigarette/Vaping Use: Never Used Second Hand Smoke Exposure: No service: No Current occupational status: retired Current occupational exposures/hazards: No Cognitive needs: No Hearing needs: No Vision needs: Yes Female Reproductive History Menstrual Age of Menarche: 13 Questionnaire Thrive Questionnaire Date Thrive assessed: 11/20/24 I am a: Patient What is your living situation today?: I have a steady place to live Within the past 12 months, did the food you bought not last and you didn't have the money to get more?: Sometimes True Within the past 12 months, did you worry whether your food would run out before you got money to buy more?: Sometimes True Do you have trouble paying for medicines?: No Do you have trouble getting transportation to medical appointments?: No Do you have trouble paying your heating and electricity bill?: No Do you have trouble taking care of your child, family member or friend?: I choose not to answer this question Do you have trouble with day-to-day activities such as bathing, preparing meals, shopping, managing finances, etc.?: No Are you currently unemployed and looking for a job?: I choose not to answer this question Are you interested in more education?: No Currently or been in a relationship where the following occur: No concerns reported THRIVE Score: 2 ADEN-7 AMB Questionnaire ADEN-7 Date ADEN - 7 assessed: 11/20/24 Source: Developed by Drs. Jean Rockwell, Jennifer Fritz, Scar Navarro and colleagues, with an educational edna from [employer] Physical exam (Primary Care) Vital Signs: Last Vital Signs Temp 97.3 F 02/21/25 08:42 Pulse 60 02/21/25 08:42 Resp 14 02/21/25 08:42 BP 146/78 H 02/21/25 08:45 Pulse Ox 95 02/21/25 08:42 Oxygen Delivery Method Room Air 02/21/25 08:42 BMI result Body Mass Index 29.2 Tobacco/Smoking Status: Tobacco use Status Tobacco use date assessed 11/20/24 02/21/25 08:46 Patient Tobacco Use Status Former Tobacco user 02/21/25 08:46 e-Cigarette/Vaping Use Never Used 02/21/25 08:46 Thrive Assessment: Date of Thrive Assessment Date Thrive assessed 11/20/24 02/21/25 08:46 Currently or been in a relationship where the following occur: No concerns reported Const General: no acute distress and well developed Nutritional Appearance: well nourished Orientation/consciousness: patient oriented x3 HENMT Head: Yes normocephalic and Yes atraumatic Eyes General: appearance normal, both eyes and all related structures Pupils: Equal, round and reactive pupils present EOM: EOMs intact bilaterally Resp Effort & Inspection: normal respiratory effort Auscultation: clear to auscultation bilaterally Cardio Rate: regular rate Rhythm: regular rhythm Heart sounds: S1 normal heart sound present, S2 normal heart sound present, no gallops, no murmurs and no rubs Neuro General: patient oriented x3 and No gait normal (Walking?with?limp,?favoring?right?leg/hip) Cranial nerves: Yes Equal, round and reactive pupils present Extrem Other: Pain at R hip to Knee Psych Affect: normal affect Coding Level of Care Code Est Pt Level 5 (63316) Diagnoses Essential hypertension I10 Bilateral hip pain M25.551; M25.552 Right lower lobe pneumonia J18.9 Pneumonia type: due to unspecified organism UTI (urinary tract infection) N39.0 Assessment & Plan Assessment & Plan (1) Essential hypertension: Code(s): I10 - Essential (primary) hypertension Category: Medical Plan: Blood?pressure?is?too?high.??Goal?is?less?than?140/90 Continue?carvedilol?and?she?will?increase?losartan?from?25?mg?daily?to?50?mg?brandi ly (2) Bilateral hip pain: Code(s): M25.551 - Pain in right hip; M25.552 - Pain in left hip Category: Medical Plan: Ongoing?and?worsening?bilateral?hip?pain,?right?worse?than?left. Right?hip?an?is?radiating?down?to?knee She?has?appointment?this?Wednesday?with?ortho Increase?tramadol from?12?tablets?per?30?days?to?30?tablets?per?30?days. Continue?Celebrex Trial?gabapentin?at?bedtime (3) Right lower lobe pneumonia: Code(s): J18.9 - Pneumonia, unspecified organism Category: Medical Qualifiers: Pneumonia type: due to unspecified organism Qualified Code(s): J18.9 - Pneumonia, unspecified organism Plan: Patient?is?breathing?easily.??Lungs?sound?clear Chest?x-ray?read pending. I?reviewed?chest?x-ray slight?atelectasis?at?right?base, otherwise?appears?clear. She?has?completed?antibiotics Will?call?if?any?action?required?based?on?x-ray?but?this?appears?resolved. (4) UTI (urinary tract infection): Code(s): N39.0 - Urinary tract infection, site not specified Category: Medical Plan: Asymptomatic?and?has?completed?antibiotics Resolved Medications: New gabapentin 300 mg PO BEDTIME 30 days 30 caps 1RF Refilled tramadol [facility] Verified 50 mg PO TID 30 days PRN 30 tabs 0RF pain
[2025-02-21 08:42] VITALS: BP 150/80; PULSE 60; RESP 14; TEMP 36.3; O2SAT 95; BMI 29.2
--- OUTSIDE RECORDS SUMMARY | 2025-02-21 08:44 | XMS_ITS ---
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 Vital Signs Temperature 97.1 degrees Fahrenheit 12/16/19 24 Blood pressure systolic 00 mm Hg 12/16/19 24 Blood pressure diastolic 00 mm Hg 024 Height 63 in 12/16/2023 Weight 147 lbs 12/16/2023 BMI 26.04 kg/m2 12/16/2023 Encounters Encounter Location Date Provider Diagnosis [facility] [address] [place] [address] 12/16/2023 Jean Hairston Iron deficiency anemia D50.9 [...] did advise her to continue her omeprazole terminal carman as this does seem to be working [...] did advise her to continue her omeprazole terminal carman as this does seem to be working [...] did advise her to continue her omeprazole terminal carman as this does seem to be working [...] * TRISH FULLERDOB: [birth year] (68 yo F)Acc No.[id number]:12/16/2023 Progress Notes Patient:?TRISH FULLER Provider:?Jean Hairston MD :[id number]???Age:68 Y???Sex:Female D ate:12/16/2023 Address:[address] [place] [address] Pcp:Ollie Hernandez Subjective: * Chief Complaints: * [...] did advise her to continue her omeprazole terminal carman as this does seem to be working [...] Procedure Codes:?3017F COLOR ECTAL CA SCREEN DOC [id number] TOBACCO [id number] BP SCR NOT PRFRM REC REASON NOS * Preventive Medicine:? ??Counseling:?Care goal follow-up plan:?Above Normal BMI Follow-up?Giving encouragement to exercise,?BMI management provided?Yes.? ??Urinary Incontinence:?Urinary Incontinence?Assessment:?Present,?Plan of care documented:?Yes,?Type of plan of care:?Lifestyle interventions.? * Follow Up:?prn * * Sign off status: Completed true * Provider:?Jean Hairston MD Date:? 024 Generated for Prem pappas/Mike/Biaitting on:?02/21/2025 08:43 AM EDT History and Physical Notes * [...]
--- OUTSIDE RECORDS SUMMARY | 2025-02-21 08:44 | XMS_ITS | Clinical Summary ---
Author Organization Unknown Care Team Providers Care Assistant Elementary Teacher Name Role Phone REAGAN RUANO, YANETH Unavailable Unavailable MARK PTMK Unavailable Unavailable PAGLIUCA ([facility]) [facility] - OT, SUKH Unavailable Unavailable ATIYA RN, MICHELLE Unavailable Unavailable Payers Payer Name Policy Type Policy Number Effective Date Expira tion Date MEDICARE - [facility] PD[place] [id number] Problems Condition Name Condition Details Condition Category Status Onset Date Resolution Date Last Treatment Date Treating Clinician Comments OTHER PNEUMONIA, UNSPECIFIED ORGANISM Active 11-08 00:00: 00 PAROXYSMAL ATRIAL FIBRILLATION Active 11-08 00:00: 00 UNSP DEMENTIA, UNSPECIFIED SEVERITY, WITH MOOD DISTURB Active 11-08 00:00: 00 DEPRESSION, UNSPECIFIED Active 11-08 00:00: 00 UNSPECIFIED DEMENTIA, UNSPECIFIED SEVERITY, WITH ANXIETY Active 11-08 00:00: 00 URINARY TRACT INFECTION, SITE NOT SPECIFIED Active 11-08 00:00: 00 ANEMIA, UNSPECIFIED Active 11-08 00:00: 00 GASTRO-ESOPH AGEAL REFLUX DISEASE WITHOUT ESOPHAGITIS Active 11-08 00:00: 00 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 11-08 00:00: 00 HYPERLIPIDEM IA, UNSPECIFIED Active 11-08 00:00: 00 SLEEP APNEA, UNSPECIFIED Active 11-08 00:00: 00 OTH DISRD OF BONE DENSITY AND STRUCTURE, UNSPECIFIED SITE Active 11-08 00:00: 00 ESSENTIAL (PRIMARY) HYPERTENSION Active 11-08 00:00: 00 SUPRAVENTRIC ULAR TACHYCARDIA, UNSPECIFIED Active 11-08 00:00: 00 OTHER CHRONIC PAIN Active 11-08 00:00: 00 PERSONAL HISTORY OF NICOTINE DEPENDENCE Active 11-08 00:00: 00 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 Ordering Clinician Indication Dosage Frequency Signature (SIG) Comments Components bupropion HCl XL 150 mg 24 hr tablet, extended release 02-02 00:00: 00 Yes [id number] 1 tablet DAILY 1 tablet DAILY (route: oral) Med Classific ation: Central Nervous System Agents carvedilol 6.25 mg tablet 02-02 00:00: 00 Yes [id number] 1 tablet 2 TIMES DAILY 1 tablet 2 TIMES DAILY (route: oral) Med Classific ation: Cardiovas cular Therapy Agents donepezil 10 mg tablet 02-01 00:00: 00 Yes [id number] 1 tablet DAILY 1 tablet DAILY (route: oral) Med Classific ation: Cognitive Disorder Therapy trazodone 100 mg tablet 02-01 00:00: 00 Yes [id number] .5 tablet BEDTIME .5 tablet BEDTIME (route: oral) Med Classific ation: Central Nervous System Agents amoxicillin 500 mg tablet 01-31 00:00: 00 Yes [id number] 1 tablet DAILY 1 tablet DAILY (route: oral) Med Classific ation: Anti-Infe ctive Agents quetiapine 25 mg tablet 01-27 00:00: 00 Yes [id number] .5 tablet BEDTIME .5 tablet BEDTIME (route: oral) Med Classific ation: Central Nervous System Agents tramadol 50 mg tablet 01-27 00:00: 00 Yes [id number] Per instruc tions 3 TIMES A DAY NEEDED FOR 30 DAYS Per instructio ns 3 TIMES A DAY NEEDED FOR 30 DAYS (route: oral) Med Classific ation: Analgesic , Anti-infl ammatory or Antipyret ic celecoxib 200 mg capsule 01-24 00:00: 00 02-04 23:59 :00 No [id number] Per instruc tions DAILY Per instructio ns DAILY (route: oral) Med Classific ation: Analgesic , Anti-infl ammatory or Antipyret ic clonazepam 0.5 mg tablet 01-08 00:00: 00 Yes [id number] 1 tablet TWICE A DAY 1 tablet TWICE A DAY (route: oral) Med Classific ation: Central Nervous System Agents cefuroxime axetil 500 mg tablet 02-01 00:00: 00 Yes [id number] 1 tablet 2 TIMES DAILY 1 tablet 2 TIMES DAILY (route: oral) Med Classific ation: Anti-Infe ctive Agents Eliquis 5 mg tablet 02-04 00:00: 00 Yes [id number] 1 tablet 2 TIMES DAILY 1 tablet 2 TIMES DAILY (route: oral) Med Classific ation: Hematolog ical Agents loperamide 2 mg tablet 02-04 00:00: 00 Yes [id number] 1 tablet EVERY 6 HOURS 1 tablet EVERY 6 HOURS (route: oral) Med Classific ation: Gastroint estinal Therapy Agents losartan 25 mg tablet 02-04 00:00: 00 Yes [id number] 1 tablet DAILY 1 tablet DAILY (route: oral) Med Classific ation: Cardiovas cular Therapy Agents menthol 0.44 %-zinc oxide 20.6 % topical ointment 02-04 00:00: 00 Yes [id number] 1 inch 2 TIMES DAILY 1 inch 2 TIMES DAILY (route: topical) Med Classific ation: Dermatolo gical omeprazole 40 mg capsule,del ayed release 02-01 00:00: 00 Yes [id number] 1 capsule DAILY 1 capsule DAILY (route: oral) Med Classific ation: Gastroint estinal Therapy Agents Immunizations Ordered Immunization Name Filled Immunization Name Date Status Comments Refusal Reason INFLUENZA, TIV (INACTIVATED) 2024-07-25 00:00:00 Vital Signs Vital Name Observation Time Observation Value Commen ts Temperature 2025-02-19 10:06:00.000 97.4 [degF] Temperature 2025-02-15 08:38:00.000 98.7 [degF] Temperature 2025-02-14 12:01:00.000 97.1 [degF] Temperature 2025-02-13 16:35:00.000 98.3 [degF] Temperature 2025-02-06 10:49:00.000 98 [degF] BMI (%) 2025-02-06 10:49:00.000 28 kg/m2 Height 2025-02-06 10:49:00.000 63 [in_us] Pulse 2025-02-19 10:06:00.000 60 /min Pulse 2025-02-14 12:01:00.000 60 /min Pulse 2025-02-13 16:35:00.000 75 /min Pulse 2025-02-06 10:49:00.000 66 /min O2 Saturation (%) 2025-02-19 10:06:00.000 97 % O2 Saturation (%) 2025-02-15 08:38:00.000 99 % O2 Saturation (%) 2025-02-14 12:01:00.000 99 % O2 Saturation (%) 2025-02-06 10:49:00.000 97 % Respirations 2025-02-19 10:06:00.000 18 /min Respirations 2025-02-15 08:38:00.000 18 /min Respirations 2025-02-14 12:01:00.000 12 /min Respirations 2025-02-13 16:35:00.000 18 /min Respirations 2025-02-06 10:49:00.000 12 /min Weight (lbs) 2025-02-15 08:43:00.000 164 [lb_av] Weight (lbs) 2025-02-06 10:49:00.000 160 [lb_av] Systolic Blood Pressure 2025-02-19 10:06:00.000 124 mm [Hg] Systolic Blood Pressure 2025-02-15 08:38:00.000 132 mm [Hg] Systolic Blood Pressure 2025-02-14 12:01:00.000 112 mm [Hg] Systolic Blood Pressure 2025-02-13 16:35:00.000 118 mm [Hg] Systolic Blood Pressure 2025-02-06 10:49:00.000 136 mm [Hg] Diastolic Blood Pressure 2025-02-19 10:06:00.000 74 mm [Hg] Diastolic Blood Pressure 2025-02-15 08:38:00.000 70 mm [Hg] Diastolic Blood Pressure 2025-02-14 12:01:00.000 70 mm [Hg] Diastolic Blood Pressure 2025-02-13 16:35:00.000 78 mm [Hg] Diastolic Blood Pressure 2025-02-06 10:49:00.000 77 mm [Hg] Plan of Treatment Planned Activity Planned Date Details Comments Future Scheduled Test SKILLED NU RSE TO EVALUATE PATIENT, IDENTIFY PRIMARY AND CO-MORBID CONDITIONS CODED PER CODING GUIDELINES, AND DEVELOP PATIENT SPECIFIC PLAN OF CARE THAT INCLUDES PATIENT GOAL FOR HOME HEALTH. [code = SKILLED NURSE TO EVALUATE PATIENT, IDENTIFY PRIMARY AND CO-MORBID CONDITIONS CODED PER CODING GUIDELINES, AND DEVELOP PATIENT SPECIFIC PLAN OF CARE THAT INCLUDES PATIENT GOAL FOR HOME HEALTH.] Future Scheduled Test SKILLED NU RSE TO PROVIDE TEACHING/REINFORCEMENT RELATED TO URINARY INCONTINENCE. [code = SKILLED NURSE TO PROVIDE TEACHING/REINFORCEMENT RELATED TO URINARY INCONTINENCE.] Future Scheduled Test SKILLED NU RSE TO ASSESS ANXIETY AND PROVIDE ASSISTANCE TO PATIENT FOR UNDERSTANDING AND MANAGEMENT OF FEELINGS. [code = SKILLED NURSE TO ASSESS ANXIETY AND PROVIDE ASSISTANCE TO PATIENT FOR UNDERSTANDING AND MANAGEMENT OF FEELINGS.] Future Scheduled Test SKILLED NU RSE FOR O/A, TEACHING, AND MANAGEMENT OF HTN, HLD. [code = SKILLED NURSE FOR O/A, TEACHING, AND MANAGEMENT OF HTN, HLD.] Future Scheduled Test SKILLED NU RSE FOR O/A, TEACHING RELATED TO GERD, DIVERTICULITIS, GONZALEZ'S ESOPHAGUS FOR EARLY IDENTIFICATION OF EXACERBATION OF DISEASE PROCESS. [code = SKILLED NURSE FOR O/A, TEACHING RELATED TO GERD, DIVERTICULITIS, GONZALEZ'S ESOPHAGUS FOR EARLY IDENTIFICATION OF EXACERBATION OF DISEASE PROCESS.] Future Scheduled Test OCCUPATION AL THERAPIST TO EVALUATE PATIENT FOR ADLS SAFETY [code = OCCUPATIONAL THERAPIST TO EVALUATE PATIENT FOR ADLS SAFETY] Future Scheduled Test SKILLED NU RSE FOR O/A OF RESPIRATORY SYSTEM TO IDENTIFY CHANGES ASSOCIATED WITH EXACERBATION AND TO PROVIDE SKILLED TEACHING ON MANAGEMENT OF PNA, EDWIGE PROCESS. [code = SKILLED NURSE FOR O/A OF RESPIRATORY SYSTEM TO IDENTIFY CHANGES ASSOCIATED WITH EXACERBATION AND TO PROVIDE SKILLED TEACHING ON MANAGEMENT OF PNA, EDWIGE PROCESS.] Future Scheduled Test SKILLED NU RSE TO PERFORM AND RECORD BLOOD SUGAR READING DURING VISITS, AND PRN FOR SIGNS AND SYMPTOMS OF HYPO/HYPERGLYCEMIA. [code = SKILLED NURSE TO PERFORM AND RECORD BLOOD SUGAR READING DURING VISITS, AND PRN FOR SIGNS AND SYMPTOMS OF HYPO/HYPERGLYCEMIA.] Future Scheduled Test SKILLED NU RSE FOR O/A OF MUSCULOSKELETAL STATUS AND TEACHING ON MEASURES TO MANAGE OA, OSTEOPENIA AND TO MAINTAIN SAFETY WITH ACTIVITY [code = SKILLED NURSE FOR O/A OF MUSCULOSKELETAL STATUS AND TEACHING ON MEASURES TO MANAGE OA, OSTEOPENIA AND TO MAINTAIN SAFETY WITH ACTIVITY] Future Scheduled Test PHYSICAL T HERAPIST TO EVALUATE PATIENT FOR BALANCE AND STRENGHTNING AND REVIEW OF WALKER [code = PHYSICAL THERAPIST TO EVALUATE PATIENT FOR BALANCE AND STRENGHTNING AND REVIEW OF WALKER] Future Scheduled Test SKILLED NU RSE TO INSTRUCT PATIENT/CAREGIVER ON SIGNS AND SYMPTOMS, RISK FACTORS, COMPLICATIONS, AND MANAGEMENT OF ATRIAL FIBRILLATION. [code = SKILLED NURSE TO INSTRUCT PATIENT/CAREGIVER ON SIGNS AND SYMPTOMS, RISK FACTORS, COMPLICATIONS, AND MANAGEMENT OF ATRIAL FIBRILLATION.] Future Scheduled Test SKILLED NU RSE FOR OBSERVATION AND ASSESSMENT TO IDENTIFY CHANGES ASSOCIATED WITH DEMENTIA AND TEACHING RELATED TO SAFETY MEASURES TO PREVENT INJURY, ELOPEMENT RISKS, BEHAVIOR CHANGES, ACTIVITIES, AND ENVIRONMENTAL CHANGES ALL SECONDARY TO IMPAIRED COGNITIVE STATUS. [code = SKILLED NURSE FOR OBSERVATION AND ASSESSMENT TO IDENTIFY CHANGES ASSOCIATED WITH DEMENTIA AND TEACHING RELATED TO SAFETY MEASURES TO PREVENT INJURY, ELOPEMENT RISKS, BEHAVIOR CHANGES, ACTIVITIES, AND ENVIRONMENTAL CHANGES ALL SECONDARY TO IMPAIRED COGNITIVE STATUS. ] Future Scheduled Test SKILLED NU RSE FOR O/A AND SKILLED TEACHING RELATED TO SIGNS AND SYMPTOMS AND MANAGEMENT OF ANEMIA. [code = SKILLED NURSE FOR O/A AND SKILLED TEACHING RELATED TO SIGNS AND SYMPTOMS AND MANAGEMENT OF ANEMIA.] Future Scheduled Test SKILLED NU RSE FOR O/A AND TEACHING OF DIABETIC MANAGEMENT INCLUDING BLOOD SUGAR MONITORING/USE OF GLUCOMETER, DIABETIC DIET, LOWER EXTREMITY SKIN INSPECTION, PROPER SKIN/FOOT CARE, AND SIGNS AND SYMPTOMS HYPO/HYPERGLYCEMIA TO REPORT. [code = SKILLED NURSE FOR O/A AND TEACHING OF DIABETIC MANAGEMENT INCLUDING BLOOD SUGAR MONITORING/USE OF GLUCOMETER, DIABETIC DIET, LOWER EXTREMITY SKIN INSPECTION, PROPER SKIN/FOOT CARE, AND SIGNS AND SYMPTOMS HYPO/HYPERGLYCEMIA TO REPORT.] Future Scheduled Test PATIENT RANDOLPH S A RISK OF HOSPITALIZATION AND ED USE. SKILLED NURSE TO ESTABLISH SUPPORT MEASURES TO MINIMIZE RISK OF HOSPITALIZATION AND ED USE, AND INSTRUCT PATIENT/CAREGIVER ON METHODS TO REDUCE AVOIDABLE HOSPITALIZATION AND ED USE. [code = PATIENT HAS A RISK OF HOSPITALIZATION AND ED USE. SKILLED NURSE TO ESTABLISH SUPPORT MEASURES TO MINIMIZE RISK OF HOSPITALIZATION AND ED USE, AND INSTRUCT PATIENT/CAREGIVER ON METHODS TO REDUCE AVOIDABLE HOSPITALIZATION AND ED USE.] Future Scheduled Test SKILLED NU RSE TO PROVIDE INSTRUCTION TO PATIENT/CAREGIVER RELATED TO DISCHARGE PLANNING. [code = SKILLED NURSE TO PROVIDE INSTRUCTION TO PATIENT/CAREGIVER RELATED TO DISCHARGE PLANNING.] Future Scheduled Test SKILLED NU RSE TO PERFORM ENVIRONMENTAL SAFETY RISK ASSESSMENT AND FALL RISK ASSESSMENT AND PROVIDE INSTRUCTION TO IMPLEMENT ENVIRONMENTAL SAFETY AND FALL PREVENTION STRATEGIES THROUGHOUT THE CERTIFICATION PERIOD. SKILLED NURSE WILL MAINTAIN SITUATIONAL AWARENESS AND WILL NOTIFY CLINICAL CHAIRMAN & CHIEF EXECUTIVE OFFICER AND PHYSICIAN/PROVIDER WITH ANY CHANGE IN CONDITION. [code = SKILLED NURSE TO PERFORM ENVIRONMENTAL SAFETY RISK ASSESSMENT AND FALL RISK ASSESSMENT AND PROVIDE INSTRUCTION TO IMPLEMENT ENVIRONMENTAL SAFETY AND FALL PREVENTION STRATEGIES THROUGHOUT THE CERTIFICATION PERIOD. SKILLED NURSE WILL MAINTAIN SITUATIONAL AWARENESS AND WILL NOTIFY CLINICAL CHAIRMAN & CHIEF EXECUTIVE OFFICER AND PHYSICIAN/PROVIDER WITH ANY CHANGE IN CONDITION.] Future Scheduled Test SKILLED NU RSE FOR OBSERVATION AND ASSESSMENT OF PATIENTS PAIN LEVEL AND EFFECTIVENESS OF PAIN MANAGEMENT REGIMEN. SKILLED NURSE TO INSTRUCT PATIENT/CAREGIVER REGARDING PHARMACOLOGIC AND NON-PHARMACOLOGIC PAIN CONTROL MEASURES. SKILLED NURSE TO REPORT TO PHYSICIAN IF PAIN IS UNCONTROLLED WITH CURRENT PAIN MANAGEMENT REGIMEN. [code = SKILLED NURSE FOR OBSERVATION AND ASSESSMENT OF PATIENTS PAIN LEVEL AND EFFECTIVENESS OF PAIN MANAGEMENT REGIMEN. SKILLED NURSE TO INSTRUCT PATIENT/CAREGIVER REGARDING PHARMACOLOGIC AND NON-PHARMACOLOGIC PAIN CONTROL MEASURES. SKILLED NURSE TO REPORT TO PHYSICIAN IF PAIN IS UNCONTROLLED WITH CURRENT PAIN MANAGEMENT REGIMEN.] Future Scheduled Test SKILLED NU RSE TO ASSESS PATIENT'S SKIN INTEGRITY AND INSTRUCT PATIENT/CAREGIVER ON MEASURES TO PREVENT PRESSURE ULCERS. [code = SKILLED NURSE TO ASSESS PATIENT'S SKIN INTEGRITY AND INSTRUCT PATIENT/CAREGIVER ON MEASURES TO PREVENT PRESSURE ULCERS.] Future Scheduled Test SKILLED NU RSE TO PROVIDE ASSESSMENT AND TEACHING/REINFORCEMENT OF MANAGEMENT OF DEPRESSION INCLUDING DISEASE PROCESS, MEDICATION MANAGEMENT, COPING SKILLS AND IDENTIFY CHANGES ASSOCIATED WITH DEPRESSIVE DISORDERS FOR EARLY INTERVENTION. [code = SKILLED NURSE TO PROVIDE ASSESSMENT AND TEACHING/REINFORCEMENT OF MANAGEMENT OF DEPRESSION INCLUDING DISEASE PROCESS, MEDICATION MANAGEMENT, COPING SKILLS AND IDENTIFY CHANGES ASSOCIATED WITH DEPRESSIVE DISORDERS FOR EARLY INTERVENTION.] Future Scheduled Test SKILLED NU RSE TO REVIEW PATIENT MEDICATIONS (PRESCRIPTION/OTC). INSTRUCT PATIENT/CAREGIVER ON ALL MEDICATIONS INCLUDING PURPOSE, WHEN TO TAKE, IMPORTANCE OF MEDICATION ADHERENCE, MONITORING OF EFFECTIVENESS, ADVERSE DRUG REACTIONS, POSSIBLE SIDE EFFECTS, AND WHEN TO NOTIFY AGENCY OR PHYSICIAN/PROVIDER OF ANY CONCERNS. [code = SKILLED NURSE TO REVIEW PATIENT MEDICATIONS (PRESCRIPTION/OTC). INSTRUCT PATIENT/CAREGIVER ON ALL MEDICATIONS INCLUDING PURPOSE, WHEN TO TAKE, IMPORTANCE OF MEDICATION ADHERENCE, MONITORING OF EFFECTIVENESS, ADVERSE DRUG REACTIONS, POSSIBLE SIDE EFFECTS, AND WHEN TO NOTIFY AGENCY OR PHYSICIAN/PROVIDER OF ANY CONCERNS.] Medication 2025-03-07 00:00:00 calcium 500 mg (as carbonate)-vitamin D3 3.125 mcg (125 unit) tablet [code = 198340] Med Classification: Electrolyte Balance-Nutritional Products Goal Patient Goal - N OT FEEL SO TIRED Goal Provider Goal - A PLAN OF CARE WILL BE ESTABLISHED THAT MEETS PATIENT'S SHELTER NEEDS AND INCLUDES PATIENT GOAL FOR HOME HEALTH. Goal Provider Goal - PATIENT / CAREGIVER WILL VERBALIZE UNDERSTANDING OF EFFECTS OF URINARY INCONTINENCE BY THE END OF THE CERTIFICATION PERIOD. Goal Provider Goal - SYMPTOMS OF ANXIETY ARE IDENTIFIED AND INTERVENTIONS INITIATED TO ENABLE PATIENT TO UNDERSTAND AND MANAGE FEELINGS THROUGHOUT EPISODE. Goal Provider Goal - PATIENT/CAREGIVER WILL VERBALIZE/DEMONSTRATE MANAGEMENT OF CARDIAC DISEASE PROCESS AND EXACERBATIONS WILL BE IDENTIFIED AND PROMPTLY REPORTED THROUGHOUT THE CERTIFICATION PERIOD. Goal Provider Goal - EXACERBATIONS OF GASTROINTESTINAL DISEASE WILL BE PROMPTLY IDENTIFIED AND INTERVENTIONS IMPLEMENTED TO MINIMIZE RISKS TO PATIENT BY END OF EPISODE. Goal Provider Goal - OCCUPATIONAL THERAPY EVALUATION TO BE COMPLETED WITH RECOMMENDATIONS AND WRITTEN PLAN OF TREATMENT ESTABLISHED FOR THE PHYSICIANS SIGNATURE. Goal Provider Goal - PATIENT/CAREGIVER WILL VERBALIZE/DEMONSTRATE MANAGEMENT OF RESPIRATORY DISEASE PROCESS. CHANGES IN RESPIRATORY STATUS WILL BE IDENTIFIED AND REPORTED TO PHYSICIAN FOR PROMPT INTERVENTION THROUGHOUT THE CERTIFICATION PERIOD. Goal Provider Goal - BLOOD SUGAR READING WILL BE OBTAINED ORDERED THROUGHOUT CERTIFICATION PERIOD. Goal Provider Goal - PATIENT/CAREGIVER WILL VERBALIZE/DEMONSTRATE ABILITY TO MANAGE MUSCULOSKELETAL DISEASE WHILE MAINTAINING SAFETY THROUGHOUT THE EPISODE. Goal Provider Goal - A PHYSICAL THERAPY EVALUATION TO BE COMPLETED WITH RECOMMENDATIONS AND/OR WRITTEN PLAN OF TREATMENT ESTABLISHED FOR PHYSICIANS SIGNATURE. Goal Provider Goal - PATIENT/CAREGIVER WILL VERBALIZE UNDERSTANDING OF SIGNS AND SYMPTOMS, COMPLICATIONS, AND MANAGEMENT OF ATRIAL FIBRILLATION THROUGHOUT THE CERTIFICATION PERIOD. Goal Provider Goal - PATIENT/CAREGIVER WILL VERBALIZE /DEMONSTRATE APPROPRIATE ENVIRONMENTAL/SAFETY MODIFICATIONS IN RESPONSE TO BEHAVIOR/COGNITIVE CHANGES ASSOCIATED WITH DEMENTIA DIAGNOSIS THROUGHOUT THE CERTIFICATION PERIOD. Goal Provider Goal - PATIENT/CARGIVER WILL VERBALIZE UNDERSTANDING OF ANEMIA INCLUDING SIGNS AND SYMPTOMS, MANAGEMENT OF COMPLICATIONS, AND PRESCRIBED TREATMENT REGIMEN BY END OF EPISODE. Goal Provider Goal - PATIENT/CAREGIVER WILL VERBALIZE/DEMONSTRATE KNOWLEDGE OF DIABETIC MANAGEMENT. CHANGES IN DIABETIC STATUS WILL BE IDENTIFIED AND REPORTED TO PHYSICIAN FOR PROMPT INTERVENTION THROUGHOUT THE CERTIFICATION PERIOD. Goal Provider Goal - PATIENT WILL HAVE SUPPORT MEASURES ESTABLISHED TO PREVENT HOSPITALIZATION AND ED USE AND PATIENT/CAREGIVER WILL VERBALIZE/DEMONSTRATE METHODS TO REDUCE AVOIDABLE HOSPITALIZATION AND ED USE BY END OF EPISODE. Goal Provider Goal - PATIENT/CAREGIVER WILL VERBALIZE UNDERSTANDING OF DISCHARGE PLANNING INSTRUCTIONS BY DATE OF DISCHARGE. Goal Provider Goal - PATIENT/CAREGIVER WILL VERBALIZE/DEMONSTRATE EFFECTIVE ENVIRONMENTAL SAFETY AND FALL PREVENTION STRATEGIES, WILL REMAIN SAFE IN THE COMMUNITY, AND WILL BE FREE OF DANGER TO SELF AND OTHERS THROUGHOUT THE CERTIFICATION PERIOD. Goal Provider Goal - PATIENT/CAREGIVER WILL DEMONSTRATE UNDERSTANDING OF PHARMACOLOGIC AND NONPHARMACOLOGIC PAIN CONTROL MEASURES AND PATIENT WILL HAVE IMPROVEMENT IN PAIN INTERFERING WITH ACTIVITY EVIDENCED BY PAIN CONTROLLED AT LEVEL OF 7 OR LESS BY END OF CERTIFICATION PERIOD. Goal Provider Goal - PATIENT/CAREGIVER WILL VERBALIZE UNDERSTANDING OF PRESSURE ULCER PREVENTION BY END OF THE EPISODE. Goal Provider Goal - PATIENT/CAREGIVER WILL VERBALIZE/DEMONSTRATE UNDERSTANDING OF THE MANAGEMENT OF DEPRESSION THROUGHOUT THE CERTIFICATION PERIOD AND SYMPTOMS ARE IDENTIFIED AND MANAGED TO MAINTAIN PATIENT SAFETY IN THE HOME. Goal Provider Goal - PATIENT/CAREGIVER WILL VERBALIZE UNDERSTANDING OF EDUCATION PROVIDED ON MEDICATIONS BY THE END OF THE CERTIFICATION PERIOD. Progress Notes Progress Notes <paragraph>[Visit Date: 2024 by MK FLORES PT]:</paragraph><paragraph>02/19/25 PHYSICAL THERAPY TREATMENT SESSION PATIENT CONTINUES TO REPORT LEFT LE PAIN WITH LEFT KNEE PAIN > LEFT HIP. PATIENT REPORTS ORTHO MD APPTS : HIP JOINT ASPIRATION 02/23 AT 11 AM AND KNEE JOINT ASPIRATION 02/27 AT 10 AM. PATIENT REPORTS ORTHO HAS STATED LEFT KNEE POSSIBLY HAS INFECTION, LEFT THR WILL BE PRIOR TO TKR. TO MAX FUNCTIONAL LEVEL AND SAFETY IN HOME ENVIRONMENT, DISPENSED DME AND EDUC ON USAGE: LEG PIPE LINE GAUGER, 4 STEP RISER FOR BED AND AXILLARY CRUTCHES. AFTER ADJUSTING CRUTCHES FOR PATIENT TO MAX COMFORT AND USAGE, TRANSFER GAIT TRAINING WITH CRUTCHES. TRANSFER TRAINING FROM SOFA AND BED WITH 1 CRUTCH, USE OF 4 STEP RISER DUE TO HIGH BED HEIGHT RESULTED IN IMPROVED SAFETY AND EASE. DUE TO PATIENT'S PAST USAGE OF CRUTCHES, VERBAL CUES FOR SEQUENCING AT START OF GAIT TRAINING, IMPROVED TO MOD I BY END OF TREATMENT SESSION. PATIENT DESCENDED 1 STEP WITH BILAT CRUTCHES, DEMO INSTABILITY AND REQUIRED CGA. EDUC PATIENT ON USING 1 CRUTCH AND UE SUPPORT ON STURDY FURNITURE TO COMPLETE. PATIENT DEMO IMPROVED STABILITY ASCENDING STEP WITH 1 CRUTCH AND UE SUPPORT, VERBAL CUES FOR SEQUENCING. PATIENT INFORMED APPROACHING MAX FUNCTIONAL LEVEL, TO BE D/C NEXT VISIT, VERBALIZED ACCEPTANCE.</paragraph> <paragraph>[Visit Date: 2024 by SUSANA MANLEY LPN]:</paragraph><paragraph>SNV 02/15 ABNORMAL VITALS: WITHIN ESTABLISHED PARAMETERS FALLS: NO FALLS MEDICATION CHANGES: NONE OBSERVATION AND ASSESSMENT PROVIDED: PT PT ALERT ORIENTEDX 4, PLEASANT COOPERATIVE DURING VISIT. PT HAS FOLLOW UP CXR SCHEDULED TODAY. PT COMPLETED ABX 2 DAYS AGO FOR UTI/PNEUMONIA. PT HAS SOB WITH MODERATE EXERTION. PAIN LT KNEE/HIP MANAGED WITH HEAT AND PRN TRAMADOL. ASPIRATION ON LT KNEE DONE LAST WEEK, RESULTS PENDING AND LT HIP ASPIRATION SCHED 02/23. VSS, LS CLEAR, PT ABLE TO SPEAK IN FULL SENTENCES WITH NAD, TR SWELLING LT KNEE. NO ISSUES WITH BOWELS, LBM THIS MORNING. PT DENIES SIGNS OR SYMPTOMS OF UTI. APPETITE ADEQUATE EDUCATION: ENERGY CONSERVATION METHODS, HYDRATION REQUIREMENTS INTERVENTIONS NEEDED AT NEXT VISIT: ASSESSMENT TEACHING COMMUNICATION WITH MD: Cheryl GRAF MD APPOINTMENT: SURGEON 02/25, PCP 02/21 PT AND CAREGIVER INSTRUCTED TO CALL [facility] WITH ANY QUESTIONS OR CONCERNS AND/OR CHANGES IN CONDITION, PATIENT VERBALIZED UNDERSTANDING ...</paragraph> Encounters Start Date/Time End Date/Time Encounter Type Admission Type Attending Clinicians Care Facility Care Department Encounter ID Discharge Date Discharge Status Discharge Condition Discharge Reason Percent Goals Met 2025-02-06 00:00:00 2025-04-06 00:00:00 Outpatient NEW ADMISSION MICHELLE RAJPUT [facility] [id number] 21.57
--- OUTSIDE RECORDS SUMMARY | 2025-02-21 08:44 | XMS_ITS | Patient Health Record ---
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 Problem Iron deficiency anemia (40347992) Iron deficiency anemia (D50.9) Active confirmed Problem Gastritis (0589317) Gastritis (K29.70) Active confirmed Problem Gastroesophageal reflux disease (656718696) GERD (gastroesophageal reflux disease) (K21.9) Active confirmed Problem Diverticulosis of colon (129494820) Diverticulosis of colon (K57.30) Active confirmed Plan [...] Date MEDICARE OF [place] [address] [place] [address] [id number] TOMASZ FULLER Self - patient is the insured [employer] ATT[employer] CLAIMS [address] [place] [address] [id number] TOMASZ FULLER Self - patient is the insured Medical (General) History Medical History History ICD Code HTN Afib-[facility] [place] Denies VA,DM,CVA,Lung disease,renal dise ase GERD-never had an EGD [...]
--- OUTSIDE RECORDS SUMMARY | 2025-02-21 08:44 | XMS_ITS ---
Author Organization [facility] Address [address] [place] [address] Care Team Providers Care Personal Caregiver Name Role Phone Ollie Hernandez Primary Care Provider Unavailab Jean Baires Unavailable [phone] Martin Dupree Unavailable Unavailable Encounters Encounter Location Date Provider Diagnosis [facility] [address] [place] [address] 01/02/2024 Jean Hairston Plan Of Treatment No Information Progress Notes * TOMASZ FULLERDOB: 6 (68 yo F)Acc No.[id number]:01/02/2024 Patient:?TOMASZ FULLER :1955???Age:68 Y???Sex:Female Address:[address] [place] [address], [place], [address] * true * Date:? Generated for Maryjanei elyse/Mike/eTransmitting on:?02/21/2025 08:43 AM EDT
[2025-02-21 08:45] VITALS: BP 146/78
--- OUTSIDE RECORDS SUMMARY | 2025-02-21 08:45 | XMS_ITS | Clinical Summary ---
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) USE OF ANTICOAGULAN TS Active 11-08 00:00: 00 OTHER SKILLED NURSING (CURRENT) DRUG THERAPY Active 11-08 00:00: 00 [...] tablet, extended release 02-02 00:00: 00 Yes [id number] 1 tablet DAILY 1 tablet DAILY (route: oral) Med Classific ation: Central Nervous System Agents carvedilol 6.25 mg tablet 02-02 00:00: 00 Yes [id number] 1 tablet 2 TIMES DAILY 1 tablet 2 TIMES DAILY (route: oral) Med Classific ation: Cardiovas cular Therapy Agents donepezil 10 mg tablet 02-01 00:00: 00 Yes [id number] 1 tablet DAILY 1 tablet DAILY (route: oral) Med Classific ation: Cognitive Disorder Therapy trazodone 100 mg tablet 02-01 00:00: 00 Yes [id number] .5 tablet BEDTIME .5 tablet BEDTIME (route: oral) Med Classific ation: Central Nervous System Agents amoxicillin 500 mg tablet 01-31 00:00: 00 Yes [id number] 1 tablet DAILY 1 tablet DAILY (route: oral) Med Classific ation: Anti-Infe ctive Agents quetiapine 25 mg tablet 01-27 00:00: 00 Yes [id number] .5 tablet BEDTIME .5 tablet BEDTIME (route: oral) Med Classific ation: Central Nervous System Agents tramadol 50 mg tablet 01-27 00:00: 00 Yes [id number] Per instruc tions 3 TIMES A DAY NEEDED FOR 30 DAYS Per instructio ns 3 TIMES A DAY NEEDED FOR 30 DAYS (route: oral) Med Classific ation: Analgesic , Anti-infl ammatory or Antipyret ic celecoxib 200 mg capsule 01-24 00:00: 00 02-04 23:59 :00 No [id number] Per instruc tions DAILY Per instructio ns DAILY (route: oral) Med Classific ation: Analgesic , Anti-infl ammatory or Antipyret ic clonazepam 0.5 mg tablet 01-08 00:00: 00 Yes [id number] 1 tablet TWICE A DAY 1 tablet TWICE A DAY (route: oral) Med Classific ation: Central Nervous System Agents cefuroxime axetil 500 mg tablet 02-01 00:00: 00 Yes [id number] 1 tablet 2 TIMES DAILY 1 tablet 2 TIMES DAILY (route: oral) Med Classific ation: Anti-Infe ctive Agents Eliquis 5 mg tablet 02-04 00:00: 00 Yes [id number] 1 tablet 2 TIMES DAILY 1 tablet 2 TIMES DAILY (route: oral) Med Classific ation: Hematolog ical Agents loperamide 2 mg tablet 02-04 00:00: 00 Yes [id number] 1 tablet EVERY 6 HOURS 1 tablet EVERY 6 HOURS (route: oral) Med Classific ation: Gastroint estinal Therapy Agents losartan 25 mg tablet 02-04 00:00: 00 Yes [id number] 1 tablet DAILY 1 tablet DAILY (route: oral) Med Classific ation: Cardiovas cular Therapy Agents menthol 0.44 %-zinc oxide 20.6 % topical ointment 02-04 00:00: 00 Yes [id number] 1 inch 2 TIMES DAILY 1 inch 2 TIMES DAILY (route: topical) Med Classific ation: Dermatolo gical omeprazole 40 mg capsule,del ayed release 02-01 00:00: 00 Yes [id number] 1 capsule DAILY 1 capsule DAILY (route: [...] MAINTAIN SITUATIONAL AWARENESS AND WILL NOTIFY CLINICAL BLOW DOWN HELPER AND PHYSICIAN/PROVIDER WITH ANY CHANGE IN CONDITION. [code = SKILLED NURSE TO PERFORM ENVIRONMENTAL SAFETY RISK ASSESSMENT AND FALL RISK ASSESSMENT AND PROVIDE INSTRUCTION TO IMPLEMENT ENVIRONMENTAL SAFETY AND FALL PREVENTION STRATEGIES THROUGHOUT THE CERTIFICATION PERIOD. 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
== END 2025-02-21 09:06 | disposition home or self-care (01) ==
LOC: HO.HMCFM 08:30
PROVIDERS: PCP Family Medicine; Visit Provider Family Medicine
DX: I10 Essential (primary) hypertension (principal); M25.551 Pain in right hip; M25.552 Pain in left hip; J18.9 Pneumonia, unspecified organism; N39.0 Urinary tract infection, site not specified

== ENCOUNTER → 2025-02-21 08:29 | Outpatient (BNVA) | payer MEDICARE, SELFPAY | PROVIDERS: PCP Family Medicine; Visit Provider Family Medicine | DX: I10 Essential (primary) hypertension (principal); M25.551 Pain in right hip; M25.552 Pain in left hip; J18.9 Pneumonia, unspecified organism; Z79.891 Long term (current) use of opiate analgesic; Z79.899 Other long term (current) drug therapy | CPT/HCPCS: 99212 ==

== ENCOUNTER → 2025-03-12 23:59 | Outpatient (BNV) | payer MEDICARE, SELFPAY | PROVIDERS: PCP Family Medicine; Visit Provider Family Medicine | DX: J18.8 Other pneumonia, unspecified organism (principal); I48.0 Paroxysmal atrial fibrillation | CPT/HCPCS: G0180 ==

== ENCOUNTER 2025-04-23 10:22 | Outpatient (REF) | payer MEDICARE, SELFPAY ==
--- OUTSIDE RECORDS SUMMARY | 2025-04-23 11:36 | XMS_ITS ---
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) Active confirmed Vital Signs Temperature 97.1 degrees Fahrenheit 12/16/19 24 Blood pressure systolic 00 mm Hg 12/16/19 24 Blood pressure diastolic 00 mm Hg 024 Height 63 in 12/16/2023 Weight 147 lbs 12/16/2023 BMI 26.04 kg/m2 12/16/2023 Encounters Encounter Location Date Provider Diagnosis [facility] [address] [place] [address] 12/16/2023 Jean Hairston Iron deficiency anemia D50.9 [...] did advise her to continue her omeprazole 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 as this does seem to be working [...] did advise her to continue her omeprazole 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 as this does seem to be working [...] did advise her to continue her omeprazole 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 ??Counseling:?Care goal follow-up plan:?Above Normal BMI Follow-up?Giving encouragement to exercise,?BMI management provided?Yes.? ??Urinary Incontinence:?Urinary Incontinence?Assessment:?Present,?Plan of care documented:?Yes,?Type of plan of care:?Lifestyle interventions.? * Follow Up:?prn * * Sign off status: Completed true * Provider:?Jean Hairston MD Date:? 024 Generated for Prem pappas/Mike/Biaitting on:?04/23/2025 11:36 AM EDT History and Physical Notes * [...]
[2025-04-23 14:21] LABS: Appearance Urine Clear; Color Urine Yellow; Glucose Urine UA Negative (Negative); Leukocyte Esterase Urine Trace (Negative); Nitrite Urine Negative (Negative); Specific Gravity - Urine 1.025 (1.005-1.025); UMIC TRIGGER UA YES; Urine Blood Negative (Negative); Urine Ketones Trace mg/dL (Negative); Urine Protein Negative (Neg-Trace)
[2025-04-23 14:36] LABS: Bacteria Urine 1+ (None Seen); Hyaline Casts Urine 0-2 /LPF (0-2); RBC Urine 0-2 /HPF (0-2); WBC Urine 0-5 /HPF (0-5)
== END 2025-04-23 10:23 | disposition home or self-care (01) ==
LOC: HO.WFDLDS 10:22
PROVIDERS: Referring Provider Physician Assistant Medical; Visit Provider Family Medicine
DX: N32.81 Overactive bladder (principal)
CPT/HCPCS: 81001; 87086

== ENCOUNTER → 2025-04-23 23:59 | Outpatient (BNV) | payer MEDICARE, SELFPAY | PROVIDERS: PCP Family Medicine; Visit Provider Family Medicine | DX: J18.8 Other pneumonia, unspecified organism (principal); I48.0 Paroxysmal atrial fibrillation | CPT/HCPCS: G0180 ==

== ENCOUNTER → 2025-05-19 23:59 | Outpatient (BNV) | payer MEDICARE, SELFPAY | PROVIDERS: PCP Family Medicine; Visit Provider Family Medicine | DX: G89.29 Other chronic pain (principal); I48.0 Paroxysmal atrial fibrillation; F03.93 Unspecified dementia, unspecified severity, with mood disturbance | CPT/HCPCS: G0179 ==

== ENCOUNTER 2025-05-21 09:30 | Outpatient (AMB) | payer MEDICARE, SELFPAY ==
[2025-05-21 09:34] VITALS: BP 123/54; PULSE 51; BMI 28.1
--- NOTE | 2025-05-21 09:34 | MHC.OFFVIS ---
Vital Signs 05/21/25 09:34 Height 5 ft 3 in Weight 158 lb 11.725 oz BMI 28.1 BP 123/54 L Blood Pressure Location Lt radial Position Sitting Pulse 51 Intake Visit Reasons: 8 month follow up Intake Note: Trish presents in the office as a 8 month follow up. CC: She states that in February she was in the ED with Sepsis that started with a UTI that she did not realized until she was urinating blood. Material Chaser Required: No Allergies silver sulfadiazine (From Silvadene) Adverse Reaction (Mild, Verified 05/21/25 09:39) skin irritation HPI HPI 8 month follow up: Details: 70 yr old f here for f/u RECAP: Had seen [facility] for abdominal pain also abn bowel habits EGD/Sigmoidoscopy 02/2023 Impression and Post Procedure Diagnosis: Endoscopy Findings: incompetent LES, bile acid reflux esophagitis, possible barretts possible gastric intestinal metaplasia Colonoscopy Findings: internal hemorrhoids PATH: moderate chronic gastritis, crypt distortion of colon, otherwise nml h pylori breath test---NEGATIVE INTERIM: HGB has been stable at around 11 g/dl she is seeing [facility] to try to get hip and knee replacement she has urine sepsis last few months -recovering denies melena, no rectal bleeding, no nose bleeds appetite is good no abdominal pain, no dysphagia EXAM: GENERAL: The patient is well developed and nontoxic. VITAL SIGNS:see workflow HEENT: Nonicteric sclerae, PERRLA, EOMI. Oropharynx clear. Moist mucous membranes. Conjunctivae appear well perfused. No thyroid mass. CHEST: Chest wall is nontender. HEART: Regular rate and rhythm without murmurs. LUNGS: Clear to auscultation bilaterally. ABDOMEN: Soft, positive bowel sounds, nontender, no organomegaly.no flank tenderness SKIN: No rash, no excessive bruising, petechiae, or purpura. NEUROLOGIC: Cranial nerves II-XII intact without motor/sensory deficit. Mild Tremor psych- nml A/P: 1/ chronic stable anemia, ?2/2 chronic gastritis, prior H pylori neg PLAN: 1/ repeat EGD with bx, stop eliquis for 2 d before 2/ cont to monitor HGB periodically, if lower then colo and capsule PFSH Medical History Personal history of nicotine dependence Lump in neck Bilateral hip pain Osteopenia Barretts esophagus Anxiety Sleep apnea Dementia Chronic abdominal pain Mastodynia of left breast HTN (hypertension) Normocytic anemia Depression with anxiety SVT (supraventricular tachycardia) Atrial fibrillation Surgical History Hx of flexible sigmoidoscopy Status post insertion of nerve stimulator History of cholecystectomy (05/04/23) History of esophagogastroduodenoscopy (EGD) Hx of colonoscopy History of total hip replacement History of prior ablation treatment H/O heart surgery History of left knee replacement Family History Brother Lung cancer Brother Bladder cancer Social History Household Members: Spouse Housing: House Are you a primary nanny caregiver to a significant other at home: No Do you presently have visiting nurse or other home services: No Alcohol intake: current Alcohol intake frequency: 0-2 drinks per day Alcohol type: beer Patient Tobacco Use Status: Former Tobacco user e-Cigarette/Vaping Use: Never Used Second Hand Smoke Exposure: No service: No Current occupational status: retired Current occupational exposures/hazards: No Cognitive needs: No Hearing needs: No Vision needs: Yes Female Reproductive History Menstrual Age of Menarche: 13 Assessment & Plan Assessment & Plan (1) Mild anemia: Code(s): D64.9 - Anemia, unspecified Category: Medical Plan: as above Coding Level of Care Code Est Pt Level 3 (72460) Diagnoses Mild anemia D64.9
--- OUTSIDE RECORDS SUMMARY | 2025-05-21 09:57 | XMS_ITS | Patient Health Record ---
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) Active confirmed Problem Iron deficiency anemia (50061033) Iron deficiency anemia (D50.9) Active confirmed Problem Gastritis (9459138) Gastritis (K29.70) Active confirmed Problem Gastroesophageal reflux disease (332409454) GERD (gastroesophageal reflux disease) (K21.9) Active confirmed Problem Diverticulosis of colon (859816789) Diverticulosis of colon (K57.30) Active confirmed Plan [...] Date MEDICARE OF [place] [address] [place] [address] [id number] TOMASZ FULLER Self - patient is the insured [employer] ATT[employer] CLAIMS [address] [place] [address] [id number] TOMASZ FULLER Self - patient is the insured Medical (General) History Medical History History ICD Code HTN Afib-[facility] [place] Denies [place],DM,CVA,Lung disease,renal dise ase GERD-never had an EGD [...]
--- OUTSIDE RECORDS SUMMARY | 2025-06-04 20:00 | XMS_ITS | Clinical Summary ---
Author Organization Unknown Care Team Providers Care Dermatology Physician Assistant Name Role Phone REAGAN RUANO, YANETH Unavailable Unavailable STELLA RN, ADMISSION NURSE, CHANDRA Unavail able Unavailable MARK PT, MK Unavailable Unavailable [facility] ([facility]) [facility], [facility] Unavailable Unavailable Payers Payer Name Policy Type Policy Number Effective Date Expira tion Date MEDICARE - [facility] [facility]GM [id number] Problems Condition Name Condition Details Condition Category [...] ARTIFICIAL KNEE JOINT Active 11-08 00:00: 00 SKILLED NURSING (CURRENT) USE OF ANTICOAGULAN TS Active 11-08 00:00: 00 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 11-08 00:00: 00 PERSONAL HISTORY OF URINARY (TRACT) INFECTIONS Active 11-08 00:00: 00 PERSONAL HISTORY OF PNEUMONIA (RECURRENT) Active 11-08 00:00: 00 OTHER SKILLED NURSING (CURRENT) DRUG THERAPY Active 11-08 00:00: 00 SKILLED NURSING (CURRENT) USE OF OPIATE ANALGESIC Active 11-08 [...] tablet, extended release 02-02 00:00: 00 Yes [id number] 1 tablet DAILY 1 tablet DAILY (route: oral) Med Classific ation: Central Nervous System Agents carvedilol 6.25 mg tablet 02-02 00:00: 00 Yes [id number] 1 tablet 2 TIMES DAILY 1 tablet 2 TIMES DAILY (route: oral) Med Classific ation: Cardiovas cular Therapy Agents donepezil 10 mg tablet 02-01 00:00: 00 Yes [id number] 1 tablet DAILY 1 tablet DAILY (route: oral) Med Classific ation: Cognitive Disorder Therapy trazodone 100 mg tablet 02-01 00:00: 00 Yes [id number] .5 tablet BEDTIME .5 tablet BEDTIME (route: oral) Med Classific ation: Central Nervous System Agents amoxicillin 500 mg tablet 01-31 00:00: 00 04-03 23:59 :00 No [id number] 1 tablet DAILY 1 tablet DAILY (route: oral) Med Classific ation: Anti-Infe ctive Agents quetiapine 25 mg tablet 01-27 00:00: 00 Yes [id number] .5 tablet BEDTIME .5 tablet BEDTIME (route: oral) Med Classific ation: Central Nervous System Agents tramadol 50 mg tablet 01-27 00:00: 00 Yes [id number] Per instruc tions 3 TIMES A DAY NEEDED FOR 30 DAYS Per instructio ns 3 TIMES A DAY NEEDED FOR 30 DAYS (route: oral) Med Classific ation: Analgesic , Anti-infl ammatory or Antipyret ic celecoxib 200 mg capsule 01-24 00:00: 00 02-04 23:59 :00 No [id number] Per instruc tions DAILY Per instructio ns DAILY (route: oral) Med Classific ation: Analgesic , Anti-infl ammatory or Antipyret ic clonazepam 0.5 mg tablet 01-08 00:00: 00 Yes [id number] 1 tablet TWICE A DAY 1 tablet TWICE A DAY (route: oral) Med Classific ation: Central Nervous System Agents calcium 500 mg (as carbonate)- vitamin D3 3.125 mcg (125 unit) tablet 03-07 00:00: 00 04-03 23:59 :00 No [id number] 1 tablet DAILY 1 tablet DAILY (route: oral) Med Classific ation: Electroly te Balance-N utritiona l Products cefuroxime axetil 500 mg tablet 02-01 00:00: 00 Yes [id number] 1 tablet 2 TIMES DAILY 1 tablet 2 TIMES DAILY (route: oral) Med Classific ation: Anti-Infe ctive Agents Eliquis 5 mg tablet 02-04 00:00: 00 04-06 23:59 :00 No [id number] 1 tablet 2 TIMES DAILY 1 tablet 2 TIMES DAILY (route: oral) Med Classific ation: Hematolog ical Agents loperamide 2 mg tablet 02-04 00:00: 00 Yes [id number] 1 tablet EVERY 6 HOURS 1 tablet EVERY 6 HOURS (route: oral) Med Classific ation: Gastroint estinal Therapy Agents losartan 25 mg tablet 02-04 00:00: 00 Yes [id number] 1 tablet DAILY 1 tablet DAILY (route: oral) Med Classific ation: Cardiovas cular Therapy Agents menthol 0.44 %-zinc oxide 20.6 % topical ointment 3-30 00:00: 00 Yes [id number] 1 inch 2 TIMES DAILY 1 inch 2 TIMES DAILY (route: topical) Med Classific ation: Dermatolo gical omeprazole 40 mg capsule,del ayed release 3-27 00:00: 00 Yes [id number] 1 capsule DAILY 1 capsule DAILY (route: oral) Med Classific ation: Gastroint estinal Therapy Agents gabapentin 300 mg capsule 4-16 00:00: 00 Yes [id number] 1 capsule DAILY 1 capsule DAILY (route: oral) Med Classific ation: Central Nervous System Agents Calcium 600 with Vitamin D3 600 mg-10 mcg (400 unit) chewable tablet 04-07 00:00: 00 Yes [id number] 2 tablet 2 TIMES DAILY 2 tablet 2 TIMES DAILY (route: oral) Med Classific ation: Electroly te Balance-N utritiona l Products celecoxib 200 mg capsule 04-07 00:00: 00 Yes [id number] 1 capsule 2 TIMES DAILY 1 capsule 2 TIMES DAILY (route: oral) Med Classific ation: Analgesic , Anti-infl ammatory or Antipyret ic cranberry 500 mg capsule 04-07 00:00: 00 Yes [id number] 1 capsule DAILY 1 capsule DAILY (route: oral) Med Classific ation: Alternati ve Therapy Xarelto 2.5 mg tablet 30 00:00: 00 Yes [id number] 1 tablet DAILY 1 tablet DAILY (route: oral) Med Classific ation: Hematolog ical Agents oxycodone 5 mg tablet 4-03 00:00: 00 Yes [id number] 1 tablet EVERY 4 HOURS 1 tablet [...] MAINTAIN SITUATIONAL AWARENESS AND WILL NOTIFY CLINICAL INVOICING SPECIALIST AND PHYSICIAN/PROVIDER WITH ANY CHANGE IN CONDITION. [code = SKILLED NURSE TO PERFORM ENVIRONMENTAL SAFETY RISK ASSESSMENT AND FALL RISK ASSESSMENT AND PROVIDE INSTRUCTION TO IMPLEMENT ENVIRONMENTAL SAFETY AND FALL PREVENTION STRATEGIES THROUGHOUT THE CERTIFICATION PERIOD. SKILLED NURSE WILL MAINTAIN SITUATIONAL AWARENESS AND WILL NOTIFY CLINICAL INVOICING SPECIALIST AND PHYSICIAN/PROVIDER WITH ANY CHANGE IN [...] CARE WILL BE ESTABLISHED THAT MEETS PATIENT'S INTERMEDIATE NEEDS AND INCLUDES PATIENT GOAL FOR HOME [...] TO MAINTAIN PATIENT SAFETY IN THE HOME. Progress Notes Progress Notes <paragraph>[Visit Date: 2024 by SUSANA MANLEY LPN]:</paragraph><paragraph>SNV 05/17 ABNORMAL VITALS: WDL FALLS: NO FALLS MEDICATION CHANGES: NO CHANGE OBSERVATION AND ASSESSMENT PROVIDED: PATIENT IS ALERT AND ORIENTED X3 PLEASANT AND COOPERATIVE DURING VISIT. PATIENT EXPERIENCES SEVERE KNEE AND HIP PAIN ON LEFT. PATIENT WAITING OVER 5 MONTHS FOR RESOLUTION, LEADING TO FRUSTRATION AND DECLINING QUALITY OF LIFE. PATIENT WORKING TO OBTAIN WHEELCHAIR FOR LONG DISTANCE MOBILITY. PATIENT WOULD LIKE TO HAVE LEFT KNEE REPLACED FIRST KNEE PAIN IS MOST SEVERE. PATIENT HAS AN UPCOMING APPOINTMENT WITH THE ORTHOPEDIC SURGEON ON THE . VSS, LS CLEAR, AFEBRILE, PATIENT HAS SOME RELIEF ON CURRENT PAIN REGIMEN. NO ISSUES WITH BOWELS OR BLADDER. APPETITE ADEQUATE. EDUCATION: HEAT THERAPY FOR PAIN RELIEF, CONSISTENT USE OF ASSISTIVE DEVICES INTERVENTIONS NEEDED AT NEXT VISIT: ASSESSMENT, TEACHING COMMUNICATION WITH MD: Cheryl NEXT MD APPOINTMENT: 05/25 DR NOVOA, PCP 05/24 PT AND CAREGIVER INSTRUCTED TO CALL [facility] WITH ANY QUESTIONS OR CONCERNS AND/OR CHANGES IN CONDITION. PATIENT IS RECEPTIVE AND VERBALIZES UNDERSTANDING</paragraph> Encounters Start Date/Time End Date/Time Encounter Type Admission Type Attending [facility] Care Facility Care Department Encounter ID Discharge Date Discharge Status Discharge Condition Discharge Reason Percent Goals Met 2025-04-07 00:00:00 2025-06-05 00:00:00 Outpatient RECERTIFIC ATION STELLA , CHANDRA [facility] [id number] 46.67
== END 2025-05-21 10:05 | disposition home or self-care (01) ==
LOC: HO.HGI 09:31
PROVIDERS: PCP Family Medicine; Visit Provider Internal Medicine Gastroenterology
DX: D64.9 Anemia, unspecified (principal)
CPT/HCPCS: 99213

== ENCOUNTER → 2025-05-21 09:30 | Outpatient (BNVA) | payer MEDICARE, SELFPAY | PROVIDERS: PCP Family Medicine; Visit Provider Internal Medicine Gastroenterology | DX: D64.89 Other specified anemias (principal); K29.50 Unspecified chronic gastritis without bleeding | CPT/HCPCS: 99212 ==

== ENCOUNTER 2025-05-24 08:58 | Day surgery (SDC) | payer MEDICARE, SELFPAY ==
--- OUTSIDE RECORDS SUMMARY | 2025-05-22 15:22 | XMS_ITS | Patient Health Record ---
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) Active confirmed Problem Iron deficiency anemia (63616559) Iron deficiency anemia (D50.9) Active confirmed Problem Gastritis (3763734) Gastritis (K29.70) Active confirmed Problem Gastroesophageal reflux disease (667298641) GERD (gastroesophageal reflux disease) (K21.9) Active confirmed Problem Diverticulosis of colon (790226617) Diverticulosis of colon (K57.30) Active confirmed Plan [...] Date MEDICARE OF [place] [address] [place] [address] [phone] [id number] TOMASZ FULLER Self - patient is the insured [employer] ATT[employer] CLAIMS [address] [place] [address] [phone] [id number] TOMASZ FULLER Self - patient is the insured Medical (General) History Medical History History ICD Code HTN Afib-[facility] [place] Denies [place],DM,CVA,Lung disease,renal dise ase GERD-never had an EGD [...]
--- NOTE | 2025-05-23 11:21 | HO.ANESPROP2 ---
Documented by User: Loar Pearl NP 05/23/25 11:26 HPI - Anesthesia Eval Consult details Narrative: 70yo F for Upper Endoscopy Eliquis for afib Follows [facility]. Last office visit requested. PMFSH Active Problems Active Problems: All Active Problems UTI (urinary tract infection) (Acute) Right lower lobe pneumonia (Acute) Joint pain (Acute) Fever (Acute) Bandemia (Acute) Acute cystitis with hematuria (Acute) Fecal incontinence (Acute) Knee pain (Acute) Major depressive disorder, recurrent, mild (Acute) Low back pain (Acute) Buttock pain (Acute) Unsteady gait (Acute) Imbalance (Acute) ADEN (generalized anxiety disorder) (Acute) Personal history of nicotine dependence (Acute) Lower extremity weakness (Acute) Encounter for follow-up surveillance of breast cancer (Acute) Lump in neck (Acute) Bilateral hip pain (Acute) Overactive bladder (Acute) Osteopenia (Acute) Costochondritis (Acute) Paroxysmal atrial fibrillation (Acute) Breast cyst (Acute) Menopause (Acute) Urinary and fecal incontinence (Acute) Urinary incontinence (Acute) Pressure ulcer (Acute) Bacteriuria (Acute) Elevated LDL cholesterol level (Acute) Lower urinary tract symptoms (LUTS) (Acute) Recurrent biliary colic (Acute) Pressure ulcer of coccygeal region (Acute) Daytime sleepiness (Acute) Dysuria (Acute) Acid reflux (Acute) Obstructive sleep apnea (Acute) Cough (Acute) Diverticulosis (Acute) Hiatal hernia (Acute) 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 (Acute) Chronic diarrhea (Acute) Hiatal hernia (Acute) Anxiety and depression (Acute) Essential hypertension (Acute) Memory changes (Acute) Left breast lump (Acute) Normochromic normocytic anemia (Acute) Muscle cramp (Acute) Mild anemia (Acute) Screening for osteoporosis (Acute) Left knee pain (Acute) Anxiety (Acute) Status post left knee replacement (Acute) Left knee injury (Acute) Normocytic anemia (Acute) Chronic abdominal pain (Acute) Mastodynia of left breast (Acute) Past Medical History Medical History Personal history of nicotine dependence Lump in neck Bilateral hip pain Osteopenia Barretts esophagus Anxiety Sleep apnea Dementia Chronic abdominal pain Mastodynia of left breast HTN (hypertension) Normocytic anemia Depression with anxiety SVT (supraventricular tachycardia) Atrial fibrillation Family History Family History Brother Lung cancer Brother Bladder cancer Family history of problems with anesthesia: No Surgical History Surgical History Hx of flexible sigmoidoscopy Status post insertion of nerve stimulator History of cholecystectomy (05/04/23) History of esophagogastroduodenoscopy (EGD) Hx of colonoscopy History of total hip replacement History of prior ablation treatment H/O heart surgery History of left knee replacement History of Problems with Anesthesia: No Social History Social History Household Members: Spouse Housing: House Are you a primary care nurse rn to a significant other at home: No Do you presently have visiting nurse or other home services: No Alcohol intake: current Alcohol intake frequency: 0-2 drinks per day Alcohol type: beer Patient Tobacco Use Status: Former Tobacco user e-Cigarette/Vaping Use: Never Used Second Hand Smoke Exposure: No Use of substances other than those prescribed or required for medical reasons: No Are you DNR?: No Advance Directives: No Advance Directives Information Provided: Yes Patient : No : No Poor oral hygiene: No service: No Current occupational status: retired Current occupational exposures/hazards: No Cognitive needs: No Hearing needs: No Vision needs: Yes Meds Allergies Allergy/AdvReac Type Severity Reaction Status Date / Time silver sulfadiazine (From AdvReac Mild skin Verified 05/21/25 09:39 Silvadene) irritation Home Medications ?Medication ?Instructions ?Recorded ?Confirmed ?Last Taken ?Type calcium 500 mg (as 1 tab PO DAILY 05/07/22 02/21/25 02/01/25 History carbonate)-vitamin D3 3.125 mcg (125 unit) tablet bupropion HCl 150 mg 24 hr tablet, 150 mg PO DAILY 02/02/25 02/21/25 02/01/25 History extended release trazodone 100 mg tablet 50 - 100 mg PO BEDTIME PRN insomnia 02/02/25 02/21/25 Unknown History Exam Pertinent Lab Results Pertinent Lab Results: Laboratory Tests 02/07/25 09:48 WBC 5.3 Hgb 11.3 L Hct 35.2 L Plt Count 377 D Sodium 140 Potassium 4.1 Chloride 109 H Carbon Dioxide 24 BUN 21 H Creatinine 0.69 Assessment and Plan Assessment Anesthesia Assessment: Chart Reviewed Final Anesthetic Review Family History of Problems with Anesthesia: No History of Problems with Anesthesia: No Documented by User: Cindy Banuelos MD 05/24/25 11:41 [facility] Past Medical History Medical History Personal history of nicotine dependence Lump in neck Bilateral hip pain Osteopenia Barretts esophagus Anxiety Sleep apnea Dementia Chronic abdominal pain Mastodynia of left breast HTN (hypertension) Normocytic anemia Depression with anxiety SVT (supraventricular tachycardia) Atrial fibrillation Family History Family History Brother Lung cancer Brother Bladder cancer Surgical History Surgical History Hx of flexible sigmoidoscopy Status post insertion of nerve stimulator History of cholecystectomy (05/04/23) History of esophagogastroduodenoscopy (EGD) Hx of colonoscopy History of total hip replacement History of prior ablation treatment H/O heart surgery History of left knee replacement Social History Social History Household Members: Spouse Housing: House Are you a primary care nurse rn to a significant other at home: No Do you presently have visiting nurse or other home services: No Alcohol intake: current Alcohol intake frequency: 0-2 drinks per day Alcohol type: beer Patient Tobacco Use Status: Former Tobacco user e-Cigarette/Vaping Use: Never Used Second Hand Smoke Exposure: No Use of substances other than those prescribed or required for medical reasons: No Are you DNR?: No Advance Directives: No Advance Directives Information Provided: Yes Patient : No : No Poor oral hygiene: No service: No Current occupational status: retired Current occupational exposures/hazards: No Cognitive needs: No Hearing needs: No Vision needs: Yes Meds Allergies Allergy/AdvReac Type Severity Reaction Status Date / Time silver sulfadiazine (From AdvReac Mild skin Verified 05/21/25 09:39 Silvadene) irritation Home Medications ?Medication ?Instructions ?Recorded ?Confirmed ?Last Taken ?Type calcium 500 mg (as 1 tab PO DAILY 05/07/22 02/21/25 02/01/25 History carbonate)-vitamin D3 3.125 mcg (125 unit) tablet bupropion HCl 150 mg 24 hr tablet, 150 mg PO DAILY 02/02/25 02/21/25 02/01/25 History extended release trazodone 100 mg tablet 50 - 100 mg PO BEDTIME PRN insomnia 02/02/25 02/21/25 Unknown History Exam Airway Mallampati Class: II TM Dist: >3cm Neck ROM: Full Assessment and Plan Assessment Anesthesia Assessment: Anesthesia Plan Discussed Final Anesthetic Review NPO: Yes ASA Class: II Final Preanesthetic Review: No Changes in Pt Med Stat, Meds/Allgs Chart Reviewed, Consent Obtained/Reviewed and Anes Risks/Benef Reviewed Patient Risk: Low Procedure Risk: Low Anesthetic Plan Anesthetic Plan: TIVA Disposition: Standard PACU
[2025-05-24 09:49] VITALS: BMI 29.1
[2025-05-24 09:57] VITALS: BP 138/45; PULSE 52; RESP 16; TEMP 36.2; O2SAT 95
[2025-05-24] MEDS: Lactated Ringers 1,000 ML 100 ML IVCONT (10:16)
--- NOTE | 2025-05-24 11:38 | MHC.SHP ---
Pre-Procedural Eval Section A - 24 Hr Update-Section A only Date of Service: 05/24/25 The patient is an INPATIENT: No The patient has been examined within 24 hours of the surgical procedure. The History & Physical has been completed within 30 days and I have reviewed it.: Yes Section B - Complete if H&P > 30 days Chief Complaint: Gastritis, Allergies: Allergies Allergy/AdvReac Type Severity Reaction Status Date / Time silver sulfadiazine (From AdvReac Mild skin Verified 05/21/25 09:39 Silvadene) irritation Plan Diagnosis/Plan: Unchanged I have reviewed the history and physical and performed a pertinent physical examination on my patient. No changes have occurred unless specified. Time Spent With Patient Time: Total time managing care of this patient today ____ minutes.
--- NOTE | 2025-05-24 11:56 | W.PM.OPN ---
Operative Note Operative Note Date of Service: 05/24/25 Narrative: Procedure Description: EGD Indication: gastritis Anesthesia: MAC FLEXIBLE TRANSORAL UPPER GASTROINTESTINAL ENDOSCOPY UPPER ENDOSCOPY Consent: Indications for the procedure and potential complications of bleeding, perforation, reaction to medications and missed diagnosis were discussed with the patient and informed consent was obtained. Instrument: Olympus GIF H 190 J mid size upper endoscope Monitoring: Vital signs and clinical assessment, continuous EKG monitoring, Pulse oximetry, Carbon Dioxide monitoring and blood pressure monitoring were done throughout the procedure. Procedure: The patient was placed in the left lateral decubitis position and pre-procedure medications were administered and a bite block was placed. The endoscope was inserted into the mouth and advanced under direct vision to the third part of duodenum. A careful inspection was made as the upper endoscope was withdrawn including a retroflexed examination of the proximal stomach; Findings and interventions are described below. Findings: Larynx:normal Esophagus: GE junction at 35 cm, diaphragm hiatus at 35 cm, incompetent LES, widely open, bx taken from GEJ which had salmon pink patches noted-also for tissue cypher testing. Stomach: Mild to moderate erythema and scarring with bile acid refluxate. Biopsies were obtained. Grade 3 flap valve on retroflexed examination of the cardia. Duodenum: Normal bulb and descending duodenum, Intervention: Biopsies as noted above Impression/Findings: gastritis barretts esophagus PLAN: cont with PPI , night need to add bile acid binder --will await bx results GERD precautions
[2025-05-24 12:04] VITALS: BP 98/43; PULSE 62; RESP 16; TEMP 36.7; O2SAT 98
[2025-05-24 12:19] VITALS: BP 150/65; PULSE 60; RESP 20; TEMP 36.3; O2SAT 99
== END 2025-05-24 12:39 | disposition home or self-care (01) ==
PROVIDERS: PCP Family Medicine; Visit Provider Internal Medicine Gastroenterology
PROC: 0DJ08ZZ Inspection of Upper Intestinal Tract, Via Natural or Artificial Opening Endoscopic (ICD-10-PCS; CPT 43235; principal; 2025-05-24 11:50)
DX: R19.4 Change in bowel habit (principal); K22.70 Barrett's esophagus without dysplasia; K29.60 Other gastritis without bleeding; K22.4 Dyskinesia of esophagus; D64.9 Anemia, unspecified; I10 Essential (primary) hypertension; I48.91 Unspecified atrial fibrillation; G47.30 Sleep apnea, unspecified; Z87.891 Personal history of nicotine dependence
CPT/HCPCS: 43239; 88305; 88313; 88342; J2003; J2704

== ENCOUNTER → 2025-05-24 08:58 | Outpatient (BNV) | payer MEDICARE, SELFPAY | PROVIDERS: PCP Family Medicine; Visit Provider Internal Medicine Gastroenterology | DX: K29.70 Gastritis, unspecified, without bleeding (principal); K22.70 Barrett's esophagus without dysplasia | CPT/HCPCS: 43239 ==

== ENCOUNTER 2025-05-28 11:22 | Outpatient (AMB) | payer MEDICARE, SELFPAY ==
--- NOTE | 2025-05-28 11:23 | MHC.OFFVIS ---
Intake Visit Reasons: EGD post-op Intake Note: Trish presents as a telehealth to go over results to her EGD. CC: no concerns - just results. Gps Navigation Installer Required: No Allergies silver sulfadiazine (From Silvadene) Adverse Reaction (Mild, Verified 05/28/25 11:25) skin irritation HPI HPI EGD post-op: Details: 70 yr old f here for f/u RECAP: [place] [facility] [place] also abn bowel habits EGD/Sigmoidoscopy 02/2023 Impression and Post Procedure Diagnosis: Endoscopy Findings: incompetent LES, bile acid reflux esophagitis, possible barretts possible gastric intestinal metaplasia Colonoscopy Findings: internal hemorrhoids PATH: moderate chronic gastritis, crypt distortion of colon, otherwise nml h pylori breath test---NEGATIVE EGD: 05/24/25 incompetent LES, barretts gastritis chronci gastritis, barretts, focal metaplasia INTERIM: reviewed results from EGD she seems to have AIG no n.v no blood in stools A/P: 1/ chronic stable anemia, ?2/2 chronic gastritis, prior H pylori neg--likely AIG PLAN: 1/ check gastrin, pepsinogen, b12, parietal and intrinsic factor Ab 2/ repeat EGD in 1 yr for surveillance [facility] Medical History Personal history of nicotine dependence Lump in neck Bilateral hip pain Osteopenia Barretts esophagus Anxiety Sleep apnea Dementia Chronic abdominal pain Mastodynia of left breast HTN (hypertension) Normocytic anemia Depression with anxiety SVT (supraventricular tachycardia) Atrial fibrillation Surgical History Hx of flexible sigmoidoscopy Status post insertion of nerve stimulator History of cholecystectomy (05/04/23) History of esophagogastroduodenoscopy (EGD) Hx of colonoscopy History of total hip replacement History of prior ablation treatment H/O heart surgery History of left knee replacement Family History Brother Lung cancer Brother Bladder cancer Social History Household Members: Spouse Housing: House Are you a primary acute care nursing assistant to a significant other at home: No Do you presently have visiting nurse or other home services: No Alcohol intake: current Alcohol intake frequency: 0-2 drinks per day Alcohol type: beer Patient Tobacco Use Status: Former Tobacco user e-Cigarette/Vaping Use: Never Used Second Hand Smoke Exposure: No service: No Current occupational status: retired Current occupational exposures/hazards: No Cognitive needs: No Hearing needs: No Vision needs: Yes Female Reproductive History Menstrual Age of Menarche: 13 Telehealth Telehealth Telehealth Platform: Telephone Location of provider rendering services: practice address Location of patient: address on file Patient Identification confirmed using: Name, : Yes Telehealth method: voice only Patient verbally consented to treatment: Yes Patient verbally consented to billing insurance company: Yes Patient informed of any privacy concerns related to visit: Yes Minutes spent on Phone/Video with Pt.: 8 Assessment & Plan Assessment & Plan (1) Gastritis: Code(s): K29.70 - Gastritis, unspecified, without bleeding Category: Medical Plan: as above Orders: Orders Intrinsic Factor Antibodies Today K29.70 - Gastritis, unspecified, without bleeding Gastrin Today K29.70 - Gastritis, unspecified, without bleeding Parietal Cell Antibody Today K29.70 - Gastritis, unspecified, without bleeding Other Ref Test - Misc Today K29.70 - Gastritis, unspecified, without bleeding Vitamin B12 and Folate Today K29.70 - Gastritis, unspecified, without bleeding Coding Level of Care Code Tele Est Pt Level 3 (55346) Diagnoses Gastritis K29.70
--- OUTSIDE RECORDS SUMMARY | 2025-05-28 12:29 | XMS_ITS | Encounter Summary ---
Author Organization [facility] Address [address] [place] [address] Phone Care Team Providers Care Oyster Planter Name Role Phone Ollie Hernandez MD Primary Care Provider Encounter Details Date Type Department Care Team (Late st Contact Info) Description 02/23/2025 Procedure Pass [facility]ventional Radiology [address] [place] [address] Social History Tobacco Use Types Packs/Day Years Used Date Smoking Tobacco: Never Assessed Education Answer Date Recorded Are you interested in more education? Not on martínez e 06/12/2024 Are you concerned about learning? Not on file 06/12/2024 No 06/12/2024 No 06/12/2024 Digital Access Answer Date Recorded No 06/12/2024 No 06/12/2024 Reliable internet access at home? Not on file 06/12/2024 Device with a working camera? Not on file Intimate Partner Violence Answer Date R ecorded Are you denied basic needs s uch as food, clothing, or medical care? No 02/23/2025 In the past 12 months have y ou been in a relationship with a person who hurts, threatens, or tries to control you? No 02/23/2025 Are you denied basic needs s uch as food, clothing, or medical care? No 02/23/2025 In the past 12 months have y ou been in a relationship with a person who hurts, threatens, or tries to control you? No 02/23/2025 Comments Unknown Sex and Gender Information Value Date Recorded Sex Assigned at Not on file Legal Sex Female 1:38 PM EDT Gender Identity Not on file Sexual Orientation Not on file documented as of this encounter Plan of Treatment Upcoming Encounters Date Type Department Care Team (Late st Contact Info) Description 06/05/2025 11:15 AM EDT Office Visit [facility] Orthopedics & Sports Medicine [address] [place] [address] Maximino Leonardo MD [address] [place] [address] Orthopedics & Sports Medicine, [place] [address] 08/27/2025 Procedure Pass OR Admitting Dept - Virtual Department [address] [place] [address] 10/19/2025 3:00 PM EST Office Visit [facility] [address] [place] [address] Jesús Rodriguez DO [address] [facility], 2nd [place] [address] [email or web address] documented as of this encounter Visit Diagnoses Not on filedocumented in this encounter Care Teams Oyster Planter Relationship Specialty Start Date End Date Ollie Hernandez MD [address] [place] [address] PCP - General Family Medicine 05/23/24 documented as of this encounter Additional Source Comments The information contained in this document represents components of the legal health record. It is not the complete legal health record.[facility]
--- OUTSIDE RECORDS SUMMARY | 2025-05-28 12:30 | XMS_ITS | Patient Health Record ---
Author Organization [facility] Address [address] [place] [address] Care Team Providers Care Occupational Therapy Instructor Name Role Phone Ollie Hernandez Primary Care Provider Unavailab Jean Baires Unavailable [phone] Martin Dupree Unavailable Unavailable Allergies Allergen (clinical [...] W/U Status Risk Notes Problem Esophageal reflux (380331874) Esophageal reflux (K21.9) Active confirmed Problem [id number] 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) Active confirmed Problem Iron deficiency anemia (19389653) Iron deficiency anemia (D50.9) Active confirmed Problem Gastritis (4204323) Gastritis (K29.70) Active confirmed Problem Gastroesophageal reflux disease (460209511) GERD (gastroesophageal reflux disease) (K21.9) Active confirmed Problem Diverticulosis of colon (566777288) Diverticulosis of colon (K57.30) Active confirmed Plan [...] Date MEDICARE OF [place] [address] [place] [address] [id number] TOMASZ FULLER Self - patient is the insured [employer] ATT[employer] CLAIMS [address] [place] [address] [phone] [id number] TOMASZ FULLER Self - patient is the insured Medical (General) History Medical History History ICD Code HTN Afib-[facility] [place] Denies [place],DM,CVA,Lung disease,renal dise ase GERD-never had an EGD [...]
--- OUTSIDE RECORDS SUMMARY | 2025-06-04 20:00 | XMS_ITS | Clinical Summary ---
Author Organization Unknown Care Team Providers Care Supervisor Tank Storage Name Role Phone REAGAN RUANO, YANETH Unavailable Unavailable STELLA RN, ADMISSION NURSE, CHANDRA Unavail able Unavailable MARK PT, MK Unavailable Unavailable PAGLIUCA ([facility] [place], [facility] Unavailable Unavailable Payers Payer Name Policy Type Policy Number Effective Date Expira tion Date MEDICARE - [facility] - [facility]GM [id number] Problems Condition Name Condition Details Condition Category Status Onset Date Resolution Date Last Treatment Date Treating Clinician Comments OTHER CHRONIC PAIN Active 11-08 00:00: 00 PAROXYSMAL ATRIAL FIBRILLATION Active 11-08 00:00: 00 UNSP DEMENTIA, UNSPECIFIED SEVERITY, WITH MOOD DISTURB Active 11-08 00:00: 00 DEPRESSION, UNSPECIFIED Active 11-08 00:00: 00 UNSPECIFIED DEMENTIA, UNSPECIFIED SEVERITY, WITH ANXIETY Active 11-08 00:00: 00 UNSP DEMENTIA, UNSP SEVERITY, WITH OTHER BEHAVIORAL DISTURB Active 11-08 00:00: 00 SLEEP APNEA, UNSPECIFIED Active 11-08 00:00: 00 ANEMIA, UNSPECIFIED Active 11-08 00:00: 00 GASTRO-ESOPH AGEAL REFLUX DISEASE WITHOUT ESOPHAGITIS Active 11-08 00:00: 00 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 11-08 00:00: 00 HYPERLIPIDEM IA, UNSPECIFIED Active 11-08 00:00: 00 OTH DISRD OF BONE DENSITY AND STRUCTURE, UNSPECIFIED SITE Active 11-08 00:00: 00 ESSENTIAL (PRIMARY) HYPERTENSION Active 11-08 00:00: 00 PERSONAL HISTORY OF NICOTINE DEPENDENCE Active 11-08 00:00: 00 PRESENCE OF LEFT ARTIFICIAL HIP JOINT Active 11-08 00:00: 00 PRESENCE OF LEFT ARTIFICIAL KNEE JOINT Active 11-08 00:00: 00 JAIL (CURRENT) USE OF ANTICOAGULAN TS Active 11-08 00:00: 00 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 11-08 00:00: 00 PERSONAL HISTORY OF URINARY (TRACT) INFECTIONS Active 11-08 00:00: 00 PERSONAL HISTORY OF PNEUMONIA (RECURRENT) Active 11-08 00:00: 00 OTHER JAIL (CURRENT) DRUG THERAPY Active 11-08 00:00: 00 JAIL (CURRENT) USE OF OPIATE ANALGESIC Active 11-08 00:00: 00 Allergies, Adverse Reactions, Alerts Allergy [...] tablet, extended release 02-02 00:00: 00 Yes [id number] 1 tablet DAILY 1 tablet DAILY (route: oral) Med Classific ation: Central Nervous System Agents carvedilol 6.25 mg tablet 02-02 00:00: 00 Yes [id number] 1 tablet 2 TIMES DAILY 1 tablet 2 TIMES DAILY (route: oral) Med Classific ation: Cardiovas cular Therapy Agents donepezil 10 mg tablet 02-01 00:00: 00 Yes [id number] 1 tablet DAILY 1 tablet DAILY (route: oral) Med Classific ation: Cognitive Disorder Therapy trazodone 100 mg tablet 02-01 00:00: 00 Yes [id number] .5 tablet BEDTIME .5 tablet BEDTIME (route: oral) Med Classific ation: Central Nervous System Agents amoxicillin 500 mg tablet 01-31 00:00: 00 04-03 23:59 :00 No [id number] 1 tablet DAILY 1 tablet DAILY (route: oral) Med Classific ation: Anti-Infe ctive Agents quetiapine 25 mg tablet 01-27 00:00: 00 Yes [id number] .5 tablet BEDTIME .5 tablet BEDTIME (route: oral) Med Classific ation: Central Nervous System Agents tramadol 50 mg tablet 01-27 00:00: 00 Yes [id number] Per instruc tions 3 TIMES A DAY NEEDED FOR 30 DAYS Per instructio ns 3 TIMES A DAY NEEDED FOR 30 DAYS (route: oral) Med Classific ation: Analgesic , Anti-infl ammatory or Antipyret ic celecoxib 200 mg capsule 01-24 00:00: 00 02-04 23:59 :00 No [id number] Per instruc tions DAILY Per instructio ns DAILY (route: oral) Med Classific ation: Analgesic , Anti-infl ammatory or Antipyret ic clonazepam 0.5 mg tablet 01-08 00:00: 00 Yes [id number] 1 tablet TWICE A DAY 1 tablet TWICE A DAY (route: oral) Med Classific ation: Central Nervous System Agents calcium 500 mg (as carbonate)- vitamin D3 3.125 mcg (125 unit) tablet 03-07 00:00: 00 04-03 23:59 :00 No [id number] 1 tablet DAILY 1 tablet DAILY (route: oral) Med Classific ation: Electroly te Balance-N utritiona l Products cefuroxime axetil 500 mg tablet 02-01 00:00: 00 Yes [id number] 1 tablet 2 TIMES DAILY 1 tablet 2 TIMES DAILY (route: oral) Med Classific ation: Anti-Infe ctive Agents Eliquis 5 mg tablet 02-04 00:00: 00 04-06 23:59 :00 No [id number] 1 tablet 2 TIMES DAILY 1 tablet 2 TIMES DAILY (route: oral) Med Classific ation: Hematolog ical Agents loperamide 2 mg tablet 02-04 00:00: 00 Yes [id number] 1 tablet EVERY 6 HOURS 1 tablet EVERY 6 HOURS (route: oral) Med Classific ation: Gastroint estinal Therapy Agents losartan 25 mg tablet 02-04 00:00: 00 Yes [id number] 1 tablet DAILY 1 tablet DAILY (route: oral) Med Classific ation: Cardiovas cular Therapy Agents menthol 0.44 %-zinc oxide 20.6 % topical ointment 3-30 00:00: 00 Yes [id number] 1 inch 2 TIMES DAILY 1 inch 2 TIMES DAILY (route: topical) Med Classific ation: Dermatolo gical omeprazole 40 mg capsule,del ayed release 3-27 00:00: 00 Yes [id number] 1 capsule DAILY 1 capsule DAILY (route: oral) Med Classific ation: Gastroint estinal Therapy Agents gabapentin 300 mg capsule 4-16 00:00: 00 Yes [id number] 1 capsule DAILY 1 capsule DAILY (route: oral) Med Classific ation: Central Nervous System Agents Calcium 600 with Vitamin D3 600 mg-10 mcg (400 unit) chewable tablet 04-07 00:00: 00 Yes [id number] 2 tablet 2 TIMES DAILY 2 tablet 2 TIMES DAILY (route: oral) Med Classific ation: Electroly te Balance-N utritiona l Products celecoxib 200 mg capsule 04-07 00:00: 00 Yes [id number] 1 capsule 2 TIMES DAILY 1 capsule 2 TIMES DAILY (route: oral) Med Classific ation: Analgesic , Anti-infl ammatory or Antipyret ic cranberry 500 mg capsule 04-07 00:00: 00 Yes [id number] 1 capsule DAILY 1 capsule DAILY (route: oral) Med Classific ation: Alternati ve Therapy Xarelto 2.5 mg tablet 30 00:00: 00 Yes [id number] 1 tablet DAILY 1 tablet DAILY (route: oral) Med Classific ation: Hematolog ical Agents oxycodone 5 mg tablet 4-03 00:00: 00 Yes [id number] 1 tablet EVERY 4 HOURS 1 tablet EVERY 4 HOURS (route: oral) Med Classific ation: Analgesic , Anti-infl ammatory or Antipyret ic Immunizations Ordered Immunization Name Filled Immunization Name Date Status Comments Refusal Reason INFLUENZA, TIV (INACTIVATED) 2024-07-25 00:00:00 Vital Signs Vital Name Observation Time Observation Value Commen ts Temperature 2025-05-17 13:26:00.000 97.8 [degF] Temperature 2025-05-10 10:53:00.000 98.1 [degF] Temperature 2025-05-01 12:38:00.000 97.8 [degF] Temperature 2025-04-26 09:05:00.000 97.3 [degF] Temperature 2025-04-11 13:10:00.000 99 [degF] Pulse 2025-05-17 13:26:00.000 60 /min Pulse 2025-05-10 10:53:00.000 60 /min Pulse 2025-05-01 12:38:00.000 55 /min Pulse 2025-04-26 09:05:00.000 70 /min Pulse 2025-04-11 13:10:00.000 60 /min O2 Saturation (%) 2025-05-17 13:26:00.000 99 % O2 Saturation (%) 2025-05-10 10:53:00.000 99 % O2 Saturation (%) 2025-05-01 12:38:00.000 95 % O2 Saturation (%) 2025-04-26 09:05:00.000 97 % O2 Saturation (%) 2025-04-11 13:10:00.000 96 % Respirations 2025-05-10 10:53:00.000 18 /min Respirations 2025-05-01 12:38:00.000 18 /min Respirations 2025-04-26 09:05:00.000 16 /min Respirations 2025-04-11 13:10:00.000 18 /min Systolic Blood Pressure 2025-05-17 13:26:00.000 142 mm [Hg] Systolic Blood Pressure 2025-05-10 10:53:00.000 120 mm [Hg] Systolic Blood Pressure 2025-05-01 12:38:00.000 130 mm [Hg] Systolic Blood Pressure 2025-04-26 09:05:00.000 142 mm [Hg] Systolic Blood Pressure 2025-04-11 13:10:00.000 126 mm [Hg] Diastolic Blood Pressure 2025-05-17 13:26:00.000 68 mm [Hg] Diastolic Blood Pressure 2025-05-10 10:53:00.000 72 mm [Hg] Diastolic Blood Pressure 2025-05-01 12:38:00.000 82 mm [Hg] Diastolic Blood Pressure 2025-04-26 09:05:00.000 70 mm [Hg] Diastolic Blood Pressure 2025-04-11 13:10:00.000 88 mm [Hg] Plan of Treatment Planned Activity [...] NOTIFY AGENCY OR PHYSICIAN/PROVIDER OF ANY CONCERNS.] Future Scheduled Test PATIENT RANDOLPH S A [...] MAINTAIN SITUATIONAL AWARENESS AND WILL NOTIFY CLINICAL FAMILY ENGAGEMENT SPECIALIST AND PHYSICIAN/PROVIDER WITH ANY CHANGE IN CONDITION. [code = SKILLED NURSE TO PERFORM ENVIRONMENTAL SAFETY RISK ASSESSMENT AND FALL RISK ASSESSMENT AND PROVIDE INSTRUCTION TO IMPLEMENT ENVIRONMENTAL SAFETY AND FALL PREVENTION STRATEGIES THROUGHOUT THE CERTIFICATION PERIOD. SKILLED NURSE WILL MAINTAIN SITUATIONAL AWARENESS AND WILL NOTIFY CLINICAL FAMILY ENGAGEMENT SPECIALIST AND PHYSICIAN/PROVIDER WITH ANY CHANGE IN CONDITION.] Future Scheduled Test SKILLED NU RSE FOR OBSERVATION AND ASSESSMENT OF PATIENTS PAIN LEVEL AND EFFECTIVENESS OF PAIN MANAGEMENT REGIMEN. SKILLED NURSE TO INSTRUCT PATIENT/CAREGIVER REGARDING PHARMACOLOGIC AND NON-PHARMACOLOGIC PAIN CONTROL MEASURES. SKILLED NURSE TO REPORT TO PHYSICIAN IF PAIN LEVEL IS OUTSIDE OF ESTABLISHED PARAMETERS. [code = SKILLED NURSE FOR OBSERVATION AND ASSESSMENT OF PATIENTS PAIN LEVEL AND EFFECTIVENESS OF PAIN MANAGEMENT REGIMEN. SKILLED NURSE TO INSTRUCT PATIENT/CAREGIVER REGARDING PHARMACOLOGIC AND NON-PHARMACOLOGIC PAIN CONTROL MEASURES. SKILLED NURSE TO REPORT TO PHYSICIAN IF PAIN LEVEL IS OUTSIDE OF ESTABLISHED PARAMETERS.] Future Scheduled Test SKILLED NU RSE TO ASSESS PATIENT'S SKIN INTEGRITY AND INSTRUCT PATIENT/CAREGIVER ON MEASURES TO PREVENT PRESSURE ULCERS. [code = SKILLED NURSE TO ASSESS PATIENT'S SKIN INTEGRITY AND INSTRUCT PATIENT/CAREGIVER ON MEASURES TO PREVENT PRESSURE ULCERS.] Future Scheduled Test VIRTUAL SIT FREQUENCY: 3 PRN VIRTUAL VISITS MAY BE PERFORMED UTILIZING TELECOMMUNICATIONS SYSTEM TO OPTIMIZE SKILLED SERVICES FURNISHED ON THE PLAN OF CARE. SKILLED NURSE TO ESTABLISH SUPPORT MEASURES TO MINIMIZE RISK OF REHOSPITALIZATION, AND INSTRUCT PATIENT/CAREGIVER ON METHODS TO REDUCE AVOIDABLE HOSPITALIZATION. [code = VIRTUAL VISIT FREQUENCY: 3 PRN VIRTUAL VISITS MAY BE PERFORMED UTILIZING TELECOMMUNICATIONS SYSTEM TO OPTIMIZE SKILLED SERVICES FURNISHED ON THE PLAN OF CARE. SKILLED NURSE TO ESTABLISH SUPPORT MEASURES TO MINIMIZE RISK OF REHOSPITALIZATION, AND INSTRUCT PATIENT/CAREGIVER ON METHODS TO REDUCE AVOIDABLE HOSPITALIZATION.] Future Scheduled Test SKILLED NU RSE TO PROVIDE ASSESSMENT AND TEACHING/REINFORCEMENT OF MANAGEMENT OF DEPRESSION INCLUDING DISEASE PROCESS, MEDICATION MANAGEMENT, COPING SKILLS AND IDENTIFY CHANGES ASSOCIATED WITH DEPRESSIVE DISORDERS FOR EARLY INTERVENTION. [code = SKILLED NURSE TO PROVIDE ASSESSMENT AND TEACHING/REINFORCEMENT OF MANAGEMENT OF DEPRESSION INCLUDING DISEASE PROCESS, MEDICATION MANAGEMENT, COPING SKILLS AND IDENTIFY CHANGES ASSOCIATED WITH DEPRESSIVE DISORDERS FOR EARLY INTERVENTION.] Goal 2025-04-03 Patient Goal - NOT FEEL SO T IRED Goal Patient Goal - W ANTS TO BE FIXED AND NOT CONTINUE TO GO THROUGH THIS PAIN. Goal Provider Goal - A PLAN OF CARE WILL BE ESTABLISHED THAT MEETS PATIENT'S ALF NEEDS AND INCLUDES PATIENT GOAL FOR HOME HEALTH. Goal Provider Goal - PATIENT/CAREGIVER WILL VERBALIZE [...] PAIN INTERFERING WITH ACTIVITY EVIDENCED BY PAIN AT A LEVEL THAT IS ACCEPTABLE TO THE PATIENT AND PAIN LEVEL WITHIN ESTABLISHED PARAMETERS BY END OF CERTIFICATION PERIOD. Goal Provider Goal - PATIENT/CAREGIVER WILL VERBALIZE UNDERSTANDING OF PRESSURE ULCER PREVENTION BY END OF THE EPISODE. Goal Provider Goal - PATIENT/CAREGIVER WILL UTILIZE VIRTUAL VISITS TO ACHIEVE GOALS OUTLINED ON THE PLAN OF CARE. PATIENT WILL HAVE SUPPORT MEASURES ESTABLISHED TO PREVENT HOSPITALIZATION AND PATIENT/CAREGIVER WILL VERBALIZE/DEMONSTRATE METHODS TO REDUCE AVOIDABLE HOSPITALIZATION THROUGHOUT THE CERTIFICATION PERIOD. Goal Provider Goal - PATIENT/CAREGIVER WILL VERBALIZE/DEMONSTRATE UNDERSTANDING OF THE MANAGEMENT OF DEPRESSION THROUGHOUT THE CERTIFICATION PERIOD AND SYMPTOMS ARE IDENTIFIED AND MANAGED TO MAINTAIN PATIENT SAFETY IN THE HOME. Encounters Start Date/Time End Date/Time Encounter Type Admission Type Attending [facility] Care Department Encounter ID Discharge Date Discharge Status Discharge Condition Discharge Reason Percent Goals Met 2025-04-07 00:00:00 2025-06-05 00:00:00 Outpatient MAUREENRTIFIC ATION CHANDRA DOUGLAS [facility] [id number] 46.67
== END 2025-05-28 14:29 | disposition home or self-care (01) ==
LOC: HO.HGI 11:22
PROVIDERS: PCP Family Medicine; Visit Provider Internal Medicine Gastroenterology
DX: K29.70 Gastritis, unspecified, without bleeding (principal)
CPT/HCPCS: 99213

== ENCOUNTER 2025-06-04 10:11 | Outpatient (REF) | payer MEDICARE, SELFPAY ==
--- OUTSIDE RECORDS SUMMARY | 2025-06-04 11:14 | XMS_ITS | Patient Health Record ---
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) Active confirmed Problem Iron deficiency anemia (63426721) Iron deficiency anemia (D50.9) Active confirmed Problem Gastritis (0894775) Gastritis (K29.70) Active confirmed Problem Gastroesophageal reflux disease (281003671) GERD (gastroesophageal reflux disease) (K21.9) Active confirmed Problem Diverticulosis of colon (847633447) Diverticulosis of colon (K57.30) Active confirmed Plan [...] Date MEDICARE OF [place] [address] [place] [address] [id number] TOMASZ FULLER Self - patient is the insured [employer] ATT[employer] CLAIMS [address] [place] [address] [phone] [id number] TOMASZ FULLER Self - patient is the insured Medical (General) History Medical History History ICD Code HTN Afib-[facility] [place] Denies [place],DM,CVA,Lung disease,renal dise ase GERD-never had an EGD [...]
--- OUTSIDE RECORDS SUMMARY | 2025-06-04 11:14 | XMS_ITS | Encounter Summary ---
Author Organization [facility] Address [address] [place] [address] Phone Care Team Providers Care Bottling Line Operator Name Role Phone Ollie Hernandez MD Primary Care Provider Encounter Details Date Type Department Care Team (Late st Contact Info) Description 02/23/2025 Procedure Pass [facility]ventional [facility]iology [address] [place] [address] Social History Tobacco Use Types Packs/Day Years [...] Description 06/05/2025 11:15 AM EDT Office Visit [facility] Orthopedics & Sports Medicine [address] [place] [address] Maximino Leonardo MD [address] [place] [address] Orthopedics & Sports Medicine, [facility] [place] [address] 08/27/2025 Procedure Pass OR Admitting Dept - Virtual Department [address] [place] [address] 10/19/2025 3:00 PM EST Office Visit [facility] [address] [place] [address] Jesús Rodriguez DO [address] [facility], 2nd [place] [address] [email or web address] documented as of this encounter Visit Diagnoses Not on filedocumented in this encounter Care Teams Bottling Line Operator Relationship Specialty Start Date End Date Ollie Hernandez MD [address] [place] [address] PCP - General Family Medicine 05/23/24 documented as of this encounter Additional Source Comments The information contained in this document represents components of the legal health record. It is not the complete legal health record.[facility]
--- OUTSIDE RECORDS SUMMARY | 2025-06-04 20:00 | XMS_ITS | Clinical Summary ---
Author Organization Unknown Care Team Providers Care Jigsaw Operator Name Role Phone REAGAN RUANO, YANETH Unavailable Unavailable STELLA RN, ADMISSION NURSE, CHANDRA Unavail able Unavailable MARK PT, MK Unavailable Unavailable [facility] ([facility]) [facility], [facility] Unavailable Unavailable Payers Payer Name Policy Type Policy Number Effective Date Expira tion Date MEDICARE - [facility] - [place] [id number] Problems Condition Name Condition Details Condition Category [...] ARTIFICIAL KNEE JOINT Active 11-08 00:00: 00 PRISON (CURRENT) USE OF ANTICOAGULAN TS Active 11-08 00:00: 00 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 11-08 00:00: 00 PERSONAL HISTORY OF URINARY (TRACT) INFECTIONS Active 11-08 00:00: 00 PERSONAL HISTORY OF PNEUMONIA (RECURRENT) Active 11-08 00:00: 00 OTHER PRISON (CURRENT) DRUG THERAPY Active 11-08 00:00: 00 PRISON (CURRENT) USE OF OPIATE ANALGESIC Active 11-08 [...] tablet, extended release 02-02 00:00: 00 Yes [id number] 1 tablet DAILY 1 tablet DAILY (route: oral) Med Classific ation: Central Nervous System Agents carvedilol 6.25 mg tablet 02-02 00:00: 00 Yes [id number] 1 tablet 2 TIMES DAILY 1 tablet 2 TIMES DAILY (route: oral) Med Classific ation: Cardiovas cular Therapy Agents donepezil 10 mg tablet 02-01 00:00: 00 Yes [id number] 1 tablet DAILY 1 tablet DAILY (route: oral) Med Classific ation: Cognitive Disorder Therapy trazodone 100 mg tablet 02-01 00:00: 00 Yes [id number] .5 tablet BEDTIME .5 tablet BEDTIME (route: oral) Med Classific ation: Central Nervous System Agents amoxicillin 500 mg tablet 01-31 00:00: 00 04-03 23:59 :00 No [id number] 1 tablet DAILY 1 tablet DAILY (route: oral) Med Classific ation: Anti-Infe ctive Agents quetiapine 25 mg tablet 01-27 00:00: 00 Yes [id number] .[id number] tablet BEDTIME .5 tablet BEDTIME (route: oral) Med Classific ation: Central Nervous System Agents tramadol 50 mg tablet 01-27 00:00: 00 Yes [id number] Per instruc tions 3 TIMES A DAY NEEDED FOR 30 DAYS Per instructio ns 3 TIMES A DAY NEEDED FOR 30 DAYS (route: oral) Med Classific ation: Analgesic , Anti-infl ammatory or Antipyret ic celecoxib 200 mg capsule 01-24 00:00: 00 02-04 23:59 :00 No [id number] Per instruc tions DAILY Per instructio ns DAILY (route: oral) Med Classific ation: Analgesic , Anti-infl ammatory or Antipyret ic clonazepam 0.5 mg tablet 01-08 00:00: 00 Yes [id number] 1 tablet TWICE A DAY 1 tablet TWICE A DAY (route: oral) Med Classific ation: Central Nervous System Agents calcium 500 mg (as carbonate)- vitamin D3 3.125 mcg (125 unit) tablet 03-07 00:00: 00 04-03 23:59 :00 No [id number] 1 tablet DAILY 1 tablet DAILY (route: oral) Med Classific ation: Electroly te Balance-N utritiona l Products cefuroxime axetil 500 mg tablet 02-01 00:00: 00 Yes [id number] 1 tablet 2 TIMES DAILY 1 tablet 2 TIMES DAILY (route: oral) Med Classific ation: Anti-Infe ctive Agents Eliquis 5 mg tablet 02-04 00:00: 00 04-06 23:59 :00 No [id number] 1 tablet 2 TIMES DAILY 1 tablet 2 TIMES DAILY (route: oral) Med Classific ation: Hematolog ical Agents loperamide 2 mg tablet 02-04 00:00: 00 Yes [id number] 1 tablet EVERY 6 HOURS 1 tablet EVERY 6 HOURS (route: oral) Med Classific ation: Gastroint estinal Therapy Agents losartan 25 mg tablet 02-04 00:00: 00 Yes [id number] 1 tablet DAILY 1 tablet DAILY (route: oral) Med Classific ation: Cardiovas cular Therapy Agents menthol 0.44 %-zinc oxide 20.6 % topical ointment 3-30 00:00: 00 Yes [id number] 1 inch 2 TIMES DAILY 1 inch 2 TIMES DAILY (route: topical) Med Classific ation: Dermatolo gical omeprazole 40 mg capsule,del ayed release 3-27 00:00: 00 Yes [id number] 1 capsule DAILY 1 capsule DAILY (route: oral) Med Classific ation: Gastroint estinal Therapy Agents gabapentin 300 mg capsule 4-16 00:00: 00 Yes [id number] 1 capsule DAILY 1 capsule DAILY (route: oral) Med Classific ation: Central Nervous System Agents Calcium 600 with Vitamin D3 600 mg-10 mcg (400 unit) chewable tablet 04-07 00:00: 00 Yes [id number] 2 tablet 2 TIMES DAILY 2 tablet 2 TIMES DAILY (route: oral) Med Classific ation: Electroly te Balance-N utritiona l Products celecoxib 200 mg capsule 04-07 00:00: 00 Yes [id number] 1 capsule 2 TIMES DAILY 1 capsule 2 TIMES DAILY (route: oral) Med Classific ation: Analgesic , Anti-infl ammatory or Antipyret ic cranberry 500 mg capsule 04-07 00:00: 00 Yes [id number] 1 capsule DAILY 1 capsule DAILY (route: oral) Med Classific ation: Alternati ve Therapy Xarelto 2.5 mg tablet 30 00:00: 00 Yes [id number] 1 tablet DAILY 1 tablet DAILY (route: oral) Med Classific ation: Hematolog ical Agents oxycodone 5 mg tablet 4-03 00:00: 00 Yes [id number] 1 tablet EVERY 4 HOURS 1 tablet EVERY 4 HOURS (route: oral) Med Classific ation: Analgesic , Anti-infl ammatory or Antipyret ic Immunizations Ordered Immunization Name Filled Immunization Name Date Status Comments Refusal Reason INFLUENZA, TIV (INACTIVATED) 2024-07-25 00:00:00 Vital Signs Vital Name Observation Time Observation Value Commen ts Temperature 2025-05-31 12:34:00.000 97.5 [degF] Temperature 2025-05-17 13:26:00.000 97.8 [degF] Temperature 2025-05-10 10:53:00.000 98.1 [degF] Temperature 2025-05-01 12:38:00.000 97.8 [degF] Temperature 2025-04-26 09:05:00.000 97.3 [degF] Temperature 2025-04-11 13:10:00.000 99 [degF] Pulse 2025-05-31 12:34:00.000 65 /min Pulse 2025-05-17 13:26:00.000 60 /min Pulse 2025-05-10 10:53:00.000 60 /min Pulse 2025-05-01 12:38:00.000 55 /min Pulse 2025-04-26 09:05:00.000 70 /min Pulse 2025-04-11 13:10:00.000 60 /min O2 Saturation (%) 2025-05-31 12:34:00.000 100 % O2 Saturation (%) 2025-05-17 13:26:00.000 99 % O2 Saturation (%) 2025-05-10 10:53:00.000 99 % O2 Saturation (%) 2025-05-01 12:38:00.000 95 % O2 Saturation (%) 2025-04-26 09:05:00.000 97 % O2 Saturation (%) 2025-04-11 13:10:00.000 96 % Respirations 2025-05-31 12:34:00.000 16 /min Respirations 2025-05-10 10:53:00.000 18 /min Respirations 2025-05-01 12:38:00.000 18 /min Respirations 2025-04-26 09:05:00.000 16 /min Respirations 2025-04-11 13:10:00.000 18 /min Systolic Blood Pressure 2025-05-31 12:34:00.000 130 mm [Hg] Systolic Blood Pressure 2025-05-17 13:26:00.000 142 mm [Hg] Systolic Blood Pressure 2025-05-10 10:53:00.000 120 mm [Hg] Systolic Blood Pressure 2025-05-01 12:38:00.000 130 mm [Hg] Systolic Blood Pressure 2025-04-26 09:05:00.000 142 mm [Hg] Systolic Blood Pressure 2025-04-11 13:10:00.000 126 mm [Hg] Diastolic Blood Pressure 2025-05-31 12:34:00.000 78 mm [Hg] Diastolic Blood Pressure 2025-05-17 13:26:00.000 [...] MAINTAIN SITUATIONAL AWARENESS AND WILL NOTIFY CLINICAL LINER REPLACER AND PHYSICIAN/PROVIDER WITH ANY CHANGE IN CONDITION. [code = SKILLED NURSE TO PERFORM ENVIRONMENTAL SAFETY RISK ASSESSMENT AND FALL RISK ASSESSMENT AND PROVIDE INSTRUCTION TO IMPLEMENT ENVIRONMENTAL SAFETY AND FALL PREVENTION STRATEGIES THROUGHOUT THE CERTIFICATION PERIOD. SKILLED NURSE WILL MAINTAIN SITUATIONAL AWARENESS AND WILL NOTIFY CLINICAL LINER REPLACER AND PHYSICIAN/PROVIDER WITH ANY CHANGE IN CONDITION.] [...] CARE WILL BE ESTABLISHED THAT MEETS PATIENT'S LONG TERM NEEDS AND INCLUDES PATIENT GOAL FOR HOME [...] Notes Progress Notes <paragraph>[Visit Date: 2024 by ANTHONY AJ RN]:</paragraph><paragraph>SNV 05/31/25 ABNORMAL VITALS: VSS WITHIN SET PARAMETERS FALLS: DENIES FALLS MEDICATION CHANGES: DENIES MEDICATION CHANGES OBSERVATION AND ASSESSMENT PROVIDED: AOX3, NO ACUTE NEURO DEFICITS, LSCTA, DENIES SOB/ CP/ PALPITATIONS RRR, NO PERIPHERAL EDEMA. LBM 05/31, DENIES SS OF UTI, SKIN IS INTACT. PATIENT STATED: PAIN ON RIGHT KNEE COMES AND GOES AND SOMETINES IS UNCHANGED, THAT THE ONLY THING IT WOULD HELP WILL BE A KNEE REPLACEMENT, BUT THE SURGEON AT [facility] DOES NOT WANT TO DO THE SURGERY. SHE WAS TOLD SHE HAS AN INFECTION ON RIGHT KNEE, BUT HER TESTS RESULTS ARE NORMAL. PATIENT STATED SHE IS NOT ON ANY ANTIBIOTIC AND SHE IS NOT FOLLOWED BY I.D. FOR ANY INFECTION. PATIENT STATED SHE HAS ATTEMPTED TO SEEK A SECOND OPINION, BUT APPOINTMENTS ARE CANCELED BY PRACTICES BEFORE SHE MEETS WITH ANYONE. PATIENT STATED SHE DOES NOT HAVE AN INFECTION AND IS FRUSTRATED THAT HER LIFE QUALITY HAS DETIRIORATED DUE TO THE PAIN. PATIENT DID NOT OBTAINED WHEELCHAIR. PATIENT STATED SHE HAS CYNDY WITH [facility] SURGEON NEXT WEEK, AND WILL REQUEST ALL OF HER RECORDS AND SURGEON TO REMOVE FROM HER FILE THAT SHE HAS AN INFECTION, OTHERWISE SHE WILL SEEK LEGAL HELP. RIGHT KNEE FREE OF ERYTHEMA/WARMTH/WOUNDS/SWELLING, AFEBRILE, LIMITED ROM ON RIGHT KNEE, AMBULATES WITH CANE. MANAGES PAIN TRAMADOL. DENIES SS OF DEPRESSION AND S.I. PATIENT IN AGREEMENT WITH DISCHARGE FROM SERVICES NEXT WEEK, DUE TO NO NURSING SKILL NEEDED. PATIENT IS ABLE TO MANAGE HER PAIN WITH CURRENT MEDICATION THERAPY AND REST. PATIENT STATED SHE DOESN'T NEED THERAPY, SHE JUST NEEDS THE SURGERY. EDUCATION: EDUCATED ON DISCHARGE PLANNING, EDUCATED ON PAIN MANAGEMENT STAYING AHEAD OF PAIN, TAKING PAIN MEDICATIONS ORDERED, USING NON-PHARMACOLOGIC PAIN TECHNIQUES SUCH DISTRACTION, RELAXATION, HEAT/COLD THERAPY. EDUCATED ON PRESSURE ULCER PREVENTION; FREQUENT REPOSITION AT LEAST EVERY 2HRS TO OFFLOAD PRESSURE FROM BONY PROMINENCES, EDUCATED ON SS OF DEPRESSION AND MANAGEMENT VERBALIZED UNDERSTANDING INTERVENTIONS NEEDED AT NEXT VISIT: DISCHARGE FROM SERVICES COMMUNICATION WITH MD: NOT NEEDED AT THIS TIME NEXT MD APPOINTMENT: ORTHO 06/05. PCP 06/04 PT AND CAREGIVER INSTRUCTED TO CALL [facility] WITH ANY QUESTIONS OR CONCERNS AND/OR CHANGES IN CONDITION. CAREGIVER AND VERBALIZED UNDERSTANDING MEDICARE NON-COVERAGE SIGNED BY PATIENT AT THIS VISIT.</paragraph> Encounters Start Date/Time End Date/Time Encounter Type Admission Type Attending Clinicians Care Facility Care Department Encounter ID Discharge Date Discharge Status Discharge Condition Discharge Reason Percent Goals Met 2025-04-07 00:00:00 2025-06-05 00:00:00 Outpatient MAUREENRTIFIC ATION CHANDRA [facility] [id number] 86.67
== END 2025-06-04 10:12 | disposition home or self-care (01) ==
LOC: HO.MAMMO 10:11
PROVIDERS: PCP Family Medicine; Visit Provider Family Medicine
DX: Z12.31 Encounter for screening mammogram for malignant neoplasm of breast (principal)
CPT/HCPCS: 77063; 77067

== ENCOUNTER → 2025-06-04 10:15 | Outpatient (BNV) | payer MEDICARE, SELFPAY | PROVIDERS: PCP Family Medicine; Visit Provider Internal Medicine | DX: Z12.31 Encounter for screening mammogram for malignant neoplasm of breast (principal) | CPT/HCPCS: 77063; 77067 ==

== ENCOUNTER 2025-06-06 09:32 | Outpatient (AMB) | payer MEDICARE, SELFPAY ==
--- NOTE | 2025-06-06 09:36 | MHC.PC.OV ---
Vital Signs 06/06/25 09:44 Height 5 ft 3 in Weight 164 lb 8 oz BMI 29.1 BP 136/66 Blood Pressure Location Rt brachial Position Sitting Respiration 14 Pulse 63 Pulse Source Pulse Oximeter Temp 97.7 F Temp Source Oral Pulse Oximetry (%) 96 Oxygen Delivery Method Room Air Intake Visit Reasons: f/u hypertension, chronic conditions Intake Note: patient is scheduled for htn and chronic condition follow up Sample Tester Grinder Required: No Allergies silver sulfadiazine (From Silvadene) Adverse Reaction (Mild, Verified 06/06/25 09:42) skin irritation Medication List - Last Reconciled 06/06/25 by Ollie Hernandez MD apixaban (Eliquis) 5 mg PO BID 90 days bupropion HCl XL 150 mg PO DAILY calcium carbonate-vitamin D3 500 mg-3.125 mcg (125 unit) 1 tab PO DAILY carvedilol 6.25 mg PO BID celecoxib 200 mg PO DAILY 30 days clonazepam (Klonopin) 0.5 mg PO BID 30 days diaper,brief,adult,disposable As directed donepezil 10 mg PO DAILY 90 days gabapentin 300 mg PO BEDTIME 30 days loperamide 2 mg PO Q6H PRN losartan 25 mg PO DAILY 30 days menthol-zinc oxide 0.44-20.6 % (Calmoseptine) 1 appl topical BID PRN 30 days omeprazole 40 mg PO DAILY 90 days quetiapine (Seroquel) 12.5 mg (1/2 x 25 mg) PO BEDTIME tramadol 50 mg PO TID PRN 30 days trazodone 50 - 100 mg PO BEDTIME PRN Tobacco use date assessed: 11/20/24 Dental Screening Dental Screen Date: 11/20/24 HPI f/u hypertension, chronic conditions HPI Details 70 y/o female presents to f/u HTN, chronic conditions. Had increased her losartan. Blood pressure today 136/66, 63p. She is on losartan 25mg, carvedilol 6.25mg b.i.d. Had been following up with GI for abd. pain. Recent endoscopy findings shows incompetent LES, bile acid reflux, esophagitis, possible barrets. Possible gastric intestinal metaplasia. Reports ongoing hip/knee pain. [facility] Medical History Personal history of nicotine dependence Lump in neck Bilateral hip pain Osteopenia Barretts esophagus Anxiety Sleep apnea Dementia Chronic abdominal pain Mastodynia of left breast HTN (hypertension) Normocytic anemia Depression with anxiety SVT (supraventricular tachycardia) Atrial fibrillation Surgical History Hx of flexible sigmoidoscopy Status post insertion of nerve stimulator History of cholecystectomy (05/04/23) History of esophagogastroduodenoscopy (EGD) Hx of colonoscopy History of total hip replacement History of prior ablation treatment H/O heart surgery History of left knee replacement Family History Brother Lung cancer Brother Bladder cancer Social History Household Members: Spouse Housing: House Are you a primary managed care specialist to a significant other at home: No Do you presently have visiting nurse or other home services: No Alcohol intake: current Alcohol intake frequency: 0-2 drinks per day Alcohol type: beer Patient Tobacco Use Status: Former Tobacco user e-Cigarette/Vaping Use: Never Used Second Hand Smoke Exposure: No service: No Current occupational status: retired Current occupational exposures/hazards: No Cognitive needs: No Hearing needs: No Vision needs: Yes Female Reproductive History Menstrual Age of Menarche: 13 Questionnaire Thrive Questionnaire Date Thrive assessed: 11/20/24 I am a: Patient What is your living situation today?: I have a steady place to live Within the past 12 months, did the food you bought not last and you didn't have the money to get more?: Sometimes True Within the past 12 months, did you worry whether your food would run out before you got money to buy more?: Sometimes True Do you have trouble paying for medicines?: No Do you have trouble getting transportation to medical appointments?: No Do you have trouble paying your heating and electricity bill?: No Do you have trouble taking care of your child, family member or friend?: I choose not to answer this question Do you have trouble with day-to-day activities such as bathing, preparing meals, shopping, managing finances, etc.?: No Are you currently unemployed and looking for a job?: I choose not to answer this question Are you interested in more education?: No Currently or been in a relationship where the following occur: No concerns reported THRIVE Score: 2 ADEN-7 AMB Questionnaire ADEN-7 Date ADEN - 7 assessed: 11/20/24 Source: Developed by Drs. Jean Rockwell, Jennifer Fritz, Scar Navarro and colleagues, with an educational edna from [employer]. Review of Systems Const Denies chills, Denies fatigue, Denies fever(s), Denies headache(s) and Denies weakness ENT Denies dizziness and Denies headache(s) Card Denies dyspnea Resp Denies cough, Denies dyspnea, Denies wheezing and Denies other (shortness of breath) Musc Denies numbness and Denies tingling Neuro Denies dizziness, Denies headache(s), Denies numbness, Denies tingling and Denies weakness Psych Denies anxiety and Denies depression Endo Denies fatigue Aller/Immun Denies wheezing Physical exam (Primary Care) Vital Signs: Last Vital Signs Temp 97.7 F 06/06/25 09:44 Pulse 63 06/06/25 09:44 Resp 14 06/06/25 09:44 BP 136/66 06/06/25 09:44 Pulse Ox 96 06/06/25 09:44 Oxygen Delivery Method Room Air 06/06/25 09:44 BMI result Body Mass Index 29.1 Tobacco/Smoking Status: Tobacco use Status Tobacco use date assessed 11/20/24 06/06/25 09:38 Patient Tobacco Use Status Former Tobacco user 06/06/25 09:38 e-Cigarette/Vaping Use Never Used 06/06/25 09:38 Thrive Assessment: Date of Thrive Assessment Date Thrive assessed 11/20/24 06/06/25 09:38 Currently or been in a relationship where the following occur: No concerns reported Const General: well developed; No acute distress Nutritional Appearance: well nourished Orientation/consciousness: patient oriented x3 HENMT Head: Yes normocephalic and Yes atraumatic Eyes General: appearance normal, both eyes and all related structures Pupils: Equal, round and reactive pupils present EOM: EOMs intact bilaterally Resp Effort & Inspection: normal respiratory effort Neuro General: patient oriented x3 and gait normal Cranial nerves: Yes Equal, round and reactive pupils present Psych Affect: normal affect Coding Level of Care Code Est Pt Level 4 (50506) Diagnoses Essential hypertension I10 Gastritis K29.70 Knee pain M25.569 Hip pain M25.559 Assessment & Plan Assessment & Plan (1) Essential hypertension: Code(s): I10 - Essential (primary) hypertension Category: Medical Plan: Blood pressure is controlled today though seems to fluctuate She notes that she does not limit salt intake and I encouraged this today. Will have her back in a month to recheck this. No medication change made today. (2) Gastritis: Code(s): K29.70 - Gastritis, unspecified, without bleeding Category: Medical Plan: Ongoing gastritis and metaplasia seen in endoscopy She is on omeprazole and followed by Dr. Garces Continue omeprazole Follow-up with Gastroenterology as recommended (3) Knee pain: Code(s): M25.569 - Pain in unspecified knee Category: Medical (4) Hip pain: Code(s): M25.559 - Pain in unspecified hip Category: Medical Plan Ongoing chronic hip and knee pain. Patient notes that pain is severe enough to keep her up at night Had given her a short course of tramadol t.i.d., prn. Patient took this medication about twice a day and this was helping to manage her pain. She is followed by Ortho in [place], Dr. Leonardo. I will request his notes. Per patient, Dr. Leonardo is recommending surgery but plans to retire in March transfer her to the Dr. Linder Pain contract signed today and will send script for tramadol 50 mg b.i.d. p.r.n. pain. Will follow-up in 1 month. Will check urine screen. Medications: Changed From tramadol MassPat Verified 50 mg PO TID 30 days PRN 30 tabs 0RF pain To tramadol MassPat Verified. partial refill on request. 50 mg PO BID PRN 60 tabs 0RF pain 30 days
[2025-06-06 09:44] VITALS: BP 136/66; PULSE 63; RESP 14; TEMP 36.5; O2SAT 96; BMI 29.1
--- OUTSIDE RECORDS SUMMARY | 2025-06-06 10:05 | XMS_ITS | Encounter Summary ---
Author Organization [facility] Address [address] [place] [phone] Phone Care Team Providers Care Mix House Tender Name Role Phone Ollie Hernandez MD Primary Care Provider Encounter Details Date Type Department Care Team (Late st Contact Info) Description 02/23/2025 Procedure Pass [facility] [address] [place] [address] Social History Tobacco Use Types Packs/Day Years [...] Care Team (Late st Contact Info) Description 08/27/2025 Procedure Pass [place] Admitting Dept - Virtual Department [address] [place] [address] 10/19/2025 3:00 PM EST Office Visit [facility] [address] [place] [address] Jesús Rodriguez DO [address] [facility], [address]nd [place] [address] [email or web address] documented as of this encounter Visit Diagnoses Not on filedocumented in this encounter Care Teams Mix House Tender Relationship Specialty Start Date End Date Ollie Hernandez MD [address] [place] [address] PCP - General Family Medicine 05/23/24 documented as of this encounter Additional Source Comments The information contained in this document represents components of the legal health record. It is not the complete legal health record.[facility]
--- OUTSIDE RECORDS SUMMARY | 2025-06-06 10:05 | XMS_ITS | Patient Health Record ---
Author Organization [facility] Address [address] [place] [address] Care Team Providers Care Advisory Software Engineer Name Role Phone Ollie Hernandez Primary Care Provider Unavailab Jean Baires Unavailable [phone] [facility] Dupree Unavailable Unavailable Allergies Allergen (clinical [...] W/U Status Risk Notes Problem Esophageal reflux (524830389) Esophageal reflux (K21.9) Active confirmed Problem [id number] 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) Active confirmed Problem Iron deficiency anemia (92087914) Iron deficiency anemia (D50.9) Active confirmed Problem Gastritis (4472609) Gastritis (K29.70) Active confirmed Problem Gastroesophageal reflux disease (603323476) GERD (gastroesophageal reflux disease) (K21.9) Active confirmed Problem Diverticulosis of colon (391588725) Diverticulosis of colon (K57.30) Active confirmed Plan [...] Date MEDICARE OF [place] [address] [place] [address] [id number] TOMASZ FULLER Self - patient is the insured [employer] CLAIMS [address] [place] [address] [id number] TOMASZ FULLER Self - patient is the insured Medical (General) History Medical History History ICD Code HTN Afib-Dr. [facility] [place] Denies DC,DM,CVA,Lung disease,renal dise ase GERD-never had an EGD [...]
== END 2025-06-06 10:27 | disposition home or self-care (01) ==
LOC: HO.HMCFM 09:33
PROVIDERS: PCP Family Medicine; Visit Provider Family Medicine
DX: I10 Essential (primary) hypertension (principal); K29.70 Gastritis, unspecified, without bleeding; M25.569 Pain in unspecified knee; M25.559 Pain in unspecified hip

== ENCOUNTER → 2025-06-06 09:32 | Outpatient (BNVA) | payer MEDICARE, SELFPAY | PROVIDERS: PCP Family Medicine; Visit Provider Family Medicine | DX: I10 Essential (primary) hypertension (principal); K29.70 Gastritis, unspecified, without bleeding; M25.561 Pain in right knee; M25.562 Pain in left knee; M25.551 Pain in right hip; M25.552 Pain in left hip | CPT/HCPCS: 99212 ==

== ENCOUNTER 2025-06-06 10:48 | Outpatient (REF) | payer MEDICARE, SELFPAY ==
[2025-06-06 15:39] LABS: Folate 17.7 ng/mL (> or = 4.0); Vitamin B12 558 pg/mL (200-900)
[2025-06-09 15:03] LABS: Intrinsic Factor Antibodies Negative (Negative)
== END 2025-06-06 10:49 | disposition home or self-care (01) ==
LOC: HO.WFDLDS 10:48
PROVIDERS: Visit Provider Internal Medicine Gastroenterology
DX: Z00.00 Encounter for general adult medical examination without abnormal findings (principal); K29.70 Gastritis, unspecified, without bleeding
CPT/HCPCS: 82607; 82746; 82941; 83516; 83519; 86340

== ENCOUNTER 2025-07-17 09:30 | Outpatient (REF) | payer MEDICARE, SELFPAY ==
[2025-07-17 14:49] LABS: Appearance Urine Hazy; Glucose Urine UA Negative (Negative); PH 6.0 (5.0-9.0); Specific Gravity - Urine 1.025 (1.005-1.025)
== END 2025-07-17 09:31 | disposition home or self-care (01) ==
LOC: HO.LNP 09:30
PROVIDERS: PCP Family Medicine; Visit Provider Family Medicine
DX: Z00.00 Encounter for general adult medical examination without abnormal findings (principal); R30.0 Dysuria; M25.559 Pain in unspecified hip; M25.569 Pain in unspecified knee; E66.3 Overweight; F41.9 Anxiety disorder, unspecified; F32.A Depression, unspecified; Z79.01 Long term (current) use of anticoagulants; Z79.899 Other long term (current) drug therapy; Z79.891 Long term (current) use of opiate analgesic; Z68.28 Body mass index [BMI] 28.0-28.9, adult
CPT/HCPCS: 81003; 96127; 99212

== ENCOUNTER 2025-07-17 09:30 | Outpatient (AMB) | payer MEDICARE, SELFPAY ==
--- NOTE | 2025-07-17 09:39 | A.OFFPC_ITS ---
Vital Signs 07/17/25 09:48 Height 5 ft 3 in Weight 162 lb 2 oz BMI 28.7 BP 116/80 Blood Pressure Location Rt brachial Position Sitting Respiration 16 Pulse 52 Pulse Source Pulse Oximeter Temp 97.2 F Temp Source Temporal Artery Scan Pulse Oximetry (%) 95 Oxygen Delivery Method Room Air Intake Visit Reasons: f/u chronic pain 1 month - see comments Intake Note: Trish presents in the office today for a one month follow up to her chronic pain. Allergies silver sulfadiazine (From Silvadene) Adverse Reaction (Mild, Verified 07/17/25 09:43) skin irritation Medication List - Last Reconciled 07/17/25 by Ollie Hernandez MD apixaban (Eliquis) 5 mg PO BID 90 days bupropion HCl XL 150 mg PO DAILY calcium carbonate-vitamin D3 500 mg-3.125 mcg (125 unit) 1 tab PO DAILY carvedilol 6.25 mg PO BID celecoxib 200 mg PO DAILY 30 days clonazepam (Klonopin) 0.5 mg PO BID 30 days diaper,brief,adult,disposable As directed donepezil 10 mg PO DAILY 90 days gabapentin 300 mg PO BEDTIME 30 days loperamide 2 mg PO Q6H PRN losartan 25 mg PO DAILY 30 days menthol-zinc oxide 0.44-20.6 % (Calmoseptine) 1 appl topical BID PRN 30 days omeprazole 40 mg PO DAILY 90 days quetiapine (Seroquel) 12.5 mg (1/2 x 25 mg) PO BEDTIME tramadol 50 mg PO BID PRN 30 days trazodone 50 - 100 mg PO BEDTIME PRN Tobacco use date assessed: 07/17/25 Dental Screening Dental Screen Date: 07/17/25 Did you have a dental visit in the last 12 months?: Yes Did you have a dental problem in the last 6 months where you did not have access to dental care?: No Was dental information given to patient?: Patient has dentist HPI f/u chronic pain 1 month - see comments HPI Details 70 y/o female presents to f/u chronic pa in. Pt had ongoing chronic hip and knee pain. Pain had been sever enough o keep her up at night. She is followed by orthopedics. Had signed pain contract last office visit and sent script for tramadol mg b.i.d p.r.n for pain. Pt reports she had seen Dr. Leonardo who recommended surgery but was retiring. Has scheduled for knee replacement later this month. Continues taking tramadol as prescribed. Pt notes ongoing concerns about her weight. She notes pain would likely improve if she loses more weight. PHQ-9 11, ADEN-7 9 today. [facility] Medical History Personal history of nicotine dependence Lump in neck Bilateral hip pain Osteopenia Barretts esophagus Anxiety Sleep apnea Dementia Chronic abdominal pain Mastodynia of left breast HTN (hypertension) Normocytic anemia Depression with anxiety SVT (supraventricular tachycardia) Atrial fibrillation Surgical History Hx of flexible sigmoidoscopy Status post insertion of nerve stimulator History of cholecystectomy (05/04/23) History of esophagogastroduodenoscopy (EGD) Hx of colonoscopy History of total hip replacement History of prior ablation treatment H/O heart surgery History of left knee replacement Family History (Updated 07/17/25 @ 09:47 by Vani Mack MA) Brother Lung cancer Brother Bladder cancer Substance abuse Alcoholism Heart attack Social History (Updated 07/17/25 @ 09:47 by Vani Mack MA) Household Members: Spouse Housing: House Are you a primary direct care supervisor to a significant other at home: No Do you presently have visiting nurse or other home services: No Alcohol intake: current Alcohol intake frequency: 0-2 drinks per day Alcohol type: beer Patient Tobacco Use Status: Former Tobacco user e-Cigarette/Vaping Use: Never Used Second Hand Smoke Exposure: No Use of substances other than those prescribed or required for medical reasons: No service: No Current occupational status: retired Current occupational exposures/hazards: No Cognitive needs: No Hearing needs: No Vision needs: Yes Female Reproductive History Menstrual Age of Menarche: 13 Questionnaire PHQ-9 Over the last 2 weeks, how often have you been bothered by any of the following problems? 1. Little interest or pleasure in doing things: more than half the days 2. Feeling down, depressed, or hopeless: several days 3. Trouble falling or staying asleep, or sleeping too much: not at all 4. Feeling tired or having little energy: not at all 5. Poor appetite or overeating: nearly every day 6. Feeling bad about yourself - or that you are a failure or have let yourself or your family down: several days 7. Trouble concentrating on things, such as reading the newspaper or watching television: several days 8. Moving or speaking so slowly that other people could have noticed. Or the opposite - being so fidgety or restless that you have been moving around a lot more than usual: nearly every day 9. Thoughts that you would be better off or of hurting yourself in some way: not at all Total score: 11 Depression Screening Interpretation: Positive Depression Screening Done: Yes 06638 - PHQ-9 Billing: Yes Source: Developed by Drs. Jean Rockwell, Jennifer Fritz, Scar Navarro and colleagues, with an educational edna from [employer]. Thrive Questionnaire Date Thrive assessed: 11/20/24 I am a: Patient What is your living situation today?: I have a steady place to live Within the past 12 months, did the food you bought not last and you didn't have the money to get more?: Sometimes True Within the past 12 months, did you worry whether your food would run out before you got money to buy more?: Sometimes True Do you have trouble paying for medicines?: No Do you have trouble getting transportation to medical appointments?: No Do you have trouble paying your heating and electricity bill?: No Do you have trouble taking care of your child, family member or friend?: I choose not to answer this question Do you have trouble with day-to-day activities such as bathing, preparing meals, shopping, managing finances, etc.?: No Are you currently unemployed and looking for a job?: I choose not to answer this question Are you interested in more education?: No Currently or been in a relationship where the following occur: No concerns reported THRIVE Score: 2 ADEN-7 AMB Questionnaire ADEN-7 Date ADEN - 7 assessed: 07/17/25 Feeling nervous, anxious, or on edge: 2 = More than half the days Not being able to stop or control worryin = More than half the days Worrying too much about different things: 2 = More than half the days Trouble relaxin = Several days Being so restless that it is hard to sit still: 0 = Not at all Becoming easily annoyed or irritable: 1 = Several days Feeling afraid as if something awful might happen: 1 = Several days Total ADEN-7 score (0-4 normal; 5-9 mild; 10-14 moderate; 15-21 severe): 9 Source: Developed by Drs. Jean Rockwell, Jennifer Fritz, Scar Navarro and colleagues, with an educational edna from [employer]. ADEN-7 Assessment Billing ADEN-7 Assessment Tool: ADEN-7 Assessment 81613 Review of Systems Const Denies chills, Denies fatigue, Denies fever(s), Denies headache(s) and Denies weakness ENT Denies dizziness and Denies headache(s) Card Denies dyspnea Resp Denies cough, Denies dyspnea, Denies wheezing and Denies other (shortness of breath) Musc Denies numbness and Denies tingling Neuro Denies dizziness, Denies headache(s), Denies numbness, Denies tingling and Denies weakness Psych Reports anxiety and Reports depression Endo Denies fatigue Aller/Immun Denies wheezing Physical exam (Primary Care) Vital Signs: Last Vital Signs Temp 97.2 F 07/17/25 09:48 Pulse 52 07/17/25 09:48 Resp 16 07/17/25 09:48 BP 116/80 07/17/25 09:48 Pulse Ox 95 07/17/25 09:48 Oxygen Delivery Method Room Air 07/17/25 09:48 BMI result Body Mass Index 28.7 Tobacco/Smoking Status: Tobacco use Status Tobacco use date assessed 07/17/25 07/17/25 09:51 Patient Tobacco Use Status Former Tobacco user 07/17/25 09:47 e-Cigarette/Vaping Use Never Used 07/17/25 09:47 PHQ-9: PHQ-9 Score PHQ-9: Total score 11 07/17/25 10:19 Depression Screening Interpretation: Positive Thrive Assessment: Date of Thrive Assessment Date Thrive assessed 11/20/24 07/17/25 09:40 Currently or been in a relationship where the following occur: No concerns reported Const General: well developed; No acute distress Nutritional Appearance: well nourished Orientation/consciousness: patient oriented x3 HENMT Head: Yes normocephalic and Yes atraumatic Eyes General: appearance normal, both eyes and all related structures Pupils: Equal, round and reactive pupils present EOM: EOMs intact bilaterally Resp Effort & Inspection: normal respiratory effort Neuro General: patient oriented x3 and gait normal Cranial nerves: Yes Equal, round and reactive pupils present Psych Affect: normal affect Coding Level of Care Code Est Pt Level 4 (64326) Diagnoses Chronic pain G89.29 Hip pain M25.559 Knee pain M25.569 Overweight E66.3 Anxiety and depression F41.9; F32.A Additional Codes ADEN-7 Assessment Billing - ADEN-7 Assessment Tool: ADEN-7 Assessment 51082 ([id number]) PHQ-9 - 10371 - PHQ-9 Billing: Yes ([id number]) Assessment & Plan Assessment & Plan (1) Chronic pain: Code(s): G89.29 - Other chronic pain Category: Medical Plan: Chronic pain managed on tramadol twice a day. Taking as prescribed. Will check urine drug screen today Still waiting Ortho nodes. Saw Dr Leonardo who recommended surgery but was retiring. Recommended Dr. Linder. Then saw Dr. Linder Then a Dr at [facility]. Scheduled for Knee Replacement Aug 07, 2025. Declines hip surgery - wants her to go to [facility]. Requesting [facility] notes and will review with patient (2) Hip pain: Code(s): M25.559 - Pain in unspecified hip Category: Medical Plan: As above, orthopedic surgeon at [facility] wants to refer to [facility] regarding her hip. Awaiting notes (3) Knee pain: Code(s): M25.569 - Pain in unspecified knee Category: Medical Plan: As above, she says she is scheduled for her surgery on her knee August 07. Awaiting notes (4) Overweight: Code(s): E66.3 - Overweight Category: Medical Plan: Patient requests medication for weight loss Encouraged her to discuss with her insurance company (5) Anxiety and depression: Code(s): F41.9 - Anxiety disorder, unspecified; F32.A - Depression, unspecified Category: Medical Plan: Stable Orders: Orders Drug Screen Urine Today G89.29 - Other chronic pain Tramadol Ur GC/MS Today G89.29 - Other chronic pain Medications: New tirzepatide (weight loss) (Zepbound) for 4 weeks 2.5 mg (0.5 mL) subcut QWEEK 2 mL 3RF 28 days
[2025-07-17 09:48] VITALS: BP 116/80; PULSE 52; RESP 16; TEMP 36.2; O2SAT 95; BMI 28.7
--- OUTSIDE RECORDS SUMMARY | 2025-07-17 10:59 | XMS_ITS | Encounter Summary ---
Author Organization [facility] Address [address] [place] [phone] Phone Care Team Providers Care Rocket Assembly Operator Name Role Phone Ollie Hernandez MD Primary Care Provider Encounter Details Date Type Department Care Team (Latest Contact Info) Description 09/19/2024 Ancillary Orders [facility] Orthopedics & Sports Medicine [address] [place] [phone] Maximino Leonardo MD [address] [place] [address] Orthopedics & Sports Medicine, [facility] [place] [address] [email or web address] Trochanteric bursitis of left hip (Primary Dx); Pain; Genu valgum, acquired, left; Hx of total knee replacement, left; Hx of total hip arthroplasty, left Social History Tobacco Use Types Packs/Day Years [...] with a working camera? Not on file Comments Unknown Sex and Gender Information Value Date Recorded Sex Assigned at Not on file Legal Sex Female 1:38 PM EDT Gender Identity Not on file Sexual Orientation Not on file documented as of this encounter Plan of Treatment Upcoming Encounters Date Type Department Care Team ( Contact Info) Description 08/27/2025 Procedure Pass OR Admitting Dept - Virtual Department [address] [place] [address] 10/19/2025 3:00 PM EST Office Visit [facility] [address] [place] [address] Jesús Rodriguez DO [address] [facility], [address] [place] [address] [email or web address] documented as of this encounter Results * XR KNEE 1-2 VIEWS (RIGHT) (09/19/2024 9:27 AM EST) Narrative SYSTEMGENERATED, DOCUMENTATION - 09/19/2024 9:27 AM EST This image report has been auto-finalized and has not been read by a Radiologist. Interpretation has been included in the provider encounter note for this date of service. Maximino Leonardo MD IMG XR LOWER EXTREMITY Final Result documented in this encounter Visit Diagnoses Diagnosis Pain Generalized pain Trochanteric bursitis of left hip Genu valgum, acquired, left Hx of total knee replacement, left Hx of total hip arthroplasty, left Trochanteric bursitis of left hip- Primary Pain Generalized pain Genu valgum, acquired, left Hx of total knee replacement, left Hx of total hip arthroplasty, left documented in this encounter Care Teams Rocket Assembly Operator Relationship Specialty Start Date End Date Ollie Hernandez MD [address] [place] [id number] PCP - General Family Medicine 05/23/24 documented as of this encounter Additional Source Comments The information contained in this document represents components of the legal health record. It is not the complete legal health record.[facility]
--- OUTSIDE RECORDS SUMMARY | 2025-07-17 10:59 | XMS_ITS | Encounter Summary ---
Author Organization [facility] Address [address] [place] [address] Phone Care Team Providers Care Chart Clerk Name Role Phone Ollie Hernandez MD Primary Care Provider Encounter Details Date Type Department Care Team (Late st Contact Info) Description 02/23/2025 Procedure Pass [facility] [address] [place] [address] Social History Tobacco Use Types Packs/Day Years [...] OR Admitting Dept - Virtual Department [address] [place] [address] 10/19/2025 3:00 PM EST Office Visit [facility] [address] [place] [address] Jesús Rodriguez DO 170 [facility], 2nd [place] [address] [email or web address] documented as of this encounter Visit Diagnoses Not on filedocumented in this encounter Care Teams Chart Clerk Relationship Specialty Start Date End Date Ollie Hernandez MD [address] [place] [address] PCP - General Family Medicine 05/23/24 documented as of this encounter Additional Source Comments The information contained in this document represents components of the legal health record. It is not the complete legal health record.[facility]
--- OUTSIDE RECORDS SUMMARY | 2025-07-17 10:59 | XMS_ITS | Encounter Summary ---
Author Organization [facility] Address [address] [place] [address] Phone Care Team Providers Care Painter Set Name Role Phone Ollie Hernandez MD Primary Care Provider Encounter Details Date Type Department Care Team (Late st Contact Info) Description 09/19/2024 Procedure Pass [address] [address] Social History Tobacco Use Types Packs/Day Years [...] Pass OR Admitting Dept - Virtual Department [address] [place] [address] 10/19/2025 3:00 PM EST Office Visit [facility] [address] [place] [address] Jesús Rodriguez DO [address], [address] [place] [address] [email or web address] documented as of this encounter Visit Diagnoses Not on filedocumented in this encounter Care Teams Painter Set Relationship Specialty Start Date End Date Ollie Hernandez MD [address] [place] [address] PCP - General Family Medicine 05/23/24 documented as of this encounter Additional Source Comments The information contained in this document represents components of the legal health record. It is not the complete legal health record.[facility]
--- OUTSIDE RECORDS SUMMARY | 2025-07-17 10:59 | XMS_ITS | Patient Health Record ---
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) Active confirmed Problem Iron deficiency anemia (21197205) Iron deficiency anemia (D50.9) Active confirmed Problem Gastritis (1447000) Gastritis (K29.70) Active confirmed Problem Gastroesophageal reflux disease (424616704) GERD (gastroesophageal reflux disease) (K21.9) Active confirmed Problem Diverticulosis of colon (546935730) Diverticulosis of colon (K57.30) Active confirmed Plan [...] Date MEDICARE OF [place] [address] [place] [address] [id number] TOMASZ FULLER Self - patient is the insured MED[employer] ATTN CLAIMS [address] [place] [address] [id number] TOMASZ FULLER Self - patient is the insured Medical (General) History Medical History History ICD Code HTN Afib-[facility] [place] Denies NH,DM,CVA,Lung disease,renal dise ase GERD-never had an EGD [...]
--- OUTSIDE RECORDS SUMMARY | 2025-07-17 10:59 | XMS_ITS | Clinical Summary ---
Author Organization [facility] Address [address] [place] [address] Phone Care Team Providers Care Travel Trailer Components Assembler Name Role Phone Ollie Hernandez MD Primary Care Provider Allergies No known active allergies Medications ELIQUIS 5 mg tablet Take 1 tablet by mouth 2 (two) times a day. 4 Active buPROPion (WELLBUTRIN XL) 150 MG ER 24 hr tablet Take 150 mg by mouth every morning. 4 Active carvedilol (COREG) 6.25 MG tablet Take 1 tablet by mouth 2 (two) times a day. 4 Active celecoxib (CELEBREX) 200 MG capsule 200 mg. 4 Active clonazePAM (KLONOPIN) 0.5 MG tablet 0.5 mg. 4 Active donepeziL (ARICEPT) 10 MG tablet Take 1 tablet by mouth every morning. 4 Active loperamide (IMODIUM) 2 mg capsule 2 mg. 4 Active losartan (COZAAR) 25 MG tablet Take 1 tablet by mouth every morning. 4 Active mirtazapine (REMERON) 7.5 MG tablet 7.5 mg. 4 Active omeprazole (PRILOSEC) 40 MG capsule Take 1 capsule by mouth every morning. 4 Active QUEtiapine (SEROQUEL) 25 MG tablet 50 mg. 4 Active traMADoL (ULTRAM) 50 mg tablet 50 mg. 4 Active traZODone (DESYREL) 100 MG tablet 100 mg. 4 Active nitrofurantoin (MACROBID) 100 MG capsule Take 100 mg by mouth 2 (two) times a day. 5 Active oxyCODONE 5 MG immediate release tabletIndication s:Pain due to total left knee replacement, initial encounter,Chroni c hip pain after total replacement of left hip joint Take 1 tablet (5 mg total) by mouth every 4 (four) hours as needed for pain (specific location in comments) (Left leg pain). Partial fill ok 10 tablet 5 Active gabapentin (NEURONTIN) 300 MG capsule Take 300 mg by mouth daily. Active cefuroxime (CEFTIN) 500 MG tablet Take 1 tablet by mouth 2 (two) times a day. 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 09/08 Encounters Date Type Department Care Team Description 06/05/2025 11:15 AM EDT Office Visit [facility] [address] [place] [address] Maximino Leonardo MD Pain due to total left knee replacement, subsequent encounter (Primary Dx); Chronic hip pain after total replacement of left hip joint; Hx of total knee replacement, left 06/05/2025 11:08 AM EDT - 06/05/2025 11:59 PM EDT Hospital Encounter [address] [address] Maximino Leonardo MD Discharge Disposition: Home or Self Care 06/05/2025 11:08 AM EDT - 06/05/2025 11:59 PM EDT Hospital Encounter [address] [address] Maximino Leonardo MD Discharge Disposition: Home or Self Care from Last 3 Months Social History Tobacco Use Types Packs/Day Years [...] on file Sexual Orientation Not on file Last Filed Vital Signs Vital Sign Reading Time Taken Comments Blood Pressure 157/71 02/23/2025 10:49 AM EDT Pulse - - Temperature - - Respiratory Rate - - Oxygen Saturation 97% 02/23/2025 10: 50 AM EDT Inhaled Oxygen Concentration - - Weight 74.8 kg (164 lb 14.5 oz) 025 10:28 AM EDT Height 160 cm (5' 2.99 ) 02/13/2025 10: 17 AM EDT Body Mass Index 29.22 02/13/2025 10:17 AM EDT Plan of Treatment Upcoming Encounters Date Type Department Care Team (Late st Contact Info) Description 08/27/2025 Procedure Pass OR Admitting Dept - Virtual Department 30 [place] [address] 10/19/2025 3:00 PM EST [facility] [address] [place] [address] [place] [address] Jesús Rodriguez DO 170 [facility], 2nd [place] [address] [email or web address] Health Maintenance Due Date Last Done Comments LIPID PANEL 1956 DEPRESSION SCREENING 1968 SMOKING Hx and SMOKELESS TOBACCO SCREENING 02/07/1969 HEPATITIS C SCREENING 02/07/1974 MAMMOGRAM 1996 COLOGUARD 02/07/2001 COLONOSCOPY 02/07/2001 COLORECTAL CANCER SCREENING 02/07/2001 FIT TEST 02/07/2001 FOBT 02/07/2001 SIGMOIDOSCOPY 02/07/2001 VIRTUAL COLONOSCOPY 02/07/2001 OSTEOPOROSIS SCREENING INITIAL (ONE-TIME) 02/07/2021 INFLUENZA VACCINE (#1) 2025 , 10/07/2023, 09/16/2022, Additional history exists COVID-19 VACCINE ( season) 2025 10/13/2024, 10/05/2021, 01/15/2021, Additional history exists CREATININE LEVEL 02/07/2026 02/07/2025 POTASSIUM LEVEL 02/07/2026 02/07/2025 SCREENING FOR DIABETES 2028 02/07/2025, 2024 Adult Td,Tdap Booster 06/28/2030 06/28/2020 ZOSTER VACCINES Completed 12/09/2023, 09/10, 12/15/2016 PNEUMOCOCCAL VACCINES (50+ years) Completed 10/13/2024, 07/08/2021, 12/15/2016 RSV VACCINE Completed 10/13/2024 HEPATITIS A VACCINES Aged Out No long er eligible based on patient's age to complete this topic HIB VACCINES Aged Out No longer eligi ble based on patient's age to complete this topic MENINGOCOCCAL VACCINES (ACWY) Aged Out No longer eligible based on patient's age to complete this topic MENINGOCOCCAL VACCINES (B) Aged Out N o longer eligible based on patient's age to complete this topic Medical Devices Not on file Procedures Procedure Name Priority Date/Time Associated Diagnosis Comments XR HIP 2 VW LEFT PLUS PELVIS Routine 06/05/2025 11:37 AM EDT Chronic hip pain after total replacement of left hip joint XR KNEE 3 VIEW (LEFT) Routine 06/05/2025 11:36 AM EDT Chronic hip pain after total replacement of left hip joint BASIC METABOLIC PANEL Routine 02/07/2025 10:17 AM EDT Trochanteric bursitis of left hip Genu valgum, acquired, left Hx of total knee replacement, left Hx of total hip arthroplasty, 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 Interpretation has been included in the provider encounter note for this date of service. us Maximino Leonardo MD [facility] XR PELVIS Final Result * XR KNEE 3 VIEW (LEFT) (06/05/2025 11:36 AM EDT) Narrative SYSTEMGENERATED, DOCUMENTATION - 06/05/2025 11:37 AM EDT This image report has been auto-finalized and has not been read by a Radiologist. Interpretation has been included in the provider encounter note for this date of service. us Maximino MORROW XR LOWER EXTREMITY Final Result * (ABNORMAL) Basic metabolic panel (02/07/2025 10:17 AM EDT) SODIUM 140 133 - 146 mmol/L [facility] CHLORIDE 105 96 - 108 mmol/L [facility] POTASSIUM 4.3 3.3 - 5.1 mmol/L [facility] CO2 24 21 - 35 mmol/L [facility] BUN 20(H) 6 - 19 mg/dL [facility] CREATININE 0.60 0.5 - 1.5 mg/dL [facility] GLUCOSE 93 70 - 99 mg/dL [facility] CALCIUM 9.8 8.4 - 10.3 mg/dL [facility] EGFR 97 >59 mL/min/1.7 3m2 [facility] Comment:Estimated glomerular filtration rate calculated using the CKD-EPI refit equation. ANION GAP 15 10 - 20 mmol/L [facility] Blood 02/07/2025 10:1 7 AM EDT 02/07/2025 10:24 AM EDT us Maximino Leonardo MD LAB BLOOD ORDERABLES Final R esult [facility] [address] [place] [address] from Last 3 Months or Most Recently Relevant to Health Maintenance Insurance MEDICARE PART A & B [employer] MED[employer] SUPPLEMENT MEDICARE PART A & B QA on Request CROSS MEDEX SUPPLEMENT MEDICARE PART A & B QA on Request CROSS MEDEX SUPPLEMENT MEDICARE PART A & B [employer] MEDEX SUPPLEMENT MEDICARE PART A & B [employer] MEDEX SUPPLEMENT MEDICARE PART A & B [facility] MEDEX SUPPLEMENT MEDICARE PART A & B BLUE CROSS MEDEX SUPPLEMENT Care Teams Travel Trailer Components Assembler Relationship Specialty Start Date End Date Ollie Hernandez MD [address] [place] [address] PCP - General Family Medicine 05/23/24 Additional Source Comments The information contained in this document represents components of the legal health record. It is not the complete legal health record.[facility]
== END 2025-07-17 10:46 | disposition home or self-care (01) ==
LOC: HO.HMCFM 09:31
PROVIDERS: PCP Family Medicine; Visit Provider Family Medicine
DX: G89.29 Other chronic pain (principal); M25.559 Pain in unspecified hip; M25.569 Pain in unspecified knee; E66.3 Overweight; F41.9 Anxiety disorder, unspecified; F32.A Depression, unspecified

== ENCOUNTER 2025-08-27 11:47 | Outpatient (AMB) | payer MEDICARE, SELFPAY ==
--- NOTE | 2025-08-27 11:56 | MHC.PC.OV ---
Vital Signs 08/27/25 12:00 Height 5 ft 3 in Weight 190 lb 4 oz BMI 33.7 BP 168/84 H Blood Pressure Location Rt brachial Position Sitting Respiration 16 Pulse 67 Pulse Source Pulse Oximeter Temp 97.9 F Temp Source Oral Pulse Oximetry (%) 96 Oxygen Delivery Method Room Air Intake Visit Reasons: Possible UTI Intake Note: Burning while urinating Managed Security Sales Consultant Required: No Allergies silver sulfadiazine (From Silvadene) Adverse Reaction (Mild, Verified 08/27/25 11:57) skin irritation Tobacco use date assessed: 07/17/25 Dental Screening Dental Screen Date: 08/27/25 Did you have a dental visit in the last 12 months?: Yes Did you have a dental problem in the last 6 months where you did not have access to dental care?: Yes Was dental information given to patient?: Patient has dentist HPI HPI Comments History of Present Illness Details This is a 69-year-old female with a past medical history of dementia, osteopenia, paroxysmal atrial fibrillation and atrial flutter status post cryoablation, obstructive sleep apnea, Amaro's esophagus, hypertension and anxiety with depression, mixed incontinence presenting for dysuria Patient reports a few day history of dysuria. She denies fevers. +urgency She also noted burning in the vaginal area, denies discharge. Urinalysis bland 1+ leukocytes. Sent for culture ROS see HPI PHYSICAL EXAM: GENERAL: Alert and oriented x 3. NAD EYES: EOMI. Anicteric. HENT: Moist mucous membranes. LUNGS: Clear to auscultation bilaterally. CARDIOVASCULAR: Regular rate and rhythm. ABDOMEN: Soft, non-tender +bs. No CVA tenderness SKIN: No visible rashes or lesions. Warm. NEUROLOGIC: No focal neurological deficits. CN II-XII grossly intact PSYCHIATRIC: Cooperative. Appropriate mood and affect [facility] Medical History Personal history of nicotine dependence Lump in neck Bilateral hip pain Osteopenia Barretts esophagus Anxiety Sleep apnea Dementia Chronic abdominal pain Mastodynia of left breast HTN (hypertension) Normocytic anemia Depression with anxiety SVT (supraventricular tachycardia) Atrial fibrillation Surgical History Hx of flexible sigmoidoscopy Status post insertion of nerve stimulator History of cholecystectomy (05/04/23) History of esophagogastroduodenoscopy (EGD) Hx of colonoscopy History of total hip replacement History of prior ablation treatment H/O heart surgery History of left knee replacement Family History Brother Lung cancer Brother Bladder cancer Substance abuse Alcoholism Heart attack Social History (Updated 08/27/25 @ 11:59 by Justice Mayo MA) Household Members: Spouse Housing: House Are you a primary gericare aide teacher to a significant other at home: No Do you presently have visiting nurse or other home services: No Alcohol intake: current Alcohol intake frequency: 0-2 drinks per day Alcohol type: beer Patient Tobacco Use Status: Former Tobacco user e-Cigarette/Vaping Use: Never Used Second Hand Smoke Exposure: No Use of substances other than those prescribed or required for medical reasons: No service: No Current occupational status: retired Current occupational exposures/hazards: No Cognitive needs: No Hearing needs: No Vision needs: Yes Female Reproductive History Menstrual Age of Menarche: 13 Questionnaire Thrive Questionnaire Date Thrive assessed: 11/20/24 I am a: Patient What is your living situation today?: I have a steady place to live Within the past 12 months, did the food you bought not last and you didn't have the money to get more?: Sometimes True Within the past 12 months, did you worry whether your food would run out before you got money to buy more?: Sometimes True Do you have trouble paying for medicines?: No Do you have trouble getting transportation to medical appointments?: No Do you have trouble paying your heating and electricity bill?: No Do you have trouble taking care of your child, family member or friend?: I choose not to answer this question Do you have trouble with day-to-day activities such as bathing, preparing meals, shopping, managing finances, etc.?: No Are you currently unemployed and looking for a job?: I choose not to answer this question Are you interested in more education?: No Currently or been in a relationship where the following occur: No concerns reported THRIVE Score: 2 AUDIT C Alcohol Use Questionnaire (AUDIT-C) 1. How often do you have a drink containing alcohol?: 2-3 times a week (twice a week) 2. How many drinks containing alcohol do you have on a typical day when you are drinking?: 1 or 2 3. How often do you have six or more drinks on one occasion?: Never Total Score: 3 Score Reviewed/Action Taken: Yes ADEN-7 AMB Questionnaire ADEN-7 Date ADEN - 7 assessed: 07/17/25 Source: Developed by Drs. Jean Rockwell, Jennifer Fritz, Scar Navarro and colleagues, with an educational edna from [employer]. Physical exam (Primary Care) Vital Signs: Last Vital Signs Temp 97.9 F 08/27/25 12:00 Pulse 67 08/27/25 12:00 Resp 16 08/27/25 12:00 BP 168/84 H 08/27/25 12:00 Pulse Ox 96 08/27/25 12:00 Oxygen Delivery Method Room Air 08/27/25 12:00 BMI result Body Mass Index 33.7 Tobacco/Smoking Status: Tobacco use Status Tobacco use date assessed 07/17/25 08/27/25 12:05 Patient Tobacco Use Status Former Tobacco user 08/27/25 12:05 e-Cigarette/Vaping Use Never Used 08/27/25 12:05 Thrive Assessment: Date of Thrive Assessment Date Thrive assessed 11/20/24 08/27/25 12:05 Currently or been in a relationship where the following occur: No concerns reported Results AMB Urinalysis Dipstick UR Leukocytes Negative Last Edit by Justice Mayo MA on 08/27/25 12:16 UR Nitrite Negative Last Edit by Justice Mayo MA on 08/27/25 12:16 UR Urobilinogen Normal Last Edit by Justice Mayo MA on 08/27/25 12:16 UR Protein Trace Last Edit by Justice Mayo MA on 08/27/25 12:16 UR Ph 6.0 Last Edit by Justice Mayo MA on 08/27/25 12:16 UR Blood Negative Last Edit by Justice Mayo MA on 08/27/25 12:16 UR Specific [place] 1.015 Last Edit by Justice Mayo MA on 08/27/25 12:16 UR Ketone Negative Last Edit by Justice Mayo MA on 08/27/25 12:16 UR Bilirubin Negative Last Edit by Justice Mayo MA on 08/27/25 12:16 UR Glucose Negative Last Edit by Justice Mayo MA on 08/27/25 12:16 Results Reviewed Results Reviewed: Laboratory Last Values Urine pH (Clinic) 6.0 08/27/25 12:12 Specific [place] (Clinic) 1.015 08/27/25 12:12 Ur Protein (Clinic) Trace 08/27/25 12:12 Ur Ketones (Clinic) Negative 08/27/25 12:12 Urine Blood (Clinic) Negative 08/27/25 12:12 Urine Nitrite Negative 08/27/25 12:12 Urine Bilirubin (Clinic) Negative 08/27/25 12:12 Urobilinogen (Clinic) Normal 08/27/25 12:12 Leukocyte Esterase (Clinic) Negative 08/27/25 12:12 Urine Glucose (Clinic) Negative 08/27/25 12:12 Coding Level of Care Code Est Pt Level 4 (94101) Diagnoses Dysuria R30.0 Assessment & Plan Assessment & Plan (1) Dysuria: Code(s): R30.0 - Dysuria Category: Medical Plan Dysuria with vaginal discomfort and discomfort. No discharge per patient UA is bland but will placed on antibiotics pending culture. She tells me she has had urosepsis in the past I will also give her fluconazole x 2 for what I suspect may be a yeast infection rather than an UTI Orders: Orders Urine Culture Today R30.0 - Dysuria AMB Urinalysis Dipstick Today N39.0 - Urinary tract infection, site not specified Medications: New fluconazole may repeat second dose 72 hrs after first dose if symptoms persist 150 mg PO Q3D 2 tabs 0RF 2 doses nitrofurantoin monohyd/m-cryst 100 mg must administer with a meal/food 100 mg PO Q12H 14 caps 0RF 7 days
[2025-08-27 12:00] VITALS: BP 168/84; PULSE 67; RESP 16; TEMP 36.6; O2SAT 96; BMI 33.7
== END 2025-08-27 15:03 | disposition home or self-care (01) ==
LOC: HO.HMCFM 11:48
PROVIDERS: PCP Family Medicine; Visit Provider Internal Medicine
DX: N39.0 Urinary tract infection, site not specified (principal); R30.0 Dysuria

== ENCOUNTER 2025-08-27 11:47 | Outpatient (REF) | payer MEDICARE, SELFPAY ==
--- OUTSIDE RECORDS SUMMARY | 2025-08-27 21:00 | XMS_ITS | Patient Health Record ---
Author Organization [facility] Address [address] [place] [address] Care Team Providers Care Family Services Specialist Name Role Phone Ollie Hernandez Primary Care Provider Unavailab Jean Baires Unavailable [phone] Martin Dupree Unavailable Unavailable Allergies Allergen (clinical drug ingredient) Drug/Non Drug Allergy documented on EMR Reaction Allergy Type Onset Date Status silver (uncoded) Unknown Allergy Act nasim Reason For Referral No Information Medications Medication SIG (Take, Route, Frequency, Duration) Notes Start Date End Date Status Sertraline HCl 100 MG 1 tablet Orally On ce a day; Duration: 30 day(s) Active traZODone HCl 100 MG 1 tablet at bedtime Orally Once a day; Duration: 30 day(s) Active Omeprazole 20 MG 1 capsule 30 minutes before morning meal Orally Once a day; Duration: 30 day(s) Active Eliquis 5 MG 1 tablet Orally Twic e a day; Duration: 30 day(s) Active Celecoxib 200 MG 1 capsule with food Orally Once a day; Duration: 30 day(s) Active Carvedilol 6.25 MG 1 tablet with food O rally Twice a day; Duration: 30 day(s) Active Cannabus Medical Marijuana CBD Active clonazePAM 0.5 MG 1 tablet at bedtime Orally Once a day Active Metoprolol Succinate ER 100 MG 1 tablet Orally Once a day Active Multivitamin - 1 tablet Orally Once a day; Duration: 30 day(s) Active Calcium 500 + D3 500-600 MG-UNIT 1 tablet with a meal Orally Once a day; Duration: 30 day(s) Active Immunizations Vaccine Route Administration [...] W/U Status Risk Notes Problem Esophageal reflux (909743207) Esophageal reflux (K21.9) Active confirmed Problem Amaro's esophagus (338094623) 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) Active confirmed Problem Iron deficiency anemia (99851141) Iron deficiency anemia (D50.9) Active confirmed Problem Gastritis (8295572) Gastritis (K29.70) Active confirmed Problem Gastroesophageal reflux disease (541221782) GERD (gastroesophageal reflux disease) (K21.9) Active confirmed Problem Diverticulosis of colon (870678558) Diverticulosis of colon (K57.30) Active confirmed Plan [...] Date MEDICARE OF [place] [address] [place] [address] [phone] [id number] TOMASZ FULLER Self - patient is the insured MEDEX ATTN CLAIMS [address] [place] [address] [id number] TOMASZ FULLER Self - patient is the insured Medical (General) History Medical History History ICD Code HTN Afib-[facility] [place] Denies [place],DM,CVA,Lung disease,renal dise ase GERD-never had an EGD [...]
--- OUTSIDE RECORDS SUMMARY | 2025-08-27 21:00 | XMS_ITS | Encounter Summary ---
Author Organization [facility] Address [address] [place] [address] Phone Care Team Providers Care Copy Supervisor Name Role Phone Ollie Hernandez MD Primary Care Provider Encounter Details Date Type Department Care Team (Late st Contact Info) Description 08/27/2025 Procedure Pass OR Admitting Dept - Virtual Department [address] [place] [address] Social History Tobacco Use Types Packs/Day Years [...] Care Team (Late st Contact Info) Description 10/19/2025 3:00 PM EST Office Visit [facility] [address] [place] [address] Jesús Rodriguez DO 170 [facility], [address] [place] [address] [email or web address] documented as of this encounter Visit Diagnoses Not on filedocumented in this encounter Care Teams Copy Supervisor Relationship Specialty Start Date End Date Ollie Hernandez MD [address] [place] [address] PCP - General Family Medicine 05/23/24 documented as of this encounter Additional Source Comments The information contained in this document represents components of the legal health record. It is not the complete legal health record.[facility]
--- OUTSIDE RECORDS SUMMARY | 2025-08-27 21:00 | XMS_ITS | Clinical Summary ---
Author Organization [facility] Address [address] [place] [address] Phone Care Team Providers Care Reed Repairer Name Role Phone Ollie Hernandez MD Primary [...] traZODone (DESYREL) 100 MG tablet 100 mg. Active nitrofurantoin (MACROBID) 100 MG capsule Take 100 mg by mouth 2 (two) times a day. Active oxyCODONE 5 MG immediate release tabletIndication s:Pain due to total left knee replacement, initial encounter,Chroni c hip pain after total replacement of left hip joint Take 1 tablet (5 mg total) by mouth every 4 (four) hours as needed for pain (specific location in comments) (Left leg pain). Partial fill ok 10 tablet Active gabapentin (NEURONTIN) 300 MG capsule Take 300 mg by mouth daily. Active cefuroxime (CEFTIN) 500 MG tablet Take 1 tablet by mouth 2 (two) times a day. 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 09/08 Encounters Date Type Department Care Team Description 08/27/2025 Procedure Pass OR Admitting Dept - Virtual Department [address] [place] [address] 06/05/2025 11:15 AM EDT Office Visit [facility] Orthopedics & Sports Medicine [address] [place] [address] Maximino Leonardo MD Pain due to total left knee replacement, subsequent encounter (Primary Dx); Chronic hip pain after total replacement of left hip joint; Hx of total knee replacement, left 06/05/2025 11:08 AM EDT - 06/05/2025 11:59 PM EDT Hospital Encounter [address] [address] Maximino Leonardo MD Discharge Disposition: Home or Self Care 06/05/2025 11:08 AM EDT - 06/05/2025 11:59 PM EDT Hospital Encounter [address] [address] Maximino Leonardo MD Discharge Disposition: Home or [...] PM EST Office Visit [facility] [address] [place] [address] [place] [address] Jesús Rodriguez DO 170 [facility], 2nd [place] [address] [email or web address] Health Maintenance Due Date Last Done Comments [...] date of service. us Maximino Leonardo MD [facility] XR PELVIS Final Result * XR KNEE [...] EDT) SODIUM 140 133 - 146 mmol/L [facility] CHLORIDE 105 96 - 108 mmol/L [facility] POTASSIUM 4.3 3.3 - 5.1 mmol/L [facility] CO2 24 21 - 35 mmol/L [facility] BUN 20(H) 6 - 19 mg/dL [facility] CREATININE 0.60 0.5 - 1.5 mg/dL [facility] GLUCOSE 93 70 - 99 mg/dL [facility] CALCIUM 9.8 8.4 - 10.3 mg/dL [facility] EGFR 97 >59 mL/min/1.7 3m2 [facility] Comment:Estimated glomerular filtration rate calculated using the CKD-EPI refit equation. ANION GAP 15 10 - 20 mmol/L [facility] Blood 02/07/2025 10:1 7 AM EDT 02/07/2025 10:24 AM EDT us Maximino Leonardo MD LAB BLOOD ORDERABLES Final R esult [facility] [address] [place] [address] from Last 3 Months or Most Recently Relevant to Health Maintenance Insurance MEDICARE PART A & B [employer] MEDEX SUPPLEMENT MEDICARE PART A & B [employer]OSS MEDEX SUPPLEMENT MEDICARE PART A & B [employer] MEDEX SUPPLEMENT MEDICARE PART A & B [employer] MEDEX SUPPLEMENT MEDICARE PART A & B [employer] MEDEX SUPPLEMENT MEDICARE PART A & B [facility] MEDEX SUPPLEMENT MEDICARE PART A & B [employer]EX SUPPLEMENT Care Teams Reed Repairer Relationship Specialty Start Date End Date Ollie Hernandez MD [address] [place] [address] PCP - General Family Medicine 05/23/24 Additional Source Comments The information contained in this document represents components of the legal health record. It is not the complete legal health record.[facility]
--- OUTSIDE RECORDS SUMMARY | 2025-08-27 21:00 | XMS_ITS | Encounter Summary ---
Author Organization [facility] Address [address] [place] [address] Phone Care Team Providers Care Chemist Helper Name Role Phone Ollie Hernandez MD Primary Care Provider Encounter Details Date Type Department Care Team (Late st Contact Info) Description 02/23/2025 Procedure Pass [facility] Cardiovascular And Interventional Radiology [address] [place] [address] Social History Tobacco Use Types Packs/Day Years [...] 10/19/2025 3:00 PM EST Office Visit [facility] [address] [place] [address] Jesús Rodriguez DO 170 [facility], 2nd [place] [address] [email or web address] documented as of this encounter Visit Diagnoses Not on filedocumented in this encounter Care Teams Chemist Helper Relationship Specialty Start Date End Date Ollie Hernandez MD [address] [place] [address] PCP - General Family Medicine 05/23/24 documented as of this encounter Additional Source Comments The information contained in this document represents components of the legal health record. It is not the complete legal health record.[facility]
--- OUTSIDE RECORDS SUMMARY | 2025-08-27 21:00 | XMS_ITS | Encounter Summary ---
Author Organization [facility] Address [address] [place] [address] Phone Care Team Providers Care Anchor Operator Name Role Phone Ollie Hernandez MD Primary Care Provider Encounter Details Date Type Department Care Team (Latest Contact Info) Description 09/19/2024 Ancillary Orders [facility] Orthopedics & Sports Medicine [address] [place] [address] Maximino Leonardo MD [address] [place] [address] Orthopedics & Sports Medicine, [place] [address] [email or web address] Trochanteric bursitis of left hip [...] Department Care Team ( Contact Info) Description 10/19/2025 3:[address] EST Office [facility] [address] [place] [address] Jesús Rodriguez DO 170 [facility], 2nd [place] [address] [email or web address] documented as of this encounter Results * XR KNEE 1-2 VIEWS (RIGHT) (09/19/2024 9:27 AM EST) Narrative SYSTEMGENERATED, DOCUMENTATION - 09/19/2024 9:27 AM EST This image report has been auto-finalized and has not been read by a Radiologist. Interpretation has been included in the provider encounter note for this date of service. us Maximino Leonardo MD IMG XR LOWER EXTREMITY [...] left documented in this encounter Care Teams Anchor Operator Relationship Specialty Start Date End Date Ollie Hernandez MD [address] [place] [address] PCP - General Family Medicine 05/23/24 documented as of this encounter Additional Source Comments The information contained in this document represents components of the legal health record. It is not the complete legal health record.[facility]
--- OUTSIDE RECORDS SUMMARY | 2025-08-27 21:00 | XMS_ITS | Encounter Summary ---
Author Organization [facility] Address [address] [facility] [address] [place] [address] Phone Care Team Providers Care Database Dba Name Role Phone Ollie Hernandez MD Primary Care Provider Encounter Details Date Type Department Care Team (Late st Contact Info) Description 09/19/2024 Procedure Pass [facility], [address] [address] Social History Tobacco Use Types Packs/Day Years [...] Description 10/19/2025 3:00 PM EST Office Visit [facility] [address] [place] [address] [place] [address] Jesús Rodriguez, DO 170 [facility], [address] [place] [address] [email or web address] documented as of this encounter Visit Diagnoses Not on filedocumented in this encounter Care Teams Database Dba Relationship Specialty Start Date End Date Ollie Hernandez MD [address] [place] [address] PCP - General Family Medicine 05/23/24 documented as of this encounter Additional Source Comments The information contained in this document represents components of the legal health record. It is not the complete legal health record.[facility]
== END 2025-08-27 11:48 | disposition home or self-care (01) ==
LOC: HO.LNP 11:47
PROVIDERS: PCP Family Medicine; Visit Provider Internal Medicine
DX: R30.0 Dysuria (principal)
CPT/HCPCS: 81002; 87086; 99212

== ENCOUNTER 2025-09-14 09:25 | Outpatient (AMB) | payer MEDICARE, SELFPAY ==
--- NOTE | 2025-09-14 09:32 | MHC.OFFVIS ---
Intake Visit Reasons: 1Y UA/PVR Follow Up Intake Note: Patient is Present for Follow Up Urology Medication: None Antibiotic Allergies: sulfa Blood Thinners:Eliquis PVR: 0ml Sat Tutor: Sat Tutor Present Accompanied by: Allergies silver sulfadiazine (From Silvadene) Adverse Reaction (Mild, Verified 09/14/25 09:35) skin irritation HPI Comments Details: Trish is a pleasant female. She is a patient of Dr. Hernandez. She is treated for the following conditions - urinary urgency - mixed incontinence - fecal incontinence Yearly follow-up InterStim review PVR 0 Did have some dysuria in August with negative culture Very happy with InterStim performance GreenLight Was given to urine specimen cups and a number of dipsticks in order to check urine at home Urinary urgency 12/01 - InterStim placement left S3 PFSH Medical History Personal history of nicotine dependence Lump in neck Bilateral hip pain Osteopenia Barretts esophagus Anxiety Sleep apnea Dementia Chronic abdominal pain Mastodynia of left breast HTN (hypertension) Normocytic anemia Depression with anxiety SVT (supraventricular tachycardia) Atrial fibrillation Surgical History Hx of flexible sigmoidoscopy Status post insertion of nerve stimulator History of cholecystectomy (05/04/23) History of esophagogastroduodenoscopy (EGD) Hx of colonoscopy History of total hip replacement History of prior ablation treatment H/O heart surgery History of left knee replacement Family History Brother Lung cancer Brother Bladder cancer Substance abuse Alcoholism Heart attack Social History Household Members: Spouse Housing: House Are you a primary disabilities caregiver to a significant other at home: No Do you presently have visiting nurse or other home services: No Alcohol intake: current Alcohol intake frequency: 0-2 drinks per day Alcohol type: beer Patient Tobacco Use Status: Former Tobacco user e-Cigarette/Vaping Use: Never Used Second Hand Smoke Exposure: No service: No Current occupational status: retired Current occupational exposures/hazards: No Cognitive needs: No Hearing needs: No Vision needs: Yes Female Reproductive History Menstrual Age of Menarche: 13 Review of Systems Const Denies chills and Denies fever(s) Card Reports no additional complaints and Denies syncope Resp Denies cough GI Denies abdominal pain and Denies heartburn Reports as per HPI and Denies change in libido Neuro Denies syncope Psych Denies change in libido Endo Denies change in libido Physical Exam Const General: cooperative, healthy appearing, comfortable and no acute distress Orientation/consciousness: patient oriented x3 HEENT Face and sinus: Yes normal facial exam Mouth: moist mucous membranes Neck Neck: Yes normal visual inspection, Yes full ROM and Yes trachea midline Chest Chest palpation & inspection: normal inspection of the chest Resp Effort & Inspection: normal respiratory effort, able to speak in complete sentences and no respiratory distress GI Inspection: Yes normal to inspection Back/Spine/Pelvis Cervical Spine: normal cervical lordosis Thoracic/Lumbar Spine: thoracic and lumbar spine normal to inspection Skin General skin exam: no rashes or lesions noted Neuro General: patient oriented x3, gait normal, tone normal and moves all extremities Extrem General: Yes normal to inspection and Yes capillary refill normal Office Procedures Post Void Residual Post Residual Void Post Void Residual (PVR): 0 24968-Xmqe Void Residual by ultrasound Assessment & Plan Assessment & Plan (1) Bacteriuria: Code(s): R82.71 - Bacteriuria Category: Medical (2) Urinary incontinence: Code(s): R32 - Unspecified urinary incontinence Category: Medical (3) Overactive bladder: Code(s): N32.81 - Overactive bladder Category: Medical Plan Twelve month follow-up Orders: Orders AMB Post Void Residual by ultrasound Today N39.0 - Urinary tract infection, site not specified Patient Instructions: This note is constructed using voice recognition software. While every effort has been made to ensure accuracy head start coordinator errors may have been included. Imaging studies, laboratory and physical exam results were discussed and reviewed in detail. No major barriers to patient understanding were identified. An opportunity to ask questions regarding the treatment plan was provided. All questions were answered. The patient expressed understanding and agreement with the above treatment plan. The patient is aware they should contact our office by phone for worsening of their current condition or the appearance of new urologic symptoms. Compliance is encouraged with any medications and followup testing that is ordered. It is a privilege to participate in the urologic care of your patient. If you have any questions or concerns regarding treatment for the above conditions, or other urologic issues, please do not hesitate to contact me. The office telephone contact is [phone]. Sincerely, Dr Maurice Braswell MD, [facility] - Urology Compassionate Specialist Care for the Genitourinary System Coding Level of Care Code Est Pt Level 3 (50740) Complex EM visit Add On G2211 Diagnoses Bacteriuria R82.71 Urinary incontinence R32 Overactive bladder N32.81 CPT Codes Post Residual Void - PVR CPT Code: 04705-Vfii Void Residual by ultrasound ([id number])
--- OUTSIDE RECORDS SUMMARY | 2025-09-14 10:38 | XMS_ITS | Encounter Summary ---
Author Organization [facility] Address [address] [place] [address] Phone Care Team Providers Care Vehicle Delivery Worker Name Role Phone Ollie Hernandez MD Primary Care Provider Encounter Details Date Type Department Care Team (Late st Contact Info) Description 02/23/2025 Procedure Pass [facility] Cardiovascular And Interventional Radiology [address] [place] [address] Social History Tobacco Use Types Packs/Day Years [...] 10/19/2025 3:[address] EST Office [address] [facility] [address] [place] [address] Jesús Rodriguez DO 170 [facility], 2nd [place] [address] [email or web address] documented as of this encounter Visit Diagnoses Not on filedocumented in this encounter Care Teams Vehicle Delivery Worker Relationship Specialty Start Date End Date Ollie Hernandez MD PCP - General Family Medicine 05/23/24 documented as of this encounter Additional Source Comments The information contained in this document represents components of the legal health record. It is not the complete legal health record.[facility]
--- OUTSIDE RECORDS SUMMARY | 2025-09-14 10:39 | XMS_ITS | Clinical Summary ---
Author Organization [facility] Address [address] [place] [address] Phone Care Team Providers Care Auto Locator Name Role Phone Ollie Hernandez MD Primary [...] Pass OR Admitting Dept - Virtual Department [address] [place] [address] from Last 3 Months Social History Tobacco [...] ecorded Are you denied basic needs s [facility] as food, clothing, or medical care? 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 from Last 3 Months or Most Recently Relevant to Health Maintenance Results * (ABNORMAL) Basic metabolic panel (02/07/2025 10:17 AM EDT) SODIUM 140 133 - 146 mmol/L [facility] CHLORIDE 105 96 - 108 mmol/L [facility] POTASSIUM 4.3 3.3 - 5.1 mmol/L [facility] CO2 24 21 - 35 mmol/L [facility] BUN 20(H) 6 - 19 mg/dL [facility] CREATININE 0.60 0.5 - 1.5 mg/dL [facility] GLUCOSE 93 70 - 99 mg/dL [facility] CALCIUM 9.8 8.4 - 10.3 mg/dL [facility] EGFR 97 >59 mL/min/1.7 3m2 [facility] Comment:Estimated glomerular filtration rate calculated using the CKD-EPI refit equation. ANION GAP 15 10 - 20 mmol/L [facility] Blood 02/07/2025 10:1 7 AM EDT 02/07/2025 10:24 AM EDT us Maximino Leonardo MD LAB BLOOD BKR ORDERABLES Fin al Result [address] [address] from Last 3 Months or Most Recently Relevant to Health Maintenance Insurance MEDICARE PART A & B [employer] MEDEX SUPPLEMENT MEDICARE PART A & B [employer] SUPPLEMENT MEDICARE PART A & B [employer] MED[employer] SUPPLEMENT MEDICARE PART A & B [employer] MEDEX SUPPLEMENT MEDICARE PART A & B [employer] MEDEX SUPPLEMENT MEDICARE PART A & B [employer] SUPPLEMENT MEDICARE PART A & B [employer] SUPPLEMENT Member Subscriber Plan / Payer (Ef fective 2021-Present) Name:Trish Rose Relation to Subscriber:Self Name:Trish Rose Payer ID:[id number] (NAIC) Type:Indemnity Address: [facility] [id number] [place] [id number] Care Teams Auto Locator Relationship Specialty Start Date End Date Ollie Hernandez MD PCP - General Family Medicine 05/23/24 Additional Source Comments The information contained in this document represents components of the legal health record. It is not the complete legal health record.[facility]
--- OUTSIDE RECORDS SUMMARY | 2025-09-14 10:39 | XMS_ITS | Encounter Summary ---
Author Organization [facility] Address [address] [place] [address] Phone Care Team Providers Care Manager Dental Name Role Phone Ollie Hernandez MD Primary Care Provider Encounter Details Date Type Department Care Team (Late st Contact Info) Description 08/27/2025 Procedure Pass OR Admitting Dept - Virtual Department [address] [place] [address] Social History Tobacco Use Types Packs/Day Years [...] EST Office Visit [facility] [address] [place] [address] Jesús Rodriguez DO 170 [facility], [address] [place] [address] [email or web address] documented as of this encounter Visit Diagnoses Not on filedocumented in this encounter Care Teams Manager Dental Relationship Specialty Start Date End Date Ollie Hernandez MD PCP - General Family Medicine 05/23/24 documented as of this encounter Additional Source Comments The information contained in this document represents components of the legal health record. It is not the complete legal health record.[facility]
--- OUTSIDE RECORDS SUMMARY | 2025-09-14 10:39 | XMS_ITS | Patient Health Record ---
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) Active confirmed Problem Iron deficiency anemia (85128278) Iron deficiency anemia (D50.9) Active confirmed Problem Gastritis (1488255) Gastritis (K29.70) Active confirmed Problem Gastroesophageal reflux disease (997030020) GERD (gastroesophageal reflux disease) (K21.9) Active confirmed Problem Diverticulosis of colon (616455624) Diverticulosis of colon (K57.30) Active confirmed Plan [...] [place] [address] [place] [address] [id number] TOMASZ FULLER Self - patient is the insured [employer] ATT[employer] CLAIMS [address] [place] [address] [phone] [id number] TOMASZ FULLER Self - patient is the insured Medical (General) History Medical History History ICD Code HTN Afib-[facility] [place] Denies RI,DM,CVA,Lung disease,renal dise ase GERD-never had [...]
--- OUTSIDE RECORDS SUMMARY | 2025-09-14 10:39 | XMS_ITS | Encounter Summary ---
Author Organization [facility] Address [address] [place] [address] Phone Care Team Providers Care Water Taxi Ferry Operator Name Role Phone Ollie Hernandez MD Primary Care Provider Encounter Details Date Type Department Care Team (Latest Contact Info) Description 09/19/2024 Ancillary Orders [facility] Orthopedics & Sports Medicine [address] [place] [address] Maximino Leonardo MD [address] [place] [address] Orthopedics & Sports Medicine, [facility] [place] [address] [email or web address] Trochanteric bursitis of left hip [...] EST Office Visit [facility] [address] [place], [place] [address] Jesús Rodriguez DO 170 [facility], 2nd [place] [address] [email or web address] documented as of this encounter Results * [...] left documented in this encounter Care Teams Water Taxi Ferry Operator Relationship Specialty Start Date End Date Ollie Hernandez MD PCP - General Family Medicine 05/23/24 documented as of this encounter Additional Source Comments The information contained in this document represents components of the legal health record. It is not the complete legal health record.[facility]
--- OUTSIDE RECORDS SUMMARY | 2025-09-14 10:39 | XMS_ITS | Encounter Summary ---
Author Organization [facility] Address [address] [facility] [address] [place] [address] Phone Care Team Providers Care Lending Consultant Name Role Phone Ollie Hernandez MD Primary Care Provider Encounter Details Date Type Department Care Team (Late st Contact Info) Description 09/19/2024 Procedure Pass [facility], [address] [address] Social History Tobacco Use Types Packs/Day Years [...] Description 10/19/2025 3:00 PM EST Office Visit [facility] [address] [place] [address] [place] [address] Jesús Rodriguez, DO 170 [facility], 2nd [place] [address] [email or web address] documented as of this encounter Visit Diagnoses Not on filedocumented in this encounter Care Teams Lending Consultant Relationship Specialty Start Date End Date Ollie Hernandez MD PCP - General Family Medicine 05/23/24 documented as of this encounter Additional Source Comments The information contained in this document represents components of the legal health record. It is not the complete legal health record.[facility]
== END 2025-09-14 09:55 | disposition home or self-care (01) ==
LOC: HO.HUSH 09:26
PROVIDERS: PCP Family Medicine; Visit Provider Urology
DX: R82.71 Bacteriuria (principal); N32.81 Overactive bladder; N39.41 Urge incontinence
CPT/HCPCS: 99213

== ENCOUNTER → 2025-09-14 09:25 | Outpatient (BNVA) | payer MEDICARE, SELFPAY | PROVIDERS: PCP Family Medicine; Visit Provider Urology | DX: N32.81 Overactive bladder (principal); R32 Unspecified urinary incontinence; R82.71 Bacteriuria | CPT/HCPCS: 51798; 99212 ==

== ENCOUNTER 2025-09-24 11:36 | Outpatient (REF) | payer MEDICARE, SELFPAY ==
[2025-09-24 12:08] LABS: Appearance Urine Clear; Glucose Urine UA Negative (Negative); PH 5.5 (5.0-9.0); Specific Gravity - Urine 1.020 (1.005-1.025); UMIC TRIGGER UA YES
[2025-09-24 12:09] LABS: Cannabinoid Screen Urine Not Detected (Not Detect)
[2025-09-28 08:15] LABS: Desmethyltramadol, Ur NEGATIVE; Tramadol, Ur NEGATIVE
== END 2025-09-24 11:37 | disposition home or self-care (01) ==
LOC: HO.LNP 11:36
PROVIDERS: Family Medicine; Visit Provider Urology
DX: Z51.81 Encounter for therapeutic drug level monitoring (principal); G89.29 Other chronic pain; N39.0 Urinary tract infection, site not specified
CPT/HCPCS: 80307; 80373; 81001; 87086; 87088; 87186